=== PATIENT | female | born 2000 | race Caucasian/White ===

== ENCOUNTER 2022-12-23 11:13 | Emergency (ER) | payer OTHER ==
[2022-12-23 11:57] LABS: Absolute Lymphocytes (CBC) 1.5 K/uL (0.7-4.9); Hematocrit 34.3 % (36.0-45.0); Lymphocytes % 20.4 % (15.3-44.8); MCV 83.7 fL (80-100); MPV 7.1 fL (7.6-11.3)
[2022-12-23 12:04] LABS: Specific Gravity 1.022 (1.005-1.030); Transitional Epithelial <5 /HPF (None Seen); Urine Bacteria 20-50 /HPF (<20); Urine Bilirubin NEGATIVE (Negative); Urine Blood Negative (Negative); Urine Clarity Extremely Turbid (Clear); Urine Color Light-Yellow (Yellow); Urine Glucose NEGATIVE (Negative); Urine Protein 1+ (Negative); Urine Urobilinogen Normal (Normal)
[2022-12-23 12:30] LABS: Albumin 3.6 g/dL (3.4-5.0); Bilirubin Total 0.3 mg/dL (0.2-1.0); Potassium 3.6 mEq/L (3.5-5.1); Protein, Total 6.8 g/dL (6.4-8.2)
--- NOTE | 2022-12-23 12:43 | RAD REPORT ---
EXAM DESCRIPTION: US - Transvaginal OB - 12/23/2022 12:22 pm CLINICAL HISTORY: ABD CRAMPING, COMPARISON: No comparisons TECHNIQUE: Sonographic grayscale and color flow images of a first-trimester were obtained through transvaginal approach. FINDINGS: A single live intrauterine is identified. [place]-rump length measures 12.4 millimeters, corresponding to gestational age of 7 weeks, 3 days. Fet al heart rate: 175 BPM. Normal yolk sac is visualized. Maternal ovaries are visualized and are unremarkable. No free fluid. IMPRESSION: 1. Single live intrauterine . 2. Calculated gestational age: 7 weeks, 3 days. Estimated due date by ultrasound: 08/07/2023.
--- NOTE | 2022-12-23 12:59 | ER ---
Nurse's Notes [facility] Name: Harper Smith Age: 22 yrs Sex: Female : 2000 Arrival Date: 12/23/2022 Time: 11:13 Bed 20 Private MD: Diagnosis: Unspecified infection of urinary tract in , first trimester Presentation: 12/23 11:42 Chief complaint: Patient states: LLQ PAIN x2 WK, SENT FROM [facility] FOR R/O bp ECTOPIC. Coronavirus screen: At this time, the client does not indicate any symptoms associated with coronavirus-19. Ebola Screen: No symptoms or risks identified at this time. Initial Sepsis Screen: Does the patient meet any 2 criteria? No. Patient's initial sepsis screen is negative. Does the patient have a suspected source of infection? No. Patient's initial sepsis screen is negative. Risk Assessment: Do you want to hurt yourself or someone else? Patient reports no desire to harm self or others. Onset of symptoms is unknown. 11:42 Method Of Arrival: Ambulatory bp 11:42 Acuity: BASIL 3 bp Triage Assessment: 11:44 General: Appears in no apparent distress. Behavior is calm, cooperative, appropriate bp for age. Pain: Complains of pain in left lower quadrant. EENT: No deficits noted. Neuro: No deficits noted. Cardiovascular: No deficits noted. Respiratory: No deficits noted. GI: Reports lower abdominal pain. : Denies vaginal bleeding. Derm: No deficits noted. Musculoskeletal: No deficits noted. 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 - Social history:: Smoking status: Patient denies any tobacco usage or history of. - Family history:: not pertinent. Screenin:45 [facility] ED Fall Risk Assessment (Adult) History of falling in the last 3 months, bp including since admission No falls in past 3 months (0 pts). Abuse screen: Denies threats or abuse. Denies injuries from another. Nutritional screening: No deficits noted. Tuberculosis screening: No symptoms or risk factors identified. Assessment: 11:45 General: SEE TRIAGE NOTE. bp 13:09 Reassessment: Patient appears in no apparent distress at this time. Patient and/or iw family updated on plan of care and expected duration. Pain level reassessed. Patient is alert, oriented x 3, equal unlabored respirations, skin warm/dry/pink. Patient states feeling better. Patient states symptoms have improved. 13:11 GI: Bowel sounds. iw Vital Signs: 11:42 BP 115 / 73; Pulse 87; Resp 16; Temp 98; Pulse Ox 100% ; Weight 56.7 kg; Height 5 ft. 2 bp in. ; 13:09 BP 115 / 73; Pulse 87; Resp 16; Pulse Ox 98% on R/A; iw 11:42 Body Mass Index 22.86 (56.70 kg, 157.48 cm) bp ED Course: 11:16 Patient arrived in ED. mr 11:20 Miko Camarillo MD is Attending Physician. rt 11:44 Triage completed. bp 11:44 Arm band placed on. bp 11:45 Mecca Calderon RN is Primary Nurse. os 11:45 Patient has correct armband on for positive identification. Bed in low position. Call bp light in reach. Side rails up X2. Adult w/ patient. 11:45 Inserted saline lock: 20 gauge in right antecubital area, using aseptic technique. bp Blood collected. 12:24 US Transvaginal Ob In Process Unspecified. EDMS 13:11 No provider procedures requiring assistance completed. IV discontinued, intact, iw bleeding controlled, No redness/swelling at site. Pressure dressing applied. Administered Medications: No medications were administered Medication: 11:45 VIS not applicable for this client. bp Outcome: 12:58 Discharge ordered by . rt 13:11 Discharged to home ambulatory, with family. iw 13:11 Condition: good 13:11 Discharge instructions given to patient, family, Instructed on discharge instructions, follow up and referral plans. medication usage, Demonstrated understanding of instructions, follow-up care, medications, Prescriptions given X 1. 13:11 Patient left the ED. iw Signatures: Dispatcher MedHo Silva Crespo Kourtney Freeman, RN RN iw Benjamin Altamirano RN RN bp Miko Camarillo MD MD rt Mecca Calderon RN RN os
--- NOTE | 2022-12-23 12:59 | EDPHYS ---
Physician Documentation [facility] Name: Harper Smith Age: 22 yrs Sex: Female : 2000 Arrival Date: 12/23/2022 Time: 11:13 Bed 20 Private MD: ED Physician Miko Camarillo HPI: 12/23 12:01 This 22 yrs old Female presents to ER via Ambulatory with complaints of , rt Abdominal Cramping. 12:01 Patient is a who is currently but does not know how far along she is. rt Patient states that she had a miscarriage at the end of October, had a brief amount of vaginal spotting in November not consistent with a usual.. Patient about 1 week later had a positive test and has not seen a doctor for that. Patient states that over the past day, she has experienced left-sided abdominal pain that she describes as a contraction. She denies any ongoing vaginal bleeding, dysuria. She denies other acute complaints at this time. Symptoms are moderate severity, no other aggravating alleviating factors.. 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 - Social history:: Smoking status: Patient denies any tobacco usage or history of. - Family history:: not pertinent. ROS: 12:01 Constitutional: Negative for fever, chills, and weight loss, Cardiovascular: Negative rt for chest pain, palpitations, and edema, Respiratory: Negative for shortness of breath, cough, wheezing, and pleuritic chest pain, MS/Extremity: Negative for injury and deformity, Skin: Negative for injury, rash, and discoloration, Neuro: Negative for headache, weakness, numbness, tingling, and seizure, Psych: Negative for depression, anxiety, suicide ideation, homicidal ideation, and hallucinations. 12:01 Abdomen/GI: Positive for abdominal pain, nausea. 12:01 : Positive for Negative for burning with urination, vaginal bleeding. Exam: 12:02 Constitutional: This is a well developed, well nourished patient who is awake, alert, rt and in no acute distress. Chest/axilla: Normal chest wall appearance and motion. Nontender with no deformity. No lesions are appreciated. Cardiovascular: Regular rate and rhythm with a normal S1 and S2. No gallops, murmurs, or rubs. Normal PMI, no JVD. No pulse deficits. Respiratory: Lungs have equal breath sounds bilaterally, clear to auscultation and percussion. No rales, rhonchi or wheezes noted. No increased work of breathing, no retractions or nasal flaring. Abdomen/GI: Soft, non-tender, with normal bowel sounds. No distension or tympany. No guarding or rebound. No evidence of tenderness throughout. Skin: Warm, dry with normal turgor. Normal color with no rashes, no lesions, and no evidence of cellulitis. MS/ Extremity: Pulses equal, no cyanosis. Neurovascular intact. Full, normal range of motion. Neuro: Awake and alert, GCS 15, oriented to person, place, time, and situation. Cranial nerves II-XII grossly intact. Motor strength 5/5 in all extremities. Sensory grossly intact. Cerebellar exam normal. Normal gait. Psych: Awake, alert, with orientation to person, place and time. Behavior, mood, and affect are within normal limits. 12:03 Back: No spinal tenderness. No costovertebral tenderness. Full range of motion. rt Vital Signs: 11:42 BP 115 / 73; Pulse 87; Resp 16; Temp 98; Pulse Ox 100% ; Weight 56.7 kg; Height 5 ft. 2 bp in. ; 13:09 BP 115 / 73; Pulse 87; Resp 16; Pulse Ox 98% on R/A; iw 11:42 Body Mass Index 22.86 (56.70 kg, 157.48 cm) bp MDM: 11:21 Patient medically screened. rt 13:04 Differential diagnosis: ectopic , uti. Data reviewed: vital signs, nurses rt notes, lab test result(s), radiologic studies. Test considered but Not performed: CT: Benign abdominal examination, low suspicion for surgical pathology such as appendicitis, CT scan not indicated. Counseling: I had a detailed discussion with the patient and/or guardian regarding: the historical points, exam findings, and any diagnostic results supporting the discharge/admit diagnosis, lab results, radiology results, the need for outpatient follow up. ED course: Patient clinically does not have pyelonephritis, no CVA tenderness, labs benign.. 12/23 11:34 Order name: Abo/rh Typing; Complete Time: 12:45 rt 12/23 11:34 Order name: CBC with Diff; Complete Time: 12:45 rt 12/23 11:34 Order name: Quantitative Hcg; Complete Time: 12:45 rt 12/23 11:34 Order name: Urinalysis w/ reflexes; Complete Time: 12:45 rt 12/23 11:34 Order name: CMP; Complete Time: 12:45 rt 12/23 12:07 Order name: Urine Culture EDMS 12/23 11:34 Order name: US Transvaginal Ob; Complete Time: 12:45 rt 12/23 11:34 Order name: IV Saline Lock; Complete Time: 11:46 rt 12/23 11:34 Order name: Labs collected and sent; Complete Time: 11:46 rt 12/23 11:34 Order name: NPO; Complete Time: 11:46 rt Administered Medications: No medications were administered Disposition Summary: 12/23/22 12:58 Discharge Ordered Location: Home rt Problem: new rt Symptoms: have improved rt Condition: Stable rt Diagnosis - Unspecified infection of urinary tract in , first trimester rt Followup: rt - With: Private Physician - When: 2 - 3 days - Reason: Discharge Instructions: - Discharge Summary Sheet rt - and Urinary Tract Infection rt Forms: - Medication Reconciliation Form rt - Thank You Letter rt - Antibiotic Education rt - Prescription Opioid Use rt - The [employer] [email or web address] rt Prescriptions: - cefpodoxime 100 mg Oral Tablet - take 1 tablet by ORAL route every 12 hours for 7 days take with food; 14 rt tablet; Refills: 0, Product Selection Permitted Signatures: Dispatcher MedHoMountain View Regional Medical CenterBenjamin Silva, RN RN Miko Garcia MD MD rt
[2022-12-23 13:19] VITALS: BP 115/73; TEMP 98
[2022-12-23 13:20] VITALS: O2SAT 98
== END 2022-12-23 13:11 | disposition home or self-care (01) ==
LOC: ER 11:13
DX: O23.41 Unspecified infection of urinary tract in pregnancy, first trimester (principal); Z3A.01 Less than 8 weeks gestation of pregnancy
CPT/HCPCS: 36415; 76817; 80053; 81001; 84702; 85025; 86900; 86901; 87086; 87088; 99284

== ENCOUNTER 2023-01-18 09:30 | Emergency (ER) | payer OTHER ==
--- OUTSIDE RECORDS SUMMARY | 2023-01-18 09:33 | XMS REPORT | Continuity of Care Document ---
:2000 Author Organization [facility] t Address [address] [place] [address] [place] [id number] Care Team Providers Name Role Phone Pcp, Patient Does Not Have A Primary Care Physician +[id number] GENNY AYTES Attending Clinician Unavailable Dianna Soto RN Attending Clinician Unavailable UNKNOWN, ATTENDING Attending Clinician Unavailable Payers Payer Name Policy Type Policy Number Effective Date Expiration Date S ource Problems This patient has no known problems. Allergies, Adverse Reactions, Alerts Allergy Allergy Status Severity Reaction(s) Onset Inactive Treating Comm ents Source Name Type Date Date Clinician NO KNOWN Drug Active Univers ALLERGIE Class ity of S [facility] Social History Social Habit Start Date Stop Date Quantity Comments Source Gender identity [facility] Sex Assigned At [birth year] [facility] [place] 00:00:00 00:00:00 [facility] Smoking Status Start Date Stop Date Source Tobacco smoking consumption Univ [facility] Branch Medications Ordered Filled Start Stop Current Ordering Indication Dosage Frequency Signature Comments Components Source Medication Medication Date Date Medication? Clinician (SIG) Name Name ELOCON 0.1 Yes apply to Uni vers % TOPICAL -08 affected ity of OINT 00:00: regions 2 [place] 00 times/day Medical for 5-7 Branch days Immunizations Ordered Immunization Filled Immunization Date Status Commen ts Source Name Name Varicella 2007-12-29 Completed [facility] (varivax)(chicken 00:00:00 [facility] edical pox) Branch HEPATITIS A 2005-09-18 Completed University of 00:00:00 [facility] DTAP 2005-06-10 Completed University of 00:00:00 [facility] Pneumococcal 7 2005-06-10 Completed University of Conjugate, PCV7 00:00:00 [place] [facility] ical (Prevnar7) Branch Polio (IPV/OPV) 2005-06-10 Completed Universit y of 00:00:00 [facility] Meningococcal 2005-06-10 Completed University of Polysaccharide 00:00:00 [place] Medi noemí (groups A, C, Y and Branc h W-135) conjugate vaccine (MCV4P) HEPATITIS A 2005-02-04 Completed University of 00:00:00 [facility] DTAP 2002-10-18 Completed University of 00:00:00 [facility] Varicella 2002-10-18 Completed University of (varivax)(chicken 00:00:00 [facility] edical pox) Branch HIB 4 Dose Schedule 2002-06-11 Completed Unive rsity of 00:00:00 [facility] Polio (IPV/OPV) 2002-06-11 Completed Universit y of 00:00:00 [facility] Meningococcal 2002-06-11 Completed University of Polysaccharide 00:00:00 [place] Medi noemí (groups A, C, Y and Branc h W-135) conjugate vaccine (MCV4P) DTAP 2002-01-06 Completed University of 00:00:00 [facility] Hep B, Adol or Pedi 2002-01-06 Completed Unive rsity of Dosage 00:00:00 [facility] HIB 4 Dose Schedule 2002-01-06 Completed Unive rsity of 00:00:00 [facility] DTAP 2000 Completed University of 00:00:00 [facility] HIB 4 Dose Schedule 2001 Completed Unive rsity of 00:00:00 [facility] Pneumococcal 7 2001 Completed University of Conjugate, PCV7 00:00:00 [place] [facility] ical (Prevnar7) Branch Polio (IPV/OPV) 2001 Completed Universit y of 00:00:00 [facility] HIB 4 Dose Schedule 2001 Completed Unive rsity of 00:00:00 [facility] DTAP 2001 Completed University of 00:00:00 [facility] Hep B, Adol or Pedi 2000 Completed Unive rsity of Dosage 00:00:00 [facility] Pneumococcal 7 2001 Completed University of Conjugate, PCV7 00:00:00 [facility] ical (Prevnar7) Branch Polio (IPV/OPV) 2000 Completed Universit y of 00:00:00 [facility] Hep B, Adol or Pedi 2000 Completed Unive rsity of Dosage 00:00:00 [facility] Procedures This patient has no known procedures. Encounters Start End Encounter Admission Attending Care Care Encounter Source Date/Time Date/Time Type Type Clinicians Facility Department ID 2023-01-17 2023-01-17 Nurse JENNY Soto [id number] Univers 00:00:00 00:00:00 Triage Dianna JACOB [id number] it [facility] [id number] Esvin as [id number] [place] [id number] Branch 2021-08-01 2021-08-01 Outpatient R UNKNOWN, [facility] [id number] Univers 09:45:00 09:45:00 ATTENDING ity of [facility] Results This patient has no known results. Notes Date/Time Note Provider Source 2023-01-17 19:08:00-00:00 Formatting of this note migh t be different from the original. [facility] Triage Assessment Last Clinic Visit: 08/25/09, pedi, acute pharyngit is Primary Symptom: tachycardia Onset / Duration: today Location / Description: cardiac Pain / Severity: 4-10/30 Associated Symptoms: "breathing hard", abdominal pain Fever / Method: "I am burning up", doesn't have thermometer Hydration: eating and drinki ng less today, 8oz of fluid, last void a few min ago, denies dysuria or hematuria, has pressure with urination, reports n/v, denies diarrhea Treatment so far: denies Effect on ADL's: some Gestational Weeks: 12 wks per pt Rupture Membranes: denies Bleeding / Spotting / Pads per hour: denies Movement: NA Para / : EDC: NA Pre-existing condition / Immunocompromised: GERD Harpersheryl Smith is a 22 ye ar old female whose calling for advice with tachycardia. Pt reports has been having s/s throughout the day today. Pt reports "I feel like I am having issues with breathing". Pt reports "my heart rate ke eps speeding up". Pt reports "breathing hard". Pt reports has not eaten much today "and I feel like that makes it worse". Pt reports also has pain in lower abdomen. Pt report s went to ER for pain and co nfirmed uterine . Pt reports having white colored dc more than normal. Pt reports has pressure in abdomen with urination. Pt denies any vaginal bleeding. Assessment and triage completed per pro tocol. Patient verbalizes understanding and agrees to follow plan of care. Pt reports will go to [facility] ER. Pt reports will have to call her boyfriend home from work to ta ke her. Pt verbalized unders tanding that she needs to go now and if no one else is available to take her then she should call a ride share or EMS to transport her to the ER. Pt had no further questions or concerns. Call back advice given and pt verba lized understanding. Dianna Soto RN Reason for Disposition Difficulty breathing Protocols used: Heart Rate and Heartbeat [id number] Electronically signed by Dianna Soto RN at 0 01/17/2023 7:25 PM CDT 2023-01-17 19:08:00-00:00 Formatting of this note migh t be different from the original. [facility] Regardin weeks :5 days to 1 week feels heart rate beats fast.happened again about 5 to 10 min ago. ----- Message from Betzaida Acosta sent at 7:07 PM CDT ----- Harper Smith is a 22 year old female Electronically signed by Dianna Soto RN at 0 01/17/2023 7:08 PM CDT
[2023-01-18 10:44] LABS: Absolute Lymphocytes (CBC) 1.4 K/uL (0.7-4.9); MPV 7.3 fL (7.6-11.3); RBC Red Blood Cell Count 3.68 M/uL (3.86-4.86)
[2023-01-18 10:51] LABS: SARS-CoV-2 Antigen Rapid Res Negative (Negative)
--- NOTE | 2023-01-18 10:55 | RAD REPORT ---
EXAM DESCRIPTION: RAD - Chest Single View - 01/18/2023 10:32 am CLINICAL HISTORY: SOB Chest pain. COMPARISON: Abdomen Pelvis Wo Contrast dated 05/15/2022; Chest Abdomen Pelvis W Cont dated 3No comparisons FINDINGS: Portable technique limits examination quality. The lungs are grossly clear. The heart is normal in size. No displaced fractures. IMPRESSION: No acute intrathoracic process suspected.
[2023-01-18 11:00] LABS: BUN Blood Urea Nitrogen 9 mg/dL (7-18); Bicarbonate 26 mEq/L (21-32); Glomerular Filtration Rate 133 ml/min (=/>90); Glucose Level 94 mg/dL (74-106); Potassium 3.9 mEq/L (3.5-5.1); Sodium Level 135 mEq/L (136-145)
[2023-01-18 11:02] LABS: Troponin High Sensitivity < 3.0 pg/mL (<58.9)
--- NOTE | 2023-01-18 11:59 | RAD REPORT ---
EXAM DESCRIPTION: US - 1St Trimest Single 1St Fetus - 01/18/2023 11:47 am CLINICAL HISTORY: vaginal discharge COMPARISON: No comparisons FINDINGS: A single gestational sac is seen within the uterus. The shape of the sac is within normal limits for gestational age. Within the sac is a single pole with crown-rump length of 5.6 cm, c orrelating to estimated gestational age of 12 weeks 0 days gestational age. Estimated date of deliver y is 08/02/2023. Heart rate is 166 BPM. Placenta appears to be developing posteriorly. Small inferior subchorionic bleed 6 mm. The maternal adnexa are within normal limits. Both ovaries were obscured by bowel gas. IMPRESSION: Single live early intrauterine gestation with estimated gestational age of 12 weeks 0 da ys, OSMANI 08/02/2023. 6 mm small inferior subchorionic bleed.
--- NOTE | 2023-01-18 12:05 | EDPHYS ---
Physician Documentation [facility] Name: Harper Smith Age: 22 yrs Sex: Female : 2000 Arrival Date: 01/18/2023 Time: 09:30 Bed 13 Private MD: ED Physician Cheikh Vaughn HPI: 01/18 10:08 This 22 yrs old Female presents to ER via Ambulatory with complaints of Shortness Of aj3 Breath. 10:08 Patient is approximately 12 weeks , [id number], reporting shortness of breath for aj3 the last 5 days. She says that shortness of breath is worse with activity and while trying to talk. She had some chest pain yesterday, to the left side but has resolved now. She also noticed that she is having some change in her vaginal discharge and that is now watery. No vaginal bleeding or abdominal pain.. 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 - Social history:: Smoking status: Patient denies any tobacco usage or history of. ROS: 10:10 ENT: Negative for nasal discharge, congestion, sore throat and injury Neck: Negative aj3 for injury, pain, and swelling. 10:10 Abdomen/GI: Negative for abdominal pain, nausea, vomiting, diarrhea, and constipation, MS/Extremity: Negative for injury and deformity, Skin: Negative for injury, rash, and discoloration. 10:10 Constitutional: Positive for fever, Negative for body aches, chills. 10:10 Cardiovascular: Positive for chest pain, Negative for palpitations. 10:10 Respiratory: Positive for dyspnea on exertion, shortness of breath, Negative for cough, wheezing. 10:10 : Positive for vaginal discharge. Exam: 10:10 Constitutional: This is a well developed, well nourished patient who is awake, alert, aj3 and in no acute distress. Head/Face: Normocephalic, atraumatic. Neck: Supple, full range of motion without nuchal rigidity. Cardiovascular: Regular rate and rhythm with a normal S1 and S2. No gallops, murmurs, or rubs. Normal PMI, no JVD. No pulse deficits. Respiratory: Lungs have equal breath sounds bilaterally, clear to auscultation and percussion. No rales, rhonchi or wheezes noted. No increased work of breathing, no retractions or nasal flaring. 10:10 Chest/axilla: Palpation: tenderness, of the anterior aspect of left upper chest. 10:54 ECG was reviewed by the Attending Physician. aj3 Vital Signs: 09:41 BP 124 / 87; Pulse 84; Resp 17; Pulse Ox 100% on R/A; Weight 58.97 kg; Height 5 ft. 2 ll1 in. ; Pain 0/10; 11:55 BP 111 / 76; Pulse 74; Resp 20; Pulse Ox 100% on R/A; nj1 12:40 BP 107 / 73; Pulse 67; Resp 15; Pulse Ox 100% ; nj1 09:41 Body Mass Index 23.78 (58.97 kg, 157.48 cm) ll1 09:41 Pain Scale: Adult ll1 MDM: 09:50 Patient medically screened. aj3 10:10 Differential diagnosis: Anemia Myocardial Infarction pneumonia, Pulmonary Embolism Scad.aj3 10:10 Data reviewed: vital signs, nurses notes. aj3 11:18 ED course: Discussed current results and options to do CT PE to rule out blood clot. aj3 After discussing risks/benefits, patient currently declines and wants to wait on CT.. 12:09 Data reviewed: lab test result(s), radiologic studies, ultrasound. aj3 16:40 ED course: Patient's ED work-up is reassuring. Ultrasound did note small subchorionic aj3 hemorrhage patient was updated on these results. 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 Strict ER return precautions given if shortness of breath returns or worsens. Patient otherwise understanding of plan.. 01/18 09:51 Order name: Basic Metabolic Panel; Complete Time: 11:10 aj3 01/18 09:51 Order name: CBC with Diff; Complete Time: 10:47 01/18 09:51 Order name: Troponin HS; Complete Time: 11:10 3 01/18 09:51 Order name: Type And Screen; Complete Time: 11:10 01/18 10:09 Order name: HCG-Quantitative; Complete Time: 11:29 01/18 10:21 Order name: SARS RAPID; Complete Time: 10:56 01/18 10:21 Order name: Flu; Complete Time: 10:56 01/18 09:51 Order name: XRAY Chest (1 view); Complete Time: 10:56 01/18 11:18 Order name: US 1st Trimest Single 1st Fetus; Complete Time: 12:00 01/18 09:51 Order name: EKG; Complete Time: 09:52 01/18 09:51 Order name: Cardiac monitoring; Complete Time: 10:40 01/18 09:51 Order name: EKG - Nurse/Tech; Complete Time: 10:40 01/18 09:51 Order name: IV Saline Lock; Complete Time: 10:22 01/18 09:51 Order name: Labs collected and sent; Complete Time: 10:22 01/18 09:51 Order name: O2 Per Protocol; Complete Time: 10:22 01/18 09:51 Order name: O2 Sat Monitoring; Complete Time: 10:22 EC:34 Rate is 64 beats/min. Rhythm is regular. QRS Edmonson is Normal. AR interval is normal. QRS aj3 interval is normal. QT interval is normal. T waves are Normal. No ST changes noted. Clinical impression: Normal ECG. Interpreted by me. Reviewed by me. Administered Medications: No medications were administered Disposition: 17:28 Co-signature as Attending Physician, Cheikh ASHFORD was immediately available on-site ms3 in the Emergency Department for consultation in the care of the patient. Disposition Summary: 01/18/23 12:05 Discharge Ordered Location: Home aj3 Problem: new aj3 Symptoms: have improved aj3 Condition: Stable aj3 Diagnosis - Hemorrhage in early , unspecified aj3 - Shortness of breath aj3 Followup: aj3 - With: Private Physician - When: - Reason: Recheck today's complaints, Re-evaluation by your physician Followup: aj3 - With: Emergency Department - When: - Reason: Worsening of condition Discharge Instructions: - Discharge Summary Sheet aj3 - Subchorionic Hematoma aj3 Forms: - Medication Reconciliation Form aj3 - Thank You Letter aj3 - Antibiotic Education aj3 - Prescription Opioid Use aj3 - Patient Portal Instructions aj3 - Work release form nj1 Prescriptions: - Diclegis 10-10 mg Oral tablet, delayed release (enteric coated) - take 2 tablet by ORAL route every day at bedtime; 30 tablet; Refills: 0, aj3 Product Selection Permitted Signatures: Dispatcher [employer] Keke Munguia RN RN ll1 Cheikh Vaughn DO DO ms3 Grecia Vigil, ROSELIA SMT OPERATOR aj3
--- NOTE | 2023-01-18 12:05 | ER ---
Nurse's Notes [facility] Name: Harper Smith Age: 22 yrs Sex: Female : 2000 Arrival Date: 01/18/2023 Time: 09:30 Bed 13 Private MD: Diagnosis: Hemorrhage in early , unspecified;Shortness of breath Presentation: 01/18 09:41 Chief complaint: Patient states: SOB for 5-7 days, elevated HR. CP last night, none ll1 now. No major cough or fever. + N/V throughout the day, 12 weeks . G3, P1. Coronavirus screen: Vaccine status: Patient reports being unvaccinated. Client denies travel out of the [place] in the last 14 days. difficulty breathing, shortness of breath. Ebola Screen: Patient denies travel to an Ebola-affected area in the 21 days before illness onset. Initial Sepsis Screen: Does the patient meet any 2 criteria? No. Patient's initial sepsis screen is negative. Does the patient have a suspected source of infection? No. Patient's initial sepsis screen is negative. Risk Assessment: Do you want to hurt yourself or someone else? Patient reports no desire to harm self or others. Onset of symptoms was January 12, 2023. 09:41 Method Of Arrival: Ambulatory ll1 09:41 Acuity: BASIL 3 ll1 Triage Assessment: 09:43 General: Appears in no apparent distress. Behavior is calm, cooperative, appropriate ll1 for age. Pain: Denies pain. Cardiovascular: Reports chest pain, shortness of breath. Cardiovascular: Reports nausea, palpitations. Respiratory: Reports shortness of breath Onset: The symptoms/episode began/occurred 5-7 days, the patient has mild shortness of breath. 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 - Social history:: Smoking status: Patient denies any tobacco usage or history of. Screenin:23 [facility] ED Fall Risk Assessment (Adult) History of falling in the last 3 months, nj1 including since admission No falls in past 3 months (0 pts) Confusion or Disorientation No (0 pts) Intoxicated or Sedated No (0 pts) Impaired Gait No (0 pts) Mobility Assist Device Used No (0 pt) Altered Elimination No (0 pt) Score/Fall Risk Level 0 - 2 = Low Risk Oriented to surroundings, Maintained a safe environment, Hourly rounding (assess needs \T\ fall precautionary measures) done. Abuse screen: Denies threats or abuse. Denies injuries from another. Nutritional screening: No deficits noted. Tuberculosis screening: No symptoms or risk factors identified. Assessment: 10:15 Reassessment: See triage assessment. nj1 11:55 Reassessment: Patient appears in no apparent distress at this time. No changes from ne1 previously documented assessment. Patient and/or family updated on plan of care and expected duration. Pain level reassessed. Patient is alert, oriented x 3, equal unlabored respirations, skin warm/dry/pink. 12:40 Reassessment: Patient appears in no apparent distress at this time. Patient and/or nj1 family updated on plan of care and expected duration. Pain level reassessed. Patient is alert, oriented x 3, equal unlabored respirations, skin warm/dry/pink. Vital Signs: 09:41 BP 124 / 87; Pulse 84; Resp 17; Pulse Ox 100% on R/A; Weight 58.97 kg; Height 5 ft. 2 ll1 in. ; Pain 0/10; 11:55 BP 111 / 76; Pulse 74; Resp 20; Pulse Ox 100% on R/A; nj1 12:40 BP 107 / 73; Pulse 67; Resp 15; Pulse Ox 100% ; nj1 09:41 Body Mass Index 23.78 (58.97 kg, 157.48 cm) ll1 09:41 Pain Scale: Adult ll1 ED Course: 09:32 Patient arrived in ED. ts1 09:34 Grecia Vigil NP is PHCP. aj3 09:34 Cheikh Vaughn DO is Attending Physician. aj3 09:39 Hafsa Mcdaniel, CHERI is Primary Nurse. nj1 09:41 Arm band placed on Patient placed in an exam room, on a stretcher. ll1 09:43 Triage completed. ll1 10:15 Inserted saline lock: 22 gauge in right antecubital area, using aseptic technique. nj1 Blood collected. 10:23 Patient has correct armband on for positive identification. Bed in low position. Call nj1 light in reach. Adult w/ patient. 10:24 Provided Education on: fall precautions. nj1 10:34 XRAY Chest (1 view) In Process Unspecified. EDMS 11:49 US 1st Trimest Single 1st Fetus In Process Unspecified. EDMS 12:40 No provider procedures requiring assistance completed. IV discontinued, intact, nj1 bleeding controlled. Administered Medications: No medications were administered Medication: 12:52 VIS not applicable for this client. nj1 Outcome: 12:05 Discharge ordered by . aj3 12:40 Discharged to home ambulatory, with family. nj1 12:40 Condition: stable nj1 12:40 Discharge instructions given to patient, Instructed on discharge instructions, follow up and referral plans. medication usage, Demonstrated understanding of instructions, follow-up care, medications. 12:53 Patient left the ED. nj1 Signatures: Dispatcher [employer] EDAZ Keke Cbarera, RN RN ll1 Grecia Vigil, CRIMP SETTER CRIMP SETTER aj3 Hafsa Mcdaniel RN RN nj1 Kaylan Laird, PAS PAS ts1
[2023-01-18 13:26] VITALS: O2SAT 100
[2023-01-18 13:29] VITALS: BP 107/73
--- NOTE | 2023-01-19 13:12 | EKG ---
Test Date: 2023-01-18 Test Time: 10:34:13 Blueprint Blocker: SILVINA MEASUREMENT RESULTS: Intervals: Rate: 64 ID: [id number] QRSD: 76 QT: 404 QTc: 416 [place]: P: 53 ID: [id number] QRS: 76 T: 56 INTERPRETIVE STATEMENTS: Normal sinus rhythm Normal ECG No previous ECG available for comparison Electronically Signed On 01-19-23 13:10:32 CDT by George Smalls
== END 2023-01-18 12:53 | disposition home or self-care (01) ==
LOC: ER 09:30
DX: O20.9 Hemorrhage in early pregnancy, unspecified (principal); O26.891 Other specified pregnancy related conditions, first trimester; Z3A.12 12 weeks gestation of pregnancy; Z20.822 Contact with and (suspected) exposure to COVID-19
CPT/HCPCS: 36415; 71045; 76801; 80048; 84484; 84702; 85025; 86850; 86900; 86901; 87804; 87811; 93005; 99283

== ENCOUNTER 2023-02-12 13:49 | Emergency (ER) | payer OTHER ==
[2023-02-12 14:20] LABS: Specific Gravity > 1.030 (1.005-1.030)
[2023-02-12 14:28] LABS: Specific Gravity > 1.030 (1.005-1.030); Urine Bacteria <20 /HPF (<20); Urine Bilirubin NEGATIVE (Negative); Urine Blood Negative (Negative); Urine Clarity Extremely Turbid (Clear); Urine Color Yellow (Yellow); Urine Glucose NEGATIVE (Negative); Urine Mucus 1+ /HPF (None Seen); Urine Protein 1+ (Negative); Urine Urobilinogen Normal (Normal); Urine pH 6.5 (5.0-7.0)
--- NOTE | 2023-02-12 14:34 | RAD REPORT ---
EXAM DESCRIPTION: US - OB Limited - 02/12/2023 2:23 pm CLINICAL HISTORY: ABD PAIN Assess well-being. COMPARISON: Transvaginal OB dated 12/23/2022 FINDINGS: A limited noncontrast study was performed. A single variable presenting gestation is identified. Heart rate normal. Estimated age is 15 we eks 5 days, OSMANI 08/01/2023. Placenta is anterior without placenta previa or abruption. Normal amnioti c fluid volume.
[2023-02-12 14:47] LABS: Absolute Lymphocytes (CBC) 1.9 K/uL (0.7-4.9); Hematocrit 34.9 % (36.0-45.0); MCV 84.9 fL (80-100); MPV 7.2 fL (7.6-11.3); Platelets 347 thou/uL (152-406); RBC Red Blood Cell Count 4.11 M/uL (3.86-4.86)
[2023-02-12 14:54] LABS: Potassium 3.4 mEq/L (3.5-5.1)
--- NOTE | 2023-02-12 15:48 | EDPHYS ---
Physician Documentation [facility] Name: Harper Smith Age: 22 yrs Sex: Female : 2000 Arrival Date: 02/12/2023 Time: 13:49 Bed Treatment Private MD: ED Physician Neil Banuelos HPI: 02/12 15:32 This 22 yrs old Female presents to ER via Ambulatory with complaints of jethro Dizziness, 16 weeks , Pt. States no movement of baby. 15:32 The patient presents with dizziness. Onset: The symptoms/episode began/occurred 2 jethro day(s) ago. Modifying factors: The symptoms are alleviated by nothing, the symptoms are aggravated by nothing. 15:34 The patient presents with abdominal pain in the upper abdomen. Onset: The jethro symptoms/episode began/occurred today, yesterday. The patient presents to the emergency department with NO MOVEMENT. The estimated gestational age is 15 weeks. course: care: at a clinic. Previous pregnancies: in previous pregnancies patient has had vaginal delivery. 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 - Social history:: Smoking status: . - Family history:: not pertinent. ROS: 15:34 Constitutional: Negative for fever, chills, and weight loss, Eyes: Negative for injury, jethro pain, redness, and discharge, ENT: Negative for injury, pain, and discharge, Neck: Negative for injury, pain, and swelling, Cardiovascular: Negative for chest pain, palpitations, and edema, Respiratory: Negative for shortness of breath, cough, wheezing, and pleuritic chest pain, Back: Negative for injury and pain, : Negative for injury, bleeding, discharge, and swelling, MS/Extremity: Negative for injury and deformity, Skin: Negative for injury, rash, and discoloration, Neuro: Negative for headache, weakness, numbness, tingling, and seizure, Psych: Negative for depression, anxiety, suicide ideation, homicidal ideation, and hallucinations, Allergy/Immunology: Negative for hives, rash, and allergies, Endocrine: Negative for neck swelling, polydipsia, polyuria, polyphagia, and marked weight changes, Hematologic/Lymphatic: Negative for swollen nodes, abnormal bleeding, and unusual bruising. 15:34 Abdomen/GI: Positive for abdominal pain, abdominal distension. Exam: 15:34 Constitutional: This is a well developed, well nourished patient who is awake, alert, jethro and in no acute distress. Head/Face: Normocephalic, atraumatic. Eyes: Pupils equal round and reactive to light, extra-ocular motions intact. Lids and lashes normal. Conjunctiva and sclera are non-icteric and not injected. Cornea within normal limits. Periorbital areas with no swelling, redness, or edema. ENT: Nares patent. No nasal discharge, no septal abnormalities noted. Tympanic membranes are normal and external auditory canals are clear. Oropharynx with no redness, swelling, or masses, exudates, or evidence of obstruction, uvula midline. Mucous membranes moist. Neck: Trachea midline, no thyromegaly or masses palpated, and no cervical lymphadenopathy. Supple, full range of motion without nuchal rigidity, or vertebral point tenderness. No Meningismus. Chest/axilla: Normal chest wall appearance and motion. Nontender with no deformity. No lesions are appreciated. Cardiovascular: Regular rate and rhythm with a normal S1 and S2. No gallops, murmurs, or rubs. Normal PMI, no JVD. No pulse deficits. Respiratory: Lungs have equal breath sounds bilaterally, clear to auscultation and percussion. No rales, rhonchi or wheezes noted. No increased work of breathing, no retractions or nasal flaring. Abdomen/GI: Soft, non-tender, with normal bowel sounds. No distension or tympany. No guarding or rebound. No evidence of tenderness throughout. Back: No spinal tenderness. No costovertebral tenderness. Full range of motion. Skin: Warm, dry with normal turgor. Normal color with no rashes, no lesions, and no evidence of cellulitis. MS/ Extremity: Pulses equal, no cyanosis. Neurovascular intact. Full, normal range of motion. Neuro: Awake and alert, GCS 15, oriented to person, place, time, and situation. Cranial nerves II-XII grossly intact. Motor strength 5/5 in all extremities. Sensory grossly intact. Cerebellar exam normal. Normal gait. Psych: Awake, alert, with orientation to person, place and time. Behavior, mood, and affect are within normal limits. 15:34 Abdomen/GI: Inspection: gravid appearance, is noted, Bowel sounds: normal, Palpation: nontender, in all quadrants, Liver: is firm, Hernia: not appreciated. Vital Signs: 15:02 BP 116 / 62; Pulse 80; Resp 16; Temp 98.1; Pulse Ox 100% on R/A; iw MDM: 14:29 Patient medically screened. [facility] 15:36 Differential diagnosis: generalized weakness, idiopathic dizziness, . jethro Differential diagnosis: non-specific abd pain, Pyelonephritis, urinary tract infection. Data reviewed: vital signs, nurses notes, lab test result(s), radiologic studies, ultrasound. Consideration of Admission/Observation Escalation of care including admission/observation considered. I considered the following discharge prescriptions or medication management in the emergency department Medications were administered in the Emergency Department. See MAR. Independent interpretation of the following test(s) in the Emergency Department Radiology Department Ultrasound: My interpretation is . Test considered but Not performed: EKG: NO EKG. Historians other than the Patient: Spouse/Significant Other: , WELL INFORMED. Care significantly affected by the following chronic conditions: ASTHMA. Counseling: I had a detailed discussion with the patient and/or guardian regarding the historical points, exam findings, and any diagnostic results supporting the discharge/admit diagnosis, lab results, radiology results, the need for outpatient follow up, for definitive care, an OB/Gyne specialist. 02/12 14:03 Order name: Abo/rh Typing; Complete Time: 15:28 [facility] 02/12 14:03 Order name: Basic Metabolic Panel; Complete Time: 15:28 [facility] 02/12 14:03 Order name: CBC with Diff; Complete Time: 15:28 [facility] 02/12 14:03 Order name: Test, Urine; Complete Time: 15:28 [facility] 02/12 14:03 Order name: Urinalysis w/ reflexes; Complete Time: 15:28 [facility] 02/12 14:35 Order name: Urine Culture [facility] 02/12 14:03 Order name: US OB Limited; Complete Time: 15:28 [facility] 02/12 14:03 Order name: IV Saline Lock; Complete Time: 14:42 [facility] 02/12 14:03 Order name: Labs collected and sent; Complete Time: 14:35 [facility] 02/12 14:03 Order name: NPO; Complete Time: 14:42 [facility] 02/12 15:28 Order name: PO challenge: JUICE jethro Administered Medications: 15:57 Drug: NS 0.9% IV 1000 ml Route: IV; Rate: 1 bolus; Site: left antecubital; cm10 16:30 Follow up: IV Status: Completed infusion iw 15:57 Drug: Potassium PO Effervescent Tablet 25 mEq Route: PO; cm10 16:15 Follow up: Response: No adverse reaction iw 15:57 Drug: Rocephin IV 1 grams Route: IV; Rate: per protocol; Site: left antecubital; cm10 16:30 Follow up: IV Status: Completed infusion iw Disposition Summary: 02/12/23 15:47 Discharge Ordered Location: Home jethro Problem: new jethro Symptoms: have improved jethro Condition: Stable jethro Diagnosis - Dizziness and giddiness jethro - UTI/ Urinary tract infection, site not specified jethro - Hypokalemia jethro Followup: jethro - With: Private Physician - When: 2 - 3 days - Reason: Recheck today's complaints, Continuance of care, Re-evaluation by your physician Discharge Instructions: - Discharge Summary Sheet jethro - Potassium Content of Foods jethro - Dizziness jethro - Dysuria jethor - Urinary Tract Infection, Adult jethro - Urinary Tract Infection, Adult, [id number] jethro - Second Trimester of jethro - Second Trimester of , [id number] jethro - Hypokalemia jethro - Dizziness, [id number] jethro Forms: - Medication Reconciliation Form [facility] - Thank You Letter jethro - Antibiotic Education jethro - Prescription Opioid Use jethro - Patient Portal Instructions jethro - Leadership Thank You Letter [facility] Prescriptions: - Cephalexin 500 mg Oral Capsule - take 1 capsule by ORAL route every 8 hours for 7 days; 21 capsule; Refills: 0, jethro Product Selection Permitted Signatures: Dispatcher [employer] Neil Swartz MD MD cha Williams, Irene, RN RN Maame Singh RN RN cm10
--- NOTE | 2023-02-12 15:48 | ER ---
[facility] Notes [facility] Name: Harper Smith Age: 22 yrs Sex: Female : 2000 Arrival Date: 02/12/2023 Time: 13:49 Bed Treatment Private MD: Diagnosis: Dizziness and giddiness;UTI/ Urinary tract infection, site not specified;Hypokalemia Presentation: 02/12 15:00 Chief complaint: Patient states: she felt the baby move a couple days ago but did not iw feel it today, she's also been having left abd pain. Coronavirus screen: At this time, the client does not indicate any symptoms associated with coronavirus-19. Ebola Screen: Patient negative for fever greater than or equal to 101.5 degrees Fahrenheit, and additional compatible Ebola Virus Disease symptoms Patient denies exposure to infectious person. Patient denies travel to an Ebola-affected area in the 21 days before illness onset. No symptoms or risks identified at this time. Onset of symptoms was February 12, 2023. 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 - Social history:: Smoking status: . - Family history:: not pertinent. Screenin:42 [facility] ED Fall Risk Assessment (Adult) Score/Fall Risk Level 0 - 2 = Low Risk. Abuse iw screen: Denies threats or abuse. Denies injuries from another. Nutritional screening: No deficits noted. Tuberculosis screening: No symptoms or risk factors identified. Assessment: 16:41 Reassessment: Patient appears in no apparent distress at this time. Patient and/or iw family updated on plan of care and expected duration. Pain level reassessed. Patient is alert, oriented x 3, equal unlabored respirations, skin warm/dry/pink. Vital Signs: 15:02 BP 116 / 62; Pulse 80; Resp 16; Temp 98.1; Pulse Ox 100% on R/A; ED Course: 13:52 Patient arrived in ED. im 14:02 Neil Banuelos MD is Attending Physician. [facility] 14:16 Urinalysis w/ reflexes Sent. bc6 14:16 Test, Urine Sent. bc6 14:25 US OB Limited In Process Unspecified. EDMS 14:30 Missed attempt(s): 22 gauge in right antecubital area. bc6 14:35 Urine Culture Sent. bc6 14:35 Abo/rh Typing Sent. bc6 14:35 Basic Metabolic Panel Sent. bc6 14:35 CBC with Diff Sent. bc6 14:43 Inserted saline lock: 22 gauge in left antecubital area, using aseptic technique. bc6 15:02 Triage completed. iw 15:02 Arm band placed on. iw 16:41 Kourtney Freeman, RN is Primary Nurse. iw Administered Medications: 15:57 Drug: NS 0.9% IV 1000 ml Route: IV; Rate: 1 bolus; Site: left antecubital; cm10 16:30 Follow up: IV Status: Completed infusion iw 15:57 Drug: Potassium PO Effervescent Tablet 25 mEq Route: PO; cm10 16:15 Follow up: Response: No adverse reaction iw 15:57 Drug: Rocephin IV 1 grams Route: IV; Rate: per protocol; Site: left antecubital; cm10 16:30 Follow up: IV Status: Completed infusion iw Outcome: 15:47 Discharge ordered by . [facility] 16:42 Discharged to home ambulatory, with family. iw 16:42 Condition: good 16:42 Discharge instructions given to patient, family, Instructed on discharge instructions, follow up and referral plans. medication usage, Demonstrated understanding of instructions, follow-up care, medications, Prescriptions given X 1. 16:42 Patient left the ED. iw Signatures: Dispatcher [employer] Neil Swartz MD MD cha Williams, Irene, RN RN iw Kiley Melendez 6 Nikkie Mckinney Clarissa, RN RN cm10
[2023-02-12] MEDS ORDERED: POTASSIUM 25 MEQ EFFERV TAB ONE (16:00)
[2023-02-12] MEDS ORDERED: CEFTRIAXONE 1000 MG/VIAL ONE (16:00)
[2023-02-12] MEDS ORDERED: NA CHLORIDE 0.9% 50 ML ONE (16:00)
[2023-02-12] MEDS ORDERED: NA CHLORIDE 0.9% 1,000 ML ONE (16:01)
[2023-02-12 17:14] VITALS: BP 116/62; TEMP 98.1; O2SAT 100
== END 2023-02-12 16:42 | disposition home or self-care (01) ==
LOC: ER 13:49
DX: O23.42 Unspecified infection of urinary tract in pregnancy, second trimester (principal); N39.0 Urinary tract infection, site not specified; O99.282 Endocrine, nutritional and metabolic diseases complicating pregnancy, second trimester; E87.6 Hypokalemia; Z3A.15 15 weeks gestation of pregnancy
CPT/HCPCS: 87088; 85025; 81001; 87086; 80048; 36415; 86900; 81025; 86901; 76815; J7030; J0696

== ENCOUNTER 2023-04-19 21:24 | Emergency (ER) | payer OTHER ==
--- OUTSIDE RECORDS SUMMARY | 2023-04-19 21:31 | XMS REPORT | Continuity of Care Document ---
:2000 Author Organization [facility] t Address [address] [place] [address] Care Team Providers Name Role Phone PCP, PATIENT DOES NOT HAVE A Primary Care Physician Unavaila ZINA Hernández Attending Clinician Unavailable Asmita Zina GEE Attending Clinician [phone] KISHAN RADER Attending Clinician Unavailable Kishan Rader MD Attending Clinician Jahaira Ragland RN Attending Clinician Unavailable GOGO EVANGELISTA Attending Clinician Unavailable GOGO EVANGELISTA Attending Clinician Unavailable Ultrasound, Ang-Mfm Attending Clinician Unavailable Gogo Evangelista MD Attending Clinician Doctor Unassigned, [place] Attending Clinician Unavailable BATOOL SARAVIA Attending Clinician Unavailable MARICARMEN HORNER Attending Clinician Unavailable Maricarmen Horner DO Attending Clinician Batool Saravia CNM Attending Clinician Dianna Soto RN Attending Clinician Unavailable UNKNOWN, ATTENDING Attending Clinician Unavailable Payers Payer Name Policy Type Policy Number Effective Date Expiration Date S moon [facility] DONALD [id number] 2023 00:00:00 MIMIPAULA PRESLEY [id number] 2022 00:00:00 Problems Condition Condition Condition Status Onset Resolution Last Treating Co mments Source Name Details Category Date Date Treatment Clinician Date Other Other Disease Active 2022-06 Univers depression depression 0-20 it y of 00:00: Medical Branch Susceptibl Susceptibl Disease Active Overview : Univers e e 02-27 Formattin ity of varicella varicella 00:00: [place] of this [place] 00 note Medical might be Branch different from the original. Address pp Supervisio Supervisio Disease Active U nivers n of n of 02-26 ity of high-risk high[place] [facility] [place] Multiparit Multiparit Disease Active U nivers y y 02-26 ity of 00:00: [place] [facility] History of History of Disease Active U nivers miscarriag miscarriag 02-26 it y of e e 00:00: Medical Branch History of History of Disease Active Overview : Univers depression depression 02-26 Formattin ity of 00:00: g of this [place] note Medical might be Branch different from the original. Not on meds in years UTI in UTI in Disease Active Overview: Univer s 02-26 Formattin i ty of 00:00: g of this [place] note Medical might be Branch different from the original. did not complete meds Tobacco Tobacco Disease Active Overview: Univ ers use in use in 02-26 Formattin ity of 00:00: g of this [place] note Medical might be Branch different from the original. Reports quit in october History of History of Disease Active Overview : Univers marijuana marijuana 02-26 Formattin i ty of use use 00:00: g of this [place] note Medical might be Branch different from the original. Reports quit Allergies, Adverse Reactions, Alerts Allergy Allergy Status Severity Reaction(s) Onset Inactive Treating Comm ents Source Name Type Date Date Clinician NO KNOWN Drug Active Univers ALLERGIE Class ity of S [place] [facility] Social History Social Habit Start Date Stop Date Quantity Comments Source ASSERTION 2022-11-08 University of 00:00:00 [facility] Gender identity Universit y of [facility] Sexual orientation Univer sity of [facility] History of Social 2023-04-11 2023-04-11 Univers ity of function 00:00:00 00:00:00 [facility] Tobacco use and 2023-02-26 2023-02-26 Smokeless Universit y of exposure 00:00:00 00:00:00 tobacco non-user [facility] dical [place] Alcohol intake 2023-02-26 2023-02-26 Ex-drinker [facility] 00:00:00 00:00:00 (finding) [facility] History of tobacco 2022-10-21 Cigarette Smoker University of use 00:00:00 [facility] Sex Assigned At [birth year] Universit y of 00:00:00 00:00:00 [facility] Smoking Status Start Date Stop Date Source Tobacco smoking [facility] xa consumption unknown Medical [facility] ch Ex-smoker 2023-02-26 00:00:00 2023-02-26 University o f [place] 00:00:00 [facility] Medications Ordered Filled Start Stop Current Ordering Indication Dosage Frequency Signature Comments Components Source Medication Medication Date Date Medication? Clinician (SIG) Name Name SERTraline 2022-06 Yes [id number] 50mg Take 1 Univers (ZOLOFT) 50 0-20 tablet by ity of mg tablet 00:[place] the Medical morning. Branch COMPLETE Yes [id number] EVERY DAY Univers DHA 9-25 IN THE ity of 29 mg iron- 00:00: MORNING [place] 1 mg-200 mg 00 Medical combo pack Branch COMPLETE Yes [id number] EVERY DAY Univers DHA 9-25 IN THE ity of 29 mg iron- 00:00: MORNING [place] 1 mg-200 mg 00 Medical combo pack Branch COMPLETE Yes [id number] EVERY DAY Univers DHA 9-25 IN THE ity of 29 mg iron- 00:00: MORNING [place] 1 mg-200 mg 00 Medical combo pack Branch COMPLETE Yes [id number] EVERY DAY Univers DHA 9-25 IN THE ity of 29 mg iron- 00:00: MORNING [place] 1 mg-200 mg 00 Medical combo pack Branch Yes [id number] 1{tbl} Take 1 U nivers [id number]- 9-22 tablet by ity of folic acid 00:00: mouth in [place] 29 mg iron- 00 the Medical 1 mg per morning. Branch tablet PRENATA Yes [id number] 1{tbl} TAKE 1 Univers mg iron- 1 03-14 TABLET BY ity of mg per 00:00: MOUTH [place] tablet 00 EVERY DAY Medical IN THE Branch MORNING PRENATA 29 2022- No [id number] 1{tbl} TAKE 1 Univers mg iron- 1 03-14 TABLET BY ity of mg per 00:00: 00:00 MOUTH [place] tablet 00 :00 EVERY DAY Medical IN THE Branch MORNING fluconazole 2022- Yes [id number] 150mg Take 1 Univers (DIFLUCAN) 03-14 tablet by ity of 150 mg 00:00: 04:59 [place] tablet 00 :00 PRN for Medical Itching Branch for up to 1 dose. fluconazole 2022- Yes [id number] 150mg Take 1 Univers (DIFLUCAN) 03-14 tablet by ity of 150 mg 00:00: 04:59 [place] tablet 00 :00 PRN for Medical Itching Branch for up to 1 dose. 2022- No [id number] 1{tbl} Take 1 Univers [id number]- 03-14 tablet by it y of folic acid 00:00: 00:00 [place] 29 mg iron- 00 :00 the Medical 1 mg per morning. Branch tablet Nitrofurant 2022- Yes [id number] 100mg Take 1 Univers oin&Nit. 03-03 capsule by ity of Macrocryst 00:00: 04:59 [place] (MACROBID) 00 :00 the Medical 100 mg morning Branch capsule and 1 capsule in the evening. Do all this for 10 days. Nitrofurant 2022- Yes [id number] 100mg Take 1 Univers oin&Nit. 03-03 capsule by ity of Macrocryst 00:00: 04:59 [place] (MACROBID) 00 :00 the Medical 100 mg morning Branch capsule and 1 capsule in the evening. Do all this for 10 days. Yes [id number] 1{tbl} Take 1 U nivers [id number]- 02-26 tablet by ity of folic acid 00:00: mouth in [place] 29 mg iron- 00 the Medical 1 mg per morning. Branch tablet Yes [id number] 1{tbl} Take 1 U nivers [id number]-yova- 9-06 tablet by ity of folic acid 00:00: mouth in [place] 29 mg iron- 00 the Medical 1 mg per morning. Branch tablet Yes [id number] 1{tbl} Take 1 U nivers [id number]- 9-06 tablet by ity of folic acid 00:00: mouth in [place] 29 mg iron- 00 the Medical 1 mg per morning. Branch tablet Yes [id number] 1{tbl} Take 1 U nivers [id number]- 9-06 tablet by ity of folic acid 00:00: mouth in [place] 29 mg iron- 00 the Medical 1 mg per morning. Branch tablet Yes [id number] 1{tbl} Take 1 U nivers [id number]- 9-06 tablet by ity of folic acid 00:00: mouth in [place] 29 mg iron- 00 the Medical 1 mg per morning. Branch tablet Yes [id number] 1{tbl} Take 1 U nivers [id number]- 9-06 tablet by ity of folic acid 00:00: mouth in [place] 29 mg iron- 00 the Medical 1 mg per morning. Branch tablet Yes [id number] 1{tbl} Take 1 U nivers [id number]-[id number]- 9-06 tablet by ity of folic acid 00:00: mouth in [place] 29 mg iron- 00 the Medical 1 mg per morning. Branch tablet Yes [id number] 1{tbl} Take 1 U nivers [id number]- 9-06 tablet by ity of folic acid 00:00: mouth in [place] 29 mg iron- 00 the Medical 1 mg per morning. Branch tablet Yes [id number] 1{tbl} Take 1 U nivers [id number]-[id number]- 9-06 tablet by ity of folic acid 00:00: mouth in [place] 29 mg iron- 00 the Medical 1 mg per morning. Branch tablet 2022- No [id number] 1{tbl} Take 1 Univers [id number]-[id number]- 9-06 - tablet by it y of folic acid 00:00: 00:00 [place] 29 mg iron- 00 :00 the Medical 1 mg per morning. Branch tablet terconazole 2022- Yes [id number] 80mg Insert 1 Univers 80 mg 02-2610 Suppositor ity of vaginal 00:00: 04:59 y into [place] suppository 00 :00 vagina at [facility] for 3 days. terconazole 2022- Yes [id number] 80mg Insert 1 Univers 80 mg 02-2610 Suppositor ity of vaginal 00:00: 04:59 y into [place] suppository 00 :00 vagina at [facility] for 3 days. terconazole 2022- Yes [id number] 80mg Insert 1 Univers 80 mg 02-2610 Suppositor ity of vaginal 00:00: 04:59 y into [place] suppository 00 :00 vagina at [facility] for 3 days. terconazole 2022- Yes [id number] 80mg Insert 1 Univers 80 mg 02-2610 Suppositor ity of vaginal 00:00: 04:59 y into [place] suppository 00 :00 vagina at [facility] for 3 days. terconazole 2022- Yes [id number] 80mg Insert 1 Univers 80 mg 02-2610 Suppositor ity of vaginal 00:00: 04:59 y into [place] suppository 00 :00 vagina at [facility] for 3 days. terconazole 2022- Yes [id number] 80mg Insert 1 Univers 80 mg 02-2610 Suppositor ity of vaginal 00:00: 04:59 y into [place] suppository 00 :00 vagina at [facility] for 3 days. terconazole 2022- Yes [id number] 80mg Insert 1 Univers 80 mg 02-2610 Suppositor ity of vaginal 00:00: 04:59 y into [place] suppository 00 :00 vagina at [facility] for 3 days. ondansetron 2022- No [id number] 4mg 4 mg, Slow Univers (ZOFRAN 01-22 IV Push, ity of (PF)) 20:30: 19:39 ONCE, 1 [place] injection 4 00 :00 dose, On Medi noemí mg Fri01/22/23 Branch at 1530, Routine NaCl 0.9% 2022- No [id number] 500mL at 999 Univers (NS) bolus 01-22 mL/hr, 500 it y of infusion 19:30: 20:25 mL, IV [place] 500 mL 00 :00 Infusion, Medical ONCE, 1 Branch dose, On Fri01/22/23 at 1430, STAT cephALEXin 2022- Yes [id number] 500mg Take 1 Univers (KEFLEX) 01-22 capsule by ity of 500 mg 00:00: 04:59 mouth in [place] capsule 00 :00 the Medical morning Branch and 1 capsule at noon and 1 capsule in the evening. Do all this for 7 days. DICLEGIS Yes TAKE 2 Univers 10-10 mg 7-29 TABLETS BY ity o f per tablet 00:00: MOUTH [place] 00 EVERY DAY Medical AT [facility] FOR NAUSEA. DICLEGIS Yes TAKE 2 Univers 10-10 mg 7-29 TABLETS BY ity o f per tablet 00:00: MOUTH [place] 00 [facility] [place] [facility] DICLEGIS Yes TAKE 2 Univers 10-10 mg 7-29 TABLETS BY ity o f per tablet 00:00: MOUTH [place] 00 EVERY DAY Medical AT BEDTIME [place] FOR NAUSEA. DICLEGIS Yes TAKE 2 Univers 10-10 mg 7-29 TABLETS BY ity o f per tablet 00:00: MOUTH [place] 00 [facility] DAY [facility] [place] [facility]. DICLEGIS Yes TAKE 2 Univers 10-10 mg 7-29 TABLETS BY ity o f per tablet 00:00: MOUTH [place] 00 EVERY DAY Medical AT BEDTIME [place] FOR NAUSEA. DICLEGIS Yes TAKE 2 Univers 10-10 mg 7-29 TABLETS BY ity o f per tablet 00:00: MOUTH [place] 00 EVERY DAY Medical AT BEDTIME [place] FOR NAUSEA. DICLEGIS Yes TAKE 2 Univers 10-10 mg 7-29 TABLETS BY ity o f per tablet 00:00: MOUTH [place] 00 EVERY DAY Medical AT BEDTIME [place] FOR NAUSEA. DICLEGIS 0 Yes TAKE 2 Univers 10-10 mg 7-29 TABLETS BY ity o f per tablet 00:00: MOUTH [place] 00 EVERY DAY Medical AT [facility] FOR NAUSEA. DICLEGIS 0 Yes TAKE 2 Univers 10-10 mg 7-29 TABLETS BY ity o f per tablet 00:00: MOUTH [place] 00 EVERY DAY Medical AT [facility] FOR NAUSEA. DICLEGIS 0 Yes TAKE 2 Univers 10-10 mg 7-29 TABLETS BY ity o f per tablet 00:00: MOUTH [place] 00 EVERY DAY Medical AT [facility] FOR NAUSEA. DICLEGIS Yes TAKE 2 Univers 10-10 mg 7-29 TABLETS BY ity o f per tablet 00:00: MOUTH [place] 00 EVERY DAY Medical AT [facility] FOR NAUSEA. DICLEGIS Yes TAKE 2 Univers 10-10 mg 7-29 TABLETS BY ity o f per tablet 00:00: MOUTH [place] 00 EVERY DAY Medical AT [facility] FOR NAUSEA. DICLEGIS Yes TAKE 2 Univers 10-10 mg 7-29 TABLETS BY ity o f per tablet 00:00: MOUTH [place] 00 EVERY DAY Medical AT [facility] FOR NAUSEA. DICLEGIS 0 Yes TAKE 2 Univers 10-10 mg 7-29 TABLETS BY ity o f per tablet 00:00: MOUTH [place] 00 EVERY DAY Medical AT [facility] FOR NAUSEA. DICLEGIS 0 Yes TAKE 2 Univers 10-10 mg 7-29 TABLETS BY ity o f per tablet 00:00: MOUTH [place] 00 EVERY DAY Medical AT [facility] FOR NAUSEA. DICLEGIS 0 Yes TAKE 2 Univers 10-10 mg 7-29 TABLETS BY ity o f per tablet 00:00: MOUTH [place] 00 EVERY DAY Medical AT [facility] FOR NAUSEA. omeprazole 2022-0 Yes Univers 20 mg 7-20 ity of capsule 00:00: [place] [facility] omeprazole 2022-0 Yes Univers 20 mg 7-20 ity of capsule 00:00: [facility] omeprazole 2022-0 Yes Univers 20 mg 7-20 ity of capsule 00:00: [place] [facility] omeprazole 2022-0 Yes Univers 20 mg 7-20 ity of capsule 00:00: [place] [facility] omeprazole 2023-0 Yes Univers 20 mg 7-20 ity of capsule 00:00: [place] [facility] omeprazole 2023-0 Yes Univers 20 mg 7-20 ity of capsule 00:00: [place] [facility] omeprazole 2023-0 Yes Univers 20 mg 7-20 ity of capsule 00:00: [place] [facility] omeprazole 2023-0 Yes Univers 20 mg 7-20 ity of capsule 00:00: [place] [address] Medical Branch omeprazole 2023-0 Yes Univers 20 mg 7-20 ity of capsule 00:00: [place] [address] Medical Branch omeprazole 2023-0 Yes Univers 20 mg 7-20 ity of capsule 00:00: [place] [address] Medical Branch omeprazole 2023-0 Yes Univers 20 mg 7-20 ity of capsule 00:00: [place] [address] Medical Branch omeprazole 2023-0 Yes Univers 20 mg 7-20 ity of capsule 00:00: [place] [address] Medical Branch omeprazole 2023-0 Yes Univers 20 mg 7-20 ity of capsule 00:00: [place] [address] Medical Branch omeprazole 2023-0 Yes Univers 20 mg 7-20 ity of capsule 00:00: [place] [facility] omeprazole 2023-0 Yes Univers 20 mg 7-20 ity of capsule 00:00: [place] [address] Medical Branch omeprazole 2023-0 Yes Univers 20 mg 7-20 ity of capsule 00:00: [place] [facility] cefpodoxime 2023-0 Yes TAKE 1 Univ ers 100 mg 7-03 TABLET BY ity of tablet 00:00: MOUTH [place] EVERY 12 Medical HOURS FOR Branch 7 DAYS. TAKE WITH FOOD. cefpodoxime 2023-0 Yes TAKE 1 Univ ers 100 mg 7-03 TABLET BY ity of tablet 00:00: MOUTH [place] EVERY 12 Medical HOURS FOR Branch 7 DAYS. TAKE WITH FOOD. cefpodoxime 2023-0 Yes TAKE 1 Univ ers 100 mg 7-03 TABLET BY ity of tablet 00:00: MOUTH [place] EVERY 12 Medical HOURS FOR Branch 7 DAYS. TAKE WITH FOOD. cefpodoxime 2023-0 Yes TAKE 1 Univ ers 100 mg 7-03 TABLET BY ity of tablet 00:00: MOUTH [place] [address] EVERY 12 Medical HOURS FOR Branch 7 DAYS. TAKE WITH FOOD. cefpodoxime 2023-0 Yes TAKE 1 Univ ers 100 mg 7-03 TABLET BY ity of tablet 00:00: MOUTH [place] 00 EVERY 12 Medical HOURS FOR Branch 7 DAYS. TAKE WITH FOOD. cefpodoxime 2023-0 Yes TAKE 1 Univ ers 100 mg 7-03 TABLET BY ity of tablet 00:00: MOUTH [place] 00 EVERY 12 Medical HOURS FOR Branch 7 DAYS. TAKE WITH FOOD. cefpodoxime 2023-0 Yes TAKE 1 Univ ers 100 mg 7-03 TABLET BY ity of tablet 00:00: MOUTH [place] 00 EVERY 12 Medical HOURS FOR Branch 7 DAYS. TAKE WITH FOOD. cefpodoxime 2023-0 Yes TAKE 1 Univ ers 100 mg 7-03 TABLET BY ity of tablet 00:00: MOUTH [place] 00 EVERY 12 Medical HOURS FOR Branch 7 DAYS. TAKE WITH FOOD. cefpodoxime 2023-0 Yes TAKE 1 Univ ers 100 mg 7-03 TABLET BY ity of tablet 00:00: MOUTH [place] 00 EVERY 12 Medical HOURS FOR Branch 7 DAYS. TAKE WITH FOOD. cefpodoxime 2023-0 Yes TAKE 1 Univ ers 100 mg 7-03 TABLET BY ity of tablet 00:00: MOUTH [place] 00 EVERY 12 Medical HOURS FOR Branch 7 DAYS. TAKE WITH FOOD. cefpodoxime 2023-0 Yes TAKE 1 Univ ers 100 mg 7-03 TABLET BY ity of tablet 00:00: MOUTH [place] 00 EVERY 12 Medical HOURS FOR Branch 7 DAYS. TAKE WITH FOOD. cefpodoxime 2023-0 Yes TAKE 1 Univ ers 100 mg 7-03 TABLET BY ity of tablet 00:00: MOUTH [place] 00 EVERY 12 Medical HOURS FOR Branch 7 DAYS. TAKE WITH FOOD. cefpodoxime 2023-0 Yes TAKE 1 Univ ers 100 mg 7-03 TABLET BY ity of tablet 00:00: MOUTH [place] 00 EVERY 12 Medical HOURS FOR Branch 7 DAYS. TAKE WITH FOOD. cefpodoxime 2023-0 Yes TAKE 1 Univ ers 100 mg 7-03 TABLET BY ity of tablet 00:00: MOUTH [place] 00 EVERY 12 Medical HOURS FOR Branch 7 DAYS. TAKE WITH FOOD. cefpodoxime 2023-0 Yes TAKE 1 Univ ers 100 mg 7-03 TABLET BY ity of tablet 00:00: MOUTH [place] 00 EVERY 12 Medical HOURS FOR Branch 7 DAYS. TAKE WITH FOOD. cefpodoxime 2023-0 Yes TAKE 1 Univ ers 100 mg 7-03 TABLET BY ity of tablet 00:00: MOUTH [place] 00 EVERY 12 Medical HOURS FOR Branch 7 DAYS. TAKE WITH FOOD. ELOCON 0.1 2009- Yes apply to Uni vers % TOPICAL 2-08 affected ity of OINT 00:00: regions 2 [place] 00 times/day Medical for 5-7 Branch days ELOCON 0.1 Yes apply to Uni vers % TOPICAL 2-08 affected ity of OINT 00:00: regions 2 [place] 00 times/day Medical for 5-7 Branch days ELOCON 0.1 Yes apply to Uni vers % TOPICAL 2-08 affected ity of OINT 00:00: regions 2 [place] 00 times/day Medical for 5-7 Branch days ELOCON 0.1 Yes apply to Uni vers % TOPICAL 2-08 affected ity of OINT 00:00: regions [address] [place] [address] 00 times/day Medical for 5-7 Branch days ELOCON 0.1 Yes apply to Uni vers % TOPICAL 2-08 affected ity of OINT 00:00: regions [address] [place] [address] 00 times/day Medical for 5-7 Branch days ELOCON 0.1 Yes apply to Uni vers % TOPICAL 2-08 affected ity of OINT 00:00: regions [address] [place] [address] 00 times/day Medical for 5-7 Branch days ELOCON 0.1 Yes apply to Uni vers % TOPICAL 2-08 affected ity of OINT 00:00: [address] 00 times/day Medical for 5-7 Branch days ELOCON 0.1 Yes apply to Uni vers % TOPICAL 2-08 affected ity of OINT 00:00: [facility] 2 [place] 00 times/day Medical for 5-7 Branch days ELOCON 0.1 Yes apply to Uni vers % TOPICAL 2-08 affected ity of OINT 00:00: [address] 00 times/day Medical for 5-7 Branch days ELOCON 0.1 Yes apply to Uni vers % TOPICAL 2-08 affected ity of OINT 00:00: regions 2 [place] 00 times/day Medical for 5-7 Branch days ELOCON 0.1 Yes apply to Uni vers % TOPICAL 2-08 affected ity of OINT 00:00: regions [address] [place] [address] 00 times/day Medical for 5-7 Branch days ELOCON 0.1 Yes apply to Uni vers % TOPICAL 2-08 affected ity of OINT 00:00: [place] [address] [place] 00 times/day Medical for 5-7 Branch days ELOCON 0.1 2009-0 Yes apply to Uni vers % TOPICAL 2-08 affected ity of OINT 00:00: regions 2 [place] 00 times/day Medical for 5-7 Branch days ELOCON 0.1 2009-0 Yes apply to Uni vers % TOPICAL 2-08 affected ity of OINT 00:00: regions 2 [place] 00 times/day Medical for 5-7 Branch days ELOCON 0.1 2009-0 Yes apply to Uni vers % TOPICAL 2-08 affected ity of OINT 00:00: regions 2 [place] 00 times/day Medical for 5-7 Branch days ELOCON 0.1 2009-0 Yes apply to Uni vers % TOPICAL 2-08 affected ity of OINT 00:00: regions 2 [place] 00 times/day Medical for 5-7 Branch days ELOCON 0.1 2009-0 Yes apply to Uni vers % TOPICAL 2-08 affected ity of OINT 00:00: regions 2 [place] 00 times/day Medical for 5-7 Branch days ELOCON 0.1 2009-0 Yes apply to Uni vers % TOPICAL 2-08 affected ity of OINT 00:00: regions 2 [place] 00 times/day Medical for 5-7 Branch days ELOCON 0.1 2009-0 Yes apply to Uni vers % TOPICAL 2-08 affected ity of OINT 00:00: regions 2 [place] 00 times/day Medical for 5-7 Branch days ELOCON 0.1 0 Yes apply to Uni vers % TOPICAL 2-08 affected ity of OINT 00:00: regions 2 [place] 00 times/day Medical for 5-7 Branch days Immunizations Ordered Immunization Filled Date Status Comments Sour ce Name Immunization Name Varicella 2007-12-29 Completed [facility] (varivax)(chicken 00:00:00 [place] M edical pox) Branch Varicella 2007-12-29 Completed [facility] (varivax)(chicken 00:00:00 [place] M edical pox) Branch Varicella 2007-12-29 Completed [facility] (varivax)(chicken 00:00:00 [place] M edical pox) Branch Varicella 2007-12-29 Completed [facility] (varivax)(chicken 00:00:00 [place] M edical pox) Branch Varicella 2007-12-29 Completed [facility] (varivax)(chicken 00:00:00 [place] M edical pox) Branch Varicella 2007-12-29 Completed University of (varivax)(chicken 00:00:00 [place] M edical pox) Branch Varicella 2007-12-29 Completed University of (varivax)(chicken 00:00:00 [place] M edical pox) Branch Varicella 2007-12-29 Completed University of (varivax)(chicken 00:00:00 [place] M edical pox) Branch Varicella 2007-12-29 Completed University of (varivax)(chicken 00:00:00 [place] M edical pox) Branch Varicella 2007-12-29 Completed University of (varivax)(chicken 00:00:00 [place] M edical pox) Branch Varicella 2007-12-29 Completed University of (varivax)(chicken 00:00:00 [place] M edical pox) Branch Varicella 2007-12-29 Completed University of (varivax)(chicken 00:00:00 [place] M edical pox) Branch Varicella 2007-12-29 Completed University of (varivax)(chicken 00:00:00 [place] M edical pox) Branch HEPATITIS A 2005-09-18 Completed University of 00:00:00 [place] [facility] HEPATITIS A 2005-09-18 Completed University of 00:00:00 [place] [facility] HEPATITIS A 2005-09-18 Completed University of 00:00:00 [place] [facility] HEPATITIS A 2005-09-18 Completed University of 00:00:00 [place] [facility] HEPATITIS A 2005-09-18 Completed University of 00:00:00 [place] [facility] HEPATITIS A 2005-09-18 Completed University of 00:00:00 [facility] HEPATITIS A 2005-09-18 Completed University of 00:00:00 [facility] HEPATITIS A 2005-09-18 Completed University of 00:00:00 [facility] HEPATITIS A 2005-09-18 Completed University of 00:00:00 [facility] HEPATITIS A 2005-09-18 Completed University of 00:00:00 [facility] HEPATITIS A 2005-09-18 Completed University of 00:00:00 [facility] HEPATITIS A 2005-09-18 Completed University of 00:00:00 [facility] HEPATITIS A 2005-09-18 Completed University of 00:00:00 [facility] DTAP 2005-06-10 Completed University of 00:00:00 [place] [facility] Pneumococcal 7 2005-06-10 Completed University of Conjugate, PCV7 00:00:00 [facility] ical (Prevnar7) Branch Polio (IPV/OPV) 2005-06-10 Completed Universit y of 00:00:00 [place] [facility] Meningococcal 2005-06-10 Completed University of Polysaccharide 00:00:00 [place] Medi noemí (groups A, C, Y and Branc h W-135) conjugate vaccine (MCV4P) DTAP 2005-06-10 Completed University of 00:00:00 [facility] Pneumococcal 7 2005-06-10 Completed University of Conjugate, PCV7 00:00:00 [place] Med ical (Prevnar7) Branch DTAP 2005-06-10 Completed University of 00:00:00 [facility] Polio (IPV/OPV) 2005-06-10 Completed Universit y of 00:00:00 [place] [facility] Meningococcal 2005-06-10 Completed University of Polysaccharide 00:00:00 [place] Medi noemí (groups A, C, Y and Branc h W-135) conjugate vaccine (MCV4P) DTAP 2005-06-10 Completed University of 00:00:00 [place] [facility] Pneumococcal 7 2005-06-10 Completed University of Conjugate, PCV7 00:00:00 [place] Med ical (Prevnar7) Branch Polio (IPV/OPV) 2005-06-10 Completed Universit y of 00:00:00 [place] [facility] Meningococcal 2005-06-10 Completed University of Polysaccharide 00:00:00 [place] Medi noemí (groups A, C, Y and Branc h W-135) conjugate vaccine (MCV4P) DTAP 2005-06-10 Completed University of 00:00:00 [place] [facility] Pneumococcal 7 2005-06-10 Completed University of Conjugate, PCV7 00:00:00 [facility] (Prevnar7) [facility] Pneumococcal 7 2005-06-10 Completed [facility] Conjugate, PCV7 00:00:00 [facility] (Prevnar7) [facility] Polio (IPV/OPV) 2005-06-10 Completed [facility] 00:00:00 [facility] Meningococcal 2005-06-10 Completed [facility] of Polysaccharide 00:00:00 [facility] (groups A, C, Y and Branc h W-135) conjugate vaccine (MCV4P) DTAP 2005-06-10 Completed [facility] of 00:00:00 [facility] Pneumococcal 7 2005-06-10 Completed [facility] of Conjugate, PCV7 00:00:00 [facility] (Prevnar7) [facility] Polio (IPV/OPV) 2005-06-10 Completed [facility] 00:00:00 [facility] Polio (IPV/OPV) 2005-06-10 Completed [facility] 00:00:00 [facility] Meningococcal 2005-06-10 Completed [facility] Polysaccharide 00:00:00 [facility] (groups A, C, Y and Branc h W-135) conjugate vaccine (MCV4P) DTAP 2005-06-10 Completed [facility] of 00:00:00 [facility] Pneumococcal 7 2005-06-10 Completed [facility] Conjugate, PCV7 00:00:00 [facility] (Prevnar7) [facility] Polio (IPV/OPV) 2005-06-10 Completed [facility] 00:00:00 [facility] Meningococcal 2005-06-10 Completed [facility] Polysaccharide 00:00:00 [facility] (groups A, C, Y and Branc h W-135) conjugate vaccine (MCV4P) Meningococcal 2005-06-10 Completed [facility] Polysaccharide 00:00:00 [facility] (groups A, C, Y and Branc h W-135) conjugate vaccine (MCV4P) DTAP 2005-06-10 Completed [facility] of 00:00:00 [facility] Pneumococcal 7 2005-06-10 Completed [facility] of Conjugate, PCV7 00:00:00 [facility] ical (Prevnar7) Branch Polio (IPV/OPV) 2005-06-10 Completed [facility]it [facility] of 00:00:00 [facility] Meningococcal 2005-06-10 Completed [facility] Polysaccharide 00:00:00 [facility] [place] [facility] (groups A, C, Y and Branc h W-135) conjugate vaccine (MCV4P) DTAP 2005-06-10 Completed [facility] of 00:00:00 [facility] Pneumococcal 7 2005-06-10 Completed [facility] of Conjugate, PCV7 00:00:00 [facility] (Prevnar7) [facility] Polio (IPV/OPV) 2005-06-10 Completed [facility] 00:00:00 [facility] Meningococcal 2005-06-10 Completed [facility] Polysaccharide 00:00:00 [facility] (groups A, C, Y and Branc h W-135) conjugate vaccine (MCV4P) DTAP 2005-06-10 Completed [facility] of 00:00:00 [facility] Pneumococcal 7 2005-06-10 Completed [facility] Conjugate, PCV7 00:00:00 [facility] (Prevnar7) [facility] Polio (IPV/OPV) 2005-06-10 Completed [facility] 00:00:00 [facility] Meningococcal 2005-06-10 Completed [facility] Polysaccharide 00:00:00 [facility] [place] [facility] (groups A, C, Y and Branc h W-135) conjugate vaccine (MCV4P) DTAP 2005-06-10 Completed [facility] of 00:00:00 [facility] Pneumococcal 7 2005-06-10 Completed [facility] of Conjugate, PCV7 00:00:00 [facility] ical (Prevnar7) Branch Polio (IPV/OPV) 2005-06-10 Completed [facility]it [facility] of 00:00:00 [facility] Meningococcal 2005-06-10 Completed [facility] of Polysaccharide 00:00:00 [facility] noemí (groups A, C, Y and Branc h W-135) conjugate vaccine (MCV4P) DTAP 2005-06-10 Completed [facility] of 00:00:00 [facility] Pneumococcal 7 2005-06-10 Completed [facility] of Conjugate, PCV7 00:00:00 [facility] ical (Prevnar7) Branch DTAP 2005-06-10 Completed [facility] of 00:00:00 [facility] Polio (IPV/OPV) 2005-06-10 Completed [facility] of 00:00:00 [facility] Meningococcal 2005-06-10 Completed [facility] of Polysaccharide 00:00:00 [facility] noemí (groups A, C, Y and Branc h W-135) conjugate vaccine (MCV4P) Pneumococcal 7 2005-06-10 Completed [facility] of Conjugate, PCV7 00:00:00 [facility] ical (Prevnar7) Branch Polio (IPV/OPV) 2005-06-10 Completed [facility]it [facility] of 00:00:00 [facility] Meningococcal 2005-06-10 Completed [facility] Polysaccharide 00:00:00 [facility] [place] [facility] (groups A, C, Y and Branc h W-135) conjugate vaccine (MCV4P) HEPATITIS A 2005-02-04 Completed [facility] of 00:00:00 [facility] HEPATITIS A 2005-02-04 Completed [facility] of 00:00:00 [facility] HEPATITIS A 2005-02-04 Completed [facility] of 00:00:00 [facility] HEPATITIS A 2005-02-04 Completed [facility] of 00:00:00 [facility] HEPATITIS A 2005-02-04 Completed [facility] of 00:00:00 [facility] HEPATITIS A 2005-02-04 Completed [facility] of 00:00:00 [facility] HEPATITIS A 2005-02-04 Completed [facility] of 00:00:00 [facility] HEPATITIS A 2005-02-04 Completed [facility] of 00:00:00 [facility] HEPATITIS A 2005-02-04 Completed [facility] of 00:00:00 [facility] HEPATITIS A 2005-02-04 Completed [facility] of 00:00:00 [facility] HEPATITIS A 2005-02-04 Completed [facility] of 00:00:00 [facility] HEPATITIS A 2005-02-04 Completed [facility] of 00:00:00 [facility] HEPATITIS A 2005-02-04 Completed [facility] of 00:00:00 [facility] Varicella 2002-10-18 Completed [facility] of (varivax)(chicken 00:00:00 [facility] pox) [facility] DTAP 2002-10-18 Completed [facility] of 00:00:00 [facility] DTAP 2002-10-18 Completed [facility] of 00:00:00 [facility] Varicella 2002-10-18 Completed [facility] (varivax)(chicken 00:00:00 [facility] pox) [facility] DTAP 2002-10-18 Completed [facility] of 00:00:00 [facility] Varicella 2002-10-18 Completed [facility] (varivax)(chicken 00:00:00 [facility] pox) [facility] DTAP 2002-10-18 Completed [facility] of 00:00:00 [facility] Varicella 2002-10-18 Completed [facility] (varivax)(chicken 00:00:00 [facility] pox) [facility] DTAP 2002-10-18 Completed [facility] of 00:00:00 [facility] Varicella 2002-10-18 Completed [facility] (varivax)(chicken 00:00:00 [facility] pox) [facility] DTAP 2002-10-18 Completed [facility] 00:00:00 [facility] Varicella 2002-10-18 Completed [facility] (varivax)(chicken 00:00:00 [facility] pox) [facility] Varicella 2002-10-18 Completed [facility] (varivax)(chicken 00:00:00 [facility] pox) [facility] DTAP 2002-10-18 Completed [facility] of 00:00:00 [facility] Varicella 2002-10-18 Completed [facility] (varivax)(chicken 00:00:00 [facility] pox) [facility] DTAP 2002-10-18 Completed [facility] of 00:00:00 [facility] Varicella 2002-10-18 Completed [facility] (varivax)(chicken 00:00:00 [facility] pox) [facility] DTAP 2002-10-18 Completed [facility] 00:00:00 [facility] Varicella 2002-10-18 Completed [facility] (varivax)(chicken 00:00:00 [facility] pox) [facility] DTAP 2002-10-18 Completed [facility] of 00:00:00 [facility] Varicella 2002-10-18 Completed [facility] (varivax)(chicken 00:00:00 [facility] pox) [facility] DTAP 2002-10-18 Completed [facility] of 00:00:00 [facility] DTAP 2002-10-18 Completed [facility] of 00:00:00 [facility] Varicella 2002-10-18 Completed [facility] of (varivax)(chicken 00:00:00 [facility] pox) [facility] Varicella 2002-10-18 Completed [facility] of (varivax)(chicken 00:00:00 [facility] pox) [facility] DTAP 2002-10-18 Completed [facility] of 00:00:00 [facility] HIB 4 Dose Schedule 2002-06-11 Completed Unive rsity of 00:00:00 [facility] Polio (IPV/OPV) 2002-06-11 Completed [facility]it [facility] of 00:00:00 [facility] Meningococcal 2002-06-11 Completed [facility] Polysaccharide 00:00:00 [facility] [place] [facility] (groups A, C, Y and Branc h W-135) conjugate vaccine (MCV4P) HIB 4 Dose Schedule 2002-06-11 Completed Unive rsity of 00:00:00 [facility] Polio (IPV/OPV) 2002-06-11 Completed [facility] of 00:00:00 [facility] Meningococcal 2002-06-11 Completed [facility] Polysaccharide 00:00:00 [facility] [place] [facility] (groups A, C, Y and Branc h W-135) conjugate vaccine (MCV4P) HIB 4 Dose Schedule 2002-06-11 Completed Unive rsity of 00:00:00 [facility] Polio (IPV/OPV) 2002-06-11 Completed [facility] of 00:00:00 [facility] Meningococcal 2002-06-11 Completed [facility] Polysaccharide 00:00:00 [facility] (groups A, C, Y and Branc h W-135) conjugate vaccine (MCV4P) HIB 4 Dose Schedule 2002-06-11 Completed Unive rsity of 00:00:00 [facility] HIB 4 Dose Schedule 2002-06-11 Completed Unive rsity of 00:00:00 [facility] Polio (IPV/OPV) 2002-06-11 Completed [facility] of 00:00:00 [facility] Meningococcal 2002-06-11 Completed [facility] of Polysaccharide 00:00:00 [facility] [place] [facility] (groups A, C, Y and Branc h W-135) conjugate vaccine (MCV4P) Polio (IPV/OPV) 2002-06-11 Completed [facility] of 00:00:00 [facility] HIB 4 Dose Schedule 2002-06-11 Completed Unive rsity of 00:00:00 [facility] Polio (IPV/OPV) 2002-06-11 Completed [facility] of 00:00:00 [facility] Meningococcal 2002-06-11 Completed [facility] of Polysaccharide 00:00:00 [facility] noemí (groups A, C, Y and Branc h W-135) conjugate vaccine (MCV4P) HIB 4 Dose Schedule 2002-06-11 Completed Unive rsity of 00:00:00 [facility] Meningococcal 2002-06-11 Completed University of Polysaccharide 00:00:00 [facility] noemí (groups A, C, Y and Branc h W-135) conjugate vaccine (MCV4P) Polio (IPV/OPV) 2002-06-11 Completed [facility]it [facility] of 00:00:00 [facility] Meningococcal 2002-06-11 Completed [facility] of Polysaccharide 00:00:00 [facility] noemí (groups A, C, Y and Branc h W-135) conjugate vaccine (MCV4P) HIB 4 Dose Schedule 2002-06-11 Completed Unive rsity of 00:00:00 [facility] Polio (IPV/OPV) 2002-06-11 Completed [facility] of 00:00:00 [facility] Meningococcal 2002-06-11 Completed [facility] of Polysaccharide 00:00:00 [facility] noemí (groups A, C, Y and Branc h W-135) conjugate vaccine (MCV4P) HIB 4 Dose Schedule 2002-06-11 Completed Unive rsity of 00:00:00 [facility] Polio (IPV/OPV) 2002-06-11 Completed [facility] of 00:00:00 [facility] Meningococcal 2002-06-11 Completed [facility] Polysaccharide 00:00:00 [facility] (groups A, C, Y and Branc h W-135) conjugate vaccine (MCV4P) HIB 4 Dose Schedule 2002-06-11 Completed Unive rsity of 00:00:00 [facility] Polio (IPV/OPV) 2002-06-11 Completed [facility] of 00:00:00 [facility] Meningococcal 2002-06-11 Completed [facility] Polysaccharide 00:00:00 [facility] (groups A, C, Y and Branc h W-135) conjugate vaccine (MCV4P) HIB 4 Dose Schedule 2002-06-11 Completed Unive rsity of 00:00:00 [facility] Polio (IPV/OPV) 2002-06-11 Completed [facility] of 00:00:00 [facility] Meningococcal 2002-06-11 Completed [facility] of Polysaccharide 00:00:00 [facility] [place] [facility] (groups A, C, Y and Branc h W-135) conjugate vaccine (MCV4P) HIB 4 Dose Schedule 2002-06-11 Completed Unive rsity of 00:00:00 [facility] Polio (IPV/OPV) 2002-06-11 Completed [facility] of 00:00:00 [facility] Meningococcal 2002-06-11 Completed [facility] of Polysaccharide 00:00:00 [facility] (groups A, C, Y and Branc h W-135) conjugate vaccine (MCV4P) HIB 4 Dose Schedule 2002-06-11 Completed Unive rsity of 00:00:00 [facility] Polio (IPV/OPV) 2002-06-11 Completed [facility] of 00:00:00 [facility] Meningococcal 2002-06-11 Completed [facility] of Polysaccharide 00:00:00 [facility] (groups A, C, Y and Branc h W-135) conjugate vaccine (MCV4P) Hep B, Adol or Pedi 2002-01-06 Completed Unive rsity of Dosage 00:00:00 [facility] HIB 4 Dose Schedule 2002-01-06 Completed Unive rsity of 00:00:00 [facility] DTAP 2002-01-06 Completed University of 00:00:00 [facility] DTAP 2002-01-06 Completed [facility] 00:00:00 [facility] Hep B, Adol or Pedi 2002-01-06 Completed Unive rsity of Dosage 00:00:00 [facility] HIB 4 Dose Schedule 2002-01-06 Completed Unive rsity of 00:00:00 [facility] Hep B, Adol or Pedi 2002-01-06 Completed Unive rsity of Dosage 00:00:00 [facility] DTAP 2002-01-06 Completed [facility] of 00:00:00 [facility] Hep B, Adol or Pedi 2002-01-06 Completed Unive rsity of Dosage 00:00:00 [facility] HIB 4 Dose Schedule 2002-01-06 Completed Unive rsity of 00:00:00 [facility] HIB 4 Dose Schedule 2002-01-06 Completed Unive rsity of 00:00:00 [facility] DTAP 2002-01-06 Completed [facility] of 00:00:00 [facility] Hep B, Adol or Pedi 2002-01-06 Completed Unive rsity of Dosage 00:00:00 [facility] HIB 4 Dose Schedule 2002-01-06 Completed Unive rsity of 00:00:00 [facility] DTAP 2002-01-06 Completed [facility] of 00:00:00 [facility] Hep B, Adol or Pedi 2002-01-06 Completed Unive rsity of Dosage 00:00:00 [facility] HIB 4 Dose Schedule 2002-01-06 Completed Unive rsity of 00:00:00 [facility] DTAP 2002-01-06 Completed [facility] of 00:00:00 [facility] Hep B, Adol or Pedi 2002-01-06 Completed Unive rsity of Dosage 00:00:00 [facility] HIB 4 Dose Schedule 2002-01-06 Completed Unive rsity of 00:00:00 [facility] DTAP 2002-01-06 Completed [facility] of 00:00:00 [facility] Hep B, Adol or Pedi 2002-01-06 Completed Unive rsity of Dosage 00:00:00 [facility] HIB 4 Dose Schedule 2002-01-06 Completed Unive rsity of 00:00:00 [facility] DTAP 2002-01-06 Completed [facility] of 00:00:00 [facility] Hep B, Adol or Pedi 2002-01-06 Completed Unive rsity of Dosage 00:00:00 [facility] HIB 4 Dose Schedule 2002-01-06 Completed Unive rsity of 00:00:00 [facility] DTAP 2002-01-06 Completed [facility] of 00:00:00 [facility] Hep B, Adol or Pedi 2002-01-06 Completed Unive rsity of Dosage 00:00:00 [facility] HIB 4 Dose Schedule 2002-01-06 Completed Unive rsity of 00:00:00 [facility] DTAP 2002-01-06 Completed [facility] of 00:00:00 [facility] Hep B, Adol or Pedi 2002-01-06 Completed Unive rsity of Dosage 00:00:00 [facility] HIB 4 Dose Schedule 2002-01-06 Completed Unive rsity of 00:00:00 [facility] DTAP 2002-01-06 Completed [facility] of 00:00:00 [facility] DTAP 2002-01-06 Completed [facility] of 00:00:00 [facility] Hep B, Adol or Pedi 2002-01-06 Completed Unive rsity of Dosage 00:00:00 [facility] HIB 4 Dose Schedule 2002-01-06 Completed Unive rsity of 00:00:00 [facility] Hep B, Adol or Pedi 2002-01-06 Completed Unive rsity of Dosage 00:00:00 [facility] HIB 4 Dose Schedule 2002-01-06 Completed Unive rsity of 00:00:00 [facility] DTAP 2002-01-06 Completed [facility] of 00:00:00 [facility] HIB 4 Dose Schedule 2001 Completed Unive rsity of 00:00:00 [facility] Pneumococcal 7 2001 Completed University of Conjugate, PCV7 00:00:00 [facility] (Prevnar7) [facility] Polio (IPV/OPV) 2001 Completed Universit y of 00:00:00 [facility] DTAP 2001 Completed [facility] of 00:00:00 [facility] DTAP 2001 Completed [facility] of 00:00:00 [facility] HIB 4 Dose Schedule 2001 Completed Unive rsity of 00:00:00 [facility] Pneumococcal 7 2001 Completed [facility] of Conjugate, PCV7 00:00:00 [facility] (Prevnar7) [facility] Polio (IPV/OPV) 2001 Completed [facility] y of 00:00:00 [facility] DTAP 2001 Completed [facility] of 00:00:00 [facility] HIB 4 Dose Schedule 2001 Completed Unive rsity of 00:00:00 [facility] HIB 4 Dose Schedule 2001 Completed Unive rsity of 00:00:00 [facility] Pneumococcal 7 2001 Completed [facility] of Conjugate, PCV7 00:00:00 [facility] (Prevnar7) [facility] Polio (IPV/OPV) 2001 Completed [facility]it [facility] of 00:00:00 [facility] Pneumococcal 7 2001 Completed [facility] of Conjugate, PCV7 00:00:00 [facility] (Prevnar7) [facility] DTAP 2001 Completed [facility] of 00:00:00 [facility] HIB 4 Dose Schedule 2001 Completed Unive rsity of 00:00:00 [facility] Pneumococcal 7 2001 Completed [facility] of Conjugate, PCV7 00:00:00 [facility] ical (Prevnar7) Branch Polio (IPV/OPV) 2001 Completed [facility]it y of 00:00:00 [facility] Polio (IPV/OPV) 2001 Completed [facility]it y of 00:00:00 [facility] DTAP 2001 Completed [facility] of 00:00:00 [facility] HIB 4 Dose Schedule 2001 Completed Unive rsity of 00:00:00 [facility] Pneumococcal 7 2001 Completed University of Conjugate, PCV7 00:00:00 [facility] ical (Prevnar7) Branch Polio (IPV/OPV) 2001 Completed Universit y of 00:00:00 [facility] DTAP 2001 Completed [facility] of 00:00:00 [facility] HIB 4 Dose Schedule 2001 Completed Unive rsity of 00:00:00 [facility] Pneumococcal 7 2001 Completed [facility] of Conjugate, PCV7 00:00:00 [facility] (Prevnar7) [facility] Polio (IPV/OPV) 2001 Completed [facility] of 00:00:00 [facility] DTAP 2001 Completed [facility] of 00:00:00 [facility] HIB 4 Dose Schedule 2001 Completed Unive rsity of 00:00:00 [facility] Pneumococcal 7 2001 Completed [facility] of Conjugate, PCV7 00:00:00 [facility] (Prevnar7) [facility] Polio (IPV/OPV) 2001 Completed [facility] of 00:00:00 [facility] DTAP 2001 Completed [facility] of 00:00:00 [facility] HIB 4 Dose Schedule 2001 Completed Unive rsity of 00:00:00 [facility] Pneumococcal 7 2001 Completed [facility] of Conjugate, PCV7 00:00:00 [facility] (Prevnar7) [facility] Polio (IPV/OPV) 2001 Completed [facility] of 00:00:00 [facility] DTAP 2001 Completed [facility] of 00:00:00 [facility] HIB 4 Dose Schedule 2001 Completed Unive rsity of 00:00:00 [facility] Pneumococcal 7 2001 Completed [facility] of Conjugate, PCV7 00:00:00 [facility] ica (Prevnar7) Branch Polio (IPV/OPV) 2001 Completed Universit y of 00:00:00 [facility] DTAP 2001 Completed [facility] of 00:00:00 [facility] HIB 4 Dose Schedule 2001 Completed Unive rsity of 00:00:00 [facility] Pneumococcal 7 2001 Completed [facility] of Conjugate, PCV7 00:00:00 [facility] ical (Prevnar7) Branch Polio (IPV/OPV) 2001 Completed [facility] of 00:00:00 [facility] DTAP 2001 Completed [facility] of 00:00:00 [facility] DTAP 2001 Completed [facility] of 00:00:00 [facility] HIB 4 Dose Schedule 2001 Completed Unive rsity of 00:00:00 [facility] Pneumococcal 7 2001 Completed [facility] of Conjugate, PCV7 00:00:00 [facility] (Prevnar7) [facility] Polio (IPV/OPV) 2001 Completed [facility]it [facility] of 00:00:00 [facility] HIB 4 Dose Schedule 2001 Completed Unive rsity of 00:00:00 [facility] Pneumococcal 7 2001 Completed [facility] Conjugate, PCV7 00:00:00 [facility] (Prevnar7) [facility] Polio (IPV/OPV) 2001 Completed [facility]it y of 00:00:00 [facility] DTAP 2001 Completed [facility] of 00:00:00 [facility] HIB 4 Dose Schedule 2001 Completed Unive rsity of 00:00:00 [facility] HIB 4 Dose Schedule 2001 Completed Unive rsity of 00:00:00 [facility] HIB 4 Dose Schedule 2001 Completed Unive rsity of 00:00:00 [facility] HIB 4 Dose Schedule 2001 Completed Unive rsity of 00:00:00 [facility] HIB 4 Dose Schedule 2001 Completed Unive rsity of 00:00:00 [facility] HIB 4 Dose Schedule 2001 Completed Unive rsity of 00:00:00 [facility] HIB 4 Dose Schedule 2001 Completed Unive rsity of 00:00:00 [facility] HIB 4 Dose Schedule 2001 Completed Unive rsity of 00:00:00 [facility] HIB 4 Dose Schedule 2001 Completed Unive rsity of 00:00:00 [facility] HIB 4 Dose Schedule 2001 Completed Unive rsity of 00:00:00 [facility] HIB 4 Dose Schedule 2001 Completed Unive rsity of 00:00:00 [facility] HIB 4 Dose Schedule 2001 Completed Unive rsity of 00:00:00 [facility] HIB 4 Dose Schedule 2001 Completed Unive rsity of 00:00:00 [facility] Hep B, Adol or Pedi 2001 Completed Unive rsity of Dosage 00:00:00 [facility] Pneumococcal 7 2001 Completed [facility] of Conjugate, PCV7 00:00:00 [facility] (Prevnar7) [facility] Polio (IPV/OPV) 2001 Completed [facility]it [facility] of 00:00:00 [facility] DTAP 2001 Completed [facility] of 00:00:00 [facility] DTAP 2001 Completed [facility] of 00:00:00 [facility] Hep B, Adol or Pedi 2001 Completed Unive rsity of Dosage 00:00:00 [facility] Pneumococcal 7 2001 Completed [facility] of Conjugate, PCV7 00:00:00 [facility] (Prevnar7) [facility] Polio (IPV/OPV) 2001 Completed [facility] 00:00:00 [facility] Hep B, Adol or Pedi 2001 Completed Unive rsity of Dosage 00:00:00 [facility] DTAP 2001 Completed [facility] of 00:00:00 [facility] Hep B, Adol or Pedi 2001 Completed Unive rsity of Dosage 00:00:00 [facility] Pneumococcal 7 2001 Completed [facility] of Conjugate, PCV7 00:00:00 [facility] (Prevnar7) [facility] Polio (IPV/OPV) 2001 Completed [facility]it [facility] of 00:00:00 [facility] Pneumococcal 7 2001 Completed [facility] of Conjugate, PCV7 00:00:00 [facility] ical (Prevnar7) Branch DTAP 2001 Completed [facility] of 00:00:00 [facility] Hep B, Adol or Pedi 2001 Completed Unive rsity of Dosage 00:00:00 [facility] Pneumococcal 7 2001 Completed [facility] of Conjugate, PCV7 00:00:00 [facility] ical (Prevnar7) Branch Polio (IPV/OPV) 2001 Completed [facility]it [facility] of 00:00:00 [facility] Polio (IPV/OPV) 2001 Completed [facility] of 00:00:00 [facility] DTAP 2001 Completed [facility] of 00:00:00 [facility] Hep B, Adol or Pedi 2001 Completed Unive rsity of Dosage 00:00:00 [facility] Pneumococcal 7 2001 Completed [facility] of Conjugate, PCV7 00:00:00 [facility] ical (Prevnar7) Branch Polio (IPV/OPV) 2001 Completed [facility]it [facility] of 00:00:00 [facility] DTAP 2001 Completed [facility] of 00:00:00 [facility] Hep B, Adol or Pedi 2001 Completed Unive rsity of Dosage 00:00:00 [facility] Pneumococcal 7 2001 Completed [facility] of Conjugate, PCV7 00:00:00 [facility] (Prevnar7) [facility] Polio (IPV/OPV) 2001 Completed Universit [facility] of 00:00:00 [facility] DTAP 2001 Completed [facility] of 00:00:00 [facility] Hep B, Adol or Pedi 2001 Completed Unive rsity of Dosage 00:00:00 [facility] Pneumococcal 7 2001 Completed [facility] of Conjugate, PCV7 00:00:00 [facility] (Prevnar7) [facility] Polio (IPV/OPV) 2001 Completed Universit y of 00:00:00 [facility] DTAP 2001 Completed University of 00:00:00 [facility] Hep B, Adol or Pedi 2001 Completed Unive rsity of Dosage 00:00:00 [facility] Pneumococcal 7 2001 Completed University of Conjugate, PCV7 00:00:00 [facility] ical (Prevnar7) Branch Polio (IPV/OPV) 2001 Completed Universit y of 00:00:00 [facility] DTAP 2001 Completed University of 00:00:00 [facility] Hep B, Adol or Pedi 2001 Completed Unive rsity of Dosage 00:00:00 [facility] Pneumococcal 7 2001 Completed University of Conjugate, PCV7 00:00:00 [facility] ical (Prevnar7) Branch Polio (IPV/OPV) 2001 Completed Universit y of 00:00:00 [facility] DTAP 2001 Completed University of 00:00:00 [facility] Hep B, Adol or Pedi 2001 Completed Unive rsity of Dosage 00:00:00 [facility] DTAP 2001 Completed University of 00:00:00 [facility] Pneumococcal 7 2001 Completed University of Conjugate, PCV7 00:00:00 [facility] (Prevnar7) Branch Polio (IPV/OPV) 2001 Completed Universit y of 00:00:00 [facility] DTAP 2001 Completed University of 00:00:00 [facility] Hep B, Adol or Pedi 2001 Completed Unive rsity of Dosage 00:00:00 [facility] Pneumococcal 7 2001 Completed University of Conjugate, PCV7 00:00:00 [facility] [place] [facility] (Prevnar7) Branch Polio (IPV/OPV) 2001 Completed Universit y of 00:00:00 [facility] Hep B, Adol or Pedi 2001 Completed Unive rsity of Dosage 00:00:00 [facility] Pneumococcal 7 2001 Completed University of Conjugate, PCV7 00:00:00 [facility] [place] [facility] (Prevnar7) Branch Polio (IPV/OPV) 2001 Completed Universit y of 00:00:00 [facility] DTAP 2001 Completed University of 00:00:00 [facility] Hep B, Adol or Pedi 2001 Completed Unive rsity of Dosage 00:00:00 [facility] Hep B, Adol or Pedi 2001 Completed Unive rsity of Dosage 00:00:00 [facility] Hep B, Adol or Pedi 2001 Completed Unive rsity of Dosage 00:00:00 [facility] Hep B, Adol or Pedi 2001 Completed Unive rsity of Dosage 00:00:00 [facility] Hep B, Adol or Pedi 2001 Completed Unive rsity of Dosage 00:00:00 [facility] Hep B, Adol or Pedi 2001 Completed Unive rsity of Dosage 00:00:00 [facility] Hep B, Adol or Pedi 2001 Completed Unive rsity of Dosage 00:00:00 [facility] Hep B, Adol or Pedi 2001 Completed Unive rsity of Dosage 00:00:00 [facility] Hep B, Adol or Pedi 2001 Completed Unive rsity of Dosage 00:00:00 [facility] Hep B, Adol or Pedi 2001 Completed Unive rsity of Dosage 00:00:00 [facility] Hep B, Adol or Pedi 2001 Completed Unive rsity of Dosage 00:00:00 [facility] Hep B, Adol or Pedi 2001 Completed Unive rsity of Dosage 00:00:00 [facility] Hep B, Adol or Pedi 2001 Completed Unive rsity of Dosage 00:00:00 [facility] DTAP Unknown Completed [facility] DTAP Unknown Completed [facility] DTAP Unknown Completed [facility] DTAP Unknown Completed [facility] DTAP Unknown Completed [facility] Hep B, Adol or Pedi Unknown Completed Unive rsity of Dosage [facility] Hep B, Adol or Pedi Unknown Completed Unive rsity of Dosage [facility] Hep B, Adol or Pedi Unknown Completed Unive rsity of Dosage [facility] HIB 4 Dose Schedule [facility] D[facility] Dose [facility] Dose Schedule Unknown Completed Unive [facility] Pneumococcal 7 Unknown Completed [facility] Conjugate, PCV7 [facility] ical (Prevnar7) Branch Pneumococcal 7 Unknown Completed [facility] Conjugate, PCV7 [facility] ical (Prevnar7) Branch Pneumococcal 7 Unknown Completed [facility] Conjugate, PCV7 [facility] ica (Prevnar7) Branch Polio (IPV/OPV) Unknown Completed [facility] Polio (IPV/OPV) Unknown Completed [facility] Polio (IPV/OPV) Unknown Completed [facility] Polio (IPV/OPV) Unknown Completed [facility] HEPATITIS A Unknown Completed [facility] HEPATITIS A Unknown Completed [facility] Meningococcal Unknown Completed [facility] Polysaccharide [facility] (groups A, C, Y and Branc h W-135) conjugate vaccine (MCV4P) Meningococcal Unknown Completed [facility] Polysaccharide [facility] (groups A, C, Y and Branc h W-135) conjugate vaccine (MCV4P) Varicella Unknown Completed [facility] (varivax)([facility]icken [place] [facility] pox) Branch Varicella Unknown Completed University (varivax)(chicken [place] [facility] pox) Branch DTAP Unknown Completed [facility] DTAP Unknown Completed [facility] DTAP Unknown Completed [facility] DTAP Unknown Completed [facility] DTAP Unknown Completed [facility] Hep B, Adol or Pedi Unknown Completed Unive rsity of Dosage [facility] Hep B, Adol or Pedi Unknown Completed Unive rsity of Dosage [facility] Hep B, Adol or Pedi Unknown Completed Unive rsity of [facility] HIB 4 Dose Schedule Unknown [facility] Dose [facility] 4 Dose Schedule [facility] Dose [facility] Pneumococcal 7 Unknown Completed [facility] Conjugate, PCV7 [facility] ical (Prevnar7) Branch Pneumococcal 7 Unknown Completed [facility] Conjugate, PCV7 [facility] ical (Prevnar7) Branch Pneumococcal 7 Unknown Completed [facility] Conjugate, PCV7 [facility] ical (Prevnar7) Branch Polio (IPV/OPV) Unknown Completed [facility] Polio (IPV/OPV) Unknown Completed [facility] Polio (IPV/OPV) Unknown Completed [facility] Polio (IPV/OPV) Unknown Completed [facility] HEPATITIS A Unknown Completed [facility] HEPATITIS A Unknown Completed [facility] Meningococcal Unknown Completed [facility] (groups A, C, Y and Branc h W-135) conjugate vaccine (MCV4P) Meningococcal Unknown Completed [facility] Polysaccharide [facility] (groups A, C, Y and Branc h W-135) conjugate vaccine (MCV4P) Varicella Unknown Completed [facility] (varivax)(chicken [place] [facility] pox) Branch Varicella Unknown Completed [facility] (varivax)(chicken [place] [facility] pox) Branch DTAP Unknown Completed [facility] DTAP Unknown Completed [facility] DTAP Unknown Completed [facility] DTAP Unknown Completed [facility] DTAP Unknown Completed [facility] Hep B, Adol or Pedi Unknown Completed Unive rsity of [facility] Hep B, Adol or Pedi Unknown Completed Unive rsity of [facility] Hep B, Adol or Pedi Unknown Completed Unive rsity of [facility] HIB 4 Dose Schedule Unknown [facility] Dose [facility] 4 Dose Schedule [facility] 4 Dose Schedule [facility] Pneumococcal 7 Unknown Completed [facility] Conjugate, PCV7 [facility] ical (Prevnar7) Branch Pneumococcal 7 Unknown Completed [facility] Conjugate, PCV7 [facility] [place] [facility] (Prevnar7) Branch Pneumococcal 7 Unknown Completed [facility] Conjugate, PCV7 [facility] [place] [facility] (Prevnar7) Branch Polio (IPV/OPV) Unknown Completed [facility] Polio (IPV/OPV) Unknown Completed [facility] Polio (IPV/OPV) Unknown Completed [facility] Polio (IPV/OPV) Unknown Completed [facility] HEPATITIS A Unknown Completed [facility] HEPATITIS A Unknown Completed [facility] Meningococcal Unknown Completed [facility] Polysaccharide [place] [facility] (groups A, C, Y and Branc h W-135) conjugate vaccine (MCV4P) Meningococcal Unknown Completed [facility] Polysaccharide [place] [facility] (groups A, C, Y and Branc h W-135) conjugate vaccine (MCV4P) Varicella Unknown Completed [facility] (varivax)(chicken [place] [facility] pox) Branch Varicella Unknown Completed [facility] (varivax)(chicken [place] [facility] pox) Branch DTAP Unknown Completed [facility] DTAP Unknown Completed [facility] DTAP Unknown Completed [facility] DTAP Unknown Completed [facility] DTAP Unknown Completed [facility] Hep B, Adol or Pedi Unknown Completed Unive rsity of Dosage [facility] Hep B, Adol or Pedi Unknown Completed Unive rsity of [facility] Hep B, Adol or Pedi Unknown Completed Unive rsity of [facility] HIB 4 Dose Schedule Unknown [facility] Dose [facility] 4 Dose Schedule Unknown [facility] 4 [facility]ose Schedule [facility] Pneumococcal 7 Unknown Completed [facility] Conjugate, PCV7 [place] [facility] (Prevnar7) Branch Pneumococcal 7 Unknown Completed [facility] Conjugate, PCV7 [place] [facility] (Prevnar7) Branch Pneumococcal 7 Unknown Completed University of Conjugate, PCV7 [facility] ical (Prevnar7) Branch Polio (IPV/OPV) Unknown Completed [facility] Polio (IPV/OPV) Unknown Completed [facility] Polio (IPV/OPV) Unknown Completed [facility] Polio (IPV/OPV) Unknown Completed [facility] HEPATITIS A Unknown Completed [facility] HEPATITIS A Unknown Completed [facility] Meningococcal Unknown Completed [facility] Polysaccharide [facility] noem[facility] (groups A, C, Y and Branc h W-135) conjugate vaccine (MCV4P) Meningococcal Unknown Completed [facility] Polysaccharide [facility] noem[facility] (groups A, C, Y and Branc h W-135) conjugate vaccine (MCV4P) Varicella Unknown Completed [facility] (varivax)(chicken [place] [facility] pox) Branch Varicella Unknown Completed [facility] (varivax)(chicken [place] [facility] pox) Branch DTAP Unknown Completed [facility] DTAP Unknown Completed [facility] DTAP Unknown Completed [facility] DTAP Unknown Completed [facility] DTAP Unknown Completed [facility] Hep B, Adol or Pedi Unknown Completed Unive rsity of [facility] Hep B, Adol or Pedi Unknown Completed Unive rsity of [facility] Hep B, Adol or Pedi Unknown Completed Unive rsity of [facility] HIB 4 Dose Schedule Unknown Completed Unive [facility] HIB 4 Dose Schedule Unknown Completed Unive [facility] HIB 4 Dose Schedule Unknown [facility] Unknown Completed [facility] Conjugate, PCV7 [facility] ical (Prevnar7) Branch Pneumococcal 7 Unknown Completed [facility] Conjugate, PCV7 [facility] ical (Prevnar7) Branch Pneumococcal 7 Unknown Completed [facility] Conjugate, PCV7 [facility] ical (Prevnar7) Branch Polio (IPV/OPV) Unknown Completed [facility] Polio (IPV/OPV) Unknown Completed [facility] Polio (IPV/OPV) Unknown Completed [facility] Polio (IPV/OPV) Unknown Completed [facility] HEPATITIS A Unknown Completed [facility] HEPATITIS A Unknown Completed [facility] Meningococcal Unknown Completed [facility] noemí (groups A, C, Y and Branc h W-135) conjugate vaccine (MCV4P) Meningococcal Unknown Completed [facility] noemí (groups A, C, Y and Branc h W-135) conjugate vaccine (MCV4P) Varicella Unknown Completed [facility] (varivax)(chicken [place] [facility] pox) Branch Varicella Unknown Completed University (varivax)(chicken [place] [facility] pox) Branch DTAP Unknown Completed [facility] DTAP Unknown Completed [facility] DTAP Unknown Completed [facility] DTAP Unknown Completed [facility] DTAP Unknown Completed [facility] Hep B, Adol or Pedi Unknown Completed Unive rsity of Dosage [facility] Hep B, Adol or Pedi Unknown Completed Unive rsity of Dosage [facility] Hep B, Adol or Pedi Unknown Completed Unive rsity of [facility] HIB 4 Dose Schedule Unknown [facility] 4 Dose Schedule Unknown Completed Unive [facility] HIB 4 Dose Schedule Unknown Completed Unive [facility] HIB 4 Dose Schedule Unknown Completed [facility] Pneumococcal 7 Unknown Completed [facility] Conjugate, PCV7 [facility] ical (Prevnar7) Branch Pneumococcal 7 Unknown Completed [facility] Conjugate, PCV7 [facility] ical (Prevnar7) Branch Pneumococcal 7 Unknown Completed [facility] Conjugate, PCV7 [facility] (Prevnar7) Branch Polio (IPV/OPV) Unknown Completed [facility] Polio (IPV/OPV) Unknown Completed [facility] Polio (IPV/OPV) Unknown Completed [facility] Polio (IPV/OPV) Unknown Completed [facility] HEPATITIS A Unknown Completed [facility] HEPATITIS A Unknown Completed [facility] Meningococcal Unknown Completed [facility] Polysaccharide [facility] (groups A, C, Y and Branc h W-135) conjugate vaccine (MCV4P) Meningococcal Unknown Completed [facility] Polysaccharide [facility] (groups A, C, Y and Branc h W-135) conjugate vaccine (MCV4P) Varicella Unknown Completed [facility] (varivax)(chicken [place] [facility] pox) Branch Varicella Unknown Completed University (varivax)(chicken [place] [facility] pox) Branch DTAP Unknown Completed [facility] DTAP Unknown Completed [facility] DTAP Unknown Completed [facility] DTAP Unknown Completed [facility] DTAP Unknown Completed [facility] Hep B, Adol or Pedi Unknown Completed Unive rsity of Dosage [facility] Hep B, Adol or Pedi Unknown Completed Unive rsity of Dosage [facility] Hep B, Adol or Pedi Unknown Completed Unive rsity of Dosage [facility] HIB 4 Dose Schedule Unknown Completed Unive [facility] HIB 4 Dose Schedule Unknown Completed Unive [facility] HIB 4 Dose Schedule Unknown Completed Unive [facility] HIB 4 Dose Schedule Unknown Completed [facility] Pneumococcal 7 Unknown Completed [facility] Conjugate, PCV7 [facility] ical (Prevnar7) Branch Pneumococcal 7 Unknown Completed [facility] Conjugate, PCV7 [facility] ical (Prevnar7) Branch Pneumococcal 7 Unknown Completed [facility] Conjugate, PCV7 [facility] ical (Prevnar7) Branch Polio (IPV/OPV) Unknown Completed [facility] Polio (IPV/OPV) Unknown Completed [facility] Polio (IPV/OPV) Unknown Completed [facility] Polio (IPV/OPV) Unknown Completed [facility] HEPATITIS A Unknown Completed [facility] HEPATITIS A Unknown Completed [facility] Meningococcal Unknown Completed [facility] Polysaccharide [facility] (groups A, C, Y and Branc h W-135) conjugate vaccine (MCV4P) Meningococcal Unknown Completed [facility] Polysaccharide [facility] (groups A, C, Y and Branc h W-135) conjugate vaccine (MCV4P) Varicella Unknown Completed [facility] (varivax)(chicken [place] [facility] pox) [place] Varicella Unknown Completed [facility] (varivax)(chicken [place] [facility] pox) [place] Vital Signs Vital Name Observation Time Observation Value Comments Source Systolic blood 2023-04-11 16:19:00 114 mm[Hg] Univer [facility] Diastolic blood 2023-04-11 16:19:00 66 mm[Hg] [facility] Heart rate 2023-04-11 16:19:00 102 /min [facility] Body temperature 2023-04-11 16:19:00 36.5 Rajwinder [facility] Respiratory rate 2023-04-11 16:19:00 18 /min [facility] Body height 2023-04-11 16:19:00 157.5 cm [facility] Body weight 2023-04-11 16:19:00 67.858 kg [facility] BMI 2023-04-11 16:19:00 27.36 kg/m2 [facility] Systolic blood 2023-03-29 21:48:00 100 mm[Hg] Univer sity of pressure [facility] Diastolic blood 2023-03-29 21:48:00 57 mm[Hg] Unive rsity of pressure [facility] Heart rate 2023-03-29 21:48:00 84 /min [facility] Respiratory rate 2023-03-29 21:48:00 16 /min Univ ersity of [facility] Oxygen saturation in 2023-03-29 21:48:00 99 /min University of Arterial blood by [facility] Pulse oximetry Branch Body temperature 2023-03-29 19:14:00 37.11 Rajwinder Univ ers[facility] Body height 2023-03-29 19:14:00 157.5 cm [facility] Body weight 2023-03-29 19:14:00 65.573 kg [facility] BMI 2023-03-29 19:14:00 26.44 kg/m2 [facility] Systolic blood 2023-03-14 13:39:00 112 mm[Hg] Univer sity of pressure [facility] Diastolic blood 2023-03-14 13:39:00 63 mm[Hg] Unive rsity of pressure [facility] Heart rate 2023-03-14 13:39:00 89 /min [facility] Body temperature 2023-03-14 13:39:00 36.17 Rajwinder [facility] ers[facility] Respiratory rate 2023-03-14 13:39:00 18 /min Univ ersity [facility] Body height 2023-03-14 13:39:00 157.5 cm [facility] Body weight 2023-03-14 13:39:00 63.685 kg [facility] [place] [facility] BMI 2023-03-14 13:39:00 25.68 kg/m2 [facility] [place] [facility] Systolic blood 2023-02-26 15:08:00 123 mm[Hg] [facility]iver [facility]ity of [facility] [place] [facility] [place] Diastolic blood 2023-02-26 15:08:00 70 mm[Hg] Unive rsity of pressure [facility] Heart rate 2023-02-26 15:08:00 79 /min [facility] [place] [facility] [place] Body temperature 2023-02-26 15:08:00 36.06 Rajwinder Univ ersity of [facility] Respiratory rate 2023-02-26 15:08:00 18 /min Univ [facility] [place] [facility] [place] Body height 2023-02-26 15:08:00 157.5 cm [facility] [place] [facility] [place] Body weight 2023-02-26 15:08:00 62.46 kg [facility] BMI 2023-02-26 15:08:00 25.19 kg/m2 [facility] [place] [facility] [place] Systolic blood 2023-01-22 20:00:00 110 mm[Hg] Univer sity of pressure [facility] Diastolic blood 2023-01-22 20:00:00 74 mm[Hg] Unive rsity of [facility] Heart rate 2023-01-22 20:00:00 73 /min [facility] [place] [facility] [place] Respiratory rate 2023-01-22 20:00:00 18 /min [facility] Oxygen saturation in 2023-01-22 20:00:00 100 /min [facility] Arterial blood by [facility] Pulse oximetry Branch Body temperature 2023-01-22 19:02:00 37.11 Rajwinder Univ ersity of [facility] Body height 2023-01-22 19:02:00 157.5 cm [facility] [place] [facility] [place] Body weight 2023-01-22 19:02:00 61.236 kg [facility] [place] [facility] [place] BMI 2023-01-22 19:02:00 24.69 kg/m2 [facility] Procedures Procedure Date / Time Performed Performing Clinician [facility] e ASSIGNMENT OF BENEFITS 2023-03-29 20:08:51 Doctor Unassigned, No [facility] Name Medical Branch CONSENT/REFUSAL FOR 2023-03-29 20:07:49 Doctor Unassigned, No [facility] DIAGNOSIS AND Name Medical Branch TREATMENT LIPASE 2023-03-29 19:45:00 Kishan Rader [facility] MAGNESIUM 2023-03-29 19:45:00 Prasanth [facility] COMP. METABOLIC PANEL 2023-03-29 19:45:00 Kishan Rader [facility] ([id number]) [facility] CBC WITH DIFF 2023-03-29 19:45:00 Prasanth [facility] URINALYSIS 2023-03-29 19:45:00 Prasanth [facility] POCT URINALYSIS 2023-03-14 13:41:00 Zina Tian [facility] SECOND AND THIRD 2023-03-13 20:36:00 Zina Tian [facility] TRIMESTER ULTRASOUND Medical [facility] GLUCOSE 1 HOUR POST 2023-02-26 16:15:00 Zina Tian [facility] CBC WITH DIFF 2023-02-26 16:15:00 Zina Tian [facility] RUBELLA SCREEN IGG 2023-02-26 16:15:00 Zina Tian [facility] VZV ANTIBODY SCREEN 2023-02-26 16:15:00 Zina Tian [facility] HEPATITIS B SURFACE 2023-02-26 16:15:00 Zina Tian [facility] HB ABO GROUPING 2023-02-26 16:15:00 Zina Tian [facility] QUAD SCRN 2023-02-26 16:15:00 Zian Tian [facility] HIV 1/2 AG-AB WITH 2023-02-26 16:15:00 Zina Tian [facility] SYPHILIS IGG/IGM 2023-02-26 16:15:[address] [facility] POCT URINALYSIS W/O 2023-02-26 15:03:00 Zina Tian Uni [facility] SPECIFIC Critical access hospital POCT TEST 2023-02-26 15:02:00 Zina Tian [facility] ASSIGNMENT OF BENEFITS 2023-02-26 14:21:16 Doctor Unassigned, No [facility] Name Medical Branch LIPASE 2023-01-22 19:38:00 Taylor [facility] COMP. METABOLIC PANEL 2023-01-22 19:38:00 Maricarmen Horner [facility] ([id number]) [facility] CBC WITH DIFF 2023-01-22 19:38:00 Singer [facility] URINALYSIS 2023-01-22 19:38:00 Horner [facility] NOTICE OF PRIVACY 2023-01-22 18:58:13 Doctor Unassigned, No [facility] CONSENT/REFUSAL FOR 2023-01-22 18:56:59 Doctor Unassigned, No [facility] [facility] DIAGNOSIS AND [facility] TREATMENT Encounters Start End Encounter Admission Attending Care Care Encounter Source Date/Time Date/Time Type Type Clinicians Facility Department ID 2023-04-23 2023-04-23 Outpatient R [facility] [id number] Univers 10:00:00 10:00:00 [facility] 2023-04-11 2023-04-11 [facility] [id number] Univers 11:00:00 11:47:14 ZINA romero [facility] 2023-04-11 2023-04-11 Routine [facility] 1.2.588.302 [id number] Univers 11:00:00 11:47:14 Zina Pires ACCOUNT EXECUTIVE 350.1.13.10 ity of Visit REGIONAL 4.2.7.2.686 Esvin as MATERNAL [id number] Med ical & CHILD [address] [place] [address] 2023-03-29 2023-03-29 Emergency X PRASANTH [facility] ERT [id number] Univers 14:17:00 16:54:00 KISHAN [facility] 2023-03-29 2023-03-29 [facility] 1.2.157.097 [id number] Univers 14:17:00 16:54:00 Kishan GREENBERG 350.1.13.10 i ty [facility] 4.2.7.2.686 [facility] [phone] [facility] [address] 2023-03-29 2023-03-29 Nurse JNENY Ragland 1.2.840.114 [id number] Univers 00:00:00 00:00:00 Triage Jahaira JACOB 350.1.13.10 ity of [facility] 4.2.7.2.686 Esvin as [id number] [facility] [address] 2023-03-26 2023-03-26 Outpatient R AKINSIPE, [facility] [id number] Univers 10:45:00 10:45:00 ZINA ity o f [facility] 2023-03-14 2023-03-14 Outpatient R AKINSIPE, [facility] [id number] Univers 08:30:00 09:14:20 ZINA ity o f [facility] 2023-03-14 2023-03-14 Routine [facility] [id number] Univers 08:30:00 09:14:20 Zina C ACCOUNT EXECUTIVE 350.1.13.10 ity of Visit [facility] 4.2.7.2.686 Esvin as MATERNAL [id number] [facility] ical & CHILD [address] [place] [address] 2023-03-14 2023-03-14 [facility] 1.2.049.529 [id number] Univers 00:00:00 00:00:00 Zina C ACCOUNT EXECUTIVE 350.1.13.10 ity of REGIONAL 4.2.7.2.686 Esvin as MATERNAL [id number] [facility] & CHILD [address] [place] [address] 2023-03-14 2023-03-14 [facility] 1.2.149.570 [id number] Univers 00:00:00 00:00:00 Zina C ACCOUNT EXECUTIVE 350.1.13.10 ity of [facility] 4.2.7.2.686 Esvin as MATERNAL [id number] [facility] & CHILD [address] [place] [address] 2023-03-13 2023-03-13 Outpatient GOGO LEAL [facility] [id number] Univers 14:30:00 15:39:49 JEAN CARLOS GOGO ity of [facility] 2023-03-13 2023-03-13 Library Associate Ultrasound, Ainsley [facility] 1.2 .840.114 [id number] Univers 14:30:00 15:39:49 Visit Gogo Evangelista ACCOUNT EXECUTIVE 350.1.13.10 ity of REGIONAL 4.2.7.2.686 Esvin as MATERNAL [id number] [facility] ical & CHILD 369 [facility] 2023-03-03 2023-03-03 Telephone [facility] 1.2.840.114 [id number] Univers 00:00:00 00:00:00 Zina C ACCOUNT EXECUTIVE 350.1.13.10 ity of [facility] 4.2.7.2.686 Esvin as MATERNAL [id number] [facility] & CHILD [address] [place] [address] 2023-02-26 2023-02-26 Outpatient R [facility] [id number] Univers 10:00:00 11:20:47 ZINA ity o f [facility] 2023-02-26 2023-02-26 Initial [facility] 1.2.747.308 [id number] Univers 10:00:00 11:20:47 Zina Pranay ACCOUNT EXECUTIVE 350.1.13.10 ity of Visit REGIONAL 4.2.7.2.686 Esvin as MATERNAL [id number] [facility] & CHILD [address] [place] [address] 2023-02-26 2023-02-26 Orders Doctor JENNY 1.2.840.114 [id number] Univers 00:00:00 00:00:00 Only Unassigned, CECIL 350.1.13.10 ity of [place] [facility] 4.2.7.2.686 Esvin as [id number] [address] 2023-02-05 2023-02-05 Outpatient R [facility] [id number] Univers 13:15:00 13:15:00 ity of [facility] 2023-01-22 2023-01-22 Emergency X [facility] ERT [id number] Univers 14:06:00 15:29:00 MARICARMEN romero [facility] 2023-01-22 2023-01-22 Emergency [facility] 1.2.504.405 [id number] Univers 14:06:00 15:29:00 Maricarmen GREENBERG 350.1.13.10 i ty of [place] 4.2.7.2.686 [facility] [id number] [facility] [address] [place] 2023-01-22 2023-01-22 Outpatient R [facility] [id number] Univers 08:00:00 08:00:00 [facility] 2023-01-20 2023-01-20 [facility] 1.2.840.114 [id number] Univers 00:00:00 00:00:00 Batool Hawk ACCOUNT EXECUTIVE 350.1.13.10 i ty of [facility] 4.2.7.2.686 Esvin as MATERNAL [id number] Med ical & CHILD [address] [place] [address] 2023-01-17 2023-01-17 Nurse JENNY Soto 1.2.840.114 [id number] Univers 00:00:00 00:00:00 Triage Dianna JACOB 350.1.13.10 it y of [facility] 4.2.7.2.686 Esvin as [id number] [facility] [address] [place] 2021-08-01 2021-08-01 Outpatient R UNKNOWN, [facility] [id number] Univers 09:45:00 09:45:00 ATTENDING [facility] Results Test Description Test Time Test Comments Results Result Comments Source MAGNESIUM 2023-03-29 20:36:27 Test Item Value Reference Range Interpretation Comme nts MAGNESIUM (test code = 2615901292) 1.7 mg/dL 1.7-2.4 Lab Interpretation (test code = 85246-5) [facility] (37070[facility]2023-03-29 20:36:07 Test Item Value Reference Range Interpretation Comments NA (test code = 134 mmol/L 135-145 L 1927681771) K (test code = 3.6 mmol/L 3.5-5.0 2415638812) CL (test code = 100 mmol/L 98-108 3033375375) CO2 TOTAL (test code = 22 mmol/L 23-31 L 4734572623) AGAP (test code = 12 2-16 0034750360) BUN (test code = 9 mg/dL 7-23 6008304564) GLUCOSE (test code = 82 mg/dL 70-110 3906160721) CREATININE (test code = 0.48 mg/dL 0.50-1.04 L 3253444425) TOTAL BILI (test code = 0.4 mg/dL 0.1-1.9 4970261712) CALCIUM (test code = 8.3 mg/dL 8.6-10.6 L 9207638833) T PROTEIN (test code = 6.9 g/dL 6.3-8.2 6807910814) ALBUMIN (test code = 3.7 g/dL 3.5-5.0 4010859382) ALK PHOS (test code = 58 U/L 34-122 8864579802) ALTv (test code = 14 U/L 5-35 1742-6) AST(SGOT) (test code = 19 U/L 13-40 4697352623) eGFR (test code = 163.3 mL/min/1.73m2 6306682698) GARRETT (test code = GARRETT) Association of Glomerular Filtration Rate (GFR) and Staging of Kidney Disease* + --+ --+ ------+| GFR (mL/min/1.73 m2) ?| With Kidney Damage ?| ?Without Kidney Damage+ --------+ --------+ +| ?>90 ?| ?Stage one ?| ? Normal ?+ ---+ ---+ -------+| ?60-89 ?| ?Stage two ?| ? Decreased GFR ? + --+ --+ ------+| ?30-59 ?| ?Stage three ?| ? Stage three ? + --+ --+ ------+| ?15-29 ?| ?Stage four ? | ? Stage four ?+ ---+ ---+ -------+| ?<15 (or dialysis) ? ?| ?Stage five ? | ? Stage five ?+ ---+ ---+ -------+ *Each stage assumes the associated GFR level has been in effect for at least three months. ?Stages 1 to 5, with or without kidney disease, indicate chronic kidney disease. Notes: Determination of stages one and two (with eGFR >59mL/min/1.73 m2) requires estimation of kidney damage for at least three months as defined by structural or functional abnormalities of the kidney, manifested by either:Pathological abnormalities or Markers of kidney damage (including abnormalities in the composition of the blood or urine or abnormalities in imaging tests). Lab Interpretation Abnormal (test code = 99852-4) [facility] 20[facility]35:47 Test Item Value Reference Range Interpretation Comments LIPASE (test code = 7337645587) 90 U/L 0-220 Lab Interpretation (test code = Normal 53111-7) [facility] [id number] 20:23:46 Test Item Value Reference Range Interpretation Comments WBC (test code = 9.11 See_Comment [Automated 6690-2) message] The sy stem which generated this result transmitted reference range : 4.30 - 11.10 10*3/?L. The reference range was not used to interpret this result as normal/abnormal . RBC (test code = 3.70 See_Comment L [Automated 789-8) message] The sy stem which generated this result transmitted reference range : 3.93 - 5.25 10*6/?L. The reference range was not used to interpret this result as normal/abnormal . HGB (test code = 10.7 g/dL 11.6-15.0 L 718-7) HCT (test code = 32.9 % 35.7-45.2 L 4544-3) MCV (test code = 88.9 fL 80.6-95.5 787-2) MCH (test code = 28.9 pg 25.9-32.8 785-6) MCHC (test code = 32.5 g/dL 31.6-35.1 786-4) RDW-SD (test code = 47.7 fL 39.0-49.9 10794-6) RDW-CV (test code = 14.8 % 12.0-15.5 788-0) PLT (test code = 314 See_Comment [Automated 777-3) message] The sy stem which generated this result transmitted reference range : 166 - 358 10*3/ ?L. The reference r alejandra was not used to interpret this result as normal/abnormal . MPV (test code = 9.7 fL 9.5-12.9 27146-5) NRBC/100 WBC (test 0.0 See_Comment [Automat ed code = 4650589873) message] The system which generated this result transmitted reference range : 0.0 - 10.0 /100 WBCs. The refer ence range was not u sed to interpret th is result as normal/abnormal . NRBC x10^3 (test code See_Comment [Auto mated = 6399821232) message] The s ystem which generated this result transmitted reference range : 10*3/?L. The reference range was not used to interpret this result as normal/abnormal . GRAN MAT (NEUT) % 71.4 % (test code = 770-8) IMM GRAN % (test code 0.30 % = 3659223093) LYMPH % (test code = 19.9 % 736-9) MONO % (test code = 4.2 % 5905-5) EOS % (test code = 3.8 % 713-8) BASO % (test code = 0.4 % 706-2) GRAN MAT x10^3(ANC) 6.50 10*3/uL 1.88-7.09 (test code = 6688429132) IMM GRAN x10^3 (test 0.03 10*3/uL 0.00-0.06 code = 9121199185) LYMPH x10^3 (test code 1.81 10*3/uL 1.32-3.29 = 731-0) MONO x10^3 (test code 0.38 10*3/uL 0.33-0.92 = 742-7) EOS x10^3 (test code = 0.35 10*3/uL 0.03-0.39 711-2) BASO x10^3 (test code 0.04 10*3/uL 0.01-0.07 = 704-7) Lab Interpretation Abnormal (test code = 17439-3) [facility] URINALYSIS W SPECIFIC [id number] 13:42:00 Test Item Value Reference Range Interpretation Comments POCT U SP GRAV (test code = 3255) . 1.005-1.025 POCT PH U (test code = 3254) . 5-8 POCT U LEUK EST (test code = 3263) . Negative - Negative POCT U NIT (test code = 3262) . Negative - Negative POCT U PROT (test code = 3259) trace Negative - Negative POCT U GLU (test code = 3256) neg Negative - Negative POCT U KETONE (test code = 3258) . Negative - Negative POCT U UROBILI (test code = 3260) . 0.2-1 POCT U BILI (test code = 3261) . Negative - Negative POCT U BLD (test code = 3257) . Negative - Negative POCT U COLOR (test code = 3266) . POCT U APPEAR (test code = 3267) . [facility] WITH [id number] 05:22:18 Test Item Value Reference Range Interpretation Comments WBC (test code = 9.40 See_Comment [Automated 8790-2) message] The sy stem which generated this result transmitted reference range : 4.30 - 11.10 10*3/?L. The reference range was not used to interpret this result as normal/abnormal . RBC (test code = 3.93 See_Comment [Automated 569-8) message] The sy stem which generated this result transmitted reference range : 3.93 - 5.25 10*6/?L. The reference range was not used to interpret this result as normal/abnormal . HGB (test code = 11.1 g/dL 11.6-15.0 L 718-7) HCT (test code = 34.9 % 35.7-45.2 L 4544-3) MCV (test code = 88.8 fL 80.6-95.5 787-2) MCH (test code = 28.2 pg 25.9-32.8 785-6) MCHC (test code = 31.8 g/dL 31.6-35.1 786-4) RDW-SD (test code = 51.0 fL 39.0-49.9 H 17550-1) RDW-CV (test code = 15.6 % 12.0-15.5 H 788-0) PLT (test code = 339 See_Comment [Automated 777-3) message] The sy stem which generated this result transmitted reference range : 166 - 358 10*3/ ?L. The reference r alejandra was not used to interpret this result as normal/abnormal . MPV (test code = 10.3 fL 9.5-12.9 55639-1) NRBC/100 WBC (test 0.0 See_Comment [Automat ed code = 6224527881) message] The system which generated this result transmitted reference range : 0.0 - 10.0 /100 WBCs. The refer ence range was not u sed to interpret th is result as normal/abnormal . NRBC x10^3 (test code See_Comment [Auto mated = 9902622435) message] The s ystem which generated this result transmitted reference range : 10*3/?L. The reference range was not used to interpret this result as normal/abnormal . GRAN MAT (NEUT) % 76.6 % (test code = 770-8) IMM GRAN % (test code 0.30 % = 7062261961) LYMPH % (test code = 15.9 % 736-9) MONO % (test code = 3.7 % 5905-5) EOS % (test code = 3.1 % 713-8) BASO % (test code = 0.4 % 706-2) GRAN MAT x10^3(ANC) 7.20 10*3/uL 1.88-7.09 H (test code = 3948135881) IMM GRAN x10^3 (test 0.03 10*3/uL 0.00-0.06 code = 5036717034) LYMPH x10^3 (test code 1.49 10*3/uL 1.32-3.29 = 731-0) MONO x10^3 (test code 0.35 10*3/uL 0.33-0.92 = 742-7) EOS x10^3 (test code = 0.29 10*3/uL 0.03-0.39 711-2) BASO x10^3 (test code 0.04 10*3/uL 0.01-0.07 = 704-7) Lab Interpretation Abnormal (test code = 65030-7) [facility] WITH [id number] 05:22:18 Test Item Value Reference Range Interpretation Comments WBC (test code = 9.40 See_Comment [Automated 6690-2) message] The sy stem which generated this result transmitted reference range : 4.30 - 11.10 10*3/?L. The reference range was not used to interpret this result as normal/abnormal . RBC (test code = 3.93 See_Comment [Automated 789-8) message] The sy stem which generated this result transmitted reference range : 3.93 - 5.25 10*6/?L. The reference range was not used to interpret this result as normal/abnormal . HGB (test code = 11.1 g/dL 11.6-15.0 L 718-7) HCT (test code = 34.9 % 35.7-45.2 L 4544-3) MCV (test code = 88.8 fL 80.6-95.5 787-2) MCH (test code = 28.2 pg 25.9-32.8 785-6) MCHC (test code = 31.8 g/dL 31.6-35.1 786-4) RDW-SD (test code = 51.0 fL 39.0-49.9 H 79397-9) RDW-CV (test code = 15.6 % 12.0-15.5 H 788-0) PLT (test code = 339 See_Comment [Automated 777-3) message] The sy stem which generated this result transmitted reference range : 166 - 358 10*3/ ?L. The reference r alejandra was not used to interpret this result as normal/abnormal . MPV (test code = 10.3 fL 9.5-12.9 31327-8) NRBC/100 WBC (test 0.0 See_Comment [Automat ed code = 2848010304) message] The system which generated this result transmitted reference range : 0.0 - 10.0 /100 WBCs. The refer ence range was not u sed to interpret th is result as normal/abnormal . NRBC x10^3 (test code See_Comment [Auto mated = 9964979064) message] The s ystem which generated this result transmitted reference range : 10*3/?L. The reference range was not used to interpret this result as normal/abnormal . GRAN MAT (NEUT) % 76.6 % (test code = 770-8) IMM GRAN % (test code 0.30 % = 8483419090) LYMPH % (test code = 15.9 % 736-9) MONO % (test code = 3.7 % 5905-5) EOS % (test code = 3.1 % 713-8) BASO % (test code = 0.4 % 706-2) GRAN MAT x10^3(ANC) 7.20 10*3/uL 1.88-7.09 H (test code = 1943833745) IMM GRAN x10^3 (test 0.03 10*3/uL 0.00-0.06 code = 1344780667) LYMPH x10^3 (test code 1.49 10*3/uL 1.32-3.29 = 731-0) MONO x10^3 (test code 0.35 10*3/uL 0.33-0.92 = 742-7) EOS x10^3 (test code = 0.29 10*3/uL 0.03-0.39 711-2) BASO x10^3 (test code 0.04 10*3/uL 0.01-0.07 = 704-7) Lab Interpretation Abnormal (test code = 32482-5) [facility] [id number] 15:03:00 Test Item Value Reference Range Interpretation Comments POCT PREG (test code = 1605) Positive On board controls acceptable with C Yes Line (test code = 3574) POCT PREG LOT # (test code = 3575) POCT PREG TEST DATE (test code = 3576) [facility] URINALYSIS W/O SPECIFIC [id number] 15:03:00 Test Item Value Reference Range Interpretation Comments POCT PH U (test code = 3254) 6 mg/dl 5-8 POCT U LEUK EST (test code = 2+ Negative - Negative 3263) POCT U NIT (test code = 3262) neg Negative - Negative POCT U PROT (test code = 3259) trace Negative - Negative POCT U GLU (test code = 3256) neg Negative - Negative POCT U KETONE (test code = 3258) neg Negative - Negative POCT U BLD (test code = 3257) neg Negative - Negative [facility] [id number] 15:03:00 Test Item Value Reference Range Interpretation Comments POCT PREG (test code = 1605) Positive On board controls acceptable with C Yes Line (test code = 3574) POCT PREG LOT # (test code = 3575) POCT PREG TEST DATE (test code = 357) [facility] URINALYSIS W/O SPECIFIC [id number] 15:03:00 Test Item Value Reference Range Interpretation Comments POCT PH U (test code = 3254) 6 mg/dl 5-8 POCT U LEUK EST (test code = 2+ Negative - Negative 3263) POCT U NIT (test code = 3262) neg Negative - Negative POCT U PROT (test code = 3259) trace Negative - Negative POCT U GLU (test code = 3256) neg Negative - Negative POCT U KETONE (test code = 3258) neg Negative - Negative POCT U BLD (test code = 3257) neg Negative - Negative [facility] [id number] 15:03:00 Test Item Value Reference Range Interpretation Comments POCT PREG (test code = 1605) Positive On board controls acceptable with C Yes Line (test code = 3574) POCT PREG LOT # (test code = 3575) POCT PREG TEST DATE (test code = 357) [facility] URINALYSIS W/O SPECIFIC [id number] 15:03:00 Test Item Value Reference Range Interpretation Comments POCT PH U (test code = 3254) 6 mg/dl 5-8 POCT U LEUK EST (test code = 2+ Negative - Negative 3263) POCT U NIT (test code = 3262) neg Negative - Negative POCT U PROT (test code = 3259) trace Negative - Negative POCT U GLU (test code = 3256) neg Negative - Negative POCT U KETONE (test code = 3258) neg Negative - Negative POCT U BLD (test code = 3257) neg Negative - Negative [facility] [id number] 15:03:00 Test Item Value Reference Range Interpretation Comments POCT PREG (test code = 1605) Positive On board controls acceptable with C Yes Line (test code = 3574) POCT PREG LOT # (test code = 3575) POCT PREG TEST DATE (test code = 357) [facility] URINALYSIS W/O SPECIFIC [id number] 15:03:00 Test Item Value Reference Range Interpretation Comments POCT PH U (test code = 3254) 6 mg/dl 5-8 POCT U LEUK EST (test code = 2+ Negative - Negative 3263) POCT U NIT (test code = 3262) neg Negative - Negative POCT U PROT (test code = 3259) trace Negative - Negative POCT U GLU (test code = 3256) neg Negative - Negative POCT U KETONE (test code = 3258) neg Negative - Negative POCT U BLD (test code = 3257) neg Negative - Negative [facility] [id number] 15:03:00 Test Item Value Reference Range Interpretation Comments POCT PREG (test code = 1605) Positive On board controls acceptable with C Yes Line (test code = 3574) POCT PREG LOT # (test code = 3575) POCT PREG TEST DATE (test code = 357) [facility] URINALYSIS W/O SPECIFIC [id number] 15:03:00 Test Item Value Reference Range Interpretation Comments POCT PH U (test code = 3254) 6 mg/dl 5-8 POCT U LEUK EST (test code = 2+ Negative - Negative 3263) POCT U NIT (test code = 3262) neg Negative - Negative POCT U PROT (test code = 3259) trace Negative - Negative POCT U GLU (test code = 3256) neg Negative - Negative POCT U KETONE (test code = 3258) neg Negative - Negative POCT U BLD (test code = 3257) neg Negative - [facility] [id number] 15:03:00 Test Item Value Reference Range Interpretation Comments POCT PREG (test code = 1605) Positive On board controls acceptable with C Yes Line (test code = 3574) POCT PREG LOT # (test code = 3575) POCT PREG TEST DATE (test code = 3576) [facility] URINALYSIS W/O SPECIFIC [id number] 15:03:00 Test Item Value Reference Range Interpretation Comments POCT PH U (test code = 3254) 6 mg/dl 5-8 POCT U LEUK EST (test code = 2+ Negative - Negative 3263) POCT U NIT (test code = 3262) neg Negative - Negative POCT U PROT (test code = 3259) trace Negative - Negative POCT U GLU (test code = 3256) neg Negative - Negative POCT U KETONE (test code = 3258) neg Negative - Negative POCT U BLD (test code = 3257) neg Negative - Negative [facility] [id number] 15:03:00 Test Item Value Reference Range Interpretation Comments POCT PREG (test code = 1605) Positive On board controls acceptable with C Yes Line (test code = 3574) POCT PREG LOT # (test code = 3575) POCT PREG TEST DATE (test code = 3576) [facility] URINALYSIS W/O SPECIFIC [id number] 15:03:00 Test Item Value Reference Range Interpretation Comments POCT PH U (test code = 3254) 6 mg/dl 5-8 POCT U LEUK EST (test code = 2+ Negative - Negative 3) POCT U NIT (test code = 3262) neg Negative - Negative POCT U PROT (test code = 3259) trace Negative - Negative POCT U GLU (test code = 3256) neg Negative - Negative POCT U KETONE (test code = 3258) neg Negative - Negative POCT U BLD (test code = 3257) neg Negative - Negative [facility]. METABOLIC PANEL (42755)2023-01-22 20:06:41 Test Item Value Reference Range Interpretation Comments NA (test code = 135 mmol/L 135-145 8110388920) K (test code = 3.8 mmol/L 3.5-5.0 7024932416) CL (test code = 100 mmol/L 98-108 5013986364) CO2 TOTAL (test code = 26 mmol/L 23-31 6575397712) AGAP (test code = 9 2-16 6627845079) BUN (test code = 7 mg/dL 7-23 7586780358) GLUCOSE (test code = 86 mg/dL 70-110 6857055583) CREATININE (test code = 0.46 mg/dL 0.50-1.04 L 8248067154) TOTAL BILI (test code = 0.5 mg/dL 0.1-1.2 2165555918) CALCIUM (test code = 9.0 mg/dL 8.6-10.6 7249547380) T PROTEIN (test code = 7.5 g/dL 6.3-8.2 0393426167) ALBUMIN (test code = 4.3 g/dL 3.5-5.0 4008783838) ALK PHOS (test code = 54 U/L 34-122 6725699902) ALTv (test code = 20 U/L 5-35 1742-6) AST(SGOT) (test code = 20 U/L 13-40 3033843484) eGFR (test code = 171.5 mL/min/1.73m2 1835494326) GARRETT (test code = GARRETT) Association of Glomerular Filtration Rate (GFR) and Staging of Kidney Disease* + --+ --+ ------+| GFR (mL/min/1.73 m2) ?| With Kidney Damage ?| ?Without Kidney Damage+ --------+ --------+ +| ?>90 ?| ?Stage one ?| ? Normal ?+ ---+ ---+ -------+| ?60-89 ?| ?Stage two ?| ? Decreased GFR ? + --+ --+ ------+| ?30-59 ?| ?Stage three ?| ? Stage three ? + --+ --+ ------+| ?15-29 ?| ?Stage four ? | ? Stage four ?+ ---+ ---+ -------+| ?<15 (or dialysis) ? ?| ?Stage five ? | ? Stage five ?+ ---+ ---+ -------+ *Each stage assumes the associated GFR level has been in effect for at least three months. ?Stages 1 to 5, with or without kidney disease, indicate chronic kidney disease. Notes: Determination of stages one and two (with eGFR >59mL/min/1.73 m2) requires estimation of kidney damage for at least three months as defined by structural or functional abnormalities of the kidney, manifested by either:Pathological abnormalities or Markers of kidney damage (including abnormalities in the composition of the blood or urine or abnormalities in imaging tests). Lab Interpretation Abnormal (test code = 85887-2) [facility] 20:06[facility]36 Test Item Value Reference Range Interpretation Comments LIPASE (test code = 7476445055) 77 U/L 0-220 Lab Interpretation (test code = Normal 30505-9) [facility] WITH [id number] 19:54:35 Test Item Value Reference Range Interpretation Comments WBC (test code = 8.02 See_Comment [Automated 6690-2) message] The sy stem which generated this result transmitted reference range : 4.30 - 11.10 10*3/?L. The reference range was not used to interpret this result as normal/abnormal . RBC (test code = 4.14 See_Comment [Automated 789-8) message] The sy stem which generated this result transmitted reference range : 3.93 - 5.25 10*6/?L. The reference range was not used to interpret this result as normal/abnormal . HGB (test code = 11.6 g/dL 11.6-15.0 718-7) HCT (test code = 35.7 % 35.7-45.2 4544-3) MCV (test code = 86.2 fL 80.6-95.5 787-2) MCH (test code = 28.0 pg 25.9-32.8 785-6) MCHC (test code = 32.5 g/dL 31.6-35.1 786-4) RDW-SD (test code = 50.1 fL 39.0-49.9 H 42119-6) RDW-CV (test code = 15.9 % 12.0-15.5 H 788-0) PLT (test code = 321 See_Comment [Automated 777-3) message] The sy stem which generated this result transmitted reference range : 166 - 358 10*3/ ?L. The reference r alejandra was not used to interpret this result as normal/abnormal . MPV (test code = 9.4 fL 9.5-12.9 L 66056-4) NRBC/100 WBC (test 0.0 See_Comment [Automat ed code = [id number]) message] The system which generated this result transmitted reference range : 0.0 - 10.0 /100 WBCs. The refer ence range was not u sed to interpret th is result as normal/abnormal . NRBC x10^3 (test code See_Comment [Auto mated = [id number]) message] The s ystem which generated this result transmitted reference range : 10*3/?L. The reference range was not used to interpret this result as normal/abnormal . GRAN MAT (NEUT) % 70.9 % (test code = 770-8) IMM GRAN % (test code 0.60 % = [id number]) LYMPH % (test code = 20.2 % 736-9) MONO % (test code = 5.7 % 5905-5) EOS % (test code = 2.0 % 713-8) BASO % (test code = 0.6 % 706-2) GRAN MAT x10^3(ANC) 5.68 10*3/uL 1.88-7.09 (test code = 6367428445) IMM GRAN x10^3 (test 0.05 10*3/uL 0.00-0.06 code = 0369637322) LYMPH x10^3 (test code 1.62 10*3/uL 1.32-3.29 = 731-0) MONO x10^3 (test code 0.46 10*3/uL 0.33-0.92 = 742-7) EOS x10^3 (test code = 0.16 10*3/uL 0.03-0.39 711-2) BASO x10^3 (test code 0.05 10*3/uL 0.01-0.07 = 704-7) Lab Interpretation Abnormal (test code = 06553-9) [facility]"
[2023-04-19] MEDS ORDERED: ONDANSETRON 4 MG (ODT) TAB ONE (23:12)
[2023-04-19 23:21] LABS: Absolute Lymphocytes (CBC) 2.8 K/uL (0.7-4.9); Hematocrit 33.4 % (36.0-45.0); Lymphocytes % 21.9 % (15.3-44.8); MCV 85.7 fL (80-100); MPV 7.1 fL (7.6-11.3); Platelets 323 thou/uL (152-406)
[2023-04-19 23:38] LABS: Albumin 2.9 g/dL (3.4-5.0); Bilirubin Total 0.2 mg/dL (0.2-1.0); Potassium 3.5 mEq/L (3.5-5.1)
[2023-04-19 23:54] LABS: Specific Gravity 1.015 (1.005-1.030); Urine Bacteria <20 /HPF (<20); Urine Bilirubin NEGATIVE (Negative); Urine Blood Negative (Negative); Urine Clarity Turbid (Clear); Urine Color Light-Yellow (Yellow); Urine Glucose NEGATIVE (Negative); Urine Mucus Slight /HPF (None Seen); Urine Protein NEGATIVE (Negative); Urine RBC <5 /HPF (None Seen); Urine Urobilinogen Normal (Normal); Urine WBC Clump Rare /HPF (None Seen)
--- NOTE | 2023-04-20 00:07 | ER ---
Nurse's Notes [facility] Name: Harper Smith Age: 22 yrs Sex: Female : 2000 Arrival Date: 04/19/2023 Time: 21:24 Bed 5 Private MD: Diagnosis: Nausea with vomiting, unspecified Presentation: 04/19 22:01 Chief complaint: Patient states: started zoloft a week ago and I've had bad side iw effects, today I was throwing up blood, it happened once , the blood was streaks, it was orange and bright red, now I feel nauseous , is 24 weeks , is feeling burning in her throat and stomach. Coronavirus screen: At this time, the client does not indicate any symptoms associated with coronavirus-19. Ebola Screen: Patient negative for fever greater than or equal to 101.5 degrees Fahrenheit, and additional compatible Ebola Virus Disease symptoms Patient denies exposure to infectious person. Patient denies travel to an Ebola-affected area in the 21 days before illness onset. No symptoms or risks identified at this time. Initial Sepsis Screen: Does the patient meet any 2 criteria? No. Patient's initial sepsis screen is negative. Does the patient have a suspected source of infection? No. Patient's initial sepsis screen is negative. Risk Assessment: Do you want to hurt yourself or someone else? Patient reports no desire to harm self or others. Onset of symptoms was April 19, 2023. 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 - Social history:: Smoking status: . - Family history:: not pertinent. Screenin:01 [facility] ED Fall Risk Assessment (Adult) History of falling in the last 3 months, lg3 including since admission No falls in past 3 months (0 pts). Abuse screen: Denies threats or abuse. Denies injuries from another. Nutritional screening: No deficits noted. Tuberculosis screening: No symptoms or risk factors identified. Assessment: 23:01 General: Appears in no apparent distress. comfortable, Behavior is calm, cooperative. lg3 Pain: Complains of pain in generalized body aches. Neuro: No deficits noted. Yuan Agitation-Sedation Scale (RASS): 0 - Alert and Calm Level of Consciousness is awake, alert, obeys commands, Oriented to person, place, time, situation, Reports headache weakness. Cardiovascular: No deficits noted. Denies chest pain, shortness of breath, Capillary refill < 3 seconds Clubbing of nail beds is absent JVD is absent Patient's skin is warm and dry. Respiratory: No deficits noted. Airway is patent Respiratory effort is even, unlabored, Respiratory pattern is regular, symmetrical. GI: Abdomen is non-distended, Reports epigastric pain, nausea, vomiting. : No deficits noted. No signs and/or symptoms were reported regarding the genitourinary system. EENT: No deficits noted. No signs and/or symptoms were reported regarding the EENT system. Derm: No deficits noted. No signs and/or symptoms reported regarding the dermatologic system. Skin is intact, is healthy with good turgor, Skin is dry, Skin is normal, Skin temperature is warm. Musculoskeletal: No deficits noted. No signs and/or symptoms reported regarding the musculoskeletal system. Circulation, motion, and sensation intact. Range of motion: intact in all extremities. 04/20 00:08 Reassessment: Patient appears in no apparent distress at this time. No changes from lg3 previously documented assessment. Patient and/or family updated on plan of care and expected duration. Pain level reassessed. Patient is alert, oriented x 3, equal unlabored respirations, skin warm/dry/pink. Vital Signs: 04/19 22:01 BP 123 / 86; Pulse 86; Resp 16; Temp 99; Pulse Ox 100% on R/A; Weight 69.4 kg; Height 5 iw ft. 2 in. ; 04/20 00:08 BP 127 / 81; Pulse 83; Resp 17 S; Pulse Ox 100% on R/A; lg3 04/19 22:01 Body Mass Index 27.98 (69.40 kg, 157.48 cm) iw ED Course: 04/19 21:30 Patient arrived in ED. kj1 22:03 Triage completed. iw 22:03 Arm band placed on. iw 22:08 Miko Camarillo MD is Attending Physician. rt 23:01 Patient has correct armband on for positive identification. Placed in gown. Bed in low lg3 position. Call light in reach. Side rails up X 1. Client placed on continuous cardiac and pulse oximetry monitoring. NIBP monitoring applied. Door closed. Noise minimized. Warm blanket given. Family accompanied patient. 23:01 Patient maintains SpO2 saturation greater than 95% on room air. lg3 23:12 UAM Sent. bc6 23:12 CMP Sent. bc6 23:12 CBC with Diff Sent. bc6 23:12 Influenza Screen (a \T\ B) Sent. bc6 23:12 Inserted saline lock: 20 gauge in right antecubital area, using aseptic technique. bc6 Blood collected. 04/20 00:19 No provider procedures requiring assistance completed. IV discontinued, intact, lg3 bleeding controlled, No redness/swelling at site. Pressure dressing applied. Administered Medications: 04/19 23:00 Drug: Ondansetron Oral Disintegrating Tablet Oral Disintegrating Tablet 4 mg PO once lg3 Route: PO; 04/20 00:08 Follow up: Response: No adverse reaction; Marked relief of symptoms lg3 Medication: 00:20 VIS not applicable for this client. lg3 Outcome: 00:06 Discharge ordered by . rt 00:19 Discharged to home ambulatory, with significant other, lg3 00:19 Condition: stable 00:19 Discharge instructions given to patient, Instructed on discharge instructions, follow up and referral plans. medication usage, Demonstrated understanding of instructions, follow-up care, medications, Prescriptions given X 1, 00:20 Patient left the ED. lg3 Signatures: Kourtney Freeman RN RN iw Jackson, Kandis kj1 Roxie Dawson RN RN lg3 Miko Camarillo MD MD rt Kiley Melendez bc6
--- NOTE | 2023-04-20 00:07 | EDPHYS ---
Physician Documentation [facility] Name: Harper Smith Age: 22 yrs Sex: Female : 2000 Arrival Date: 04/19/2023 Time: 21:24 Bed 5 Private MD: ED Physician Miko Camarillo HPI: 04/20 02:21 This 22 yrs old Female presents to ER via Ambulatory with complaints of Vomiting - rt BLOOD. 02:21 Patient is 24 weeks presents to the ED with nausea, vomiting. She started rt taking sertraline for depression a week ago, had an onset of nausea vomiting since then. Does not have any medicines for nausea. She reports having a subjective fever, chills. Patient states that she had 1 episode of blood-streaked vomit today which prompted her to come to the ED for further evaluation. Denies other vomiting, change in stool. Denies other acute complaints this time, symptoms are moderate severity, no other aggravating or alleviating factors.. 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 - Social history:: Smoking status: . - Family history:: not pertinent. ROS: 04/20 02:21 Constitutional: Negative for fever, chills, and weight loss, Cardiovascular: Negative rt for chest pain, palpitations, and edema, Respiratory: Negative for shortness of breath, cough, wheezing, and pleuritic chest pain, MS/Extremity: Negative for injury and deformity, Skin: Negative for injury, rash, and discoloration, Neuro: Negative for headache, weakness, numbness, tingling, and seizure, Psych: Negative for depression, anxiety, suicide ideation, homicidal ideation, and hallucinations, Abdomen/GI: Positive for nausea and vomiting, Negative for abdominal pain, Exam: 02:21 Constitutional: This is a well developed, well nourished patient who is awake, alert, rt and in no acute distress. Head/Face: Normocephalic, atraumatic. Chest/axilla: Normal chest wall appearance and motion. Nontender with no deformity. No lesions are appreciated. Cardiovascular: Regular rate and rhythm with a normal S1 and S2. No gallops, murmurs, or rubs. Normal PMI, no JVD. No pulse deficits. Respiratory: Lungs have equal breath sounds bilaterally, clear to auscultation and percussion. No rales, rhonchi or wheezes noted. No increased work of breathing, no retractions or nasal flaring. Abdomen/GI: Soft, non-tender, with normal bowel sounds. No distension or tympany. No guarding or rebound. No evidence of tenderness throughout. Skin: Warm, dry with normal turgor. Normal color with no rashes, no lesions, and no evidence of cellulitis. MS/ Extremity: Pulses equal, no cyanosis. Neurovascular intact. Full, normal range of motion. Neuro: Awake and alert, GCS 15, oriented to person, place, time, and situation. Cranial nerves II-XII grossly intact. Motor strength 5/5 in all extremities. Sensory grossly intact. Cerebellar exam normal. Normal gait. Psych: Awake, alert, with orientation to person, place and time. Behavior, mood, and affect are within normal limits. Vital Signs: 04/19 22:01 BP 123 / 86; Pulse 86; Resp 16; Temp 99; Pulse Ox 100% on R/A; Weight 69.4 kg; Height 5 iw ft. 2 in. ; 04/20 00:08 BP 127 / 81; Pulse 83; Resp 17 S; Pulse Ox 100% on R/A; lg3 04/19 22:01 Body Mass Index 27.98 (69.40 kg, 157.48 cm) iw MDM: 04/19 22:25 Patient medically screened. rt 04/20 02:21 Differential diagnosis: Gastritis, medication side effect. Data reviewed: vital signs, rt nurses notes, lab test result(s). I considered the following discharge prescriptions or medication management in the emergency department Medications were administered in the Emergency Department. See MAR. Test considered but Not performed: CT: Risks of radiation to fetus outweighs risk of missed surgical pathology, CT scan not indicated. Counseling: I had a detailed discussion with the patient and/or guardian regarding the historical points, exam findings, and any diagnostic results supporting the discharge/admit diagnosis, lab results, the need for outpatient follow up, to return to the emergency department if symptoms worsen or persist or if there are any questions or concerns that arise at home. ED course: BUN unremarkable, only blood-streaked vomit, none currently. Symptoms are improving with treatment in the ED. Do not suspect clinically significant upper GI bleed, believe the patient is stable for outpatient care and does not require emergent endoscopy at this time, patient to follow-up as an outpatient.. 04/19 22:30 Order name: Influenza Screen (a \T\ B); Complete Time: 00:00 rt 04/19 22:30 Order name: CBC with Diff; Complete Time: 23:30 rt 04/19 22:30 Order name: CMP; Complete Time: 00:00 rt 04/19 22:30 Order name: UAM; Complete Time: 00:00 rt Administered Medications: 04/19 23:00 Drug: Ondansetron Oral Disintegrating Tablet Oral Disintegrating Tablet 4 mg PO once lg3 Route: PO; 04/20 00:08 Follow up: Response: No adverse reaction; Marked relief of symptoms lg3 Disposition Summary: 04/20/23 00:06 Discharge Ordered Notes: Location: Home rt Problem: new rt Symptoms: have improved rt Condition: Stable rt Diagnosis - Nausea with vomiting, unspecified rt Followup: rt - With: Private Physician - When: 2 - 3 days - Reason: Discharge Instructions: - Discharge Summary Sheet rt - Nausea and Vomiting, Adult rt Forms: - Family Work Release rt - Medication Reconciliation Form rt - Thank You Letter rt - Antibiotic Education rt - Prescription Opioid Use rt - Patient Portal Instructions rt - Leadership Thank You Letter rt Signatures: Dispatcher [employer] Kourtney Tomas, CHERI ALONZO iw Roxie Dawson RN RN lg3 Miko Camarillo MD MD rt
[2023-04-20 01:08] VITALS: TEMP 99; O2SAT 100
[2023-04-20 01:09] VITALS: BP 127/81
== END 2023-04-20 00:20 | disposition home or self-care (01) ==
LOC: ER 21:24
DX: R11.2 Nausea with vomiting, unspecified (principal)
CPT/HCPCS: 85025; 81001; 36415; 80053; 87804 ×2; 99284; Q0162

== ENCOUNTER → 2023-06-16 | Emergency (ER) | payer OTHER ==
[~2023-06-16] MED LIST: CEPHALEXIN 250 MG CAP ONE; DIPHENHYDRAMINE 25 MG TAB/CAP ONE
--- OUTSIDE RECORDS SUMMARY | 2023-06-16 01:09 | XMS REPORT | Continuity of Care Document ---
Author Name Unknown Address [address] [place] [address]. [address] [place] [address] [employer] Address [address] [place] [address]. [address] [place] [address] Care Team Providers Care Director Credit Risk Name Role Phone Unavailable Unavailable Unavailable
--- NOTE | 2023-06-16 01:35 | EDPHYS ---
Physician Documentation [facility] Name: Harper Smith Age: 23 yrs Sex: Female : 2000 Arrival Date: 06/16/2023 Time: 01:06 Bed IW1 Private MD: ED Physician Sidney Weeks HPI: 06/16 01:22 This 23 yrs old Female presents to ER via Unassigned with complaints of Ear sp4 Pain, Congestion. 01:28 23-year-old female presents with acute onset of right ear pain associated with nasal sp4 congestion. Patient reports significant nasal congestion. Patient also at this time single intrauterine at 33 weeks EGA. 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 - Social history:: Smoking status: Patient denies any tobacco usage or history of. - Family history:: not pertinent. ROS: 01:28 Constitutional: Negative for fever, chills, and weight loss, Positive Congestion sp4 positive right ear pain 01:28 All other systems are negative, Exam: 01:28 Constitutional: This is a well developed, well nourished patient who is awake, alert, sp4 and in no acute distress. Head/Face: Normocephalic, atraumatic. Eyes: Pupils equal round and reactive to light, extra-ocular motions intact. Lids and lashes normal. Conjunctiva and sclera are not injected. Cornea within normal limits. Periorbital areas with no swelling, redness, or edema. ENT: Nares patent. No nasal discharge, no septal abnormalities noted. Tympanic membranes -positive right TM redness and opacification, positive left tympanic membrane opacification without red Neck: Trachea midline, no thyromegaly or masses palpated, and no cervical lymphadenopathy. Supple, full range of motion without nuchal rigidity, or vertebral point tenderness. Chest/axilla: Normal chest wall appearance and motion. Nontender with no deformity. No lesions are appreciated. Cardiovascular: Regular rate and rhythm with a normal S1 and S2. No gallops, murmurs, or rubs. Normal PMI, no JVD. No pulse deficits. Respiratory: Lungs have equal breath sounds bilaterally, clear to auscultation and percussion. No rales, rhonchi or wheezes noted. No increased work of breathing, no retractions or nasal flaring. Abdomen/GI: Soft, non-tender, with normal bowel sounds. No distension or tympany. No guarding or rebound. No evidence of tenderness throughout. Back: No spinal tenderness. No costovertebral tenderness. Skin: Warm, dry with normal turgor. Normal color with no rashes, no lesions, and no evidence of cellulitis. MS/ Extremity: Pulses equal, no cyanosis. Neurovascular intact. Full, normal range of motion. Neuro: Awake and alert, GCS 15, oriented to person, place, time, and situation. Cranial nerves II-XII grossly intact. Motor strength 5/5 in all extremities. Sensory grossly intact. Psych: Awake, alert, with orientation to person, place and time. Behavior, mood, and affect are within normal limits Vital Signs: 01:34 BP 99 / 63; Pulse 76; Resp 18 S; Temp 97.9(TE); Pulse Ox 100% on R/A; Weight 74.84 kg as6 (R); Height 5 ft. 2 in. (R); Pain 5/10; 01:34 Body Mass Index 30.18 (74.84 kg, 157.48 cm) as6 01:34 Pain Scale: Adult as6 MDM: 01:28 Differential diagnosis: otitis media, otitis externa, foreign body, acute otalgia, sp4 cerumen impaction. Data reviewed: vital signs, nurses notes. ED course: Positive tympanic membrane opacification and redness on the right side. Will prescribe cephalexin and advised Benadryl and also Tylenol and also as needed Claritin for congestion.. 01:35 Patient medically screened. sp4 Administered Medications: 01:47 Drug: Cephalexin PO 500 mg PO once Route: PO; as6 01:48 Follow up: Response: No adverse reaction as6 01:48 Drug: diphenhydrAMINE PO 25 mg PO once Route: PO; as6 01:48 Follow up: Response: No adverse reaction as6 Disposition Summary: 06/16/23 01:35 Discharge Ordered Problem: new sp4 Symptoms: have improved sp4 Condition: Stable sp4 Diagnosis - Acute suppurative otitis media sp4 - Acute otitis media right sp4 - Acute nasal congestion sp4 Followup: sp4 - With: Private Physician - When: 7 - 10 days - Reason: Recheck today's complaints Discharge Instructions: - Discharge Summary Sheet sp4 - Otitis Media, Adult, [id number] sp4 Forms: - Patient Portal Instructions sp4 Prescriptions: - Cephalexin 500 mg Oral Capsule - take 1 capsule ORAL route every 12 hours for 10 days; 20 capsule; Refills: 0, sp4 Product Selection Permitted Signatures: Pedro Santana RN RN as6 Sidney Weeks MD MD sp4
--- NOTE | 2023-06-16 01:49 | ER ---
Nurse's Notes [facility] Name: Harper Smith Age: 23 yrs Sex: Female : 2000 Arrival Date: 06/16/2023 Time: 01:06 Bed IW1 Private MD: Diagnosis: Acute suppurative otitis media;Acute otitis media right;Acute nasal congestion Presentation: 06/16 01:34 Chief complaint: Patient states: cold symptoms for a few days and right ear pain that as6 started yesterday. Coronavirus screen: At this time, the client does not indicate any symptoms associated with coronavirus-19. Ebola Screen: No symptoms or risks identified at this time. Initial Sepsis Screen: Does the patient meet any 2 criteria? No. Patient's initial sepsis screen is negative. Does the patient have a suspected source of infection? No. Patient's initial sepsis screen is negative. Risk Assessment: Do you want to hurt yourself or someone else? Patient reports no desire to harm self or others. Onset of symptoms was June 15, 2023. 01:34 Method Of Arrival: Ambulatory as6 01:34 Acuity: BASIL 5 as6 Triage Assessment: 01:48 General: Appears in no apparent distress. Behavior is calm, cooperative. Pain: as6 Complains of pain in right ear. EENT: Reports nasal congestion nasal discharge pain in right ear. 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 - Social history:: Smoking status: Patient denies any tobacco usage or history of. - Family history:: not pertinent. Screenin:48 [facility] ED Fall Risk Assessment (Adult) Score/Fall Risk Level 0 - 2 = Low Risk. Abuse as6 screen: Denies threats or abuse. Denies injuries from another. Nutritional screening: No deficits noted. Tuberculosis screening: No symptoms or risk factors identified. Vital Signs: 01:34 BP 99 / 63; Pulse 76; Resp 18 S; Temp 97.9(TE); Pulse Ox 100% on R/A; Weight 74.84 kg as6 (R); Height 5 ft. 2 in. (R); Pain 5/10; 01:34 Body Mass Index 30.18 (74.84 kg, 157.48 cm) as6 01:34 Pain Scale: Adult as6 ED Course: 01:12 Patient arrived in ED. jj6 01:22 Sidney Weeks MD is Attending Physician. sp4 01:37 Triage completed. as6 01:37 Pedro Santana, RN is Primary Nurse. as6 01:37 Arm band placed on. as6 01:48 Bed in low position. Call light in reach. Provided Education on: abx teaching. as6 01:49 No provider procedures requiring assistance completed. Patient did not have IV access as6 during this emergency room visit. Administered Medications: 01:47 Drug: Cephalexin PO 500 mg PO once Route: PO; as6 01:48 Follow up: Response: No adverse reaction as6 01:48 Drug: diphenhydrAMINE PO 25 mg PO once Route: PO; as6 01:48 Follow up: Response: No adverse reaction as6 Medication: 01:48 VIS not applicable for this client. as6 Outcome: 01:35 Discharge ordered by . sp4 01:49 Discharged to home ambulatory, with significant other, as6 01:49 Condition: stable 01:49 Discharge instructions given to patient, Instructed on discharge instructions, follow up and referral plans. medication usage, Demonstrated understanding of instructions, follow-up care, medications, Prescriptions given X 1, 01:49 Patient left the ED. as6 Signatures: Shira Hobson jj6 Pedro Santana, CHERI RN as6 Sidney Weeks MD MD sp4
[2023-06-16 03:32] VITALS: BP 99/63; TEMP 97.9; O2SAT 100
== END ==
LOC: ER 01:06
DX: O99.891 Other specified diseases and conditions complicating pregnancy (principal); H66.001 Acute suppurative otitis media without spontaneous rupture of ear drum, right ear; R09.81 Nasal congestion; Z3A.33 33 weeks gestation of pregnancy
CPT/HCPCS: 99283

== ENCOUNTER 2024-04-12 16:06 | Emergency (ER) | payer OTHER ==
--- OUTSIDE RECORDS SUMMARY | 2024-04-12 16:13 | XMS REPORT | Continuity of Care Document ---
Author Name Unknown Address [address] [facility] [address] [place] [address] [facility] thconnect Address [address] [facility] [address] [place] [address] Care Team Providers Care Billet Shearer Name Role Phone Pcp, Patient Does Not Have A Primary Care Physic jaguar GRECIA YOUNGER Attending Clinician Unavailable Nurse, [facility] Attending Clinician Un available Unknown, Attending Attending Clinician Unavailab Grecia Perez MD Attending Clinician [phone] Georgette Dickerson Attending Clinician [phone] GEORGETTE CLARK Attending Clinician Unavailable MORELIA GUAMAN Attending Clinician Unavailable Morelia Scruggs Attending Clinician [phone] GENNY TIAN Attending Clinician Unavail able Genny Aranda Attending Clinician + KAYLEY RADFORD Attending Clinician Unavailable Kayley Yost Attending Clinician [phone] Unknown, Attending Attending Clinician Unavailab Ahsa Horton Attending Clinician [phone] ASHA YARBROUGH Attending Clinician Unavailabl e Genny Aranda Attending Clinician + BATOOL CABRALES Attending Clinician Unavaila CARLYN Chavarria Attending Clinician Unavailable Kaci MELO, Divya Leon Attending Clinician + Axel [employer]ATE, Carlyn Attending Clinician + [phone] [facility] Attending Clinician Un available Grecia Younger MD Attending Clinician [phone] BLANCA LAMAR Attending Clinician Unavailable BLANCA LAMAR Attending Clinician Unavailable Blanca Lamar MD Attending Clinician [phone] Elliott Humphrey MD Attending Clinician [phone] Jazmyn MELO, Halie Attending Clinician [phone] JENNY DASH Attending Clinician Unavailable Doctor Unassigned, [place] Attending Clinician U navailable Risk, Cgo-Sqdfv-Ae/High Attending Clinician Unav ailable Alphonso WHEmily GEE Attending Clinician + [phone] EMILY WERNER Attending Clinician Unavailable ISABELA CALLOWAY Attending Clinician ISABELA Newsome Attending Clinician Ac Cabrales CNM, [place] Attending Clinician [phone] Riri Rosales NP Attending Clinician [phone] RIRI ROSALES Attending Clinician Unavail able TAY VELIZ Attending Clinician Unav ailkhari Ultrasound, [facility] Attending Clinician Unavaila Tay Granado MD Attending Clinician + DEANNA YU Attending Clinician Unavailable Alvin Cota MD Attending Clinician [phone] Deanna Yu MD Attending Clinician [phone] GUSTAVO STANTON Attending Clinician Unav ailkhari Stanton MD, Gustavo Berry Attending Clinician + KISHAN RADER Attending Clinician Unavailable Kishan Rader MD Attending Clinician [phone] Obie ALONZO, Jahaira Attending Clinician Unavailab GOGO Mcgill Attending Clinician Unavailable GOGO MCMANUS Attending Clinician Unavailable Gogo Mcmanus MD Attending Clinician ROYAL BELLA Attending Clinician Unavailable Royal Bella DO Attending Clinician [phone] Charles ALONZO, Dianna Attending Clinician Unavailabl e UNKNOWN, ATTENDING Attending Clinician Unavailab CARLYN Villatoro Admitting Clinician Unavailable DEANNA YU Admitting Clinician Unavailable Willard MELO, Blanca Gutierres Admitting Clinician [phone] ISABELA CALLOWYA Admitting Clinician Ac Yu MD, Deanna Parker Admitting Clinician Payers Payer Name Policy Type Policy Number Effective Date Expirati on Date Source [facility] PHILLIP DONALD [id number] 2023 00:00:00 MIMI PRESLEY [id number] 1 00:00:00 Problems Condition Name Condition Details Condition Category Status Onset Date Resolution Date Last Treatment Date Treating Clinician Comments Source Other general counseling and advice for contracept radha management Other general counseling and advice for contracept radha management Disease Active 4- 00:00: 00 [facility] Other depression Other depression Disease Active 2022-06 0-20 00:00: 00 [facility] History of depression History of depression Disease Active 02-26 00:00: 00 Overview: Formattin g of this note might be different from the original. Not on meds in years [facility] History of marijuana use History of marijuana use Disease Active 02-26 00:00: 00 Overview: Formattin g of this note might be different from the original. Reports quit [facility] Anemia of mother in , antepartum Anemia of mother in , antepartum Disease Resolve d 2022-06 1-30 00:00: 00 2024-01-29 00:00:00 2024-01-29 16:06:39 [facility] (spontaneo us vaginal delivery) (spontaneo us vaginal delivery) Disease Resolve d 2-03 00:00: 00 2023-10-13 00:00:00 2023-10-13 16:22:23 [facility] Single live Single live Disease Resolve d 2-03 00:00: 00 2023-10-13 00:00:00 2023-10-13 16:22:21 [facility] 39 weeks gestation of 39 weeks gestation of Disease Resolve d 2-02 00:00: 00 2023-10-13 00:00:00 2023-10-13 16:22:07 [facility] Obesity affecting Obesity affecting Disease Resolve d 2-02 00:00: 00 2023-10-13 00:00:00 2023-10-13 16:22:19 [facility] Indication for care in labor or delivery-I OL Indication for care in labor or delivery-I OL Disease Resolve d 2-02 00:00: 00 2023-10-13 00:00:00 2023-10-13 16:22:17 [facility] Heartburn during in third trimester Heartburn during in third trimester Disease Resolve d 1-19 00:00: 00 2023-10-13 00:00:00 2023-10-13 16:22:10 [facility] Susceptibl e varicella Susceptibl e varicella Disease Resolve d 9-07 00:00: 00 2023-10-13 00:00:00 2023-10-13 16:22:37 Overview: Formattin g of this note might be different from the original. Address pp [facility] Supervisio n of high-risk Supervisio n of high-risk Disease Resolve d 9-06 00:00: 00 2023-10-13 00:00:00 2023-10-13 16:22:22 [facility] Multiparit y Multiparit y Disease Resolve d 9-06 00:00: 00 2023-10-13 00:00:00 2023-10-13 16:22:16 [facility] History of miscarriag e History of miscarriag e Disease Resolve d 9-06 00:00: 00 2023-10-13 00:00:00 2023-10-13 16:22:14 [facility] UTI in UTI in Disease Resolve d 9-06 00:00: 00 2023-10-13 00:00:00 2023-10-13 16:22:26 Overview: Formattin g of this note might be different from the original. did not complete meds [facility] Tobacco use in Tobacco use in Disease Resolve d 9-06 00:00: 00 2023-10-13 00:00:00 2023-10-13 16:22:25 Overview: Formattin g of this note might be different from the original. Reports quit in october [facility] Allergies, Adverse Reactions, Alerts Allergy Name Allergy Type Status Severity Reaction(s) Onset Date Inactive Date Treating Clinician Comments Source NO KNOWN ALLERGIE S Drug Class Active [facility] Social History Social Habit Start Date Stop Date Quantity Comments Source ASSERTION 2022-11-08 00:00:00 [facility] Gender identity [facility] Sexual orientation [facility] Alcoholic beverage intake 2024-02-12 00:00:00 2024-02-12 00:00:00 Ex-drinker (finding) [facility] Tobacco use and exposure 2024-01-29 00:00:00 2024-01-29 00:00:00 Smokeless tobacco non-user [facility] History of Social function 2023-10-29 00:00:00 2023-10-29 00:00:00 [facility] Alcohol intake 2023-10-21 00:00:00 2023-10-21 00:00:00 Ex-drinker (finding) [facility] History of tobacco use 2022-10-21 00:00:00 Cigarette Smoker [facility] Sex assigned at 2001 00:00:00 2000 00:00:00 [facility] Smoking Status Start Date Stop Date Source Tobacco smoking consumption unknown [facility] Occasional tobacco smoker 2024-01-29 00:00:00 [facility] Ex-smoker 2023-02-26 00:00:00 2023-02-26 00:00:00 [facility] Medications Ordered Medication Name Filled Medication Name Start Date Stop Date Current Medication? Ordering Clinician Indication Dosage Frequency Signature (SIG) Comments Components Source ondansetron (ZOFRAN-ODT ) disintegrat ing tablet 4 mg 03-12 17:30: 00 03-12 16:24 :00 No [id number] 4mg 4 mg, Oral, ONCE, 1 dose, On Fri03/12/24 at 1230, Routine [facility] bromphenira mine-pseudo ephedrine-D M (BROMFED DM) 2-30-10 mg/5 mL syrup 03-12 00:00: 00 03-23 04:59 :00 Yes [id number] 10mL Take 10 mL by mouth 4 (four) times daily for 10 days. [facility] ondansetron 4 mg disintegrat ing tablet 03-12 00:00: 00 03-18 04:59 :00 Yes [id number] 4mg Take 1 tablet by mouth every 8 (eight) hours as needed for Nausea and Vomiting (N/V) for up to 5 days. [facility] norgestimat e-ethinyl estradioL (TRI-SPRINT EC) 0.18/0.215/ 0.25 mg-35 mcg (28) tablet 02-02 00:00: 00 Yes [id number] 1{tbl} Take 1 tablet by mouth in the morning. [facility] norgestimat e-ethinyl estradioL (TRI-SPRINT EC) 0.18/0.215/ 0.25 mg-35 mcg (28) tablet 01-28 00:00: 00 02-02 00:00 :00 No [id number] 1{tbl} Take 1 tablet by mouth in the morning. [facility] triamcinolo ne acetonide 0.1 % ointment 01-08 00:00: 00 01-18 00:00 :00 No [id number] Apply to area(s) 2 (two) times daily for 10 days. [facility] cephALEXin 500 mg capsule 01-08 00:00: 00 01-14 04:59 :00 No [id number] 500mg Take 1 capsule by mouth 4 (four) times daily for 5 days. [facility] fluticasone propionate 50 mcg/actuati on nasal spray 12-02 00:00: 00 Yes [id number] 1{spray } Use 1 Walls in each nostril in the morning. [facility] methylPREDN ISolone (MEDROL, EMILY,) 4 mg tablets 12-02 00:00: 00 01-18 00:00 :00 No [id number] Take by mouth SEE-INSTRU CTIONS. follow package directions [facility] levonorgest rel-ethinyl estradiol (SRONYX) 0.1-20 mg-mcg per tablet 10-28 00:00: 00 01-28 00:00 :00 No [id number] 1{tbl} Take 1 tablet by mouth in the morning. [facility] buPROPion XL (WELLBUTRIN XL) 150 mg 24 hr tablet 10-12 00:00: 00 Yes [id number] 150mg Take 1 tablet by mouth in the morning. [facility] varicella virus vaccine live (VARIVAX) injection and diluent vial 07-26 14:17: 41 Yes 1{each} 0.5 mL (1 Each), Subcutaneo us, ONCE-PRIOR TO DISCHARGE, 1 dose, Starting on 07/26/23 at 0817, Until Discontinu ed, Routine, Give vaccine prior to discharge [facility] rho(D) immune globulin (RHOGAM) syringe 300 mcg 07-26 06:55: 12 Yes 300ug 300 mcg, Intramuscu lar, ONCE, For 1 dose, Conditiona l, Routine [facility] ibuprofen (IBU) tablet 600 mg 07-26 06:55: 09 Yes 600mg 600 mg, Oral, Q6HPRN, Starting on 07/26/23 at 0055, Until Discontinu ed, Routine, Pain (scale 4-6) [facility] acetaminoph en (TYLENOL) tablet 650 mg 07-26 06:55: 09 Yes 650mg 650 mg, Oral, Q6HPRN, Starting on 07/26/23 at 0055, Until Discontinu ed, Routine, Pain (scale 1-3) [facility] diphenhydrA MINE (BENADRYL) tablet 25 mg 07-26 06:55: 09 Yes 25mg 25 mg, Oral, Q6HPRN, Starting on 07/26/23 at 0055, Until Discontinu ed, Routine, Sleep, Itching [facility] ondansetron (ZOFRAN (PF)) injection 4 mg 07-26 06:55: 09 Yes 4mg 4 mg, Slow IV Push, Q8HPRN, Starting on 07/26/23 at 0055, Until Discontinu ed, Routine, Nausea and Vomiting (N/V) [facility] simethicone (GAS RELIEF (SIMETHICON E)) chewable tablet 160 mg 07-26 06:55: 09 Yes 160mg 160 mg, Oral, PC+HSPRN, Starting on 07/26/23 at 0055, Until Discontinu ed, Routine, Gas [facility] docusate (COLACE) capsule 200 mg 07-26 06:55: 09 Yes 200mg 200 mg, Oral, QDAILYPRN, Starting on 07/26/23 at 0055, Until Discontinu ed, Routine, Constipati on [facility] magnesium hydroxide (MILK OF MAGNESIA) 400 mg/5 mL suspension 30 mL 07-26 06:55: 09 Yes 30mL 30 mL, Oral, QDAILYPRN, Starting on 07/26/23 at 0055, Until Discontinu ed, Routine, Constipati on [facility] benzocaine- menthol (DERMOPLAST ) 20-0.5 % topical spray 07-26 06:55: 09 Yes Topical, PRN, Starting on 07/26/23 at 0055, Until Discontinu ed, Routine, Perineum discomfort [facility] oxytocin (PITOCIN) 30 units in NS 500 mL IV infusion 07-26 03:34: 46 Yes 600mL/h 600 mL/hr, IV Infusion, PRN, For post delivery uterine atony., Starting on Fri07/25/[address] at 600 mL/hr for 1 hr then 150 mL/hr for 1 hr.
[facility] oxytocin (PITOCIN) 30 units in NS 500 mL IV infusion 07-26 03:34: 46 Yes 300mL/h 300 mL/hr, IV Infusion, SEE-INSTRU CTIONS, Starting on Fri07/25/[address] at 300 mL/hr for 1 hr then 150 mL/hr for 1 hr. For post delivery uterotonic .
[facility] docusate 100 mg capsule 07-26 00:00: 00 Yes [id number] 200mg Take 2 capsules by mouth once daily as needed for Constipati on. [facility] ferrous sulfate 325 mg (65 mg iron) tablet 07-26 00:00: 00 Yes [id number] 325mg Take 1 tablet by mouth in the morning. [facility] ibuprofen 600 mg tablet 07-26 00:00: 00 Yes [id number] 600mg Take 1 tablet by mouth every 6 (six) hours as needed (Pain). Take with food or milk. [facility] [id number] fum-folic () 27 mg iron- 1 mg folic tablet 07-26 00:00: 00 01-18 00:00 :00 No [id number] 1{tbl} Take 1 tablet by mouth in the morning. [facility] ropivacaine 0.2 % (NAROPIN (PF)) epidural infusion 07-25 18:09: 00 07-26 04:38 :10 No Epidural, CONTINUOUS PRN, Starting on Fri07/25/23 at 1209, Until Discontinu ed, Routine, Intra-op [facility] lidocaine-e pinephrine (XYLOCAINE W/EPINEPHRI NE) 1.5 %-1:200,000 injection 07-25 18:08: 00 07-26 04:38 :10 No Intraderma l, ONCE INTRA PROCEDURE, Starting on Fri07/25/23 at 1208, Until Discontinu ed, Routine, Intra-op [facility] ondansetron (ZOFRAN (PF)) injection 4 mg 07-25 17:30: 00 07-25 16:32 :00 No 4mg 4 mg, Slow IV Push, ONCE, 1 dose, On Fri07/25/23 at 1130, Routine [facility] sodium citrate-cit he acid (BICITRA) 500-334 mg/5 mL solution 30 mL 07-25 15:49: 39 Yes 30mL 30 mL, Oral, PRE-PROCED URE ONCE, 1 dose, Starting on Fri07/25/23 at 0949, Until Discontinu ed, Routine, Surgery/Pr ocedure [facility] lidocaine 1% (XYLOCAINE) 10 mg/mL (1 %) injection 50 mL 07-25 15:49: 39 Yes 50mL 50 mL, Infiltrati on, PRN - SEE INSTRUCTIO NS, Starting on Fri07/25/23 at 0949, Until Discontinu ed, Routine, Local anesthesia , For laceration repair only as a local anesthetic as indicated. [facility] lidocaine 1% (PF) (XYLOCAINE) injection 0.3 mL 07-25 15:49: 39 Yes .3mL 0.3 mL, Infiltrati on, PRN - SEE INSTRUCTIO NS, Starting on Fri07/25/23 at 0949, Until Discontinu ed, Routine, Local anesthesia , For IV line placement only as a local anesthetic . [facility] lactated ringers IV infusion 500 mL 07-25 15:49: 39 Yes 500mL at 999 mL/hr, 500 mL, IV Infusion, PRN - SEE INSTRUCTIO NS, Starting on Fri07/25/23 at 0949, Until Discontinu ed, Routine [facility] D5W-LR IV infusion 1,000 mL 07-25 15:49: 39 Yes 1000mL at 1-125 mL/hr, IV Infusion, TITRATE, Starting on Fri07/25/23 at 0949, Until Discontinu ed, Routine [facility] famotidine (PEPCID) 20 mg tablet 07-10 00:00: 00 Yes [id number] 20mg Take 1 tablet by mouth in the morning and 1 tablet in the evening. [facility] ferrous sulfate 325 mg (65 mg iron) tablet 2022-06 00:00: 00 07-26 00:00 :00 No [id number] 325mg Take 1 tablet by mouth in the morning and 1 tablet in the evening. [facility] ascorbic acid, vitamin C, 500 mg tablet 2022-06 00:00: 00 07-26 00:00 :00 No [id number] 500mg Take 1 tablet by mouth in the morning and 1 tablet at noon and 1 tablet in the evening. [facility] SERTraline (ZOLOFT) 50 mg tablet 2022-06 00:00: 00 05-21 00:00 :00 No [id number] 50mg Take 1 tablet by mouth in the morning. [facility] COMPLETE DHA 29 mg iron- 1 mg-200 mg combo pack 03-17 00:00: 00 07-26 00:00 :00 No [id number] EVERY DAY IN THE MORNING [facility] PRENATA 29 mg iron- 1 mg per tablet 03-14 00:00: 00 03-17 00:00 :00 No [id number] 1{tbl} TAKE 1 TABLET BY MOUTH EVERY DAY IN THE MORNING [facility] fluconazole (DIFLUCAN) 150 mg tablet 03-14 00:00: 00 03-15 04:59 :00 No [id number] 150mg Take 1 tablet by mouth ONCE PRN for Itching for up to 1 dose. [facility] Nitrofurant oin&Nit. Macrocryst (MACROBID) 100 mg capsule 03-03 00:00: 00 03-14 04:59 :00 No [id number] 100mg Take 1 capsule by mouth in the morning and 1 capsule in the evening. Do all this for 10 days. [facility] tmg70-gmqw- folic acid 29 mg iron- 1 mg per tablet 02-26 00:00: 00 03-14 00:00 :00 No [id number] 1{tbl} Take 1 tablet by mouth in the morning. [facility] terconazole 80 mg vaginal suppository 02-26 00:00: 00 03-02 04:59 :00 No [id number] 80mg Insert 1 Suppositor y into vagina at bedtime for 3 days. [facility] ondansetron (ZOFRAN (PF)) injection 4 mg 01-22 20:30: 00 01-22 19:39 :00 No [id number] 4mg 4 mg, Slow IV Push, ONCE, 1 dose, On Fri01/22/23 at 1530, Routine [facility] NaCl 0.9% (NS) bolus infusion 500 mL 01-22 19:30: 00 01-22 20:25 :00 No [id number] 500mL at 999 mL/hr, 500 mL, IV Infusion, ONCE, 1 dose, On Fri01/22/23 at 1430, STAT [facility] cephALEXin (KEFLEX) 500 mg capsule 01-22 00:00: 01-30 04:59 :00 No [id number] 500mg Take 1 capsule by mouth in the morning and 1 capsule at noon and 1 capsule in the evening. Do all this for 7 days. [facility] DICLEGIS 10-10 mg per tablet 01-18 00:00: 00 07-11 00:00 :00 No TAKE 2 TABLETS BY MOUTH EVERY DAY AT BEDTIME FOR NAUSEA. [facility] omeprazole 20 mg capsule 01-09 00:00: 00 07-10 00:00 :00 No [facility] cefpodoxime 100 mg tablet 12-23 00:00: 00 07-10 00:00 :00 No TAKE 1 TABLET BY MOUTH EVERY 12 HOURS FOR 7 DAYS. TAKE WITH FOOD. [facility] ELOCON 0.1 % TOPICAL OINT 07-31 00:00: 00 07-11 00:00 :00 No apply to affected regions 2 times/day for 5-7 days [facility] Immunizations Ordered Immunization Name Filled Immunization Name Date Status Comments Source HPV9 2024-01-29 00:00:00 Completed [facility] TDAP 2023-05-21 00:00:00 Completed [facility] Influenza Virus Vaccine Quad IM, Preserv and ABX Free 6 MO-64 YRS (FLUCELVAX) 2023-05-21 00:00:00 Completed Varicella (varivax)(chicken pox) 2007-12-29 00:00:00 Completed [facility] Varicella (varivax)(chicken pox) 2007-12-29 00:00:00 Completed [facility] Varicella (varivax)(chicken pox) 2007-12-29 00:00:00 Completed [facility] Varicella (varivax)(chicken pox) 2007-12-29 00:00:00 Completed Varicella (varivax)(chicken pox) 2007-12-29 00:00:00 Completed [facility] Varicella (varivax)(chicken pox) 2007-12-29 00:00:00 Completed [facility] Varicella (varivax)(chicken pox) 2007-12-29 00:00:00 Completed [facility] HEPATITIS A 2005-09-18 00:00:00 Completed [facility] HEPATITIS A 2005-09-18 00:00:00 Completed [facility] HEPATITIS A 2005-09-18 00:00:00 Completed [facility] HEPATITIS A 2005-09-18 00:00:00 Completed HEPATITIS A 2005-09-18 00:00:00 Completed [facility] HEPATITIS A 2005-09-18 00:00:00 Completed [facility] HEPATITIS A 2005-09-18 00:00:00 Completed [facility] DTAP 2005-06-10 00:00:00 Completed [facility] Pneumococcal 7 Conjugate, PCV7 (Prevnar7) 2005-06-10 00:00:00 Completed [facility] Polio (IPV/OPV) 2005-06-10 00:00:00 Completed [facility] Meningococcal Polysaccharide (groups A, C, Y and W-135) conjugate vaccine (MCV4P) 2005-06-10 00:00:00 Completed [facility] DTAP 2005-06-10 00:00:00 Completed [facility] Pneumococcal 7 Conjugate, PCV7 (Prevnar7) 2005-06-10 00:00:00 Completed [facility] DTAP 2005-06-10 00:00:00 Completed [facility] Polio (IPV/OPV) 2005-06-10 00:00:00 Completed [facility] Meningococcal Polysaccharide (groups A, C, Y and W-135) conjugate vaccine (MCV4P) 2005-06-10 00:00:00 Completed [facility] DTAP 2005-06-10 00:00:00 Completed [facility] Pneumococcal 7 Conjugate, PCV7 (Prevnar7) 2005-06-10 00:00:00 Completed [facility] Polio (IPV/OPV) 2005-06-10 00:00:00 Completed [facility] Meningococcal Polysaccharide (groups A, C, Y and W-135) conjugate vaccine (MCV4P) 2005-06-10 00:00:00 Completed [facility] Pneumococcal 7 Conjugate, PCV7 (Prevnar7) 2005-06-10 00:00:00 Completed [facility] DTAP 2005-06-10 00:00:00 Completed Pneumococcal 7 Conjugate, PCV7 (Prevnar7) 2005-06-10 00:00:00 Completed Polio (IPV/OPV) 2005-06-10 00:00:00 Completed Meningococcal Polysaccharide (groups A, C, Y and W-135) conjugate vaccine (MCV4P) 2005-06-10 00:00:00 Completed Polio (IPV/OPV) 2005-06-10 00:00:00 Completed [facility] Meningococcal Polysaccharide (groups A, C, Y and W-135) conjugate vaccine (MCV4P) 2005-06-10 00:00:00 Completed [facility] DTAP 2005-06-10 00:00:00 Completed [facility] Pneumococcal 7 Conjugate, PCV7 (Prevnar7) 2005-06-10 00:00:00 Completed [facility] Polio (IPV/OPV) 2005-06-10 00:00:00 Completed [facility] Meningococcal Polysaccharide (groups A, C, Y and W-135) conjugate vaccine (MCV4P) 2005-06-10 00:00:00 Completed [facility] DTAP 2005-06-10 00:00:00 Completed [facility] Pneumococcal 7 Conjugate, PCV7 (Prevnar7) 2005-06-10 00:00:00 Completed [facility] Polio (IPV/OPV) 2005-06-10 00:00:00 Completed [facility] Meningococcal Polysaccharide (groups A, C, Y and W-135) conjugate vaccine (MCV4P) 2005-06-10 00:00:00 Completed [facility] HEPATITIS A 2005-02-04 00:00:00 Completed [facility] HEPATITIS A 2005-02-04 00:00:00 Completed [facility] HEPATITIS A 2005-02-04 00:00:00 Completed [facility] HEPATITIS A 2005-02-04 00:00:00 Completed HEPATITIS A 2005-02-04 00:00:00 Completed [facility] HEPATITIS A 2005-02-04 00:00:00 Completed [facility] HEPATITIS A 2005-02-04 00:00:00 Completed [facility] Varicella (varivax)(chicken pox) 2002-10-18 00:00:00 Completed [facility] DTAP 2002-10-18 00:00:00 Completed [facility] DTAP 2002-10-18 00:00:00 Completed [facility] Varicella (varivax)(chicken pox) 2002-10-18 00:00:00 Completed [facility] DTAP 2002-10-18 00:00:00 Completed [facility] Varicella (varivax)(chicken pox) 2002-10-18 00:00:00 Completed [facility] DTAP 2002-10-18 00:00:00 Completed Varicella (varivax)(chicken pox) 2002-10-18 00:00:00 Completed Varicella (varivax)(chicken pox) 2002-10-18 00:00:00 Completed [facility] DTAP 2002-10-18 00:00:00 Completed [facility] Varicella (varivax)(chicken pox) 2002-10-18 00:00:00 Completed [facility] DTAP 2002-10-18 00:00:00 Completed [facility] Varicella (varivax)(chicken pox) 2002-10-18 00:00:00 Completed [facility] DTAP 2002-10-18 00:00:00 Completed [facility] HIB 4 Dose Schedule 2002-06-11 00:00:00 Completed [facility] Polio (IPV/OPV) 2002-06-11 00:00:00 Completed [facility] Meningococcal Polysaccharide (groups A, C, Y and W-135) conjugate vaccine (MCV4P) 2002-06-11 00:00:00 Completed [facility] HIB 4 Dose Schedule 2002-06-11 00:00:00 Completed [facility] Polio (IPV/OPV) 2002-06-11 00:00:00 Completed [facility] Meningococcal Polysaccharide (groups A, C, Y and W-135) conjugate vaccine (MCV4P) 2002-06-11 00:00:00 Completed [facility] HIB 4 Dose Schedule 2002-06-11 00:00:00 Completed [facility] Polio (IPV/OPV) 2002-06-11 00:00:00 Completed [facility] Meningococcal Polysaccharide (groups A, C, Y and W-135) conjugate vaccine (MCV4P) 2002-06-11 00:00:00 Completed [facility] HIB 4 Dose Schedule 2002-06-11 00:00:00 Completed [facility] Polio (IPV/OPV) 2002-06-11 00:00:00 Completed [facility] HIB 4 Dose Schedule 2002-06-11 00:00:00 Completed Polio (IPV/OPV) 2002-06-11 00:00:00 Completed Meningococcal Polysaccharide (groups A, C, Y and W-135) conjugate vaccine (MCV4P) 2002-06-11 00:00:00 Completed Meningococcal Polysaccharide (groups A, C, Y and W-135) conjugate vaccine (MCV4P) 2002-06-11 00:00:00 Completed [facility] HIB 4 Dose Schedule 2002-06-11 00:00:00 Completed [facility] Polio (IPV/OPV) 2002-06-11 00:00:00 Completed [facility] Meningococcal Polysaccharide (groups A, C, Y and W-135) conjugate vaccine (MCV4P) 2002-06-11 00:00:00 Completed [facility] HIB 4 Dose Schedule 2002-06-11 00:00:00 Completed [facility] Polio (IPV/OPV) 2002-06-11 00:00:00 Completed [facility] Meningococcal Polysaccharide (groups A, C, Y and W-135) conjugate vaccine (MCV4P) 2002-06-11 00:00:00 Completed [facility] Hep B, Adol or Pedi Dosage 2002-01-06 00:00:00 Completed [facility] HIB 4 Dose Schedule 2002-01-06 00:00:00 Completed [facility] DTAP 2002-01-06 00:00:00 Completed [facility] DTAP 2002-01-06 00:00:00 Completed [facility] Hep B, Adol or Pedi Dosage 2002-01-06 00:00:00 Completed [facility] HIB 4 Dose Schedule 2002-01-06 00:00:00 Completed [facility] Hep B, Adol or Pedi Dosage 2002-01-06 00:00:00 Completed [facility] DTAP 2002-01-06 00:00:00 Completed [facility] Hep B, Adol or Pedi Dosage 2002-01-06 00:00:00 Completed [facility] HIB 4 Dose Schedule 2002-01-06 00:00:00 Completed [facility] HIB 4 Dose Schedule 2002-01-06 00:00:00 Completed [facility] DTAP 2002-01-06 00:00:00 Completed Hep B, Adol or Pedi Dosage 2002-01-06 00:00:00 Completed HIB 4 Dose Schedule 2002-01-06 00:00:00 Completed DTAP 2002-01-06 00:00:00 Completed [facility] Hep B, Adol or Pedi Dosage 2002-01-06 00:00:00 Completed [facility] HIB 4 Dose Schedule 2002-01-06 00:00:00 Completed [facility] DTAP 2002-01-06 00:00:00 Completed [facility] Hep B, Adol or Pedi Dosage 2002-01-06 00:00:00 Completed [facility] HIB 4 Dose Schedule 2002-01-06 00:00:00 Completed [facility] DTAP 2002-01-06 00:00:00 Completed [facility] HIB 4 Dose Schedule 2001 00:00:00 Completed [facility] Pneumococcal 7 Conjugate, PCV7 (Prevnar7) 2001 00:00:00 Completed [facility] Polio (IPV/OPV) 2001 00:00:00 Completed [facility] DTAP 2001 00:00:00 Completed [facility] DTAP 2001 00:00:00 Completed [facility] HIB 4 Dose Schedule 2001 00:00:00 Completed [facility] Pneumococcal 7 Conjugate, PCV7 (Prevnar7) 2001 00:00:00 Completed [facility] Polio (IPV/OPV) 2001 00:00:00 Completed [facility] DTAP 2001 00:00:00 Completed [facility] HIB 4 Dose Schedule 2001 00:00:00 Completed [facility] HIB 4 Dose Schedule 2001 00:00:00 Completed [facility] Pneumococcal 7 Conjugate, PCV7 (Prevnar7) 2001 00:00:00 Completed [facility] Polio (IPV/OPV) 2001 00:00:00 Completed [facility] Pneumococcal 7 Conjugate, PCV7 (Prevnar7) 2001 00:00:00 Completed [facility] Polio (IPV/OPV) 2001 00:00:00 Completed [facility] DTAP 2001 00:00:00 Completed HIB 4 Dose Schedule 2001 00:00:00 Completed Pneumococcal 7 Conjugate, PCV7 (Prevnar7) 2001 00:00:00 Completed Polio (IPV/OPV) 2001 00:00:00 Completed DTAP 2001 00:00:00 Completed [facility] HIB 4 Dose Schedule 2001 00:00:00 Completed [facility] Pneumococcal 7 Conjugate, PCV7 (Prevnar7) 2001 00:00:00 Completed [facility] Polio (IPV/OPV) 2001 00:00:00 Completed [facility] DTAP 2001 00:00:00 Completed [facility] HIB 4 Dose Schedule 2001 00:00:00 Completed [facility] Pneumococcal 7 Conjugate, PCV7 (Prevnar7) 2001 00:00:00 Completed [facility] Polio (IPV/OPV) 2001 00:00:00 Completed [facility] DTAP 2001 00:00:00 Completed [facility] HIB 4 Dose Schedule 2001 00:00:00 Completed [facility] HIB 4 Dose Schedule 2001 00:00:00 Completed [facility] HIB 4 Dose Schedule 2001 00:00:00 Completed [facility] HIB 4 Dose Schedule 2001 00:00:00 Completed [facility] HIB 4 Dose Schedule 2001 00:00:00 Completed HIB 4 Dose Schedule 2001 00:00:00 Completed [facility] HIB 4 Dose Schedule 2001 00:00:00 Completed [facility] Hep B, Adol or Pedi Dosage 2001 00:00:00 Completed [facility] Pneumococcal 7 Conjugate, PCV7 (Prevnar7) 2001 00:00:00 Completed [facility] Polio (IPV/OPV) 2001 00:00:00 Completed [facility] DTAP 2001 00:00:00 Completed [facility] DTAP 2001 00:00:00 Completed [facility] Hep B, Adol or Pedi Dosage 2001 00:00:00 Completed [facility] Pneumococcal 7 Conjugate, PCV7 (Prevnar7) 2001 00:00:00 Completed [facility] Polio (IPV/OPV) 2001 00:00:00 Completed [facility] Hep B, Adol or Pedi Dosage 2001 00:00:00 Completed [facility] DTAP 2001 00:00:00 Completed [facility] Hep B, Adol or Pedi Dosage 2001 00:00:00 Completed [facility] Pneumococcal 7 Conjugate, PCV7 (Prevnar7) 2001 00:00:00 Completed [facility] Polio (IPV/OPV) 2001 00:00:00 Completed [facility] Pneumococcal 7 Conjugate, PCV7 (Prevnar7) 2001 00:00:00 Completed [facility] Polio (IPV/OPV) 2001 00:00:00 Completed [facility] DTAP 2001 00:00:00 Completed [facility] Hep B, Adol or Pedi Dosage 2001 00:00:00 Completed Pneumococcal 7 Conjugate, PCV7 (Prevnar7) 2001 00:00:00 Completed Polio (IPV/OPV) 2001 00:00:00 Completed DTAP 2001 00:00:00 Completed [facility] Hep B, Adol or Pedi Dosage 2001 00:00:00 Completed [facility] DTAP 2001 00:00:00 Completed [facility] Pneumococcal 7 Conjugate, PCV7 (Prevnar7) 2001 00:00:00 Completed [facility] Polio (IPV/OPV) 2001 00:00:00 Completed [facility] Hep B, Adol or Pedi Dosage 2001 00:00:00 Completed [facility] Pneumococcal 7 Conjugate, PCV7 (Prevnar7) 2001 00:00:00 Completed [facility] Polio (IPV/OPV) 2001 00:00:00 Completed [facility] DTAP 2001 00:00:00 Completed [facility] Hep B, Adol or Pedi Dosage 2001 00:00:00 Completed [facility] Hep B, Adol or Pedi Dosage 2001 00:00:00 Completed [facility] Hep B, Adol or Pedi Dosage 2001 00:00:00 Completed [facility] Hep B, Adol or Pedi Dosage 2001 00:00:00 Completed [facility] Hep B, Adol or Pedi Dosage 2001 00:00:00 Completed Hep B, Adol or Pedi Dosage 2001 00:00:00 Completed [facility] Hep B, Adol or Pedi Dosage 2001 00:00:00 Completed [facility] DTAP Unknown Completed [facility] Hep B, Adol or Pedi Dosage Unknown Completed [facility] HIB 4 Dose Schedule Unknown Completed [facility] Pneumococcal 7 Conjugate, PCV7 (Prevnar7) Unknown Completed [facility] Polio (IPV/OPV) Unknown Completed [facility] HEPATITIS A Unknown Completed [facility] Meningococcal Polysaccharide (groups A, C, Y and W-135) conjugate vaccine (MCV4P) Unknown Completed [facility] Varicella (varivax)(chicken pox) Unknown Completed [facility] TDAP Unknown Completed [facility] Influenza Virus Vaccine Quad IM, Preserv and ABX Free 6 MO-64 YRS (FLUCELVAX) Unknown Completed [facility] TDAP Unknown Completed [facility] Influenza Virus Vaccine Quad IM, Preserv and ABX Free 6 MO-64 YRS (FLUCELVAX) Unknown Completed [facility] DTAP Unknown Completed [facility] Hep B, Adol or Pedi Dosage Unknown Completed [facility] HIB 4 Dose Schedule Unknown Completed [facility] Pneumococcal 7 Conjugate, PCV7 (Prevnar7) Unknown Completed [facility] Polio (IPV/OPV) Unknown Completed [facility] HEPATITIS A Unknown Completed [facility] Meningococcal Polysaccharide (groups A, C, Y and W-135) conjugate vaccine (MCV4P) Unknown Completed [facility] Varicella (varivax)(chicken pox) Unknown Completed [facility] DTAP Unknown Completed [facility] Hep B, Adol or Pedi Dosage Unknown Completed [facility] HIB 4 Dose Schedule Unknown Completed [facility] Pneumococcal 7 Conjugate, PCV7 (Prevnar7) Unknown Completed [facility] Polio (IPV/OPV) Unknown Completed [facility] HEPATITIS A Unknown Completed [facility] Meningococcal Polysaccharide (groups A, C, Y and W-135) conjugate vaccine (MCV4P) Unknown Completed [facility] Varicella (varivax)(chicken pox) Unknown Completed [facility] TDAP Unknown Completed [facility] Influenza Virus Vaccine Quad IM, Preserv and ABX Free 6 MO-64 YRS (FLUCELVAX) Unknown Completed [facility] DTAP Unknown Completed [facility] Hep B, Adol or Pedi Dosage Unknown Completed [facility] HIB 4 Dose Schedule Unknown Completed [facility] Pneumococcal 7 Conjugate, PCV7 (Prevnar7) Unknown Completed [facility] Polio (IPV/OPV) Unknown Completed [facility] HEPATITIS A Unknown Completed [facility] Meningococcal Polysaccharide (groups A, C, Y and W-135) conjugate vaccine (MCV4P) Unknown Completed [facility] Varicella (varivax)(chicken pox) Unknown Completed [facility] TDAP Unknown Completed [facility] Influenza Virus Vaccine Quad IM, Preserv and ABX Free 6 MO-64 YRS (FLUCELVAX) Unknown Completed [facility] DTAP Unknown Completed [facility] Hep B, Adol or Pedi Dosage Unknown Completed [facility] HIB 4 Dose Schedule Unknown Completed [facility] Pneumococcal 7 Conjugate, PCV7 (Prevnar7) Unknown Completed [facility] Polio (IPV/OPV) Unknown Completed [facility] HEPATITIS A Unknown Completed [facility] Meningococcal Polysaccharide (groups A, C, Y and W-135) conjugate vaccine (MCV4P) Unknown Completed [facility] Varicella (varivax)(chicken pox) Unknown Completed [facility] TDAP Unknown Completed [facility] Influenza Virus Vaccine Quad IM, Preserv and ABX Free 6 MO-64 YRS (FLUCELVAX) Unknown Completed [facility] TDAP Unknown Completed [facility] Influenza Virus Vaccine Quad IM, Preserv and ABX Free 6 MO-64 YRS (FLUCELVAX) Unknown Completed [facility] DTAP Unknown Completed [facility] Hep B, Adol or Pedi Dosage Unknown Completed [facility] HIB 4 Dose Schedule Unknown Completed [facility] Pneumococcal 7 Conjugate, PCV7 (Prevnar7) Unknown Completed [facility] Polio (IPV/OPV) Unknown Completed [facility] HEPATITIS A Unknown Completed [facility] Meningococcal Polysaccharide (groups A, C, Y and W-135) conjugate vaccine (MCV4P) Unknown Completed [facility] Varicella (varivax)(chicken pox) Unknown Completed [facility] DTAP Unknown Completed [facility] Hep B, Adol or Pedi Dosage Unknown Completed [facility] HIB 4 Dose Schedule Unknown Completed [facility] Pneumococcal 7 Conjugate, PCV7 (Prevnar7) Unknown Completed [facility] Polio (IPV/OPV) Unknown Completed [facility] HEPATITIS A Unknown Completed [facility] Meningococcal Polysaccharide (groups A, C, Y and W-135) conjugate vaccine (MCV4P) Unknown Completed [facility] Varicella (varivax)(chicken pox) Unknown Completed [facility] TDAP Unknown Completed [facility] Influenza Virus Vaccine Quad IM, Preserv and ABX Free 6 MO-64 YRS (FLUCELVAX) Unknown Completed [facility] DTAP Unknown Completed [facility] Hep B, Adol or Pedi Dosage Unknown Completed [facility] HIB 4 Dose Schedule Unknown Completed [facility] Pneumococcal 7 Conjugate, PCV7 (Prevnar7) Unknown Completed [facility] Polio (IPV/OPV) Unknown Completed [facility] HEPATITIS A Unknown Completed [facility] Meningococcal Polysaccharide (groups A, C, Y and W-135) conjugate vaccine (MCV4P) Unknown Completed [facility] Varicella (varivax)(chicken pox) Unknown Completed [facility] TDAP Unknown Completed [facility] Influenza Virus Vaccine Quad IM, Preserv and ABX Free 6 MO-64 YRS (FLUCELVAX) Unknown Completed [facility] DTAP Unknown Completed [facility] Hep B, Adol or Pedi Dosage Unknown Completed [facility] HIB 4 Dose Schedule Unknown Completed [facility] Pneumococcal 7 Conjugate, PCV7 (Prevnar7) Unknown Completed [facility] Polio (IPV/OPV) Unknown Completed [facility] HEPATITIS A Unknown Completed [facility] Meningococcal Polysaccharide (groups A, C, Y and W-135) conjugate vaccine (MCV4P) Unknown Completed [facility] Varicella (varivax)(chicken pox) Unknown Completed [facility] TDAP Unknown Completed [facility] Influenza Virus Vaccine Quad IM, Preserv and ABX Free 6 MO-64 YRS (FLUCELVAX) Unknown Completed [facility] DTAP Unknown Completed [facility] Hep B, Adol or Pedi Dosage Unknown Completed [facility] HIB 4 Dose Schedule Unknown Completed [facility] Pneumococcal 7 Conjugate, PCV7 (Prevnar7) Unknown Completed [facility] Polio (IPV/OPV) Unknown Completed [facility] HEPATITIS A Unknown Completed [facility] Meningococcal Polysaccharide (groups A, C, Y and W-135) conjugate vaccine (MCV4P) Unknown Completed [facility] Varicella (varivax)(chicken pox) Unknown Completed [facility] TDAP Unknown Completed [facility] Influenza Virus Vaccine Quad IM, Preserv and ABX Free 6 MO-64 YRS (FLUCELVAX) Unknown Completed [facility] DTAP Unknown Completed [facility] Hep B, Adol or Pedi Dosage Unknown Completed [facility] HIB 4 Dose Schedule Unknown Completed [facility] Pneumococcal 7 Conjugate, PCV7 (Prevnar7) Unknown Completed [facility] Polio (IPV/OPV) Unknown Completed [facility] HEPATITIS A Unknown Completed [facility] Meningococcal Polysaccharide (groups A, C, Y and W-135) conjugate vaccine (MCV4P) Unknown Completed [facility] Varicella (varivax)(chicken pox) Unknown Completed [facility] TDAP Unknown Completed [facility] Influenza Virus Vaccine Quad IM, Preserv and ABX Free 6 MO-64 YRS (FLUCELVAX) Unknown Completed [facility] DTAP Unknown Completed [facility] Hep B, Adol or Pedi Dosage Unknown Completed [facility] HIB 4 Dose Schedule Unknown Completed [facility] Pneumococcal 7 Conjugate, PCV7 (Prevnar7) Unknown Completed [facility] Polio (IPV/OPV) Unknown Completed [facility] HEPATITIS A Unknown Completed [facility] Meningococcal Polysaccharide (groups A, C, Y and W-135) conjugate vaccine (MCV4P) Unknown Completed [facility] Varicella (varivax)(chicken pox) Unknown Completed [facility] TDAP Unknown Completed [facility] Influenza Virus Vaccine Quad IM, Preserv and ABX Free 6 MO-64 YRS (FLUCELVAX) Unknown Completed [facility] TDAP Unknown Completed [facility] Influenza Virus Vaccine Quad IM, Preserv and ABX Free 6 MO-64 YRS (FLUCELVAX) Unknown Completed [facility] DTAP Unknown Completed [facility] Hep B, Adol or Pedi Dosage Unknown Completed [facility] HIB 4 Dose Schedule Unknown Completed [facility] Pneumococcal 7 Conjugate, PCV7 (Prevnar7) Unknown Completed [facility] Polio (IPV/OPV) Unknown Completed [facility] HEPATITIS A Unknown Completed [facility] Meningococcal Polysaccharide (groups A, C, Y and W-135) conjugate vaccine (MCV4P) Unknown Completed [facility] Varicella (varivax)(chicken pox) Unknown Completed [facility] DTAP Unknown Completed [facility] Hep B, Adol or Pedi Dosage Unknown Completed [facility] HIB 4 Dose Schedule Unknown Completed [facility] Pneumococcal 7 Conjugate, PCV7 (Prevnar7) Unknown Completed [facility] Polio (IPV/OPV) Unknown Completed [facility] HEPATITIS A Unknown Completed [facility] Meningococcal Polysaccharide (groups A, C, Y and W-135) conjugate vaccine (MCV4P) Unknown Completed [facility] Varicella (varivax)(chicken pox) Unknown Completed [facility] TDAP Unknown Completed [facility] Influenza Virus Vaccine Quad IM, Preserv and ABX Free 6 MO-64 YRS (FLUCELVAX) Unknown Completed [facility] DTAP Unknown Completed [facility] Hep B, Adol or Pedi Dosage Unknown Completed [facility] HIB 4 Dose Schedule Unknown Completed [facility] Pneumococcal 7 Conjugate, PCV7 (Prevnar7) Unknown Completed [facility] Polio (IPV/OPV) Unknown Completed [facility] HEPATITIS A Unknown Completed [facility] Meningococcal Polysaccharide (groups A, C, Y and W-135) conjugate vaccine (MCV4P) Unknown Completed [facility] Varicella (varivax)(chicken pox) Unknown Completed [facility] TDAP Unknown Completed [facility] Influenza Virus Vaccine Quad IM, Preserv and ABX Free 6 MO-64 YRS (FLUCELVAX) Unknown Completed [facility] DTAP Unknown Completed [facility] Hep B, Adol or Pedi Dosage Unknown Completed [facility] HIB 4 Dose Schedule Unknown Completed [facility] Pneumococcal 7 Conjugate, PCV7 (Prevnar7) Unknown Completed [facility] Polio (IPV/OPV) Unknown Completed [facility] HEPATITIS A Unknown Completed [facility] Meningococcal Polysaccharide (groups A, C, Y and W-135) conjugate vaccine (MCV4P) Unknown Completed [facility] Varicella (varivax)(chicken pox) Unknown Completed [facility] TDAP Unknown Completed [facility] Influenza Virus Vaccine Quad IM, Preserv and ABX Free 6 MO-64 YRS (FLUCELVAX) Unknown Completed [facility] DTAP Unknown Completed [facility] Hep B, Adol or Pedi Dosage Unknown Completed [facility] HIB 4 Dose Schedule Unknown Completed [facility] Pneumococcal 7 Conjugate, PCV7 (Prevnar7) Unknown Completed [facility] Polio (IPV/OPV) Unknown Completed [facility] HEPATITIS A Unknown Completed [facility] Meningococcal Polysaccharide (groups A, C, Y and W-135) conjugate vaccine (MCV4P) Unknown Completed [facility] Varicella (varivax)(chicken pox) Unknown Completed [facility] TDAP Unknown Completed [facility] Influenza Virus Vaccine Quad IM, Preserv and ABX Free 6 MO-64 YRS (FLUCELVAX) Unknown Completed [facility] DTAP Unknown Completed [facility] Hep B, Adol or Pedi Dosage Unknown Completed [facility] HIB 4 Dose Schedule Unknown Completed [facility] Pneumococcal 7 Conjugate, PCV7 (Prevnar7) Unknown Completed [facility] Polio (IPV/OPV) Unknown Completed [facility] HEPATITIS A Unknown Completed [facility] Meningococcal Polysaccharide (groups A, C, Y and W-135) conjugate vaccine (MCV4P) Unknown Completed [facility] Varicella (varivax)(chicken pox) Unknown Completed [facility] TDAP Unknown Completed [facility] Influenza Virus Vaccine Quad IM, Preserv and ABX Free 6 MO-64 YRS (FLUCELVAX) Unknown Completed [facility] DTAP Unknown Completed [facility] Hep B, Adol or Pedi Dosage Unknown Completed [facility] HIB 4 Dose Schedule Unknown Completed [facility] Pneumococcal 7 Conjugate, PCV7 (Prevnar7) Unknown Completed [facility] Polio (IPV/OPV) Unknown Completed [facility] HEPATITIS A Unknown Completed [facility] Meningococcal Polysaccharide (groups A, C, Y and W-135) conjugate vaccine (MCV4P) Unknown Completed [facility] Varicella (varivax)(chicken pox) Unknown Completed [facility] TDAP Unknown Completed [facility] Influenza Virus Vaccine Quad IM, Preserv and ABX Free 6 MO-64 YRS (FLUCELVAX) Unknown Completed [facility] TDAP Unknown Completed [facility] Influenza Virus Vaccine Quad IM, Preserv and ABX Free 6 MO-64 YRS (FLUCELVAX) Unknown Completed [facility] DTAP Unknown Completed [facility] Hep B, Adol or Pedi Dosage Unknown Completed [facility] HIB 4 Dose Schedule Unknown Completed [facility] Pneumococcal 7 Conjugate, PCV7 (Prevnar7) Unknown Completed [facility] Polio (IPV/OPV) Unknown Completed [facility] HEPATITIS A Unknown Completed [facility] Meningococcal Polysaccharide (groups A, C, Y and W-135) conjugate vaccine (MCV4P) Unknown Completed [facility] Varicella (varivax)(chicken pox) Unknown Completed [facility] TDAP Unknown Completed [facility] Influenza Virus Vaccine Quad IM, Preserv and ABX Free 6 MO-64 YRS (FLUCELVAX) Unknown Completed [facility] DTAP Unknown Completed [facility] Hep B, Adol or Pedi Dosage Unknown Completed [facility] HIB 4 Dose Schedule Unknown Completed [facility] Pneumococcal 7 Conjugate, PCV7 (Prevnar7) Unknown Completed [facility] Polio (IPV/OPV) Unknown Completed [facility] HEPATITIS A Unknown Completed [facility] Meningococcal Polysaccharide (groups A, C, Y and W-135) conjugate vaccine (MCV4P) Unknown Completed [facility] Varicella (varivax)(chicken pox) Unknown Completed [facility] DTAP Unknown Completed [facility] Hep B, Adol or Pedi Dosage Unknown Completed [facility] HIB 4 Dose Schedule Unknown Completed [facility] Pneumococcal 7 Conjugate, PCV7 (Prevnar7) Unknown Completed [facility] Polio (IPV/OPV) Unknown Completed [facility] HEPATITIS A Unknown Completed [facility] Meningococcal Polysaccharide (groups A, C, Y and W-135) conjugate vaccine (MCV4P) Unknown Completed [facility] Varicella (varivax)(chicken pox) Unknown Completed [facility] TDAP Unknown Completed [facility] Influenza Virus Vaccine Quad IM, Preserv and ABX Free 6 MO-64 YRS (FLUCELVAX) Unknown Completed [facility] TDAP Unknown Completed [facility] Influenza Virus Vaccine Quad IM, Preserv and ABX Free 6 MO-64 YRS (FLUCELVAX) Unknown Completed [facility] DTAP Unknown Completed [facility] Hep B, Adol or Pedi Dosage Unknown Completed [facility] HIB 4 Dose Schedule Unknown Completed [facility] Pneumococcal 7 Conjugate, PCV7 (Prevnar7) Unknown Completed [facility] Polio (IPV/OPV) Unknown Completed [facility] HEPATITIS A Unknown Completed [facility] Meningococcal Polysaccharide (groups A, C, Y and W-135) conjugate vaccine (MCV4P) Unknown Completed [facility] Varicella (varivax)(chicken pox) Unknown Completed [facility] DTAP Unknown Completed [facility] Hep B, Adol or Pedi Dosage Unknown Completed [facility] HIB 4 Dose Schedule Unknown Completed [facility] Pneumococcal 7 Conjugate, PCV7 (Prevnar7) Unknown Completed [facility] Polio (IPV/OPV) Unknown Completed [facility] HEPATITIS A Unknown Completed [facility] Meningococcal Polysaccharide (groups A, C, Y and W-135) conjugate vaccine (MCV4P) Unknown Completed [facility] Varicella (varivax)(chicken pox) Unknown Completed [facility] TDAP Unknown Completed [facility] Influenza Virus Vaccine Quad IM, Preserv and ABX Free 6 MO-64 YRS (FLUCELVAX) Unknown Completed [facility] DTAP Unknown Completed [facility] Hep B, Adol or Pedi Dosage Unknown Completed [facility] HIB 4 Dose Schedule Unknown Completed [facility] Pneumococcal 7 Conjugate, PCV7 (Prevnar7) Unknown Completed [facility] Polio (IPV/OPV) Unknown Completed [facility] HEPATITIS A Unknown Completed [facility] Meningococcal Polysaccharide (groups A, C, Y and W-135) conjugate vaccine (MCV4P) Unknown Completed [facility] Varicella (varivax)(chicken pox) Unknown Completed [facility] TDAP Unknown Completed [facility] Influenza Virus Vaccine Quad IM, Preserv and ABX Free 6 MO-64 YRS (FLUCELVAX) Unknown Completed [facility] DTAP Unknown Completed [facility] Hep B, Adol or Pedi Dosage Unknown Completed [facility] HIB 4 Dose Schedule Unknown Completed [facility] Pneumococcal 7 Conjugate, PCV7 (Prevnar7) Unknown Completed [facility] Polio (IPV/OPV) Unknown Completed [facility] HEPATITIS A Unknown Completed [facility] Meningococcal Polysaccharide (groups A, C, Y and W-135) conjugate vaccine (MCV4P) Unknown Completed [facility] Varicella (varivax)(chicken pox) Unknown Completed [facility] TDAP Unknown Completed [facility] Influenza Virus Vaccine Quad IM, Preserv and ABX Free 6 MO-64 YRS (FLUCELVAX) Unknown Completed [facility] DTAP Unknown Completed [facility] Hep B, Adol or Pedi Dosage Unknown Completed [facility] HIB 4 Dose Schedule Unknown Completed [facility] Pneumococcal 7 Conjugate, PCV7 (Prevnar7) Unknown Completed [facility] Polio (IPV/OPV) Unknown Completed [facility] HEPATITIS A Unknown Completed [facility] Meningococcal Polysaccharide (groups A, C, Y and W-135) conjugate vaccine (MCV4P) Unknown Completed [facility] Varicella (varivax)(chicken pox) Unknown Completed [facility] TDAP Unknown Completed [facility] Influenza Virus Vaccine Quad IM, Preserv and ABX Free 6 MO-64 YRS (FLUCELVAX) Unknown Completed [facility] DTAP Unknown Completed [facility] Hep B, Adol or Pedi Dosage Unknown Completed [facility] HIB 4 Dose Schedule Unknown Completed [facility] Pneumococcal 7 Conjugate, PCV7 (Prevnar7) Unknown Completed [facility] Polio (IPV/OPV) Unknown Completed [facility] HEPATITIS A Unknown Completed [facility] Meningococcal Polysaccharide (groups A, C, Y and W-135) conjugate vaccine (MCV4P) Unknown Completed [facility] Varicella (varivax)(chicken pox) Unknown Completed [facility] TDAP Unknown Completed [facility] Influenza Virus Vaccine Quad IM, Preserv and ABX Free 6 MO-64 YRS (FLUCELVAX) Unknown Completed [facility] DTAP Unknown Completed [facility] Hep B, Adol or Pedi Dosage Unknown Completed [facility] HIB 4 Dose Schedule Unknown Completed [facility] Pneumococcal 7 Conjugate, PCV7 (Prevnar7) Unknown Completed [facility] Polio (IPV/OPV) Unknown Completed [facility] HEPATITIS A Unknown Completed [facility] Meningococcal Polysaccharide (groups A, C, Y and W-135) conjugate vaccine (MCV4P) Unknown Completed [facility] Varicella (varivax)(chicken pox) Unknown Completed [facility] TDAP Unknown Completed [facility] Influenza Virus Vaccine Quad IM, Preserv and ABX Free 6 MO-64 YRS (FLUCELVAX) Unknown Completed [facility] DTAP Unknown Completed [facility] Hep B, Adol or Pedi Dosage Unknown Completed [facility] HIB 4 Dose Schedule Unknown Completed [facility] Pneumococcal 7 Conjugate, PCV7 (Prevnar7) Unknown Completed [facility] Polio (IPV/OPV) Unknown Completed [facility] HEPATITIS A Unknown Completed [facility] Meningococcal Polysaccharide (groups A, C, Y and W-135) conjugate vaccine (MCV4P) Unknown Completed [facility] Varicella (varivax)(chicken pox) Unknown Completed [facility] TDAP Unknown Completed [facility] Influenza Virus Vaccine Quad IM, Preserv and ABX Free 6 MO-64 YRS (FLUCELVAX) Unknown Completed [facility] DTAP Unknown Completed [facility] Hep B, Adol or Pedi Dosage Unknown Completed [facility] HIB 4 Dose Schedule Unknown Completed [facility] Pneumococcal 7 Conjugate, PCV7 (Prevnar7) Unknown Completed [facility] Polio (IPV/OPV) Unknown Completed [facility] HEPATITIS A Unknown Completed [facility] Meningococcal Polysaccharide (groups A, C, Y and W-135) conjugate vaccine (MCV4P) Unknown Completed [facility] Varicella (varivax)(chicken pox) Unknown Completed [facility] TDAP Unknown Completed [facility] Influenza Virus Vaccine Quad IM, Preserv and ABX Free 6 MO-64 YRS (FLUCELVAX) Unknown Completed [facility] HPV9 Unknown Completed [facility] DTAP Unknown Completed [facility] Hep B, Adol or Pedi Dosage Unknown Completed [facility] HIB 4 Dose Schedule Unknown Completed [facility] Pneumococcal 7 Conjugate, PCV7 (Prevnar7) Unknown Completed [facility] Polio (IPV/OPV) Unknown Completed [facility] HEPATITIS A Unknown Completed [facility] Meningococcal Polysaccharide (groups A, C, Y and W-135) conjugate vaccine (MCV4P) Unknown Completed [facility] Varicella (varivax)(chicken pox) Unknown Completed [facility] TDAP Unknown Completed [facility] Influenza Virus Vaccine Quad IM, Preserv and ABX Free 6 MO-64 YRS (FLUCELVAX) Unknown Completed [facility] HPV9 Unknown Completed [facility] DTAP Unknown Completed [facility] Hep B, Adol or Pedi Dosage Unknown Completed [facility] HIB 4 Dose Schedule Unknown Completed [facility] Pneumococcal 7 Conjugate, PCV7 (Prevnar7) Unknown Completed [facility] Polio (IPV/OPV) Unknown Completed [facility] HEPATITIS A Unknown Completed [facility] Meningococcal Polysaccharide (groups A, C, Y and W-135) conjugate vaccine (MCV4P) Unknown Completed [facility] Varicella (varivax)(chicken pox) Unknown Completed [facility] TDAP Unknown Completed [facility] Influenza Virus Vaccine Quad IM, Preserv and ABX Free 6 MO-64 YRS (FLUCELVAX) Unknown Completed [facility] HPV9 Unknown Completed [facility] DTAP Unknown Completed [facility] Hep B, Adol or Pedi Dosage Unknown Completed [facility] HIB 4 Dose Schedule Unknown Completed [facility] Pneumococcal 7 Conjugate, PCV7 (Prevnar7) Unknown Completed [facility] Polio (IPV/OPV) Unknown Completed [facility] HEPATITIS A Unknown Completed [facility] Meningococcal Polysaccharide (groups A, C, Y and W-135) conjugate vaccine (MCV4P) Unknown Completed [facility] Varicella (varivax)(chicken pox) Unknown Completed [facility] TDAP Unknown Completed [facility] Influenza Virus Vaccine Quad IM, Preserv and ABX Free 6 MO-64 YRS (FLUCELVAX) Unknown Completed [facility] HPV9 Unknown Completed [facility] DTAP Unknown Completed [facility] Hep B, Adol or Pedi Dosage Unknown Completed [facility] HIB 4 Dose Schedule Unknown Completed [facility] Pneumococcal 7 Conjugate, PCV7 (Prevnar7) Unknown Completed [facility] Polio (IPV/OPV) Unknown Completed [facility] HEPATITIS A Unknown Completed [facility] Meningococcal Polysaccharide (groups A, C, Y and W-135) conjugate vaccine (MCV4P) Unknown Completed [facility] Varicella (varivax)(chicken pox) Unknown Completed [facility] DTAP Unknown Completed [facility] Hep B, Adol or Pedi Dosage Unknown Completed [facility] HIB 4 Dose Schedule Unknown Completed [facility] Pneumococcal 7 Conjugate, PCV7 (Prevnar7) Unknown Completed [facility] Polio (IPV/OPV) Unknown Completed [facility] HEPATITIS A Unknown Completed [facility] Meningococcal Polysaccharide (groups A, C, Y and W-135) conjugate vaccine (MCV4P) Unknown Completed [facility] Varicella (varivax)(chicken pox) Unknown Completed [facility] DTAP Unknown Completed [facility] Hep B, Adol or Pedi Dosage Unknown Completed [facility] HIB 4 Dose Schedule Unknown Completed [facility] Pneumococcal 7 Conjugate, PCV7 (Prevnar7) Unknown Completed [facility] Polio (IPV/OPV) Unknown Completed [facility] HEPATITIS A Unknown Completed [facility] Meningococcal Polysaccharide (groups A, C, Y and W-135) conjugate vaccine (MCV4P) Unknown Completed [facility] Varicella (varivax)(chicken pox) Unknown Completed [facility] DTAP Unknown Completed [facility] Hep B, Adol or Pedi Dosage Unknown Completed [facility] HIB 4 Dose Schedule Unknown Completed [facility] Pneumococcal 7 Conjugate, PCV7 (Prevnar7) Unknown Completed [facility] Polio (IPV/OPV) Unknown Completed [facility] HEPATITIS A Unknown Completed [facility] Meningococcal Polysaccharide (groups A, C, Y and W-135) conjugate vaccine (MCV4P) Unknown Completed [facility] Varicella (varivax)(chicken pox) Unknown Completed [facility] DTAP Unknown Completed [facility] Hep B, Adol or Pedi Dosage Unknown Completed [facility] HIB 4 Dose Schedule Unknown Completed [facility] Pneumococcal 7 Conjugate, PCV7 (Prevnar7) Unknown Completed [facility] Polio (IPV/OPV) Unknown Completed [facility] HEPATITIS A Unknown Completed [facility] Meningococcal Polysaccharide (groups A, C, Y and W-135) conjugate vaccine (MCV4P) Unknown Completed [facility] Varicella (varivax)(chicken pox) Unknown Completed [facility] DTAP Unknown Completed [facility] Hep B, Adol or Pedi Dosage Unknown Completed [facility] HIB 4 Dose Schedule Unknown Completed [facility] Pneumococcal 7 Conjugate, PCV7 (Prevnar7) Unknown Completed [facility] Polio (IPV/OPV) Unknown Completed [facility] HEPATITIS A Unknown Completed [facility] Meningococcal Polysaccharide (groups A, C, Y and W-135) conjugate vaccine (MCV4P) Unknown Completed [facility] Varicella (varivax)(chicken pox) Unknown Completed [facility] DTAP Unknown Completed [facility] Hep B, Adol or Pedi Dosage Unknown Completed [facility] HIB 4 Dose Schedule Unknown Completed [facility] Pneumococcal 7 Conjugate, PCV7 (Prevnar7) Unknown Completed [facility] Polio (IPV/OPV) Unknown Completed [facility] HEPATITIS A Unknown Completed [facility] Meningococcal Polysaccharide (groups A, C, Y and W-135) conjugate vaccine (MCV4P) Unknown Completed [facility] Varicella (varivax)(chicken pox) Unknown Completed [facility] DTAP Unknown Completed [facility] Hep B, Adol or Pedi Dosage Unknown Completed [facility] HIB 4 Dose Schedule Unknown Completed [facility] Pneumococcal 7 Conjugate, PCV7 (Prevnar7) Unknown Completed [facility] Polio (IPV/OPV) Unknown Completed [facility] HEPATITIS A Unknown Completed [facility] Meningococcal Polysaccharide (groups A, C, Y and W-135) conjugate vaccine (MCV4P) Unknown Completed [facility] Varicella (varivax)(chicken pox) Unknown Completed [facility] DTAP Unknown Completed [facility] Hep B, Adol or Pedi Dosage Unknown Completed [facility] HIB 4 Dose Schedule Unknown Completed [facility] Pneumococcal 7 Conjugate, PCV7 (Prevnar7) Unknown Completed [facility] Polio (IPV/OPV) Unknown Completed [facility] HEPATITIS A Unknown Completed [facility] Meningococcal Polysaccharide (groups A, C, Y and W-135) conjugate vaccine (MCV4P) Unknown Completed [facility] Varicella (varivax)(chicken pox) Unknown Completed [facility] DTAP Unknown Completed [facility] Hep B, Adol or Pedi Dosage Unknown Completed [facility] HIB 4 Dose Schedule Unknown Completed [facility] Pneumococcal 7 Conjugate, PCV7 (Prevnar7) Unknown Completed [facility] Polio (IPV/OPV) Unknown Completed [facility] HEPATITIS A Unknown Completed [facility] Meningococcal Polysaccharide (groups A, C, Y and W-135) conjugate vaccine (MCV4P) Unknown Completed [facility] Varicella (varivax)(chicken pox) Unknown Completed [facility] Vital Signs Vital Name Observation Time Observation Value Comments S ource Systolic blood pressure 2024-04-12 17:55:00 110 mm[Hg] [facility] Diastolic blood pressure 2024-04-12 17:55:00 76 mm[Hg] [facility] Heart rate 2024-04-12 17:55:00 77 /min [facility] Body temperature 2024-04-12 17:55:00 36.67 Rajwinder [facility] Respiratory rate 2024-04-12 17:55:00 18 /min [facility] Oxygen saturation in Arterial blood by Pulse oximetry 2024-04-12 17:55:00 98 /min [facility] Systolic blood pressure 2024-03-12 15:39:00 97 mm[Hg] [facility] Diastolic blood pressure 2024-03-12 15:39:00 63 mm[Hg] [facility] Heart rate 2024-03-12 15:39:00 90 /min [facility] Body temperature 2024-03-12 15:39:00 36.72 Rajwinder [facility] Respiratory rate 2024-03-12 15:39:00 17 /min [facility] Body height 2024-03-12 15:39:00 157.5 cm [facility] Body weight 2024-03-12 15:39:00 73.301 kg [facility] BMI 2024-03-12 15:39:00 29.56 kg/m2 [facility] Oxygen saturation in Arterial blood by Pulse oximetry 2024-03-12 15:39:00 98 /min [facility] Systolic blood pressure 2024-02-12 18:21:00 111 mm[Hg] [facility] Diastolic blood pressure 2024-02-12 18:21:00 76 mm[Hg] [facility] Heart rate 2024-02-12 18:21:00 88 /min [facility] Body temperature 2024-02-12 18:21:00 36.17 Rajwinder [facility] Respiratory rate 2024-02-12 18:21:00 18 /min [facility] Body height 2024-02-12 18:21:00 157.5 cm [facility] 2024-02-12 18:21:00 73.573 kg [facility] BMI 2024-02-12 18:21:00 29.67 kg/m2 [facility] Systolic blood pressure 2024-01-29 20:30:00 112 mm[Hg] [facility] Diastolic blood pressure 2024-01-29 20:30:00 79 mm[Hg] [facility] Heart rate 2024-01-29 20:30:00 91 /min [facility] Body temperature 2024-01-29 20:30:00 37 Rajwinder [facility] Respiratory rate 2024-01-29 20:30:00 18 /min [facility] Body height 2024-01-29 20:30:00 157.5 cm [facility] Body weight 2024-01-29 20:30:00 75.099 kg [facility] BMI 2024-01-29 20:30:00 30.28 kg/m2 [facility] Systolic blood pressure 2024-01-19 21:59:00 123 mm[Hg] [facility] Diastolic blood pressure 2024-01-19 21:59:00 81 mm[Hg] [facility] Heart rate 2024-01-19 21:59:00 87 /min [facility] Body temperature 2024-01-19 21:59:00 37.22 Rajwinder [facility] Respiratory rate 2024-01-19 21:59:00 18 /min [facility] Body weight 2024-01-19 21:59:00 73.982 kg [facility] BMI 2024-01-19 21:59:00 29.83 kg/m2 [facility] Oxygen saturation in Arterial blood by Pulse oximetry 2024-01-19 21:59:00 99 /min [facility] Systolic blood pressure 2024-01-09 23:40:00 118 mm[Hg] [facility] Diastolic blood pressure 2024-01-09 23:40:00 80 mm[Hg] [facility] Heart rate 2024-01-09 23:40:00 81 /min [facility] Body temperature 2024-01-09 23:40:00 37.17 Rajwinder [facility] Respiratory rate 2024-01-09 23:40:00 16 /min [facility] Body weight 2024-01-09 23:40:00 73.347 kg [facility] BMI 2024-01-09 23:40:00 29.58 kg/m2 [facility] Oxygen saturation in Arterial blood by Pulse oximetry 2024-01-09 23:40:00 97 /min [facility] Systolic blood pressure 2023-12-04 00:29:00 126 mm[Hg] [facility] Diastolic blood pressure 2023-12-04 00:29:00 85 mm[Hg] [facility] Heart rate 2023-12-04 00:29:00 75 /min [facility] Body temperature 2023-12-04 00:29:00 36.94 Rajwinder [facility] Respiratory rate 2023-12-04 00:29:00 18 /min [facility] Body weight 2023-12-04 00:29:00 71.668 kg [facility] BMI 2023-12-04 00:29:00 28.90 kg/m2 [facility] Oxygen saturation in Arterial blood by Pulse oximetry 2023-12-04 00:29:00 97 /min [facility] Systolic blood pressure 2023-10-29 17:47:00 114 mm[Hg] [facility] Diastolic blood pressure 2023-10-29 17:47:00 71 mm[Hg] [facility] Heart rate 2023-10-29 17:47:00 77 /min [facility] Body temperature 2023-10-29 17:47:00 36.56 Rajwinder [facility] Respiratory rate 2023-10-29 17:47:00 18 /min [facility] Body height 2023-10-29 17:47:00 157.5 cm [facility] Body weight 2023-10-29 17:47:00 72.394 kg [facility] BMI 2023-10-29 17:47:00 29.19 kg/m2 [facility] Oxygen saturation in Arterial blood by Pulse oximetry 2023-10-29 17:47:00 98 /min [facility] Systolic blood pressure 2023-10-21 23:00:00 119 mm[Hg] [facility] Diastolic blood pressure 2023-10-21 23:00:00 87 mm[Hg] [facility] Heart rate 2023-10-21 23:00:00 90 /min [facility] Respiratory rate 2023-10-21 23:00:00 15 /min [facility] Oxygen saturation in Arterial blood by Pulse oximetry 2023-10-21 23:00:00 98 /min [facility] Body temperature 2023-10-21 19:37:00 37.28 Rajwinder [facility] Body height 2023-10-21 19:37:00 157.5 cm [facility] Body weight 2023-10-21 19:37:00 73.483 kg [facility] BMI 2023-10-21 19:37:00 29.63 kg/m2 [facility] Systolic blood pressure 2023-10-21 19:18:00 122 mm[Hg] [facility] Diastolic blood pressure 2023-10-21 19:18:00 86 mm[Hg] [facility] Heart rate 2023-10-21 19:18:00 83 /min [facility] Body temperature 2023-10-21 19:18:00 36.94 Rajwinder [facility] Respiratory rate 2023-10-21 19:18:00 17 /min [facility] Body height 2023-10-21 19:18:00 157.5 cm [facility] Body weight 2023-10-21 19:18:00 73.483 kg [facility] [facility] BMI 2023-10-21 19:18:00 29.63 kg/m2 [facility] Oxygen saturation in Arterial blood by Pulse oximetry 2023-10-21 19:18:00 99 /min [facility] Systolic blood pressure 2023-10-13 19:32:00 131 mm[Hg] [facility] Diastolic blood pressure 2023-10-13 19:32:00 79 mm[Hg] [facility] Heart rate 2023-10-13 19:32:00 97 /min [facility] Body temperature 2023-10-13 19:32:00 36.56 Rajwinder [facility] Respiratory rate 2023-10-13 19:32:00 16 /min [facility] Body height 2023-10-13 19:32:00 157.5 cm [facility] Body weight 2023-10-13 19:32:00 73.539 kg [facility] BMI 2023-10-13 19:32:00 29.65 kg/m2 [facility] Systolic blood pressure 2023-07-27 01:40:00 129 mm[Hg] [facility] Diastolic blood pressure 2023-07-27 01:40:00 88 mm[Hg] [facility] Heart rate 2023-07-27 01:40:00 106 /min [facility] Body temperature 2023-07-27 01:40:00 36.78 Rajwinder [facility] Respiratory rate 2023-07-27 01:40:00 20 /min [facility] Oxygen saturation in Arterial blood by Pulse oximetry 2023-07-27 01:40:00 99 /min [facility] Body weight 2023-07-25 15:49:00 79.833 kg [facility] BMI 2023-07-25 15:49:00 32.19 kg/m2 [facility] Body height 2023-07-25 14:42:00 157.5 cm [facility] Systolic blood pressure 2023-07-23 20:01:00 128 mm[Hg] [facility] Diastolic blood pressure 2023-07-23 20:01:00 75 mm[Hg] [facility] Heart rate 2023-07-23 20:01:00 83 /min [facility] Body temperature 2023-07-23 20:01:00 36.39 Rajwinder [facility] Respiratory rate 2023-07-23 20:01:00 18 /min [facility] Body height 2023-07-23 20:01:00 157.5 cm [facility] Body weight 2023-07-23 20:01:00 79.918 kg [facility] BMI 2023-07-23 20:01:00 32.23 kg/m2 [facility] Systolic blood pressure 2023-07-18 04:30:00 131 mm[Hg] [facility] Diastolic blood pressure 2023-07-18 04:30:00 74 mm[Hg] [facility] Heart rate 2023-07-18 04:30:00 85 /min [facility] Oxygen saturation in Arterial blood by Pulse oximetry 2023-07-18 04:30:00 100 /min [facility] Body temperature 2023-07-18 02:08:00 36.94 Rajwinder [facility] Respiratory rate 2023-07-18 02:08:00 18 /min [facility] Body height 2023-07-18 02:08:00 157.5 cm [facility] Body weight 2023-07-18 02:08:00 78.2 kg [facility] BMI 2023-07-18 02:08:00 31.53 kg/m2 [facility] Systolic blood pressure 2023-07-16 20:37:00 126 mm[Hg] [facility] Diastolic blood pressure 2023-07-16 20:37:00 74 mm[Hg] [facility] Heart rate 2023-07-16 20:37:00 89 /min [facility] Body temperature 2023-07-16 20:37:00 36.11 [facility] Respiratory rate 2023-07-16 20:37:00 19 /min [facility] Body height 2023-07-16 20:37:00 157.5 cm [facility] Body weight 2023-07-16 20:37:00 78.699 kg [facility] BMI 2023-07-16 20:37:00 31.73 kg/m2 [facility] Systolic blood pressure 2023-07-10 20:35:00 133 mm[Hg] [facility] Diastolic blood pressure 2023-07-10 20:35:00 81 mm[Hg] [facility] Heart rate 2023-07-10 20:35:00 95 /min [facility] Body temperature 2023-07-10 20:35:00 36.28 Rajiwnder [facility] Respiratory rate 2023-07-10 20:35:00 18 /min [facility] Body height 2023-07-10 20:35:00 157.5 cm [facility] Body weight 2023-07-10 20:35:00 78.217 kg [facility] BMI 2023-07-10 20:35:00 31.54 kg/m2 [facility] Systolic blood pressure 2023-07-03 19:31:00 114 mm[Hg] [facility] Diastolic blood pressure 2023-07-03 19:31:00 73 mm[Hg] [facility] Heart rate 2023-07-03 19:31:00 90 /min [facility] Body temperature 2023-07-03 19:31:00 36.44 Rajwinder [facility] Respiratory rate 2023-07-03 19:31:00 18 /min [facility] Body weight 2023-07-03 19:31:00 78.427 kg [facility] BMI 2023-07-03 19:31:00 31.62 kg/m2 [facility] Heart rate 2023-06-29 22:09:00 91 /min [facility] Oxygen saturation in Arterial blood by Pulse oximetry 2023-06-29 22:09:00 100 /min [facility] Systolic blood pressure 2023-06-29 20:30:00 114 mm[Hg] [facility] Diastolic blood pressure 2023-06-29 20:30:00 70 mm[Hg] [facility] Body temperature 2023-06-29 19:56:00 36.89 Rajwinder [facility] Respiratory rate 2023-06-29 19:56:00 16 /min [facility] Body height 2023-06-29 19:38:43 157.5 cm [facility] Body weight 2023-06-29 19:38:43 77.248 kg [facility] BMI 2023-06-29 19:38:43 31.15 kg/m2 [facility] Systolic blood pressure 2023-06-18 18:54:00 127 mm[Hg] [facility] Diastolic blood pressure 2023-06-18 18:54:00 80 mm[Hg] [facility] Heart rate 2023-06-18 18:54:00 97 /min [facility] Body temperature 2023-06-18 18:54:00 36.22 Rajwinder [facility] Respiratory rate 2023-06-18 18:54:00 18 /min [facility] Body height 2023-06-18 18:54:00 160 cm [facility] Body weight 2023-06-18 18:54:00 75.382 kg [facility] BMI 2023-06-18 18:54:00 29.44 kg/m2 [facility] Systolic blood pressure 2023-06-04 14:56:00 100 mm[Hg] [facility] Diastolic blood pressure 2023-06-04 14:56:00 70 mm[Hg] [facility] Heart rate 2023-06-04 14:56:00 87 /min [facility] Body temperature 2023-06-04 14:56:00 36.33 Rajwinder [facility] Respiratory rate 2023-06-04 14:56:00 18 /min [facility] Body height 2023-06-04 14:56:00 160 cm [facility] Body weight 2023-06-04 14:56:00 73.936 kg [facility] BMI 2023-06-04 14:56:00 28.87 kg/m2 [facility] Heart rate 2023-06-03 18:00:00 86 /min [facility] Oxygen saturation in Arterial blood by Pulse oximetry 2023-06-03 18:00:00 98 /min [facility] Systolic blood pressure 2023-06-03 16:45:00 115 mm[Hg] [facility] Diastolic blood pressure 2023-06-03 16:45:00 76 mm[Hg] [facility] Body temperature 2023-06-03 16:45:00 36.94 Rajwinder [facility] Respiratory rate 2023-06-03 16:45:00 18 /min [facility] Body height 2023-06-03 16:31:00 160 cm [facility] Body weight 2023-06-03 16:31:00 74.163 kg [facility] BMI 2023-06-03 16:31:00 28.96 kg/m2 [facility] Systolic blood pressure 2023-05-21 20:11:00 121 mm[Hg] [facility] Diastolic blood pressure 2023-05-21 20:11:00 76 mm[Hg] [facility] Heart rate 2023-05-21 20:11:00 101 /min [facility] Body temperature 2023-05-21 20:11:00 36.56 Rajwinder [facility] Respiratory rate 2023-05-21 20:11:00 18 /min [facility] Body weight 2023-05-21 20:11:00 73.165 kg [facility] BMI 2023-05-21 20:11:00 29.50 kg/m2 [facility] Systolic blood pressure 2023-04-23 16:17:00 119 mm[Hg] [facility] Diastolic blood pressure 2023-04-23 16:17:00 70 mm[Hg] [facility] Heart rate 2023-04-23 16:17:00 91 /min [facility] Body temperature 2023-04-23 16:17:00 36.56 Rajwinder [facility] Respiratory rate 2023-04-23 16:17:00 18 /min [facility] Body height 2023-04-23 16:17:00 157.5 cm [facility] Body weight 2023-04-23 16:17:00 68.295 kg [facility] BMI 2023-04-23 16:17:00 27.54 kg/m2 [facility] Systolic blood pressure 2023-04-11 16:19:00 114 mm[Hg] [facility] Diastolic blood pressure 2023-04-11 16:19:00 66 mm[Hg] [facility] Heart rate 2023-04-11 16:19:00 102 /min [facility] Body temperature 2023-04-11 16:19:00 36.5 Rajwinder [facility] Respiratory rate 2023-04-11 16:19:00 18 /min [facility] Body height 2023-04-11 16:19:00 157.5 cm [facility] Body weight 2023-04-11 16:19:00 67.858 kg [facility] BMI 2023-04-11 16:19:00 27.36 kg/m2 [facility] Systolic blood pressure 2023-03-29 21:48:00 100 mm[Hg] [facility] Diastolic blood pressure 2023-03-29 21:48:00 57 mm[Hg] [facility] Heart rate 2023-03-29 21:48:00 84 /min [facility] Respiratory rate 2023-03-29 21:48:00 16 /min [facility] Oxygen saturation in Arterial blood by Pulse oximetry 2023-03-29 21:48:00 99 /min [facility] Body temperature 2023-03-29 19:14:00 37.11 Rajwinder [facility] Body height 2023-03-29 19:14:00 157.5 cm [facility] Body weight 2023-03-29 19:14:00 65.573 kg [facility] BMI 2023-03-29 19:14:00 26.44 kg/m2 [facility] Systolic blood pressure 2023-03-14 13:39:00 112 mm[Hg] [facility] Diastolic blood pressure 2023-03-14 13:39:00 63 mm[Hg] [facility] Heart rate 2023-03-14 13:39:00 89 /min [facility] Body temperature 2023-03-14 13:39:00 36.17 Rajwinder [facility] Respiratory rate 2023-03-14 13:39:00 18 /min [facility] Body height 2023-03-14 13:39:00 157.5 cm [facility] Body weight 2023-03-14 13:39:00 63.685 kg [facility] BMI 2023-03-14 13:39:00 25.68 kg/m2 [facility] Systolic blood pressure 2023-02-26 15:08:00 123 mm[Hg] [facility] Diastolic blood pressure 2023-02-26 15:08:00 70 mm[Hg] [facility] Heart rate 2023-02-26 15:08:00 79 /min [facility] Body temperature 2023-02-26 15:08:00 36.06 Rajwinder [facility] Respiratory rate 2023-02-26 15:08:00 18 /min [facility] Body height 2023-02-26 15:08:00 157.5 cm [facility] Body weight 2023-02-26 15:08:00 62.46 kg [facility] BMI 2023-02-26 15:08:00 25.19 kg/m2 [facility] Systolic blood pressure 2023-01-22 20:00:00 110 mm[Hg] [facility] Diastolic blood pressure 2023-01-22 20:00:00 74 mm[Hg] [facility] Heart rate 2023-01-22 20:00:00 73 /min [facility] Respiratory rate 2023-01-22 20:00:00 18 /min [facility] Oxygen saturation in Arterial blood by Pulse oximetry 2023-01-22 20:00:00 100 /min [facility] Body temperature 2023-01-22 19:02:00 37.11 Rajwinder [facility] Body height 2023-01-22 19:02:00 157.5 cm [facility] Body weight 2023-01-22 19:02:00 61.236 kg [facility] BMI 2023-01-22 19:02:00 24.69 kg/m2 [facility] Procedures Procedure Date / Time Performed Performing Clinician Source POCT MOLECULAR FLU 2024-03-12 15:50:00 Unknown, Attend ing [facility] POCT MOLECULAR STREP 2024-03-12 15:47:00 Unknown, Atte ann-marie [facility] POCT SARS-COV-2 ANTIGEN (BINAX NOW) 2024-03-12 15:46:00 Betzaida Shelby [facility] POCT TEST 2024-01-29 20:44:00 Morelia Guaman [facility] GARDASIL 9 (HPV 9V) VACCINE 2024-01-29 20:39:32 Genny Tian [facility] POCT URINALYSIS 2024-01-19 00:00:00 Kayley Radford [facility] POCT TEST 2024-01-19 00:00:00 Alanna Radford [facility] POCT TEST 2023-10-29 17:51:00 Elias Tian [facility] CT HEAD WO CONTRAST 2023-10-21 22:54:57 Nata Reyna [facility] CREATINE KINASE 2023-10-21 22:09:00 Carlyn Reyna [facility] COMP. METABOLIC PANEL (48723) 2023-10-21 22:09:00 Carlyn Reyna [facility] CBC WITH DIFF 2023-10-21 22:09:00 Carlyn Reyna [facility] LACTIC ACID WHOLE BLOOD 2023-10-21 22:08:00 Syl Reyna [facility] POCT TEST 2023-10-21 22:00:00 Nata Reyna [facility] URINE DRUG (IMMUNOASSAY) - COMPREHENSIVE DRUG SCREEN 2023-10-21 21:23:00 Carlyn Reyna [facility] URINALYSIS 2023-10-21 21:23:00 [facility] POCT URINALYSIS 2023-10-13 20:54:00 Genny Tian [facility] POCT TEST 2023-10-13 20:26:00 Elias Tian [facility] CBC WITH DIFF 2023-07-26 10:29:00 Polly [facility] VENOUS CORD GAS 2023-07-26 03:40:00 [facility] 2023-07-25 17:42:00 Vamshi Humphrey [facility] HEPATITIS B SURFACE ANTIGEN 2023-07-25 16:13:00 Divya Dick [facility] HB ABO GROUPING 2023-07-25 16:13:00 Divya Dick [facility] RHO (D) IMMUNE GLOBULIN 2023-07-25 16:13:00 Arcelia Cain [facility] HIV 1/2 AG-AB WITH REFLEX 2023-07-25 16:13:00 Divya Dick [facility] SYPHILIS IGG/IGM 2023-07-25 16:13:00 Divya Dick [facility] HOSPITAL ADMISSION 2023-07-25 06:01:00 Doctor Un assigned, [place] [facility] POCT URINALYSIS 2023-07-23 20:01:00 Genny Tian [facility] SGOT (ASPARTATE AMINO TRANSFER) 2023-07-18 03:15:00 [facility] CREATININE 2023-07-18 03:15:00 [facility] ALANINE AMINO TRANSFERASE(SGPT 2023-07-18 03:15:00 Elli [facility] LACTATE DEHYDROGENASE 2023-07-18 03:15:00 [facility] Isabela [facility] URIC ACID 2023-07-18 03:15:00 Elli, Isabela [facility] CBC WITH DIFF 2023-07-18 03:15:00 Erin Calloway bean [facility] URINALYSIS 2023-07-18 03:15:00 JonShanks, Isabela [facility] PROTEIN CREAT RATIO URINE RANDOM 2023-07-18 03:15:00 [facility], [facility] ASSIGNMENT OF BENEFITS 2023-07-18 01:48:55 Docto r Unassigned, [place] [facility] CONSENT/REFUSAL FOR DIAGNOSIS AND TREATMENT 2023-07-18 01:47:54 Doctor Unassigned, [place] [facility] POCT URINALYSIS 2023-07-16 21:43:00 Genny Tian [facility] CBC WITH DIFF 2023-07-10 21:26:00 Batool Cabrales [facility] POCT URINALYSIS 2023-07-03 19:31:00 Genny Tian [facility] SECOND AND THIRD TRIMESTER ULTRASOUND 2023-07-01 22:16:00 Genny Tian [facility] ADC ONLY - FERN TEST 2023-06-29 20:45:00 Deanna Yu [facility] ASSIGNMENT OF BENEFITS 2023-06-29 19:28:03 Docto r Unassigned, [place] [facility] CONSENT/REFUSAL FOR DIAGNOSIS AND TREATMENT 2023-06-29 19:26:37 Doctor Unassigned, [place] [facility] AUTHORIZATION FOR RELEASE OF PHI 2023-06-29 06:01:00 Doctor Unassigned, [place] [facility] L&D VISIT (NON-DELIVERED) 2023-06-29 06:01:00 Doctor Unassigned, [place] [facility] POCT URINALYSIS 2023-06-18 18:55:00 Genny Tian [facility] SECOND AND THIRD TRIMESTER ULTRASOUND 2023-06-06 16:03:00 Genny Tian [facility] POCT URINALYSIS 2023-06-04 14:59:00 Genny Tian [facility] ASSIGNMENT OF BENEFITS 2023-06-03 16:24:37 Docto r Unassigned, [place] [facility] CONSENT/REFUSAL FOR DIAGNOSIS AND TREATMENT 2023-06-03 16:23:34 Doctor Unassigned, [place] [facility] TDAP VACCINE, >11 YRS, IM 2023-05-21 21:20:38 Emily Werner [facility] FLU VACC (), 6 MO-64 YRS, .5ML, IM, QUAD (FLUCELVAX) 2023-05-21 21:20:38 Emily Werner [facility] POCT URINALYSIS 2023-05-21 20:12:00 Genny Tian [facility] ASSIGNMENT OF BENEFITS 2023-03-29 20:08:51 Docto r Unassigned, [place] [facility] CONSENT/REFUSAL FOR DIAGNOSIS AND TREATMENT 2023-03-29 20:07:49 Doctor Unassigned, [place] [facility] LIPASE 2023-03-29 19:45:00 Kishan Rader [facility] MAGNESIUM 2023-03-29 19:45:00 Kishan Rader [facility] COMP. METABOLIC PANEL ([id number]) 2023-03-29 19:45:00 Kishan Rader [facility] CBC WITH DIFF 2023-03-29 19:45:00 [facility] 2023-03-29 19:45:00 Kishan Rader [facility] POCT URINALYSIS 2023-03-14 13:41:00 Genny Tian [facility] SECOND AND THIRD TRIMESTER ULTRASOUND 2023-03-13 20:36:00 Genny Tian [facility] GLUCOSE 1 HOUR POST PRANDIAL 2023-02-26 16:15:00 Genny Tian [facility] CBC WITH DIFF 2023-02-26 16:15:00 Genny Tian [facility] RUBELLA SCREEN IGG 2023-02-26 16:15:00 Huang Tian [facility] VZV ANTIBODY SCREEN 2023-02-26 16:15:00 Elias Tian [facility] HEPATITIS B SURFACE ANTIGEN 2023-02-26 16:15:00 Genny Tian [facility] HB ABO GROUPING 2023-02-26 16:15:00 Genny Tian [facility] QUAD SCRN 2023-02-26 16:15:00 Genny Tian [facility] HIV 1/2 AG-AB WITH REFLEX 2023-02-26 16:15:00 Genny Tian [facility] SYPHILIS IGG/IGM 2023-02-26 16:15:00 Nasreen Tian [facility] POCT URINALYSIS W/O SPECIFIC GRAVITY 2023-02-26 15:03:00 Genny Tian [facility] POCT TEST 2023-02-26 15:02:00 Elias Tian [facility] ASSIGNMENT OF BENEFITS 2023-02-26 14:21:16 Docto r Unassigned, [place] [facility] LIPASE 2023-01-22 19:38:00 Royal Bella [facility] COMP. METABOLIC PANEL ([id number]) 2023-01-22 19:38:00 Royal Bella [facility] CBC WITH DIFF 2023-01-22 19:38:00 Royal Bella [facility] URINALYSIS 2023-01-22 19:38:00 Royal Bella [facility] NOTICE OF PRIVACY PRACTICES 2023-01-22 18:58:13 Doctor Unassigned, [place] [facility] CONSENT/REFUSAL FOR DIAGNOSIS AND TREATMENT 2023-01-22 18:56:59 Doctor Unassigned, [place] [facility] Encounters Start Date/Time End Date/Time Encounter Type Admission Type Attending [facility] Care Department Encounter ID Source 2024-08-04 15:00:00 2024-08-04 15:00:00 Outpatient R [facility] [id number] [facility] 2024-04-12 13:00:00 2024-04-12 13:06:17 Outpatient R GRECIA YOUNGER [facility] [id number] [facility] 2024-04-12 13:00:00 2024-04-12 13:06:17 Nurse Visit Nurse, [facility] Unknown, Attending Grecia Younger Nurse, [facility] 1..840.114 350.1.13.10 4.2.7.2.686 [id number] 370 [id number] [facility] 2024-03-12 10:20:00 2024-03-12 10:40:00 Urgent Care Rachel Rhondajerrod Unknown, Attending [facility] 1..840.114 350.1.13.10 4.2.7.2.686 [id number] [facility] 2024-03-12 10:20:00 2024-03-12 10:20:00 Outpatient R SOPHIARHONDA ROMEROJERROD [facility] [id number] [facility] 2024-03-03 15:00:00 2024-03-03 15:00:00 Outpatient R [facility] [id number] [facility] 2024-02-12 12:45:00 2024-02-12 14:14:59 Outpatient R MORELIA GUAMAN [facility] [id number] [facility] 2024-02-12 12:45:00 2024-02-12 14:14:59 Office Visit Morelia Guaman [facility] [employer] [facility] 1..840.114 350.1.13.10 4.2.7.2.686 [id number] [facility] 2024-02-03 00:00:00 2024-02-03 08:12:39 Case Management Morelia Guaman [facility] [employer] [facility] 1..840.114 350.1.13.10 4.2.7.2.686 [id number] [facility] 2024-01-29 15:15:00 2024-01-29 16:05:54 Outpatient R GENNY TIAN [facility] [id number] [facility] 2024-01-29 15:15:00 2024-01-29 16:05:54 Office Visit Morelia Guaman [place] [facility] [employer] [facility] 1..840.114 350.1.13.10 4.2.7.2.686 [id number] [facility] 2024-01-19 16:40:00 2024-01-19 17:30:38 Outpatient R KAYLEY RADFORD [facility] [id number] [facility] 2024-01-19 16:40:00 2024-01-19 17:30:38 Urgent Care Kayley Radford Unknown, Attending [facility]?JOANNECarine [facility] 1..840.114 350.1.13.10 4.2.7.2.686 [id number] [facility] 2024-01-19 00:00:00 2024-01-19 00:00:00 Letter (Out) Kayley Radford [facility] 1..840.114 350.1.13.10 4.2.7.2.686 [id number] 370 [id number] [facility] 2024-01-09 18:40:00 2024-01-09 19:25:01 Outpatient R KAYLEY RADFORD [facility] [id number] [facility] 2024-01-09 18:40:00 2024-01-09 19:25:01 Urgent Care Kayley Radford Unknown, Attending [facility] 1.2840.114 350.1.13.10 4.2.7.2.686 [id number] 370 [id number] [facility] 2023-12-26 00:00:00 2023-12-26 13:45:30 Refill Asha Yarbrough [facility] 1.2.840.114 350.1.13.10 4.2.7.2.686 [id number] [facility] 2023-12-03 19:20:00 2023-12-03 19:47:31 Outpatient R ASHA YARBROUGH [facility] [id number] [facility] 2023-12-03 19:20:00 2023-12-03 19:47:31 Urgent Care Asha Yarbrough Unknown, Attending [facility] 1..840.114 350.1.13.10 4.2.7.2.686 [id number] [facility] 2023-11-13 00:00:00 2023-11-13 13:24:11 Refill Genny Tian [facility] [employer] [facility] & CHILD [facility] 1.2.840.114 350.1.13.10 4.2.7.2.686 [id number] [facility] 2023-11-04 00:00:00 2023-11-04 09:50:15 Refill Genny Tian [facility] [employer] [facility] & CHILD [facility] 1.2.840.114 350.1.13.10 4.2.7.2.686 [id number] [facility] 2023-10-29 12:30:00 2023-10-29 13:15:54 Outpatient R GENNY TIAN [facility] [id number] [facility] 2023-10-29 12:30:00 2023-10-29 13:15:54 Office Visit Genny Tian [facility] [employer] [facility] & CHILD [facility] 1..840.114 350.1.13.10 4.2.7.2.686 [id number] [facility] 2023-10-21 14:46:00 2023-10-21 18:58:00 Emergency X GUERLINEWINSOME GUTHRIE [facility] ERT [id number] [facility] 2023-10-21 14:46:00 2023-10-21 18:58:00 Emergency Divya Clemons [facility] 1..840.114 350.1.13.10 4.2.7.2.686 [id number] [id number] [facility] 2023-10-21 13:45:00 2023-10-21 14:41:35 Nurse Visit Nurse, Chemo [facility] Unknown, Attending Grecia Younger [facility] 1..840.114 350.1.13.10 4.2.7.2.686 [id number] [facility] 2023-10-21 13:45:00 2023-10-21 13:45:00 Outpatient R GRECIA YOUNGER [facility] [id number] [facility] 2023-10-16 00:00:00 2023-10-16 00:00:00 Telephone Genny Tian [facility] [employer] [facility] & CHILD [facility] 1.840.114 350.1.13.10 4.2.7.2.686 [id number] 107 [id number] [facility] 2023-10-13 14:15:00 2023-10-13 16:12:44 Outpatient R GENNY TIAN [facility] [id number] [facility] 2023-10-13 14:15:00 2023-10-13 16:12:44 Office Visit Genny Tian [facility] [employer] [facility] 1..114 350.1.13.10 4.2.7.2.686 [id number] 107 [id number] [facility] 2023-09-05 14:15:00 2023-09-05 14:15:00 Outpatient R GENNY TIAN [facility] [id number] [facility] 2023-08-01 10:30:00 2023-08-01 10:30:00 Outpatient R GENNY TIAN [facility] [id number] [facility] 2023-07-25 08:28:00 2023-07-26 22:49:00 Inpatient P BLANCA LAMAR SHANNON [facility] [id number] [facility] 2023-07-25 08:28:00 2023-07-26 22:49:00 Hospital Encounter Blanca Lamar [facility] 1..114 350.1.13.10 4.2.7.2.686 [id number] [facility] 2023-07-25 11:42:00 2023-07-25 22:38:00 Anesthesia Event Elliott Humphrey Sarah [facility] 1.114 350.1.13.10 4.2.7.2.686 [id number] [facility] 2023-07-25 00:00:00 2023-07-25 00:00:00 Orders Only Doctor Unassigned, [place] [facility] 1..114 350.1.13.10 4.2.7.2.686 [id number] [facility] 2023-07-23 14:30:00 2023-07-23 14:45:00 Routine Visit Risk, Ang-Rmchp-N p/High Emily Werner [facility] [employer]ER [facility] & CHILD [facility] 1..840.114 350.1.13.10 4.2.7.2.686 [id number] 107 [id number] [facility] 2023-07-23 14:30:00 2023-07-23 14:30:00 Outpatient R EMILY WERNER [facility] [id number] [facility] 2023-07-17 19:58:00 2023-07-17 22:52:00 Outpatient X HANSEN-CATHY S, ISABELA HANSEN-CATHY S, ISABELA [facility] [id number] [facility] 2023-07-17 19:58:00 2023-07-17 22:52:00 Emergency Hansen-Cathy s, Isabela [facility] 1..840.114 350.1.13.10 4.2.7.2.686 [id number] [id number] [facility] 2023-07-16 14:15:00 2023-07-16 15:15:45 Outpatient R EMILY WERNER [facility] [id number] [facility] 2023-07-16 14:15:00 2023-07-16 15:15:45 Routine Visit Risk, Ang-Rmchp-N p/High Emily Werner [facility] [employer] [facility]ILD [facility] 1..840.114 350.1.13.10 4.2.7.2.686 [id number] [facility] 2023-07-10 14:30:00 2023-07-10 15:23:31 Outpatient BATOOL HARRISON [facility] [id number] [facility] 2023-07-10 14:30:00 2023-07-10 15:23:31 Routine Visit Batool Cabrales [facility] [employer] [facility] & CHILD [facility] 1..840.114 350.1.13.10 4.2.7.2.686 [id number] [facility] 2023-07-10 14:30:00 2023-07-10 14:30:00 Outpatient R BATOOL CABRALES [facility] [id number] [facility] 2023-07-03 14:30:00 2023-07-03 14:30:00 Routine Visit Risk, Heladiochp-N p/Riri Molina [facility] [employer] [facility] & CHILD [facility] 1.840.114 350.1.13.10 4.2.7.2.686 [id number] [facility] 2023-07-03 14:30:00 2023-07-03 13:42:33 Outpatient RIRI SANDERS [facility] [id number] [facility] 2023-07-02 00:00:00 2023-07-02 00:00:00 Abstract Genny Tian [facility] [employer] [facility] & CHILD [facility] 1..840.114 350.1.13.10 4.2.7.2.686 [id number] [facility] 2023-07-01 15:30:00 2023-07-01 16:14:26 Outpatient P TAY SOLIS [facility] [id number] [facility] 2023-07-01 15:30:00 2023-07-01 16:14:26 Switch Engineer Visit Ultrasound, Tay Chapman [facility] [employer] [facility] & CHILD [facility] 1..840.114 350.1.13.10 4.2.7.2.686 [id number] [facility] 2023-06-29 13:38:00 2023-06-29 16:40:00 Outpatient X DEANNA YU [facility] [id number] [facility] 2023-06-29 13:38:00 2023-06-29 16:40:00 Emergency Alvin Cota Deanna Parker [facility] 1.2840.114 350.1.13.10 4.2.7.2.686 [id number] [id number] [facility] 2023-06-18 13:00:00 2023-06-18 13:12:16 Outpatient EMILY PARK [facility] [id number] [facility] 2023-06-18 13:00:00 2023-06-18 13:12:16 Routine Visit Risk, MaddiRmchp-N p/High Emily Werner [facility] [employer]ER [facility] 1.840.114 350.1.13.10 4.2.7.2.686 [id number] [facility] 2023-06-12 00:00:00 2023-06-12 00:00:00 Abstract Genny Tian [facility] [employer]ER [facility] 1.840.114 350.1.13.10 4.2.7.2.686 [id number] [facility] 2023-06-06 10:00:00 2023-06-06 10:10:02 Outpatient GUSTAVO PICKENS [facility] [id number] [facility] 2023-06-06 10:00:00 2023-06-06 10:10:02 Switch Engineer Visit Ultrasound, Gustavo Farias Ikuvshaunagiarcelia [facility] [employer]ER [facility] CHILD [facility] 1..840.114 350.1.13.10 4.2.7.2.686 [id number] [facility] 2023-06-04 08:30:00 2023-06-04 09:19:14 Outpatient EMILY PARK [facility] [id number] [facility] 2023-06-04 08:30:00 2023-06-04 09:19:14 Routine Visit Risk, Ang-Rmchp-N p/High Emily Werner [facility] [employer]ER [facility] 1.2.840.114 350.1.13.10 4.2.7.2.686 [id number] 107 [id number] [facility] 2023-06-03 10:35:00 2023-06-03 12:20:00 Outpatient P BECKIE DEANNA [facility] [id number] [facility] 2023-06-03 10:35:00 2023-06-03 12:20:00 Hospital Encounter Adkamron, Deanna Bean [facility] 1.2.840.114 350.1.13.10 4.2.7.2.686 [id number] [facility] 2023-05-22 00:00:00 2023-05-22 00:00:00 Telephone Genny Tian [facility] [employer]ER [facility] & CHILD [facility] 1.2.840.114 350.1.13.10 4.2.7.2.686 [id number] [facility] 2023-05-21 13:45:00 2023-05-21 15:16:53 Routine Visit Risk, Ang-Rmchp-N p/High Emily Werner [facility] [employer]ER [facility] 1.2.840.114 350.1.13.10 4.2.7.2.686 [id number] [facility] 2023-05-21 13:45:00 2023-05-21 15:16:53 Outpatient R EMILY WERNER [facility] [id number] [facility] 2023-05-16 00:00:00 2023-05-16 00:00:00 Telephone Risk, Ang-Rmchp-N p/High [facility] [employer]ER [facility]ILD [facility] 1.840.114 350.1.13.10 4.2.7.2.686 [id number] [facility] 2023-05-14 14:30:00 2023-05-14 14:30:00 Outpatient R EMILY WERNER [facility] [id number] [facility] 2023-05-07 08:15:00 2023-05-07 08:15:00 Outpatient R [facility] [id number] [facility] 2023-04-23 11:00:00 2023-04-23 12:03:02 Outpatient R EMILY WERNER [facility] [id number] [facility] 2023-04-23 11:00:00 2023-04-23 12:03:02 Routine Visit Risk, Ang-Rmchp-N p/High Emily Werner [facility] [employer]ER [facility] & CHILD [facility] 1.840.114 350.1.13.10 4.2.7.2.686 [id number] 107 [id number] [facility] 2023-04-23 10:00:00 2023-04-23 10:00:00 Outpatient R [facility] [id number] [facility] 2023-04-22 15:45:00 2023-04-22 15:45:00 Outpatient R BTAOOL CABRALES [facility] [id number] [facility] 2023-04-11 11:00:00 2023-04-11 11:47:14 Outpatient R GENNY TIAN [facility] [id number] [facility] 2023-04-11 11:00:00 2023-04-11 11:47:14 Routine Visit Genny Tian [facility] [employer]ER [facility] & CHILD [facility] 1..840.114 350.1.13.10 4.2.7.2.686 [id number] [facility] 2023-04-11 00:00:00 2023-04-11 00:00:00 Patient Secure Msg Genny Tian [facility] [employer] [facility] CHILD [facility] 1.2.840.114 350.1.13.10 4.2.7.2.686 [id number] [facility] 2023-03-29 14:17:00 2023-03-29 16:54:00 Emergency X KISHAN RADER [facility] ERT [id number] [facility] 2023-03-29 14:17:00 2023-03-29 16:54:00 Emergency Kishan Rader [facility] 1.2.840.114 350.1.13.10 4.2.7.2.686 [id number] [facility] 2023-03-29 00:00:00 2023-03-29 00:00:00 [facility] 1.2.840.114 350.1.13.10 4.2.7.2.686 [id number] [facility] 2023-03-26 10:45:00 2023-03-26 10:45:00 Outpatient R GENNY TIAN [facility] [id number] [facility] 2023-03-14 08:30:00 2023-03-14 09:14:20 Outpatient R GENNY TIAN [facility] [id number] [facility] 2023-03-14 08:30:00 2023-03-14 09:14:20 Routine Visit Genny Tian [facility] [employer]ER [facility] CHILD [facility] 1.2.840.114 350.1.13.10 4.2.7.2.686 [id number] [facility] 2023-03-14 00:00:00 2023-03-14 00:00:00 Refill Genny Tian [facility] [employer]ER [facility] 1.840.114 350.1.13.10 4.2.7.2.686 [id number] [facility] 2023-03-14 00:00:00 2023-03-14 00:00:00 Refill Genny Tian [facility] [employer]ER [facility] & CHILD [facility] 1.840.114 350.1.13.10 4.2.7.2.686 [id number] 107 [id number] [facility] 2023-03-13 14:30:00 2023-03-13 15:39:49 Outpatient P GOGO MCMANUS SANGEETA [facility] [id number] [facility] 2023-03-13 14:30:00 2023-03-13 15:39:49 Switch Engineer Visit Ultrasound, Gogo Cote [facility] [employer] WORKER [facility] CHILD [facility] .0.114 350.1.13.10 4.2.7.2.686 [id number] [facility] 2023-03-03 00:00:00 2023-03-03 00:00:00 Telephone Genny Tian [facility] [employer] [facility] CHILD [facility] .0.114 350.1.13.10 4.2.7.2.686 [id number] 107 [id number] [facility] 2023-02-26 10:00:00 2023-02-26 11:20:47 Outpatient R GENNY TIAN [facility] [id number] [facility] 2023-02-26 10:00:00 2023-02-26 11:20:47 Initial Visit Genny Tian [facility] [employer]ER [facility] 1.0.114 350.1.13.10 4.2.7.2.686 [id number] [facility] 2023-02-26 00:00:00 2023-02-26 00:00:00 Orders Only Doctor Unassigned, [place] [facility] 1.2840.114 350.1.13.10 4.2.7.2.686 [id number] [facility] 2023-02-05 13:15:00 2023-02-05 13:15:00 Outpatient R [facility] [id number] [facility] 2023-01-22 14:06:00 2023-01-22 15:29:00 Emergency X ROYAL BELLA [facility] ERT [id number] [facility] 2023-01-22 14:06:00 2023-01-22 15:29:00 Emergency Royal Bella [facility] 1.840.114 350.1.13.10 4.2.7.2.686 [id number] [facility] 2023-01-22 08:00:00 2023-01-22 08:00:00 Outpatient R [facility] [id number] [facility] 2023-01-20 00:00:00 2023-01-20 00:00:00 Telephone Batool Cabrales [facility] [employer]ER [facility] 1.84.114 350.1.13.10 4.2.7.2.686 [id number] [facility] 2023-01-17 00:00:00 2023-01-17 00:00:00 Nurse Triage Dianna Soto [facility] 1.840.114 350.1.13.10 4.2.7.2.686 [id number] [id number] [facility] 2021-08-01 09:45:00 2021-08-01 09:45:00 Outpatient R UNKNOWN, ATTENDING [facility] [id number] [facility] Results Test Description Test Time Test Comments Results Result Co mments Source [facility] SARS-COV-2 ANTIGEN (BINAX NOW)2024-03-12 16:01:00* Test Item Value Reference Range Interpretation Comme nts POCT SARS-COV-2 ANTIGEN (test code = 11671-0) Not Detected Not Detected, See Comment On board controls acceptable with C Line (test code = 3574) Yes Lab Interpretation (test code = 80450-1) Normal [facility] MOLECULAR [id number] 15:54:51* Test Item Value Reference Range Interpretation Comme nts POCT Molecular Strep (test c ode = 52781-6) Negative Negative Lab Interpretation (test cod e = 26009-6) Normal [facility] [id number] 20:44:00* Test Item Value Reference Range Interpretation Comme nts POCT PREG (test code = 1605) Negative On board controls acceptable with C Line (test code = 3574) Yes POCT PREG LOT # (test code = 3575) POCT PREG TEST DATE ( test code = 3576) [facility] Urinalysis W Specific [id number] 22:18:00* Test Item Value Reference Range Interpretation Comme nts POCT U SP GRAV (test code = 3255) 1.020 mg/dl 1.005-1.025 POCT PH U (test code = 3254) 6 mg/dl 5-8 POCT U LEUK EST (test code = 3263) negative Negative - Negative POCT U NIT (test code = 3262) negative Negative - Negati ve POCT U PROT (test code = 3259) trace Negative - Negative POCT U GLU (test code = 3256) negative Negative - Negati ve POCT U KETONE (test code = 3258) negative Negative - Negative POCT U UROBILI (test code = 3260) negative 0.2-1 POCT U BILI (test code = 3261) negative Negative - Negative POCT U BLD (test code = 3257) about 250 Negative - Negati ve A POCT U COLOR (test code = 3266) cyndi POCT U APPEAR (test code = 3267) cloudy Lab Interpretation (test cod e = 76807-2) Abnormal [facility] [id number] 22:17:00* Test Item Value Reference Range Interpretation Comme nts POCT PREG (test code = 1605) Negative On board controls acceptable with C Line (test code = 3574) Yes POCT PREG LOT # (test code = 3575) POCT PREG TEST DATE ( test code = 3576) Lab Interpretation (test cod e = 18429-4) Normal [facility] [id number] 17:51:00* Test Item Value Reference Range Interpretation Comme nts POCT PREG (test code = 1605) Negative On board controls acceptable with C Line (test code = 3574) Yes POCT PREG LOT # (test code = 3575) POCT PREG TEST DATE ( test code = 3576) [facility] [id number] 17:51:00* Test Item Value Reference Range Interpretation Comme nts POCT PREG (test code = 1605) Negative On board controls acceptable with C Line (test code = 3574) Yes POCT PREG LOT # (test code = 3575) POCT PREG TEST DATE ( test code = 3576) [facility] HEAD WO [id number] 22:59:31EXAM: CT HEAD WO CONTRAST HISTORY: Seizure, new-onset, no history of trauma pt had an episode of shaking, thinks she might had a seizure TECHNIQUE: CT of the head was performed without intravenous contrast.Sagittal and coronal reformats were generated. COMPARISON: None. FINDINGS: The ventricles andsulci are normal in caliber and configuration. Nohydrocephalus, midline shift or pathological extra- axial fluid collectionis present. The basal cisterns are unremarkable. There is no acute intracranial hemorrhage or significant mass effect. Noparenchymal attenuation abnormality. The beauchamp-white matter differentiationis preserved. The mastoid air cells and paranasal air sinuses are clear. The calvariumand central skull base are unremarkable.[facility] Metabolic Panel (03625)2023-10-21 22:41:54* Test Item Value Reference Range Interpretation Comme nts NA (test code = 5694113075) 138 mmol/L 135-145 K (test code = 2063021057) 3.9 mmol/L 3.5-5.0 CL (test code = 6720089290) 102 mmol/L 98-108 CO2 TOTAL (test code = 1474272372) 29 mmol/L 23-31 AGAP (test code = 4165669887) 7 2-16 BUN (test code = 3033495139) 10 mg/dL 7-23 GLUCOSE (test code = 7852227562) 90 mg/dL 70-110 CREATININE (test code = 2160-0) 0.75 mg/dL 0.50-1.04 TOTAL BILI (test code = 7825335146) 0.4 mg/dL 0.1-1.1 CALCIUM (test code = 3070954175) 9.2 mg/dL 8.6-10.6 T PROTEIN (test code = 5714715334) 7.6 g/dL 6.3-8.2 ALBUMIN (test code = 1244353670) 4.7 g/dL 3.5-5.0 ALK PHOS (test code = 4901413478) 125 U/L 34-122 H ALTv (test code = 1742-6) 47 U/L 5-35 H AST(SGOT) (test code = 8111207295) 35 U/L 13-40 eGFR (test code = 14114-5) 115.6 mL/min/1.73m2 CKD-EPI eGFR (2020). Assuming creatinine has been stable day-to-day for at least three months, the eGFR indicates Category G1 (>= 90 mL/min/1.73 m2) Lab Interpretation (test code = 19588-5) [facility] [id number] 22:41:34* Test Item Value Reference Range Interpretation Comme nts CK (test code = 9260024484) 60 U/L 33-194 Lab Interpretation (test cod e = 78356-6) Normal [facility] [id number] 22:27:51* Test Item Value Reference Range Interpretation Comme nts WBC (test code = 6690-2) 6.67 4.30-11.10 RBC (test code = 789-8) 4.62 3.93-5.25 HGB (test code = 718-7) 13.2 g/dL 11.6-15.0 HCT (test code = 4544-3) 40.7 % 35.7-45.2 MCV (test code = 787-2) 88.1 fL 80.6-95.5 MCH (test code = 785-6) 28.6 pg 25.9-32.8 MCHC (test code = 786-4) 32.4 g/dL 31.6-35.1 RDW-SD (test code = 15282-2) 43.3 fL 39.0-49.9 RDW-CV (test code = 788-0) 13.5 % 12.0-15.5 PLT (test code = 777-3) 356 166-358 MPV (test code = 73604-0) 8.9 fL 9.5-12.9 L NRBC/100 WBC (test code = 7475850894) 0.0 0.0-10.0 NRBC x10^3 (test code = 7001716560) See_Comment [Automated [employer] ge] The system which generated this result transmitted reference range: 10*3/?L. The reference range was not used to interpret this result as normal/abnormal. GRAN MAT (NEUT) % (test code = 770-8) 53.5 % IMM GRAN % (test code = 5700306694) 0.30 % LYMPH % (test code = 736-9) 32.4 % MONO % (test code = 5905-5) 4.5 % EOS % (test code = 713-8) 8.4 % BASO % (test code = 706-2) 0.9 % GRAN MAT x10^3(ANC) (test code = 9596073967) 3.57 10*3/uL 1.88-7.09 IMM GRAN x10^3 (test code = 9380748921) 0.00-0.06 LYMPH x10^3 (test code = 731-0) 2.16 10*3/uL 1.32-3.29 MONO x10^3 (test code = 742-7) 0.30 10*3/uL 0.33-0.92 L EOS x10^3 (test code = 711-2) 0.56 10*3/uL 0.03-0.39 H BASO x10^3 (test code = 704-7) 0.06 10*3/uL 0.01-0.07 Lab Interpretation (test code = 17037-0) [facility] [id number] 22:15:28* Test Item Value Reference Range Interpretation Comme nts LACTIC ACID (test code = 2683504301) 1.54 mmol/L 0.50-2.20 Lab Interpretation (test cod e = 09741-0) Normal [facility] [id number] 22:00:00* Test Item Value Reference Range Interpretation Comme nts POCT PREG (test code = 1605) Negative On board controls acceptable with C Line (test code = 3574) Yes Lab Interpretation (test cod e = 28270-2) Normal [facility] Urinalysis W Specific [id number] 20:55:00* Test Item Value Reference Range Interpretation Comme nts POCT U SP GRAV (test code = 3255) . 1.005-1.025 POCT PH U (test code = 3254) 7 mg/dl 5-8 POCT U LEUK EST (test code = 3263) trace Negative - Negative POCT U NIT (test code = 3262) neg Negative - Negati ve POCT U PROT (test code = 3259) trace Negative - Negat radha POCT U GLU (test code = 3256) neg Negative - Negati ve POCT U KETONE (test code = 3258) neg Negative - Neg ative POCT U UROBILI (test code = 3260) . 0.2-1 POCT U BILI (test code = 3261) . Negative - Negat radha POCT U BLD (test code = 3257) neg Negative - Negati ve POCT U COLOR (test code = 3266) . POCT U APPEAR (test code = 3267) . [facility] Urinalysis W Specific [id number] 20:55:00* Test Item Value Reference Range Interpretation Comme nts POCT U SP GRAV (test code = 3255) . 1.005-1.025 POCT PH U (test code = 3254) 7 mg/dl 5-8 POCT U LEUK EST (test code = 3263) trace Negative - Negative POCT U NIT (test code = 3262) neg Negative - Negati ve POCT U PROT (test code = 3259) trace Negative - Negat radha POCT U GLU (test code = 3256) neg Negative - Negati ve POCT U KETONE (test code = 3258) neg Negative - Neg ative POCT U UROBILI (test code = 3260) . 0.2-1 POCT U BILI (test code = 3261) . Negative - Negat radha POCT U BLD (test code = 3257) neg Negative - Negati ve POCT U COLOR (test code = 3266) . POCT U APPEAR (test code = 3267) . [facility] Urinalysis W Specific [id number] 20:55:00* Test Item Value Reference Range Interpretation Comme nts POCT U SP GRAV (test code = 3255) . 1.005-1.025 POCT PH U (test code = 3254) 7 mg/dl 5-8 POCT U LEUK EST (test code = 3263) trace Negative - Negative POCT U NIT (test code = 3262) neg Negative - Negati ve POCT U PROT (test code = 3259) trace Negative - Negat radha POCT U GLU (test code = 3256) neg Negative - Negati ve POCT U KETONE (test code = 3258) neg Negative - Neg ative POCT U UROBILI (test code = 3260) . 0.2-1 POCT U BILI (test code = 3261) . Negative - Negat radha POCT U BLD (test code = 3257) neg Negative - Negati ve POCT U COLOR (test code = 3266) . POCT U APPEAR (test code = 3267) . [facility] URINALYSIS W SPECIFIC [id number] 20:54:00* Test Item Value Reference Range Interpretation Comme nts POCT U SP GRAV (test code = 3255) . 1.005-1.025 POCT PH U (test code = 3254) . 5-8 POCT U LEUK EST (test code = 3263) . Negative - N egative POCT U NIT (test code = 3262) . Negative - Negati ve POCT U PROT (test code = 3259) . Negative - Negat radha POCT U GLU (test code = 3256) . Negative - Negati ve POCT U KETONE (test code = 3258) . Negative - Neg ative POCT U UROBILI (test code = 3260) . 0.2-1 POCT U BILI (test code = 3261) . Negative - Negat radha POCT U BLD (test code = 3257) . Negative - Negati ve POCT U COLOR (test code = 3266) POCT U APPEAR (test code = 3267) . [facility] URINALYSIS W SPECIFIC [id number] 20:54:00* Test Item Value Reference Range Interpretation Comme nts POCT U SP GRAV (test code = 3255) . 1.005-1.025 POCT PH U (test code = 3254) . 5-8 POCT U LEUK EST (test code = 3263) . Negative - N egative POCT U NIT (test code = 3262) . Negative - Negati ve POCT U PROT (test code = 3259) . Negative - Negat radha POCT U GLU (test code = 3256) . Negative - Negati ve POCT U KETONE (test code = 3258) . Negative - Neg ative POCT U UROBILI (test code = 3260) . 0.2-1 POCT U BILI (test code = 3261) . Negative - Negat radha POCT U BLD (test code = 3257) . Negative - Negati ve POCT U COLOR (test code = 3266) POCT U APPEAR (test code = 3267) . [facility] URINALYSIS W SPECIFIC [id number] 20:54:00* Test Item Value Reference Range Interpretation Comme nts POCT U SP GRAV (test code = 3255) . 1.005-1.025 POCT PH U (test code = 3254) . 5-8 POCT U LEUK EST (test code = 3263) . Negative - N egative POCT U NIT (test code = 3262) . Negative - Negati ve POCT U PROT (test code = 3259) . Negative - Negat radha POCT U GLU (test code = 3256) . Negative - Negati ve POCT U KETONE (test code = 3258) . Negative - Neg ative POCT U UROBILI (test code = 3260) . 0.2-1 POCT U BILI (test code = 3261) . Negative - Negat radha POCT U BLD (test code = 3257) . Negative - Negati ve POCT U COLOR (test code = 3266) POCT U APPEAR (test code = 3267) . [facility] [id number] 20:26:00* Test Item Value Reference Range Interpretation Comme nts POCT PREG (test code = 1605) Negative On board controls acceptable with C Line (test code = 3574) Yes POCT PREG LOT # (test code = 3575) POCT PREG TEST DATE ( test code = 3576) [facility] [id number] 20:26:00* Test Item Value Reference Range Interpretation Comme nts POCT PREG (test code = 1605) Negative On board controls acceptable with C Line (test code = 3574) Yes POCT PREG LOT # (test code = 3575) POCT PREG TEST DATE ( test code = 3576) [facility] [id number] 20:26:00* Test Item Value Reference Range Interpretation Comme nts POCT PREG (test code = 1605) Negative On board controls acceptable with C Line (test code = 3574) Yes POCT PREG LOT # (test code = 3575) POCT PREG TEST DATE ( test code = 3576) [facility] - SYPHILIS [id number] 15:57:29* Test Item Value Reference Range Interpretation Comme [facility] Syphilis IgG/IgM (test code = 97128-3) Non-reactive Non-reactive GARRETT (test code = GARRETT) Non-reactive - No serologic evidence of T. pallidum infection. Cannot exclude incubating or early syphilis. Submit a second specimen in 2-4 weeks if syphilis is clinically suspected. Equivocal - Further testing to follow. Reactive - Further testing to follow. Lab Interpretation (test code = 53466-0) Normal [facility] HospitalRHO (D) IMMUNE [id number] 06:58:02* Test Item Value Reference Range Interpretation Comme nts RHIG CANDIDATE? (test code = 5188) No- see comment Patient is not a candidate for RhIg- Patient is Rh Positive.Performed at [facility] Laboratory Services - [facility] Blood [address] [address]Dkde Free: [phone] No. [id number] [facility] HospitalVenous Cord [id number] 03:50:38* Test Item Value Reference Range Interpretation Comme nts VENOUS BASE EXCESS, CORD (te st code = 9555703375) 0.5 mEq/L VENOUS PH, CORD (test code = 6233229171) 7.35 7.25-7.45 VENOUS PC02, CORD (test code = 6526215524) 49 27-49 VENOUS PO2, CORD (test code = 5280463913) 23 17-41 VENOUS BICARBONATE, CORD (te st code = 5650722570) 27 12-29 [facility] Branch[facility] Cord [id number] 03:50:18* Test Item Value Reference Range Interpretation Comme nts BASE EXCESS, CORD (test code = 2284892040) -2.2 mEq/L AC PH, CORD (BEAKER) (test c ode = 5978546974) 7.35 7.18-7.38 PC02, CORD (test code = 5113699302) 44 32-66 PO2, CORD (test code = 6145560495) 25 10-30 BICARBONATE, CORD (test code = 4853315062) 24 17-27 [facility] HospitalHepatitis B Surface [id number] 19:31:01 * Test Item Value Reference Range Interpretation Comme nts HBsAg Semi-Quantitative (amita t code = 5195-3) 0.06 Negative [facility] HospitalHIV 1/2 AG-AB WITH [id number] 18:19:07* Test Item Value Reference Range Interpretation Comme nts HIV Semi-quantitative (test code = 19683-3) 0.08 Negative GARRETT (test code = GARRETT) Non-reactive for HIV-1 antigen and HIV-1/HIV-2 antibodies. ?No laboratory evidence of HIV infection. ?Repeat in 2-4 weeks if acute HIV infection is suspected. [facility] Hospital[facility] Neuraxial [id number] 17:42:00 Elliott Humphrey MD ? ? 07/25/2023 12:23 PM Central Neuraxial Block Date/Time: 07/25/2023 11:42 AM Performed by: Elliott Humphrey MDAuthorized by: Bertin Ledesma MBBS ?End Time: 07/25/2023 12:08 PMReason for Block: OB request, Patient request, Labor analgesia, Surgical anesthesia and Post-op pain managementStaff: ?Anesthesiologist: Bertin Ledesma MBBS ?Resident/FARM MACHINE OPERATOR: Adrian Root MD ?Performed by: resident/CRNAPreanesthetic Checklist: patient identified, IV checked, risks and benefits explained, monitors and equipment checked, timeout performed, pre-op evaluation, site marked and anesthesia consentProcedure: ?Type of Neuraxial: Epidural ?Epidural Description: 1st attempt ? Sterility Prep cap, drape, gloves, hand hygiene and mask ? ?Sedation Level no sedation ?Patient Position: sitting ?Prep: Betadine and patient draped ? ?Monitoring: heart rate, continuous pulse ox, heart rate / toco and NIBP ?Location: lumbar (1-5) ?Lumbar: L4-L5 ? ?Technique: BETH air and catheter ?Guidance with: landmark technique}Epidural/Spinal [place] and/or Catheter: ?Epidural/Spinal Kit: BBun ?Needle Type: Tuohy ?Needle Gauge: 17 G ?Needle Length: 3.5 in (8.89 cm) ?Needle Insertion Depth: 5.5 ?Catheter Type: multiport ? ?Catheter Size: 19 G ? ?Catheter at Skin Depth: 10.5 ?Number of Attempts:1 ?Test Dose: lidocaine 1.5% with epinephrine 1-to-200,000 and negative ? ?Dose: 3 cc ? ?Catheter Securement Method: surgical tape, Tegaderm, clear occlusive dressing and liquid medical adhesiveAssessment: ?Block Outcome: a full evaluation is pending ? ?Procedure Assessment: patient tolerated procedure well with no complicationsNotes: ? Smooth and atraumatic, (+) Local, (+) [facility]FUniEast[facility] Central Neuraxial [id number] 17:42:00Elliott Humphrey MD ? ? 07/25/2023 12:23 PM Central Neuraxial Block Date/Time: 07/25/2023 11:42 AM Performed by: Elliott Humphrey MDAuthorized by: Bertin Ledesma MBBS ?End Time: 07/25/2023 12:08 PMReason for Block: OB request, Patient request, Labor analgesia, Surgical anesthesia and Post-op pain managementStaff: ?Anesthesiologist: Bertin Ledesma MBBS ?Resident/FARM MACHINE OPERATOR: Adrian Root MD ?Performed by: resident/CRNAPreanesthetic Checklist: patient identified, IV checked, risks and benefits explained, monitors and equipment checked, timeout performed, pre-op evaluation, site marked and anesthesia consentProcedure: ?Type of Neuraxial: Epidural ?Epidural Description: 1st attempt ? Sterility Prep cap, drape, gloves, hand hygiene and mask ? ?Sedation Level no sedation ?Patient Position: sitting ?Prep: Betadine and patient draped ? ?Monitoring: heart rate, continuous pulse ox, heart rate / toco and NIBP ?Location: lumbar (1-5) ?Lumbar: L4-L5 ? ?Technique: BETH air and catheter ?Guidance with: landmark technique}Epidural/Spinal [place] and/or Catheter: ?Epidural/Spinal Kit: PAPOraun ?Needle Type: Tuohy ?Needle Gauge: 17 G ?Needle Length: 3.5 in (8.89 cm) ?Needle Insertion Depth: 5.5 ?Catheter Type: multiport ? ?Catheter Size: 19 G ? ?Catheter at Skin Depth: 10.5 ?Number of Attempts: 1 ?Test Dose: lidocaine 1.5% with epinephrine 1-to-200,000 and negative ? ?Dose: 3 cc ? ?Catheter Securement Method: surgical tape, Tegaderm, clear occlusive dressing and liquid medical adhesiveAssessment: ?Block Outcome: a full evaluation is pending ? ?Procedure Assessment: patient tolerated procedure well with no complicationsNotes: ? Smooth and atraumatic, (+) Local, (+) STFUniversThe [facility] of [facility] Central Neuraxial [id number] 17:42:00Elliott Humphrey MD ? ? 07/25/2023 12:23 PM Central Neuraxial Block Date/Time: 07/25/2023 11:42 AM Performed by: Elliott Humphrey MDAuthorized by: Bertin Ledesma MBBS ?End Time: 07/25/2023 12:08 PMReason for Block: OB request, Patient request, Labor analgesia, Surgical anesthesia and Post-op pain managementStaff: ?Anesthesiologist: Bertin Ledesma MBBS ?Resident/FARM MACHINE OPERATOR: Adrian Root MD ?Performed by: resident/CRNAPreanesthetic Checklist: patient identified, IV checked, risks and benefits explained, monitors and equipment checked, timeout performed, pre-op evaluation, site marked and anesthesia consentProcedure: ?Type of Neuraxial: Epidural ?Epidural Description: 1st attempt ? Sterility Prep cap, drape, gloves, hand hygiene and mask ? ?Sedation Level no sedation ?Patient Position: sitting ?Prep: Betadine and patient draped ? ?Monitoring: heart rate, continuous pulse ox, heart rate / toco and NIBP ?Location: lumbar (1-5) ?Lumbar: L4-L5 ? ?Technique: BETH air and catheter ?Guidance with: landmark technique}Epidural/Spinal [place] and/or Catheter: ?Epidural/Spinal Kit: BBraun ?Needle Type: Tuohy ?Needle Gauge: 17 G ?Needle Length: 3.5 in (8.89 cm) ?Needle Insertion Depth: 5.5 ?Catheter Type: multiport ? ?Catheter Size: 19 G ? ?Catheter at Skin Depth: 10.5 ?Number of Attempts: 1 ?Test Dose: lidocaine 1.5% with epinephrine 1-to-200,000 and negative ? ?Dose: 3 cc ? ?Catheter Securement Method: surgical tape, Tegaderm, clear occlusive dressing and liquid medical adhesiveAssessment: ?Block Outcome: a full evaluation is pending ? ?Procedure Assessment: patient tolerated procedure well with no complicationsNotes: ? Smooth and atraumatic, (+) Local, (+) STFUniversThe Medical Center of Southeast TexasType and Screen - ONCE [id number] 16:26:00* Test Item Value Reference Range Interpretation Comme nts ABO & RH (test code = 20) A POSITIVE IAT (test code = 1185) Negative [facility] HospitalPOCT URINALYS[facility] W SPECIFIC [id number] 20:02:00* Test Item Value Reference Range Interpretation Comme nts POCT U SP GRAV (test code = 3255) . 1.005-1.025 POCT PH U (test code = 3254) 7 mg/dl 5-8 POCT U LEUK EST (test code = 3263) Trace Negative - Negative POCT U NIT (test code = 3262) Neg Negative - Negati ve POCT U PROT (test code = 3259) Trace Negative - Negat radha POCT U GLU (test code = 3256) Nml Negative - Negati ve POCT U KETONE (test code = 3258) None Negative - Neg ative POCT U UROBILI (test code = 3260) . 0.2-1 POCT U BILI (test code = 3261) . Negative - Negat radha POCT U BLD (test code = 3257) Trace Negative - Negati ve POCT U COLOR (test code = 3266) . POCT U APPEAR (test code = 3267) [facility] HospitalLactate Cnwudffvmchqp5948-46-45 04:35:23* Test Item Value Reference Range Interpretation Comme [facility] LDH (test code = 1595666984) 190 U/L 120-246 Lab Interpretation (test cod e = 17865-9) Normal [facility] HospitalUric Acid [id number] 04:25:43* Test Item Value Reference Range Interpretation Comme [facility] URIC ACID (test code = 9059573109) 3.3 mg/dL 2.9-6.0 Lab Interpretation (test cod e = 60088-0) Normal [facility] HospitalSGOT (Asparate Amino Transfer)2023-07-18 04:25:43* Test Item Value Reference Range Interpretation Comme [facility] AST(SGOT) (test code = 9551554335) 39 U/L 13-40 Lab Interpretation (test cod e = 35191-3) Normal [facility] HospitalAlanine Amino Transferase (SGPT)2023-07-18 04:25:43* Test Item Value Reference Range Interpretation Comme [facility] ALTv (test code = 1742-6) 11 U/L 5-35 Lab Interpretation (test cod e = 51800-2) Normal [facility] HospitalSerum Mjkvmjmutp9350-89-32 04:25:18* Test Item Value Reference Range Interpretation Comme [facility] CREATININE (test code = 4223778952) 0.46 mg/dL 0.50-1.04 L eGFR (test code = 16861-1) 139.0 mL/min/1.73m2 CKD-EPI eGFR (2020). Assuming creatinine has been stable day-to-day for at least three months, the eGFR indicates Category G1 (>= 90 mL/min/1.73 m2) Lab Interpretation (test code = 61451-5) Abnormal [facility] with Juobruznyhwu4464-69-89 04:09:01* Test Item Value Reference Range Interpretation Comme nts WBC (test code = 6690-2) 11.42 See_Comment H [Automated messa ge] The system which generated this result transmitted reference range: 4.30 - 11.10 10*3/?L. The reference range was not used to interpret this result as normal/abnormal. RBC (test code = 789-8) 3.77 See_Comment L [Automated messa ge] The system which generated this result transmitted reference range: 3.93 - 5.25 10*6/?L. The reference range was not used to interpret this result as normal/abnormal. HGB (test code = 718-7) 10.5 g/dL 11.6-15.0 L HCT (test code = 4544-3) 32.6 % 35.7-45.2 L MCV (test code = 787-2) 86.5 fL 80.6-95.5 MCH (test code = 785-6) 27.9 pg 25.9-32.8 MCHC (test code = 786-4) 32.2 g/dL 31.6-35.1 RDW-SD (test code = 22605-6) 50.3 fL 39.0-49.9 H RDW-CV (test code = 788-0) 16.1 % 12.0-15.5 H PLT (test code = 777-3) 355 See_Comment [Automated messa ge] The system which generated this result transmitted reference range: 166 - 358 10*3/?L. The reference range was not used to interpret this result as normal/abnormal. MPV (test code = 83362-6) 9.6 fL 9.5-12.9 NRBC/100 WBC (test code = 3200843570) 0.0 See_Comment [Automated me ssage] The system which generated this result transmitted reference range: 0.0 - 10.0 /100 WBCs. The reference range was not used to interpret this result as normal/abnormal. NRBC x10^3 (test code = 7713583985) See_Comment [Automated messa ge] The system which generated this result transmitted reference range: 10*3/?L. The reference range was not used to interpret this result as normal/abnormal. GRAN MAT (NEUT) % (test code = 770-8) 66.1 % IMM GRAN % (test code = 4887737222) 0.70 % LYMPH % (test code = 736-9) 22.6 % MONO % (test code = 5905-5) 5.5 % EOS % (test code = 713-8) 4.6 % BASO % (test code = 706-2) 0.5 % GRAN MAT x10^3(ANC) (test code = 8974734916) 7.55 10*3/uL 1.88-7.09 H IMM GRAN x10^3 (test code = 7466680259) 0.08 10*3/uL 0.00-0.06 H LYMPH x10^3 (test code = 731-0) 2.58 10*3/uL 1.32-3.29 MONO x10^3 (test code = 742-7) 0.63 10*3/uL 0.33-0.92 EOS x10^3 (test code = 711-2) 0.52 10*3/uL 0.03-0.39 H BASO x10^3 (test code = 704-7) 0.06 10*3/uL 0.01-0.07 Lab Interpretation (test code = 44867-5) Abnormal [facility] URINALYSIS W SPECIFIC [id number] 21:43:00* Test Item Value Reference Range Interpretation Comme nts POCT U SP GRAV (test code = 3255) . 1.005-1.025 POCT PH U (test code = 3254) 6 mg/dl 5-8 POCT U LEUK EST (test code = 3263) + Negative - Negative POCT U NIT (test code = 3262) neg Negative - Negati ve POCT U PROT (test code = 3259) trace Negative - Negat radha POCT U GLU (test code = 3256) neg Negative - Negati ve POCT U KETONE (test code = 3258) neg Negative - Neg ative POCT U UROBILI (test code = 3260) . 0.2-1 POCT U BILI (test code = 3261) . Negative - Negat radha POCT U BLD (test code = 3257) neg Negative - Negati ve POCT U COLOR (test code = 3266) POCT U APPEAR (test code = 3267) [facility] with [id number] 05:36:47* Test Item Value Reference Range Interpretation Comme nts WBC (test code = 6690-2) 12.16 See_Comment H [Automated messa ge] The system which generated this result transmitted reference range: 4.30 - 11.10 10*3/?L. The reference range was not used to interpret this result as normal/abnormal. RBC (test code = 789-8) 4.03 See_Comment [Automated messa ge] The system which generated this result transmitted reference range: 3.93 - 5.25 10*6/?L. The reference range was not used to interpret this result as normal/abnormal. HGB (test code = 718-7) 11.1 g/dL 11.6-15.0 L HCT (test code = 4544-3) 35.4 % 35.7-45.2 L MCV (test code = 787-2) 87.8 fL 80.6-95.5 MCH (test code = 785-6) 27.5 pg 25.9-32.8 MCHC (test code = 786-4) 31.4 g/dL 31.6-35.1 L RDW-SD (test code = 30291-7) 49.9 fL 39.0-49.9 RDW-CV (test code = 788-0) 15.6 % 12.0-15.5 H PLT (test code = 777-3) 381 See_Comment H [Automated messa ge] The system which generated this result transmitted reference range: 166 - 358 10*3/?L. The reference range was not used to interpret this result as normal/abnormal. MPV (test code = 05164-4) 9.8 fL 9.5-12.9 NRBC/100 WBC (test code = 0323063908) 0.0 See_Comment [Automated me ssage] The system which generated this result transmitted reference range: 0.0 - 10.0 /100 WBCs. The reference range was not used to interpret this result as normal/abnormal. NRBC x10^3 (test code = 3231859842) See_Comment [Automated messa ge] The system which generated this result transmitted reference range: 10*3/?L. The reference range was not used to interpret this result as normal/abnormal. GRAN MAT (NEUT) % (test code = 770-8) 70.9 % IMM GRAN % (test code = 7913859308) 0.80 % LYMPH % (test code = 736-9) 18.4 % MONO % (test code = 5905-5) 4.9 % EOS % (test code = 713-8) 4.6 % BASO % (test code = 706-2) 0.4 % GRAN MAT x10^3(ANC) (test code = 8068810153) 8.62 10*3/uL 1.88-7.09 H IMM GRAN x10^3 (test code = 7620235322) 0.10 10*3/uL 0.00-0.06 H LYMPH x10^3 (test code = 731-0) 2.24 10*3/uL 1.32-3.29 MONO x10^3 (test code = 742-7) 0.59 10*3/uL 0.33-0.92 EOS x10^3 (test code = 711-2) 0.56 10*3/uL 0.03-0.39 H BASO x10^3 (test code = 704-7) 0.05 10*3/uL 0.01-0.07 Lab Interpretation (test code = 30439-1) Abnormal [facility] URINALYSIS W SPECIFIC [id number] 19:32:00* Test Item Value Reference Range Interpretation Comme nts POCT U SP GRAV (test code = 3255) * 1.005-1.025 POCT PH U (test code = 3254) 6 mg/dl 5-8 POCT U LEUK EST (test code = 3263) 1+ Negative - Negative POCT U NIT (test code = 3262) negative Negative - Negati ve POCT U PROT (test code = 3259) traace Negative - Negat radha POCT U GLU (test code = 3256) negative Negative - Negati ve POCT U KETONE (test code = 3258) negative Negative - Neg ative POCT U UROBILI (test code = 3260) * 0.2-1 POCT U BILI (test code = 3261) * Negative - Negat radha POCT U BLD (test code = 3257) negative Negative - Negati ve POCT U COLOR (test code = 3266) POCT U APPEAR (test code = 3267) [facility] URINALYSIS W SPECIFIC [id number] 18:55:00* Test Item Value Reference Range Interpretation Comme nts POCT U SP GRAV (test code = 3255) . 1.005-1.025 POCT PH U (test code = 3254) 6 mg/dl 5-8 POCT U LEUK EST (test code = 3263) Trace Negative - Negative POCT U NIT (test code = 3262) Neg Negative - Negati ve POCT U PROT (test code = 3259) Trace Negative - Negat radha POCT U GLU (test code = 3256) Nml Negative - Negati ve POCT U KETONE (test code = 3258) None Negative - Neg ative POCT U UROBILI (test code = 3260) . 0.2-1 POCT U BILI (test code = 3261) . Negative - Negat radha POCT U BLD (test code = 3257) Trace Negative - Negati ve POCT U COLOR (test code = 3266) . POCT U APPEAR (test code = 3267) . [facility] URINALYSIS W SPECIFIC [id number] 18:55:00* Test Item Value Reference Range Interpretation Comme nts POCT U SP GRAV (test code = 3255) . 1.005-1.025 POCT PH U (test code = 3254) 6 mg/dl 5-8 POCT U LEUK EST (test code = 3263) Trace Negative - Negative POCT U NIT (test code = 3262) Neg Negative - Negati ve POCT U PROT (test code = 3259) Trace Negative - Negat radha POCT U GLU (test code = 3256) Nml Negative - Negati ve POCT U KETONE (test code = 3258) None Negative - Neg ative POCT U UROBILI (test code = 3260) . 0.2-1 POCT U BILI (test code = 3261) . Negative - Negat radha POCT U BLD (test code = 3257) Trace Negative - Negati ve POCT U COLOR (test code = 3266) . POCT U APPEAR (test code = 3267) . [facility] URINALYSIS W SPECIFIC [id number] 14:59:00* Test Item Value Reference Range Interpretation Comme nts POCT U SP GRAV (test code = 3255) . 1.005-1.025 POCT PH U (test code = 3254) 7 mg/dl 5-8 POCT U LEUK EST (test code = 3263) 2+ Negative - Negative POCT U NIT (test code = 3262) Neg Negative - Negati ve POCT U PROT (test code = 3259) 1+ Negative - Negat radha POCT U GLU (test code = 3256) Nml Negative - Negati ve POCT U KETONE (test code = 3258) None Negative - Neg ative POCT U UROBILI (test code = 3260) . 0.2-1 POCT U BILI (test code = 3261) . Negative - Negat radha POCT U BLD (test code = 3257) Trace Negative - Negati ve POCT U COLOR (test code = 3266) . POCT U APPEAR (test code = 3267) [facility] URINALYSIS W SPECIFIC [id number] 20:12:00* Test Item Value Reference Range Interpretation Comme nts POCT U SP GRAV (test code = 3255) * 1.005-1.025 POCT PH U (test code = 3254) 6 mg/dl 5-8 POCT U LEUK EST (test code = 3263) negative Negative - Negative POCT U NIT (test code = 3262) negative Negative - Negati ve POCT U PROT (test code = 3259) trace Negative - Negat radha POCT U GLU (test code = 3256) negative Negative - Negati ve POCT U KETONE (test code = 3258) negative Negative - Neg ative POCT U UROBILI (test code = 3260) * 0.2-1 POCT U BILI (test code = 3261) * Negative - Negat radha POCT U BLD (test code = 3257) negative Negative - Negati ve POCT U COLOR (test code = 3266) * POCT U APPEAR (test code = 3267) * [facility]MAGNESIUM2023-10-07 20:36:27* Test Item Value Reference Range Interpretation Comme nts MAGNESIUM (test code = 4911910738) 1.7 mg/dL 1.7-2.4 Lab Interpretation (test cod e = 52457-2) Normal [facility] HospitalCOMP. METABOLIC PANEL (99677)2023-03-29 20:36:07* Test Item Value Reference Range Interpretation Comme nts NA (test code = 7777255484) 134 mmol/L 135-145 L K (test code = 2629255793) 3.6 mmol/L 3.5-5.0 CL (test code = 8920459841) 100 mmol/L 98-108 CO2 TOTAL (test code = 5940041475) 22 mmol/L 23-31 L AGAP (test code = 7137673917) 12 2-16 BUN (test code = 0189414284) 9 mg/dL 7-23 GLUCOSE (test code = 0290727992) 82 mg/dL 70-110 CREATININE (test code = 0261799879) 0.48 mg/dL 0.50-1.04 L TOTAL BILI (test code = 4025558610) 0.4 mg/dL 0.1-1.1 CALCIUM (test code = 1847519465) 8.3 mg/dL 8.6-10.6 L T PROTEIN (test code = 4428736826) 6.9 g/dL 6.3-8.2 ALBUMIN (test code = 3341089018) 3.7 g/dL 3.5-5.0 ALK PHOS (test code = 6394457385) 58 U/L 34-122 ALTv (test code = 1742-6) 14 U/L 5-35 AST(SGOT) (test code = 3918557778) 19 U/L 13-40 eGFR (test code = 8332624289) 163.3 mL/min/1.73m2 GARRETT (test code = GARRETT) Association of [...] or abnormalities in imaging tests). Lab Interpretation (test code = 84175-4) Abnormal [facility] HospitalLIPASE2023-10-07 20:35:47* Test Item Value Reference Range Interpretation Comme nts LIPASE (test code = 7287408609) 90 U/L 0-220 Lab Interpretation (test cod e = 27340-5) [id number] 20:23:46* Test Item Value Reference Range Interpretation Comme nts WBC (test code = 6690-2) 9.11 See_Comment [Automated [employer]] The system which generated this result transmitted reference range: 4.30 - 11.10 10*3/?L. The reference range was not used to interpret this result as normal/abnormal. RBC (test code = 789-8) 3.70 See_Comment L [Automated [employer]] The system which generated this result transmitted reference range: 3.93 - 5.25 10*6/?L. The reference range was not used to interpret this result as normal/abnormal. HGB (test code = 718-7) 10.7 g/dL 11.6-15.0 L HCT (test code = 4544-3) 32.9 % 35.7-45.2 L MCV (test code = 787-2) 88.9 fL 80.6-95.5 MCH (test code = 785-6) 28.9 pg 25.9-32.8 MCHC (test code = 786-4) 32.5 g/dL 31.6-35.1 RDW-SD (test code = 46792-3) 47.7 fL 39.0-49.9 RDW-CV (test code = 788-0) 14.8 % 12.0-15.5 PLT (test code = 777-3) 314 See_Comment [Automated messa ge] The system which generated this result transmitted reference range: 166 - 358 10*3/?L. The reference range was not used to interpret this result as normal/abnormal. MPV (test code = 21020-3) 9.7 fL 9.5-12.9 NRBC/100 WBC (test code = 1314473212) 0.0 See_Comment [Automated [employer] ssage] The system which generated this result transmitted reference range: 0.0 - 10.0 /100 WBCs. The reference range was not used to interpret this result as normal/abnormal. NRBC x10^3 (test code = 3107643704) See_Comment [Automated messa ge] The system which generated this result transmitted reference range: 10*3/?L. The reference range was not used to interpret this result as normal/abnormal. GRAN MAT (NEUT) % (test code = 770-8) 71.4 % IMM GRAN % (test code = 6711322787) 0.30 % LYMPH % (test code = 736-9) 19.9 % MONO % (test code = 5905-5) 4.2 % EOS % (test code = 713-8) 3.8 % BASO % (test code = 706-2) 0.4 % GRAN MAT x10^3(ANC) (test code = 9486388158) 6.50 10*3/uL 1.88-7.09 IMM GRAN x10^3 (test code = 5184604492) 0.03 10*3/uL 0.00-0.06 LYMPH x10^3 (test code = 731-0) 1.81 10*3/uL 1.32-3.29 MONO x10^3 (test code = 742-7) 0.38 10*3/uL 0.33-0.92 EOS x10^3 (test code = 711-2) 0.35 10*3/uL 0.03-0.39 BASO x10^3 (test code = 704-7) 0.04 10*3/uL 0.01-0.07 Lab Interpretation (test code = 49883-5) Abnormal [facility] URINALYSIS W SPECIFIC [id number] 13:42:00* Test Item Value Reference Range Interpretation Comme nts POCT U SP GRAV (test code = 3255) . 1.005-1.025 POCT PH U (test code = 3254) . 5-8 POCT U LEUK EST (test code = 3263) . Negative - N egative POCT U NIT (test code = 3262) . Negative - Negati ve POCT U PROT (test code = 3259) trace Negative - Negat radha POCT U GLU (test code = 3256) neg Negative - Negati ve POCT U KETONE (test code = 3258) . Negative - Neg ative POCT U UROBILI (test code = 3260) . 0.2-1 POCT U BILI (test code = 3261) . Negative - Negat radha POCT U BLD (test code = 3257) . Negative - Negati ve POCT U COLOR (test code = 3266) . POCT U APPEAR (test code = 3267) . [facility] WITH [id number] 05:22:18* Test Item Value Reference Range Interpretation Comme nts WBC (test code = 6690-2) 9.40 See_Comment [Automated messa ge] The system which generated this result transmitted reference range: 4.30 - 11.10 10*3/?L. The reference range was not used to interpret this result as normal/abnormal. RBC (test code = 789-8) 3.93 See_Comment [Automated messa ge] The system which generated this result transmitted reference range: 3.93 - 5.25 10*6/?L. The reference range was not used to interpret this result as normal/abnormal. HGB (test code = 718-7) 11.1 g/dL 11.6-15.0 L HCT (test code = 4544-3) 34.9 % 35.7-45.2 L MCV (test code = 787-2) 88.8 fL 80.6-95.5 MCH (test code = 785-6) 28.2 pg 25.9-32.8 MCHC (test code = 786-4) 31.8 g/dL 31.6-35.1 RDW-SD (test code = 89345-2) 51.0 fL 39.0-49.9 H RDW-CV (test code = 788-0) 15.6 % 12.0-15.5 H PLT (test code = 777-3) 339 See_Comment [Automated [employer] ge] The system which generated this result transmitted reference range: 166 - 358 10*3/?L. The reference range was not used to interpret this result as normal/abnormal. MPV (test code = 75206-4) 10.3 fL 9.5-12.9 NRBC/100 WBC (test code = 5167022423) 0.0 See_Comment [Automated [employer] ssage] The system which generated this result transmitted reference range: 0.0 - 10.0 /100 WBCs. The reference range was not used to interpret this result as normal/abnormal. NRBC x10^3 (test code = 0347400395) See_Comment [Automated [employer] ge] The system which generated this result transmitted reference range: 10*3/?L. The reference range was not used to interpret this result as normal/abnormal. GRAN MAT (NEUT) % (test code = 770-8) 76.6 % IMM GRAN % (test code = 1858070008) 0.30 % LYMPH % (test code = 736-9) 15.9 % MONO % (test code = 5905-5) 3.7 % EOS % (test code = 713-8) 3.1 % BASO % (test code = 706-2) 0.4 % GRAN MAT x10^3(ANC) (test code = 5422445545) 7.20 10*3/uL 1.88-7.09 H IMM GRAN x10^3 (test code = 3628458338) 0.03 10*3/uL 0.00-0.06 LYMPH x10^3 (test code = 731-0) 1.49 10*3/uL 1.32-3.29 MONO x10^3 (test code = 742-7) 0.35 10*3/uL 0.33-0.92 EOS x10^3 (test code = 711-2) 0.29 10*3/uL 0.03-0.39 BASO x10^3 (test code = 704-7) 0.04 10*3/uL 0.01-0.07 Lab Interpretation (test code = 80154-7) Abnormal [facility] WITH [id number] 05:22:18* Test Item Value Reference Range Interpretation Comme nts WBC (test code = 6690-2) 9.40 See_Comment [Automated messa ge] The system which generated this result transmitted reference range: 4.30 - 11.10 10*3/?L. The reference range was not used to interpret this result as normal/abnormal. RBC (test code = 789-8) 3.93 See_Comment [Automated [employer] ge] The system which generated this result transmitted reference range: 3.93 - 5.25 10*6/?L. The reference range was not used to interpret this result as normal/abnormal. HGB (test code = 718-7) 11.1 g/dL 11.6-15.0 L HCT (test code = 4544-3) 34.9 % 35.7-45.2 L MCV (test code = 787-2) 88.8 fL 80.6-95.5 MCH (test code = 785-6) 28.2 pg 25.9-32.8 MCHC (test code = 786-4) 31.8 g/dL 31.6-35.1 RDW-SD (test code = 41088-4) 51.0 fL 39.0-49.9 H RDW-CV (test code = 788-0) 15.6 % 12.0-15.5 H PLT (test code = 777-3) 339 See_Comment [Automated messa ge] The system which generated this result transmitted reference range: 166 - 358 10*3/?L. The reference range was not used to interpret this result as normal/abnormal. MPV (test code = 60141-1) 10.3 fL 9.5-12.9 NRBC/100 WBC (test code = 8280173160) 0.0 See_Comment [Automated [employer] ssage] The system which generated this result transmitted reference range: 0.0 - 10.0 /100 WBCs. The reference range was not used to interpret this result as normal/abnormal. NRBC x10^3 (test code = 7871509716) See_Comment [Automated messa ge] The system which generated this result transmitted reference range: 10*3/?L. The reference range was not used to interpret this result as normal/abnormal. GRAN MAT (NEUT) % (test code = 770-8) 76.6 % IMM GRAN % (test code = 7528725040) 0.30 % LYMPH % (test code = 736-9) 15.9 % MONO % (test code = 5905-5) 3.7 % EOS % (test code = 713-8) 3.1 % BASO % (test code = 706-2) 0.4 % GRAN MAT x10^3(ANC) (test code = 9600935111) 7.20 10*3/uL 1.88-7.09 H IMM GRAN x10^3 (test code = 5778759338) 0.03 10*3/uL 0.00-0.06 LYMPH x10^3 (test code = 731-0) 1.49 10*3/uL 1.32-3.29 MONO x10^3 (test code = 742-7) 0.35 10*3/uL 0.33-0.92 EOS x10^3 (test code = 711-2) 0.29 10*3/uL 0.03-0.39 BASO x10^3 (test code = 704-7) 0.04 10*3/uL 0.01-0.07 Lab Interpretation (test code = 80995-8) Abnormal [facility] [id number] 15:03:00* Test Item Value Reference Range Interpretation Comme nts POCT PREG (test code = 1605) Positive On board controls acceptable with C Line (test code = 3574) Yes POCT PREG LOT # (test code = 3575) POCT PREG TEST DATE ( test code = 3576) [facility] URINALYSIS W/O SPECIFIC [id number] 15:03:00* Test Item Value Reference Range Interpretation Comme nts POCT PH U (test code = 3254) 6 mg/dl 5-8 POCT U LEUK EST (test code = 3263) 2+ Negative - Negative POCT U NIT (test code = 3262) neg Negative - Negati ve POCT U PROT (test code = 3259) trace Negative - Negat radha POCT U GLU (test code = 3256) neg Negative - Negati ve POCT U KETONE (test code = 3258) neg Negative - Neg ative POCT U BLD (test code = 3257) neg Negative - Negati ve [facility] [id number] 15:03:00* Test Item Value Reference Range Interpretation Comme nts POCT PREG (test code = 1605) Positive On board controls acceptable with C Line (test code = 3574) Yes POCT PREG LOT # (test code = 3575) POCT PREG TEST DATE ( test code = 3576) [facility] URINALYSIS W/O SPECIFIC [id number] 15:03:00* Test Item Value Reference Range Interpretation Comme nts POCT PH U (test code = 3254) 6 mg/dl 5-8 POCT U LEUK EST (test code = 3263) 2+ Negative - Negative POCT U NIT (test code = 3262) neg Negative - Negati ve POCT U PROT (test code = 3259) trace Negative - Negat radha POCT U GLU (test code = 3256) neg Negative - Negati ve POCT U KETONE (test code = 3258) neg Negative - Neg ative POCT U BLD (test code = 3257) neg Negative - Negati ve [facility] [id number] 15:03:00* Test Item Value Reference Range Interpretation Comme nts POCT PREG (test code = 1605) Positive On board controls acceptable with C Line (test code = 3574) Yes POCT PREG LOT # (test code = 3575) POCT PREG TEST DATE ( test code = 3576) [facility] URINALYSIS W/O SPECIFIC [id number] 15:03:00* Test Item Value Reference Range Interpretation Comme nts POCT PH U (test code = 3254) 6 mg/dl 5-8 POCT U LEUK EST (test code = 3263) 2+ Negative - Negative POCT U NIT (test code = 3262) neg Negative - Negati ve POCT U PROT (test code = 3259) trace Negative - Negat radha POCT U GLU (test code = 3256) neg Negative - Negati ve POCT U KETONE (test code = 3258) neg Negative - Neg ative POCT U BLD (test code = 3257) neg Negative - Negati ve [facility] [id number] 15:03:00* Test Item Value Reference Range Interpretation Comme nts POCT PREG (test code = 1605) Positive On board controls acceptable with C Line (test code = 3574) Yes POCT PREG LOT # (test code = 3575) POCT PREG TEST DATE ( test code = 3576) [facility] URINALYSIS W/O SPECIFIC [id number] 15:03:00* Test Item Value Reference Range Interpretation Comme nts POCT PH U (test code = 3254) 6 mg/dl 5-8 POCT U LEUK EST (test code = 3263) 2+ Negative - Negative POCT U NIT (test code = 3262) neg Negative - Negati ve POCT U PROT (test code = 3259) trace Negative - Negat radha POCT U GLU (test code = 3256) neg Negative - Negati ve POCT U KETONE (test code = 3258) neg Negative - Neg ative POCT U BLD (test code = 3257) neg Negative - Negati ve [facility] [id number] 15:03:00* Test Item Value Reference Range Interpretation Comme nts POCT PREG (test code = 1605) Positive On board controls acceptable with C Line (test code = 3574) Yes POCT PREG LOT # (test code = 3575) POCT PREG TEST DATE ( test code = 357) [facility] URINALYSIS W/O SPECIFIC [id number] 15:03:00* Test Item Value Reference Range Interpretation Comme nts POCT PH U (test code = 3254) 6 mg/dl 5-8 POCT U LEUK EST (test code = 3263) 2+ Negative - Negative POCT U NIT (test code = 3262) neg Negative - Negati ve POCT U PROT (test code = 3259) trace Negative - Negat radha POCT U GLU (test code = 3256) neg Negative - Negati ve POCT U KETONE (test code = 3258) neg Negative - Neg ative POCT U BLD (test code = 3257) neg Negative - Negati ve [facility] [id number] 15:03:00* Test Item Value Reference Range Interpretation Comme nts POCT PREG (test code = 1605) Positive On board controls acceptable with C Line (test code = 3574) Yes POCT PREG LOT # (test code = 3575) POCT PREG TEST DATE ( test code = 357) [facility] URINALYSIS W/O SPECIFIC [id number] 15:03:00* Test Item Value Reference Range Interpretation Comme nts POCT PH U (test code = 3254) 6 mg/dl 5-8 POCT U LEUK EST (test code = 3263) 2+ Negative - Negative POCT U NIT (test code = 3262) neg Negative - Negati ve POCT U PROT (test code = 3259) trace Negative - Negat radha POCT U GLU (test code = 3256) neg Negative - Negati ve POCT U KETONE (test code = 3258) neg Negative - Neg ative POCT U BLD (test code = 3257) neg Negative - Negati ve [facility] [id number] 15:03:00* Test Item Value Reference Range Interpretation Comme nts POCT PREG (test code = 1605) Positive On board controls acceptable with C Line (test code = 3574) Yes POCT PREG LOT # (test code = 3575) POCT PREG TEST DATE ( test code = 357) [facility] [id number] 15:03:00* Test Item Value Reference Range Interpretation Comme nts POCT PH U (test code = 3254) 6 mg/dl 5-8 POCT U LEUK EST (test code = 3263) 2+ Negative - Negative POCT U NIT (test code = 3262) neg Negative - Negati ve POCT U PROT (test code = 3259) trace Negative - Negat radha POCT U GLU (test code = 3256) neg Negative - Negati ve POCT U KETONE (test code = 3258) neg Negative - Neg ative POCT U BLD (test code = 3257) neg Negative - Negati ve [facility] (51015)2023-01-22 20:06:41* Test Item Value Reference Range Interpretation Comme nts NA (test code = 0194881136) 135 mmol/L 135-145 K (test code = 1007935717) 3.8 mmol/L 3.5-5.0 CL (test code = 6789776038) 100 mmol/L 98-108 CO2 TOTAL (test code = 2419596190) 26 mmol/L 23-31 AGAP (test code = 9364308748) 9 2-16 BUN (test code = 7879998145) 7 mg/dL 7-23 GLUCOSE (test code = 2908877456) 86 mg/dL 70-110 CREATININE (test code = 8565494529) 0.46 mg/dL 0.50-1.04 L TOTAL BILI (test code = 0341265703) 0.5 mg/dL 0.1-1.1 CALCIUM (test code = 0432668980) 9.0 mg/dL 8.6-10.6 T PROTEIN (test code = 6539827175) 7.5 g/dL 6.3-8.2 ALBUMIN (test code = 6103801165) 4.3 g/dL 3.5-5.0 ALK PHOS (test code = 5386473052) 54 U/L 34-122 ALTv (test code = 1742-6) 20 U/L 5-35 AST(SGOT) (test code = 3626444163) 20 U/L 13-40 eGFR (test code = 6927294846) 171.5 mL/min/1.73m2 GARRETT (test code = GARRETT) Association of [...] or abnormalities in imaging tests). Lab Interpretation (test code = 77489-0) [facility] 20:06:36* Test Item Value Reference Range Interpretation Comme nts LIPASE (test code = 9175784996) 77 U/L 0-220 Lab Interpretation (test cod e = 36205-6) [facility] [id number] 19:54:35* Test Item Value Reference Range Interpretation Comme nts WBC (test code = 6690-2) 8.02 See_Comment [Automated [employer]] The system which generated this result transmitted reference range: 4.30 - 11.10 10*3/?L. The reference range was not used to interpret this result as normal/abnormal. RBC (test code = 789-8) 4.14 See_Comment [Automated messa ge] The system which generated this result transmitted reference range: 3.93 - 5.25 10*6/?L. The reference range was not used to interpret this result as normal/abnormal. HGB (test code = 718-7) 11.6 g/dL 11.6-15.0 HCT (test code = 4544-3) 35.7 % 35.7-45.2 MCV (test code = 787-2) 86.2 fL 80.6-95.5 MCH (test code = 785-6) 28.0 pg 25.9-32.8 MCHC (test code = 786-4) 32.5 g/dL 31.6-35.1 RDW-SD (test code = 73506-0) 50.1 fL 39.0-49.9 H RDW-CV (test code = 788-0) 15.9 % 12.0-15.5 H PLT (test code = 777-3) 321 See_Comment [Automated messa ge] The system which generated this result transmitted reference range: 166 - 358 10*3/?L. The reference range was not used to interpret this result as normal/abnormal. MPV (test code = 19034-8) 9.4 fL 9.5-12.9 L NRBC/100 WBC (test code = 5179599578) 0.0 See_Comment [Automated [employer] ssage] The system which generated this result transmitted reference range: 0.0 - 10.0 /100 WBCs. The reference range was not used to interpret this result as normal/abnormal. NRBC x10^3 (test code = 6833358277) See_Comment [Automated messa ge] The system which generated this result transmitted reference range: 10*3/?L. The reference range was not used to interpret this result as normal/abnormal. GRAN MAT (NEUT) % (test code = 770-8) 70.9 % IMM GRAN % (test code = 3486075338) 0.60 % LYMPH % (test code = 736-9) 20.2 % MONO % (test code = 5905-5) 5.7 % EOS % (test code = 713-8) 2.0 % BASO % (test code = 706-2) 0.6 % GRAN MAT x10^3(ANC) (test code = 9613409640) 5.68 10*3/uL 1.88-7.09 IMM GRAN x10^3 (test code = 2027147383) 0.05 10*3/uL 0.00-0.06 LYMPH x10^3 (test code = 731-0) 1.62 10*3/uL 1.32-3.29 MONO x10^3 (test code = 742-7) 0.46 10*3/uL 0.33-0.92 EOS x10^3 (test code = 711-2) 0.16 10*3/uL 0.03-0.39 BASO x10^3 (test code = 704-7) 0.05 10*3/uL 0.01-0.07 Lab Interpretation (test code = 98425-7) Abnormal [facility] Consult Notes Date/Time Note Provider Source 2023-07-26 16:31:53 Associated Order(s): CONSULT PHARMACEUTICAL PROCESS ENGINEER-ADULT Reason for consult - please give recommendation or opinion on: Depression, please provide with available resources Thanks Supervisor Prop Making Note SW interviewed Harper Sequeira who reportedly resides at [address] [place], [place] [id number] [place], [place], [facility] with significant other, Cheikh Murali who presents at hospital for support. MOB stated has car seat and all other necessary items for baby to go home. SO will transport upon discharge. MOB reported received care at [facility] in [place], [place]. MOB plans to follow-up at [facility] in [place], [place]. MOB reported no past mental health history. MOB denies any current depressive symptoms. SW provided educational material on PPD. Signs and symptoms were reviewed, and MOB encouraged to follow-up with PCP if experiencing any signs and symptoms of PPD. Plan: Baby to discharge home with MOB when medically cleared. Meryl So LMSW [facility] Supervisor Prop Making [phone] [email or web address] Available Fri TEND ENGINEER Meryl So LMSW [facility] Procedure Notes Date/Time Note Provider Source 2023-07-25 13:58:46 Procedure(s): INSERT CERVICAL DILATOR Pre-Procedure Diagnose(s): Indication for care or intervention in labor or delivery Post-Procedure Diagnose(s): Indication for care or intervention in labor or delivery Harper Sequeira is a 23 year old female 39w0d Figueroa insertion: Insertion date and time: 07/25/23 @ 1350 Figueroa catheter inserted through cervix in usual fashion and inflated with 60 cc sterile saline. Figueroa bulb firmly in place inside internal os. Catheter taped to patient leg under traction. Patient tolerated procedure well. Please use the table below for: SVE /-3 CERVIX: Consistency : very soft; Position: posterior, Station: -3 Score 0 1 2 3 Dilation (cm) 0 cm 1-2 cm 3-4 cm >5 cm Effacement 0 - 30 % 40 - 50 % 60 - 70 % > 80 % Consistency of the cervix Stiff Moderately soft Very soft Position of the cervix Posterior Median Anterior Station -3 -2 -1 to 0 +1, +2 Divya Olivo APRN, CNM [facility] 2023-07-25 12:21:20 Associated Order(s): Central Neuraxial Block Central Neuraxial Block Date/Time: 07/25/2023 11:42 AM Performed by: Elliott Humphrey MD Authorized by: Bertin Ledesma MBBS End Time: 07/25/2023 12:08 PM Reason for Block: OB request, Patient request, Labor analgesia, Surgical anesthesia and Post-op pain management Staff: Anesthesiologist: Bertin Ledesma MBBS Resident/FARM MACHINE OPERATOR: Adrian Root MD Performed by: resident/FARM MACHINE OPERATOR Preanesthetic Checklist: patient identified, IV checked, risks and benefits explained, monitors and equipment checked, timeout performed, pre-op evaluation, site marked and anesthesia consent Procedure: Type of Neuraxial: Epidural Epidural Description: 1st attempt Sterility Prep cap, drape, gloves, hand hygiene and mask Sedation Level no sedation Patient Position: sitting Prep: Betadine and patient draped Monitoring: heart rate, continuous pulse ox, heart rate / toco and NIBP Location: lumbar (1-5) Lumbar: L4-L5 Technique: BETH air and catheter Guidance with: landmark technique} Epidural/Spinal [place] and/or Catheter: Epidural/Spinal Kit: BBraun Needle Type: Tuohy Needle Gauge: 17 G Needle Length: 3.5 in (8.89 cm) Needle Insertion Depth: 5.5 Catheter Type: multiport Catheter Size: 19 G Catheter at Skin Depth: 10.5 Number of Attempts: 1 Test Dose: lidocaine 1.5% with epinephrine 1-to-200,000 and negative Dose: 3 cc Catheter Securement Method: surgical tape, Tegaderm, clear occlusive dressing and liquid medical adhesive Assessment: Block Outcome: a full evaluation is pending Procedure Assessment: patient tolerated procedure well with no complications Notes: Smooth and atraumatic, (+) Local, (+) STF TEND ENGINEER AN-ANESTHESIOLOGY [facility] Notes Date/Time Note Provider Source 2023-11-13 13:24:04 Please have patient follow up with mental health provider, as per the last note pt reports stopped taking meds 10/20 SADAF Olivo 11/13/2023 1:23 PM [facility] 2023-10-21 18:57:01 Pt given printed and verbal discharge instructions regarding episode of shaking, encouraged hydration. Pt verbalized understanding of instructions, pt awake alert oriented, resp reg unlabored, skin w/d, color appropriate for race, moves all ext well,pt encouraged to follow up with pcp. Advised to seek medical attention for new/prolonged/worsening of symptoms. PIV d'cd, dressing to site, catheter in tact. Awake, alert oriented, resp reg unlabored, skin w/d, pt leaving amb with steady gait, in no apparent distress, accompanied by significant other. Pita Barron RN [facility] 2023-10-21 18:44:03 SAFE-T Protocol with C-SSRS ([place] Risk and Protective Factors) - Recent Identify Risk Factors 1) Wish to be - Have you wished you were or wished you could go to sleep and not wake up?: (P) No 2) Current suicidal thoughts- Have you actually had any thoughts of killing yourself?: (P) No (pt reports passive suicidal thoughts intermittently for past few weeks. denies any plans, denies having suicidal thougths at the time of evaluation) 6) C-SSRS Suicidal Behavior- Have you ever done anything, started to do anything, or prepared to do anything to end your life?: (P) No Activating Events: (P) Other (see comments) (delivered 2 months ago,) Suggested risk level: (P) Not calculated Specific Questions of Thoughts, Plans, Intent: Identify Protective Factors Internal: (P) Identifies reasons for living External: (P) Responsibility to family or others, living with family;Engaged in work or school Stratification: High Suicide Risk Moderate Suicide Risk Low Suicide Risk ?? Suicidal ideation with intent or intent with plan in past month (C-SSRS Suicidal Ideation #4 or #5) Or ?? Suicidal behavior within past 3 months (C-SSRS Suicidal Behavior) ?? Suicidal ideation with method, WITHOUT plan, intent or behavior in past month (C-SSRS Suicidal Ideation #3) Or ?? Suicidal behavior more than 3 months ago (C-SSRS Suicidal Behavior Lifetime) Or ?? Multiple risk factors and few protective factors ?? Wish to or Suicidal Ideation WITHOUT method, intent, plan or behavior (C-SSRS Suicidal Ideation #1 or #2) Or ?? Modifiable risk factors and strong protective factors Or ? No reported history of Suicidal Ideation or Behavior Location / Risk: Outpatient / Low: Wish to or suicidal ideation without method, intent, plan or behavior and no history of suicidal behavior. a. Consider referral to behavioral health resources. b. Follow-up with Psychiatry provider within 2 weeks. c. Consider developing a safety plan. Pt denies having suicidal thoughts at the time of evaluation. Pt reports she called [facility] for intake a week ago,planning to follow up with [facility] for depression [facility] 2023-10-21 14:38:23 Pt states that this morning she had a "rage episode" and felt overwhelmed, less than 10 minutes after episode she walked into the living room and "lost control of her body". Concerned that she may have had a seizure due to uncontrollable muscle twitching that lasted ~2 minutes. Pt was awake and aware for the duration of the twitching. Reports starting Bupropion 2 weeks ago and wasn't sure if the medication could have caused the twitching. Mentioned that she thought about self harm this morning due to her and her fighting. Denies SI/HI in triage. Sarah Poole RN [facility] 2023-10-16 10:50:43 Pt transferred to clinic. Pt diagnosed with pp depression on 10/13/2023 and on Wellbutrin x 2 days. Pt reports outburst of anger. Denies harming or hurting anyone or herself. Denies homicidal and or suicidal ideations. Offered pt appt with provider, pt declined. Educated pt on finding mental health care provider. Strict er warnings given. Pt verbalized understanidng. Louise Leyva RN 10/16/23 10:49 AM Louise Leyva RN [facility] 2023-10-16 10:47:50 Pt transferred to clinic. Pt diagnosed with pp depression on 10/13/2023 and on Wellbutrin x 2 days. Pt reports outburst of anger. Denies harming or hurting anyone or herself. Denies homicidal and or suicidal ideations. Offered pt appt with provider, pt declined. Educated pt on finding mental health care provider. Strict er warnings given. Pt verbalized understanidng. Louise Leyva RN 10/16/23 10:49 AM Louise Leyva RN [facility] 2023-10-16 10:23:14 Copied from [facility] #[id number]. Topic: Clinical - Medical Advice >> Oct 16, 2023 10:04 AM Patient Robotic Weld Technician wrote: Harper Sequeira is a 23 year old female 11 wks pp ac nurse requested warm transfer for these interactions with pt. Was able to warm transfer to clinic. Please review "I feel like I'm easy irritable and angry" "I have anxiety" x currently "I feel like hurting someone when I get upset" "I feel crazy" "the past few days it has been so bad that I can't control it" " Sometimes I think about hurting myself but I try not to" Kourtney Gallagher [facility] 2023-07-26 22:02:12 Problem: Falls, Risk of Goal: Absence of falls Outcome: Resolved Problem: Pain Goal: Control of pain at or below patient's documented comfort goal Outcome: Resolved Goal: Reduction in pain sensation Outcome: Resolved Problem: Discharge Planning - Goal: Adequate for discharge Outcome: Resolved Goal: Mood stable Outcome: Resolved Problem: Complications of hemorrhage (risk or actual) Goal: Absence of active bleeding Outcome: Resolved Goal: Absence of complications Outcome: Resolved Problem: Infection Risk Goal: Absence of infection Outcome: Resolved TEND ENGINEER Kerry Patel RN [facility] 2023-07-26 16:09:57 Problem: Falls, Risk of Goal: Absence of falls Outcome: Progressing as expected Problem: Pain Goal: Control of pain at or below patient's documented comfort goal Outcome: Progressing as expected Goal: Reduction in pain sensation Outcome: Progressing as expected Problem: Discharge Planning - Goal: Adequate for discharge Outcome: Progressing as expected Goal: Mood stable Outcome: Progressing as expected Problem: Complications of hemorrhage (risk or actual) Goal: Absence of active bleeding Outcome: Progressing as expected Goal: Absence of complications Outcome: Progressing as expected Problem: Infection Risk Goal: Absence of infection Outcome: Progressing as expected TEND ENGINEER Mariia Rock RN [facility] 2023-07-26 16:00:00 Images from the original note were not included. This note was copied from a baby's chart. Assessment (most recent) Assessment - 07/26/23 1615 General Information Visit Initial Gestational age 39 weeks 3 Parity 2 Living Children 2 Feeding plan Formula states may pump once home; has electric breast pump with her however has not unpacked it; recommended to start to pump now while in hospital to protect and establish milk supply Breastfeed previously Yes Duration 1 week Breast Pump Has Breast Pump Electric states also orderred another one from Medicaid Financial Class Medicaid;WIC Delivery method Mental health history Anxiety;Depression Literature Resources Resources channel Education Benefits of breastmilk;Lactogenesis;Benef its of skin to skin contact;Encouraged rooming-in;Pump frequency;Storage of expressed breastmilk Recommended Feeding Plan Recommended feeding plan -- Mom is choosing to continue to formula feed her baby; states may pump or breastfeed once home; denies assistance or needs at this time. OTHER $ SERVICES Initial Yue Leonard RN, BSN, IBCLC EDO Leonard RN [facility] 2023-07-26 05:48:11 Problem: Falls, Risk of Goal: Absence of falls 07/26/2023 0548 by Kerry Patel, CHERI Outcome: Progressing as expected 07/26/2023 0233 by Kerry Patel RN Outcome: Progressing as expected Problem: Pain Goal: Control of pain at or below patient's documented comfort goal 07/26/2023 0548 by Kerry Patel, RN Outcome: Progressing as expected 07/26/2023 0233 by Kerry Patel, CHERI Outcome: Progressing as expected Goal: Reduction in pain sensation 07/26/2023 0548 by Kerry Patel RN Outcome: Progressing as expected 07/26/2023 023 by Kerry Patel RN Outcome: Progressing as expected Problem: Discharge Planning - Goal: Adequate for discharge 07/26/2023 0548 by Kerry Patel RN Outcome: Progressing as expected 07/26/2023 0233 by Kerry Patel RN Outcome: Progressing as expected Goal: Mood stable 07/26/2023 0548 by Kerry Patel RN Outcome: Progressing as expected 07/26/2023 023 by Kerry Patel RN Outcome: Progressing as expected Problem: Complications of hemorrhage (risk or actual) Goal: Absence of active bleeding 07/26/2023 0548 by Kerry Patel RN Outcome: Progressing as expected 07/26/2023 023 by Kerry Patel RN Outcome: Progressing as expected Goal: Absence of complications 07/26/2023 0548 by Kerry Patel RN Outcome: Progressing as expected 07/26/2023 023 by Kerry Patel RN Outcome: Progressing as expected Problem: Infection Risk Goal: Absence of infection 07/26/2023 0548 by Kerry Patel RN Outcome: Progressing as expected 07/26/2023 023 by Kerry Patel RN Outcome: Progressing as expected [facility] 2023-07-26 02:33:54 Problem: Falls, Risk of Goal: Absence of falls Outcome: Progressing as expected Problem: Pain Goal: Control of pain at or below patient's documented comfort goal Outcome: Progressing as expected Goal: Reduction in pain sensation Outcome: Progressing as expected Problem: Discharge Planning - Goal: Adequate for discharge Outcome: Progressing as expected Goal: Mood stable Outcome: Progressing as expected Problem: Complications of hemorrhage (risk or actual) Goal: Absence of active bleeding Outcome: Progressing as expected Goal: Absence of complications Outcome: Progressing as expected Problem: Infection Risk Goal: Absence of infection Outcome: Progressing as expected Problem: Intrapartum process (including labor pain) Goal: Absence of or reduction of complications of labor Outcome: Resolved Goal: Able to cope with pain Outcome: Resolved Goal: Adequate to move to next level of care Outcome: Resolved Goal: Reduction in pain sensation Outcome: Resolved [facility] 2023-07-25 21:58:34 DELIVERY BY SPONTANEOUS VAGINAL DELIVERY Delivery Date: 07/25/2023 Delivery Time: 9:33 PM Delivery Summary The patient was admitted to the Labor & Delivery unit for IOL at 39 weeks. Delivery Physician: Aneta Grimes MD Teaching Assist: Polly Cain MD OB Faculty: SHELBY DIAS MD Intrapartum Anesthesia/Analgesia: Epidural Mode of Delivery: Delivery of pollock fetus with cephalic presentation Fetus Spontaneous vaginal delivery of head with cephalic position, occipital anterior. As the head crowned and distended the perineum, no episiotomy was performed. A blue towel was used to protect the perineum as the head crowned and delivered. The other hand was used to exert pressure on the occiput to control the delivery of the head. The perineum was pushed with a towel-draped hand as the head and mouth was delivered over the perineum. The head was allowed to rotate externally to achieve natural body posture. Examination of neck revealed no umbilical cord. The shoulder was delivered by gentle downward traction applied to head and downward traction for the delivery of anterior shoulder. This was followed by upward traction with delivery of posterior shoulder and body. After the delivery of , bulb suction was performed from ororpharynx and nostril with removal of clear amniotic fluid. A normal, female was delivered. The umbilical cord was double clamped, cut and the infant was handed off the field to the circulating nurse Placenta Placenta was delivered spontaneously while the abdominal hand lifted the uterus cephalad and other hand keeping the umbilical cord slightly taut. Laceration Laceration Repair: No laceration repair needed. Fourth Stage Fourth stage of labor was managed by uterine massage with abdominal hand and infusion 30 units of pitocin mixed with intravenous fluid. EBL: 200 cc Complications: None Weight: 2890 g 1 Minute 5 Minute 10 Minute Totals: 8 9 Aneta Grimes MD Obstetrics and Gynecology PGY-1 TEND ENGINEER Associated attestation - Shelby Dias MD - 07/25/2023 10:21 PM FRONTEND ENGINEER I was present for the delivery on 07/25/[address] Grimes's note for additional details. Shelby Dias MD -OBSTETRICS & GYNECOLOGY [facility] 2023-07-25 19:52:28 Problem: Intrapartum process (including labor pain) Goal: Absence of or reduction of complications of labor Outcome: Progressing as expected Goal: Able to cope with pain Outcome: Progressing as expected Goal: Adequate to move to next level of care Outcome: Progressing as expected Goal: Reduction in pain sensation Outcome: Progressing as expected Problem: Falls, Risk of Goal: Absence of falls Outcome: Progressing as expected TEND ENGINEER [facility] 2023-07-25 18:41:17 Intrapartum Progress Note 07/25/2023 6:41 PM Subjective: Patient has no complaints Objective: Vitals last 24 hours: Temp: [36.7 ?C (98 ?F)-37.1 ?C (98.8 ?F)] 36.7 ?C (98 ?F) Pulse: [77-109] 101 Resp: [15-18] 17 BP: (105-143)/(56-82) 117/72 Intake/Output : I/O this shift: In: 1740.9 [I.V.:13.4] Out: 400 [Urine:400] No intake/output data recorded. Assessment Active movement: Yes Mode: EFM Uterine Activity: Mode: [place] Contractions (number / 10 minute): 4 Contraction duration (seconds): 60-80 Membrane Status Membrane status: Artificial Rupture date: 07/25/23 Rupture time: 183 Amniotic fluid color: Clear Cervical Exam % / -2 Assessment/Plan: Harper Sequeira is a 23 year old at 39w0d OB Assessment: CNM IOL OB Plan: epidural, FB & pit Additional Comments/Detail: SROM with clear fluid noted. Patient has epidural in place. Ripening Agent: Oxytocin Antonia Rock MD [facility] OG-OBSTETRICS & GYNECOLOGY [facility] 2023-07-25 11:08:53 Name/ MRN / Age / Gender: Harper Sequeira, [id number] 23 year old female BMI: Estimated body mass index is 32.19 kg/m? as calculated from the following: Height as of this encounter: 1.575 m (5' 2"). Weight as of this encounter: 79.8 kg (176 lb). Allergies: Patient has no known allergies. Last Vitals: BP Readings from Last 1 Encounters: 07/25/23 115/74 Pulse Readings from Last 1 Encounters: 07/25/23 93 SpO2 Readings from Last 1 Encounters: 07/25/23 98% Date of Surgery: 07/25/2023 Surgeon: * No surgeons listed * Procedure: CENTRAL NEURAXIAL BLOCK OR Location: [place] ANESTHESIA OUT OF OR - OR LOCATION Anesthesia Preop Eval (physical exam) Anesthesia Preop: Chart Review and [id number] PONV Risk Factors: female Anesthesia History Anesthesia History Negative (-) Hx of anesthetic complications Previous Anesthetics/Airways Cardiovascular Negative Cardiac ROS Comments: BP Readings from Last 3 Encounters: 07/25/23 : 115/74 07/23/23 : 128/75 07/17/23 : 131/74 Pulmonary Negative Pulmonary ROS Neuro/Musculoskeletal Negative Neuro/Musculosketal ROS (-) Spinal Cord injury (-) Positioning limitations GI/Hepatic Negative GI/Hepatic ROS Comments: ALBUMIN (g/dL) Date Value 03/29/2023 3.7 TOTAL BILI (mg/dL) Date Value 03/29/2023 0.4 ALTv (U/L) Date Value 07/17/2023 11 AST(SGOT) (U/L) Date Value 07/17/2023 39 ALK PHOS (U/L) Date Value 03/29/2023 58 Hematology Negative Hematology ROS Comments: WBC (10*3/?L) Date Value 07/17/2023 11.42 (H) HGB (g/dL) Date Value 07/17/2023 10.5 (L) PLT (10*3/?L) Date Value 07/17/2023 355 No results found for: "PTINR" No results found for: "APTTMNNM" No results found for: "APTTPAT" Renal Negative Renal ROS Comments: CREATININE (mg/dL) Date Value 07/17/2023 0.46 (L) K (mmol/L) Date Value 03/29/2023 3.6 NA (mmol/L) Date Value 03/29/2023 134 (L) Skin Negative Skin ROS Endo/Other Negative Endo/Other ROS Comments: No results found for: "YRQIZFI7Q" No results found for: "HGBA1C" 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 Induction of Labor - SVE: Dilation: 1 / Effacement (%): 75 % / Station: -3 - Mode: [place]: Contractions (number / 10 minute): 3;irrit - Plan: IOL with FB and pitocin. Harper desires epidural before FB placement. Antepartum course reviewed - 1 h 94, sero neg, Ri, VZVni, A+/neg, GBS neg, Pap due PP - H/H, plt: 10.5 / 32.6, 355 on 07/17/23 - [facility] Fetus - Presentation on admission: vertex, sutures palpable - anterior placenta - Kishan 6-6.5# - FHT Category I - Normal anatomy scan Pediatric Pediatric N/A N/A Preoperative Medication Instructions Continue taking all prescribed medications except: SCOTT inhibitors, ARBs, diuretics, all oral diabetes medications Anticoagulant Therapy: Defer to surgeons Insulin: Take 1/2 dose the night prior to surgery. Hold on DOS. Phentermine: Alert [facility] anesthesiologist SGLT2 Inhibitors: "gliflozins" to be held for 3 days prior to elective surgeries GLP1 Agonosit: stop 7 days prior to surgery MAC Cases: Continue taking SCOTT inhibitors and ARBs ASA Classification ASA: 2 ASA Comments: Patient Active Problem List: Supervision of high-risk Multiparity History of miscarriage History of depression UTI in Tobacco use in History of marijuana use Susceptible varicella Other depression Anemia of mother in , antepartum Heartburn during in third trimester 39 weeks gestation of Obesity affecting Indication for care in labor or delivery-IOL Current Medications: No outpatient medications have been marked as taking for the 07/25/23 encounter (Hospital Encounter). Previous Surgeries: No past surgical history on file. Anesthesia Physical Exam General no apparent distress and alert and oriented x 3 Neuro/Psych neurological Dental no notable dental hx Abdominal (+) obesity, abdomen soft and gravid Airway Mallampati score:II TM distance:> 5 cm Neck ROM: full Mouth opening:normal (+) Normal facies Extremity Normal extremity Pulmonary pulmonary exam normal and bilateral clear to auscultation Other Cardiovascular cardiovascular exam normalRhythm:regular Rate: normal Anesthesia Plan ASA Status: 2 Plan discussed during pre-op evaluation: General, Epidural, Spinal and CSE Anesthetic plan on DOS: Epidural Anesthesia plan discussed with: patient or underwriting service representative Post-Operative Analgesia: routine analgesia & antiemetics Recovery Plan: LDR Additional comments: [facility] 2023-07-25 09:10:01 Problem: Intrapartum process (including labor pain) Goal: Absence of or reduction of complications of labor Outcome: Progressing as expected Goal: Able to cope with pain Outcome: Progressing as expected Goal: Adequate to move to next level of care Outcome: Progressing as expected Goal: Reduction in pain sensation Outcome: Progressing as expected TEND ENGINEER Guillermo Forbes RN [facility] 2023-07-17 20:00:38 38 weeks juani for a few hours. Water intact. Report to CHERI Ratliff Pt transported to L&D via WC with ED PCT EDO Salas RN [facility] 2023-06-29 13:41:35 Nurse Report Report given to CHERI Maravilla. Chief complaint and assessment findings. Plan of care discussed with both nurses. Marleen Carmona RN [facility] 2023-06-29 13:35:22 CC: patient presents to the ER with complaints of leakage of fluids and pressure that began yesterday. Patient is 35 weeks gestation, denies high risk status. Patient states she was juani last night but the contractions have since stopped. Awake, alert, oriented, resp reg unlabored, skin warm and dry, color appropriate for race, moves all ext without difficulty, amb without assistance. Appears in no distress. TEND ENGINEER Marleen Carmona RN [facility] 2023-03-03 14:03:14 Formatting of this n ote might be different from the original. Called patient, notified patient positive for UTI. Educated patient on antibiotics, good perineal hygiene, and increasing fluids. Pt verbalized understanding. ABDOULAYE MONTALVO RN 03/03/2023 2:03 PM Abdoulaye Montalvo RN [facility] 2023-03-03 13:49:09 Formatting of this n ote might be different from the original. Please notify the patient of UTI, meds have been sent to the pharmacy. Please advise the patient on good perineal hygiene, drinking plenty of water, and completing the entire course of treatment. SADAF Olivo 03/03/2023 1:49 PM [facility] 2023-01-22 15:26:40 Formatting of this n ote might be different from the original. Pt given printed and verbal discharge instructions regarding UTI (urinary tract infection) and suprapubic pain, encouraged hydration, 1 Prescriptions provided Discussed antibiotic therapy and to take until all completed unless adverse reaction occurs - if occurs, discontinue medication and follow up with pcp/seek medical attention Pt verbalized understanding of instructions, pt awake alert oriented, resp reg unlabored, skin w/d, color appropriate for race, moves all ext well,pt encouraged to follow up with pcp and obgyn Advised to seek medical attention for new/prolonged/worsening of symptoms, Symptoms improved. No adverse reaction to meds given in ER noted upon discharge PIV d'cd, dressing to site, catheter in tact. Awake, alert oriented, resp reg unlabored, skin w/d, pt leaving amb with steady gait, in no apparent distress, Mary Walden RN [facility] 2023-01-22 13:59:57 Formatting of this n ote might be different from the original. Patient states "I don't know what it is, its the pains right here (points to left upper quadrant). Everytime I am here they can't tell me what it is." Patient c/o left upper quadrant pain that has been ongoing since the beginning of her . Curly Barrios RN [facility] 2023-01-20 11:30:39 Formatting of this n ote might be different from the original. Called pt, pt having pain after er visit at [facility]. Pt reports diagnosed with subchorionic hematoma. Pt denies vaginal bleeding at this time. Pt has hospital records, pt scheduled for same day new ob visit. Pt given strict er warnings and advised to bring records. Pt verbalized understanding. Louise Leyva RN 01/20/23 11:31 AM Louise Leyva RN [facility] 2023-01-20 10:22:46 Formatting of this n ote might be different from the original. Harper Sequeira is a 22 year old female calling requesting to talk with an nurse went to ER on 01/18 and still having pain getting worse L side of uterus constant and hard to walk around. Please contact patient at [phone] [facility] 2023-01-17 19:08:00 Formatting of this n ote might be different from the original. Regardin weeks :5 days to 1 week feels heart rate beats fast.happened again about 5 to 10 min ago. ----- Message from Betzaida Acosta sent at 01/17/2023 7:07 PM CDT ----- Harper Sequeira is a 22 year old female [facility] 2023-01-17 19:08:00 Formatting of this n ote might be different from the original. Triage Assessment Last Clinic Visit: 08/25/09, pedi, acute pharyngitis Primary Symptom: tachycardia Onset / Duration: today Location / Description: cardiac Pain / Severity: 4-10/30 Associated Symptoms: "breathing hard", abdominal pain Fever / Method: "I am burning up", doesn't have thermometer Hydration: eating and drinking less today, 8oz of fluid, last void a few min ago, denies dysuria or hematuria, has pressure with urination, reports n/v, denies diarrhea Treatment so far: denies Effect on ADL's: some Gestational Weeks: 12 wks per pt Rupture Membranes: denies Bleeding / Spotting / Pads per hour: denies Movement: NA Para / : EDC: NA Pre-existing condition / Immunocompromised: GERD Harper Sequeira is a 22 year old female whose calling for advice with tachycardia. Pt reports has been having s/s throughout the day today. Pt reports "I feel like I am having issues with breathing". Pt reports "my heart rate keeps speeding up". Pt reports "breathing hard". Pt reports has not eaten much today "and I feel like that makes it worse". Pt reports also has pain in lower abdomen. Pt reports went to ER for pain and confirmed uterine . Pt reports having white colored dc more than normal. Pt reports has pressure in abdomen with urination. Pt denies any vaginal bleeding. Assessment and triage completed per protocol. Patient verbalizes understanding and agrees to follow plan of care. Pt reports will go to [facility] ER. Pt reports will have to call her boyfriend home from work to take her. Pt verbalized understanding that she needs to go now and if no one else is available to take her then she should call a ride share or EMS to transport her to the ER. Pt had no further questions or concerns. Call back advice given and pt verbalized understanding. Dianna Soto RN Reason for Disposition Difficulty breathing Protocols used: Heart Rate and Heartbeat [id number] [facility]
[2024-04-12] MEDS ORDERED: KETOROLAC 30 MG/ML INJ ONE (17:01)
[2024-04-12 17:32] LABS: Absolute Eosinophils 0.2 K/uL (0-0.5); Absolute Lymphocytes (CBC) 1.2 K/uL (0.7-4.9); Absolute Monocytes 0.3 K/uL (0.1-1.3); Absolute Neutrophil 2.4 K/uL (1.8-8.0); Basophils % 0.3 % (0-1.3); Eosinophils % 4.3 % (0-4.4); Hematocrit 40.5 % (36.0-45.0); Hemoglobin 13.6 g/dL (12.0-15.0); Lymphocytes % 30.7 % (15.3-44.8); MCH 29.7 pg (27.0-35.0); MCHC 33.6 g/dL (32.0-36.0); MCV 88.5 fL (80-100); MPV 7.5 fL (7.6-11.3); Monocytes % 6.5 % (3.3-12.3); Neutrophils % 58.2 % (41.7-73.7); Nucleated Red Blood Cells % 0.1 % (0-0); Platelets 263 thou/uL (152-406); RBC Red Blood Cell Count 4.57 M/uL (3.86-4.86); Red Cell Distribution Width 13.6 % (12.1-15.2)
[2024-04-12 17:47] LABS: Albumin 3.9 g/dL (3.4-5.0); Albumin/Globulin Ratio 1.1 (1.1-1.8); Bilirubin Direct 0.2 mg/dL (0-0.2); Bilirubin Indirect, Calculated 0.4 mg/dL (0.2-0.8); Bilirubin Total 0.6 mg/dL (0.2-1.0); Globulin 3.6 g/dL (2.3-3.5); Protein, Total 7.5 g/dL (6.4-8.2); Troponin High Sensitivity 3.6 pg/mL (<58.9)
[2024-04-12] MEDS ORDERED: POTASSIUM 25 MEQ EFFERV TAB ONE (17:50)
--- NOTE | 2024-04-12 18:03 | RAD REPORT ---
Procedure: Chest Pa And Lat (2 Views) HISTORY: Chest pain COMPARISON: 2022 FINDINGS: The lungs appear clear of acute infiltrate. No significant pleural effusion noted. The heart is normal size. IMPRESSION: No acute abnormality is displayed.
[2024-04-12 18:30] LABS: SARS-CoV-2 Antigen CONTROL BLUE LINE VIS/BG OK; SARS-CoV-2 Antigen Rapid Res Negative (Negative)
--- NOTE | 2024-04-12 18:42 | EDPHYS ---
Physician Documentation [facility] Name: Harper Smith Age: 23 yrs Sex: Female : 2000 Arrival Date: 04/12/2024 Time: 16:06 Bed 17 Private MD: ED Physician Miko Camarillo HPI: 04/12 19:28 This 23 yrs old Female presents to ER via Ambulatory with complaints of Chest Pain, sb4 Shortness Of Breath. 19:28 patient reports chest pain with breathing and intermittent episodes of shortness of sb4 breath that began yesterday. she states that her kids have URIs. she denies any known fever. reports history of asthma, but has not had to use an inhaler since childhood. denies any wheezing or coughing. no nausea, vomiting, diarrhea. does admit to smoking cigarettes daily. Historical: - Allergies: 16:36 No Known Allergies; ll1 - Home Meds: 16:36 None [Active]; ll1 - PMHx: 16:24 Asthma; ll1 - PSHx: 16:36 None; ll1 - Immunization history:: Adult Immunizations up to date. - Infectious Disease History:: Denies. - Social history:: Smoking status: Patient reports the use of cigarette tobacco products, cigars. ROS: 19:28 Constitutional: Negative for fever, chills, and weight loss, sb4 19:28 Cardiovascular: Positive for chest pain, with cough, 19:28 Respiratory: Positive for cough, 19:28 All other systems are negative, Exam: 19:28 Constitutional: This is a well developed, well nourished patient who is awake, alert, sb4 and in no acute distress. Head/Face: Normocephalic, atraumatic. Eyes: Extra-ocular motions intact. Periorbital areas with no swelling, redness, or edema. ENT: Mucous membranes moist. Cardiovascular: Regular rate and rhythm with a normal S1 and S2. Respiratory: No increased work of breathing, no retractions or nasal flaring. Skin: Warm, dry with normal turgor. Normal color with no rashes, no lesions, and no evidence of cellulitis. Vital Signs: 16:36 BP 134 / 80; Pulse 92; Resp 16; Temp 98; Pulse Ox 98% on R/A; Weight 72.57 kg; Height 5 ll1 ft. 2 in. ; Pain 8/10; 17:20 BP 123 / 92; Pulse 80; Resp 16; Pulse Ox 98% on R/A; mb9 18:57 BP 124 / 83; Pulse 80; Resp 18; Pulse Ox 97% on R/A; mb9 16:36 Body Mass Index 29.26 (72.57 kg, 157.48 cm) ll1 16:36 Pain Scale: Adult ll1 MDM: 16:38 Medical Screening Exam initiated sb4 19:28 Data reviewed: vital signs, nurses notes, lab test result(s), EKG, radiologic studies, sb4 and as a result, I will discharge patient. Scoring Tools HEART Score: History: ECG: Age: Risk Factors: 1 or 2 risk factors (1), Troponin: Total Score = 1. Counseling: I had a detailed discussion with the patient and/or guardian regarding the historical points, exam findings, and any diagnostic results supporting the discharge/admit diagnosis, lab results, radiology results, the need for outpatient follow up, for definitive care, to return to the emergency department if symptoms worsen or persist or if there are any questions or concerns that arise at home, smoking cessation. 04/12 17:01 Order name: Basic Metabolic Panel; Complete Time: 17:48 sb4 04/12 17:01 Order name: CBC with Diff; Complete Time: 17:36 sb4 04/12 17:01 Order name: D-Dimer; Complete Time: 17:46 sb4 04/12 17:01 Order name: LFT's; Complete Time: 17:48 sb4 04/12 17:01 Order name: Magnesium; Complete Time: 17:48 sb4 04/12 17:01 Order name: NT PRO-BNP; Complete Time: 17:48 sb4 04/12 17:01 Order name: Troponin HS; Complete Time: 17:48 sb4 04/12 17:01 Order name: Test, Serum; Complete Time: 17:55 sb4 04/12 17:48 Order name: SARS RAPID; Complete Time: 18:30 sb4 04/12 17:48 Order name: Flu; Complete Time: 18:37 sb4 04/12 17:01 Order name: Chest Pa And Lat (2 Views) XRAY; Complete Time: 18:04 sb4 04/12 16:52 Order name: EKG - Nurse/Tech; Complete Time: 16:52 mb9 04/12 17:01 Order name: Cardiac monitoring; Complete Time: 17:08 sb4 04/12 17:01 Order name: IV Saline Lock; Complete Time: 17:08 sb4 04/12 17:01 Order name: Labs collected and sent; Complete Time: 17:08 sb4 04/12 17:01 Order name: O2 Per Protocol; Complete Time: 17:08 sb4 04/12 17:01 Order name: O2 Sat Monitoring; Complete Time: 17:08 sb4 EC:53 Rate is 75 beats/min. Rhythm is regular, Sinus arrythmia. TN interval is normal at 148 sb4 msec. QRS interval is normal at 80 msec. QT interval is normal at 360 msec. No Q waves. T waves are Normal. No ST changes noted. Clinical impression: No evidence of ischemia. Interpreted by me. Reviewed by me. Administered Medications: 17:23 Drug: Ketorolac IVP 15 mg IVP once Route: IVP; Site: left forearm; mb9 17:59 Follow up: Response: No adverse reaction mb9 17:58 Drug: Potassium PO Effervescent Tablet 50 mEq PO once; dissolve in 4 ounces of water or mb9 juice Route: PO; 18:58 Follow up: Response: No adverse reaction mb9 Disposition Summary: 04/12/24 18:41 Discharge Ordered Notes: Location: Home sb4 Problem: new sb4 Symptoms: have improved sb4 Condition: Stable sb4 Diagnosis - Chest pain on breathing sb4 - Acute bronchitis, unspecified sb4 Followup: sb4 - With: Emergency Department - When: As needed - Reason: Fever > 102 F, Trouble breathing, Worsening of condition Discharge Instructions: - Discharge Summary Sheet sb4 - Nonspecific Chest Pain, Adult, [id number] sb4 Forms: - Patient Portal Instructions sb4 - Leadership Thank You Letter sb4 Prescriptions: - Prednisone 20 mg Oral Tablet - take 1 tablet ORAL route every 12 hours for 5 days; 10 tablet; Refills: 0, sb4 Product Selection Permitted Signatures: Dispatcher [employer] Keke Munguia RN RN ll1 Gisele Bullock PANishaC PACierra sb4 Silva Guerrero RN RN mb9 Corrections: (The following items were deleted from the chart) 17:02 17:01 BASIC METABOLIC PANEL+C.LAB.BRZ ordered. EDMS EDMS 17: 17:01 CBC+H.LAB.BRZ ordered. EDMS EDMS 17: 17:01 D-DIMER+COAG.LAB.BRZ ordered. EDMS EDMS 17: 17:01 HEPATIC FUNCTION+C.LAB.BRZ ordered. EDMS EDMS 17: 17:01 MAGNESIUM+C.LAB.BRZ ordered. EDMS EDMS 17: 17:01 PROBNP+C.LAB.BRZ ordered. EDMS EDMS 17: 17:01 Troponin High Sensitivity+C.LAB.BRZ ordered. EDMS EDMS 17: 17:01 TEST, SERUM+SC.LAB.BRZ ordered. EDMS EDMS 17:02 17:02 Chest Pa And Lat (2 Views)+RAD.RAD.BRZ ordered. EDMS EDMS
--- NOTE | 2024-04-12 18:42 | ER ---
Nurse's Notes [facility] Name: Harper Smith Age: 23 yrs Sex: Female : 2000 Arrival Date: 04/12/2024 Time: 16:06 Bed 17 Private MD: Diagnosis: Chest pain on breathing;Acute bronchitis, unspecified Presentation: 04/12 16:36 Chief complaint: Patient states: NIETO, nausea, fever started last night. Working today ll1 and had a episode of CP and SOB. Coronavirus screen: Client denies travel out of the [place] in the last 14 days. difficulty breathing, fatigue, fever, headache, nausea, shortness of breath, Client presents with at least one sign or symptom that may indicate coronavirus-19. Standard/surgical mask placed on the client. Ebola Screen: Patient denies travel to an Ebola-affected area in the 21 days before illness onset. Initial Sepsis Screen: Does the patient meet any 2 criteria? No. Patient's initial sepsis screen is negative. Does the patient have a suspected source of infection? No. Patient's initial sepsis screen is negative. Risk Assessment: Do you want to hurt yourself or someone else? Patient reports no desire to harm self or others. Onset of symptoms was April 11, 2024. 16:36 Method Of Arrival: Ambulatory ll1 16:36 Acuity: BASIL 4 ll1 17:23 Acuity: BASIL 3 mb9 Triage Assessment: 16:36 General: Appears in no apparent distress. Behavior is calm, cooperative, appropriate ll1 for age. Pain: Complains of pain in head Quality of pain is described as aching. Neuro: Reports headache weakness. Cardiovascular: Reports chest pain. Respiratory: Reports shortness of breath pain with respiration. Musculoskeletal: Reports pain in chest. Historical: - Allergies: 16:36 No Known Allergies; ll1 - Home Meds: 16:36 None [Active]; ll1 - PMHx: 16:24 Asthma; ll1 - PSHx: 16:36 None; ll1 - Immunization history:: Adult Immunizations up to date. - Infectious Disease History:: Denies. - Social history:: Smoking status: Patient reports the use of cigarette tobacco products, cigars. Screenin:53 [facility] ED Fall Risk Assessment (Adult) History of falling in the last 3 months, mb9 including since admission No falls in past 3 months (0 pts) Confusion or Disorientation No (0 pts) Intoxicated or Sedated No (0 pts) Impaired Gait No (0 pts) Mobility Assist Device Used No (0 pt) Altered Elimination No (0 pt) Score/Fall Risk Level 0 - 2 = Low Risk Oriented to surroundings, Maintained a safe environment, Educated pt \T\ family on fall prevention, incl call for assistance when getting out of bed. Abuse screen: Denies threats or abuse. Nutritional screening: No deficits noted. Tuberculosis screening: No symptoms or risk factors identified. Assessment: 16:52 General: Appears in no apparent distress. Behavior is calm, cooperative. Pain: mb9 Complains of pain in chest Pain does not radiate. Pain currently is 0 out of 10 on a pain scale. Quality of pain is described as throbbing, Pain began 1 day ago. Neuro: Yuan Agitation-Sedation Scale (RASS): 0 - Alert and Calm Level of Consciousness is awake, alert, obeys commands, Oriented to person, place, time, situation, Appropriate for age. Neuro: Reports headache. Cardiovascular: Reports chest pain, shortness of breath. Respiratory: Airway is patent Respiratory effort is even, unlabored, Respiratory pattern is regular, symmetrical. GI: No signs and/or symptoms were reported involving the gastrointestinal system. : No signs and/or symptoms were reported regarding the genitourinary system. EENT: No signs and/or symptoms were reported regarding the EENT system. Derm: Skin is pink, warm \T\ dry. Musculoskeletal: Range of motion: intact in all extremities. 17:59 Reassessment: No changes from previously documented assessment. Patient and/or family mb9 updated on plan of care and expected duration. Pain level reassessed. Patient is alert, oriented x 3, equal unlabored respirations, skin warm/dry/pink. 18:57 Reassessment: No changes from previously documented assessment. Patient and/or family mb9 updated on plan of care and expected duration. Pain level reassessed. Patient is alert, oriented x 3, equal unlabored respirations, skin warm/dry/pink. Vital Signs: 16:36 BP 134 / 80; Pulse 92; Resp 16; Temp 98; Pulse Ox 98% on R/A; Weight 72.57 kg; Height 5 ll1 ft. 2 in. ; Pain 8/10; 17:20 BP 123 / 92; Pulse 80; Resp 16; Pulse Ox 98% on R/A; mb9 18:57 BP 124 / 83; Pulse 80; Resp 18; Pulse Ox 97% on R/A; mb9 16:36 Body Mass Index 29.26 (72.57 kg, 157.48 cm) ll1 16:36 Pain Scale: Adult ll1 ED Course: 16:13 Patient arrived in ED. mg5 16:21 Gisele Bullock PA-C is PHCP. sb4 16:21 Miko Camarillo MD is Attending Physician. sb4 16:23 Arm band placed on. hb 16:38 Triage completed. ll1 16:50 EKG done, by ED staff, reviewed by Gisele Bullock PA-C. mb9 16:54 Silva Guerrero, CHERI is Primary Nurse. mb9 16:54 Placed in gown. Bed in low position. Call light in reach. Side rails up X 1. Provided mb9 Education on: press call light if needing anything. Client placed on continuous cardiac and pulse oximetry monitoring. NIBP monitoring applied. audio visual equipment rental clerk on. 17:10 Initial lab(s) drawn, by me, sent to lab. Inserted saline lock: 20 gauge in right mb9 antecubital area, using aseptic technique. Blood collected. Flushed with 10 mL NS. 17:41 Chest Pa And Lat (2 Views) XRAY In Process Unspecified. EDMS 17:58 Flu Sent. mb9 17:58 SARS RAPID Sent. mb9 17:59 No provider procedures requiring assistance completed. mb9 18:57 IV discontinued, intact, bleeding controlled, No redness/swelling at site. Pressure mb9 dressing applied. Administered Medications: 17:23 Drug: Ketorolac IVP 15 mg IVP once Route: IVP; Site: left forearm; mb9 17:59 Follow up: Response: No adverse reaction mb9 17:58 Drug: Potassium PO Effervescent Tablet 50 mEq PO once; dissolve in 4 ounces of water or mb9 juice Route: PO; 18:58 Follow up: Response: No adverse reaction mb9 Medication: 16:54 VIS not applicable for this client. mb9 Outcome: 18:41 Discharge ordered by . sb4 18:57 Discharged to home ambulatory, mb9 18:57 Condition: stable 18:57 Discharge instructions given to patient, Instructed on discharge instructions, follow up and referral plans. Demonstrated understanding of instructions, follow-up care, 18:58 Demonstrated understanding of Prescriptions given X 1, mb9 19:02 Patient left the ED. robe Signatures: Dispatcher [employer] EDMS Shannen Benavidez, RN eKke Patel RN RN ll1 Gisele Bullock, PACierra PACierra sb4 Silva Guerrero RN RN mb9 Janiya Caruso mg5 Corrections: (The following items were deleted from the chart) 16:52 16:50 EKG done, by ED staff, reviewed by Miko kan9 mb9 19:25 16:36 Chief complaint: Patient states: NIETO, nausea, fever started last night. Working ll1 today and had a episode of CVP and SOB ll1
[2024-04-12 23:29] VITALS: TEMP 98
[2024-04-12 23:31] VITALS: BP 124/83; O2SAT 97
--- NOTE | 2024-04-13 12:51 | EKG ---
Test Date: 2024-04-12 Test Time: 16:46:10 Display Fabrication Supervisor: MB MEASUREMENT RESULTS: Intervals: Rate: 75 TN: 148 QRSD: 80 QT: 360 QTc: 402 Lyman: P: 68 TN: 148 QRS: 78 T: 53 INTERPRETIVE STATEMENTS: Normal sinus rhythm with sinus arrhythmia Nonspecific ST and T wave abnormality Abnormal ECG Compared to ECG 01/18/2023 10:34:13 ST (T wave) deviation now present Electronically Signed On 04-13-24 12:49:10 CDT by Cheo Jimenez
== END 2024-04-12 19:02 | disposition home or self-care (01) ==
LOC: ER 16:06
DX: J20.9 Acute bronchitis, unspecified (principal); Z11.52 Encounter for screening for COVID-19; Z72.0 Tobacco use
CPT/HCPCS: 36415; 71046; 80048; 80076; 83735; 83880; 84484; 84703; 85025; 85379; 87804; 87811; 93005; 96374; 99285

== ENCOUNTER 2024-05-23 15:27 | Emergency (ER) | payer OTHER ==
--- OUTSIDE RECORDS SUMMARY | 2024-05-23 15:35 | XMS REPORT | Continuity of Care Document ---
Author Name Unknown Address [address] [facility] [address] [place] [address] [facility] thconnect Address [address] [facility] [address] [place] [address] Care Team Providers Care Auto Travel Counselor Name Role Phone Pcp, Patient Does Not Have A Primary Care Physic jaguar GRECIA YOUNGER Attending Clinician Unavailable Nurse, [facility] Attending Clinician Un available Unknown, Attending Attending Clinician Unavailab Grecia Perez MD Attending Clinician [phone] Georgette Dickerson Attending Clinician [phone] GEORGETTE CLARK Attending Clinician Unavailable MORELIA GUAMAN Attending Clinician Unavailable Morelia Scruggs Attending Clinician [phone] GENNY TIAN Attending Clinician Unavail able Genny Aranda Attending Clinician + KAYLEY RADFORD Attending Clinician Unavailable Kayley Yost Attending Clinician [phone] Unknown, Attending Attending Clinician Unavailab Asha Horton Attending Clinician [phone] ASHA YARBROUGH Attending Clinician Unavailabl e Genny Aranda Attending Clinician + BATOOL CABRALES Attending Clinician Unavaila CARLYN Chavarria Attending Clinician Unavailable Kaci MELO, Divay Leon Attending Clinician + Axel PLANNER INTERN, Carlyn Attending Clinician + [phone] [facility] Attending Clinician Un available Grecia Younger MD Attending Clinician [phone] BLANCA LAMAR Attending Clinician Unavailable BLANCA LAMAR Attending Clinician Unavailable Blanca Lamar MD Attending Clinician + [phone] Elliott Humphrey MD Attending Clinician [phone] Jazmyn MELO, Halie Attending Clinician [phone] JENYN DASH Attending Clinician Unavailable Doctor Unassigned, Rafael Hernandez Attending Clinician U navailable Risk, Jtt-Edbri-Gc/High Attending Clinician Unav ailable Alphonso WHISHAPEmily Attending Clinician + [phone] EMILY WERNER Attending Clinician Unavailable ISABELA DUDLEY Attending Clinician ISABELA Newsome Attending Clinician Ac VIEIRAM, Batool Hawk Attending Clinician [phone] Riri Rosales NP Attending Clinician [phone] RIRI ROSALES Attending Clinician Unavail able TAY VELIZ Attending Clinician Unav ailkhari Ultrasound, [facility] Attending Clinician Unavaila Tay Granado MD Attending Clinician + DEANNA YU Attending Clinician Unavailable Alvin Cota MD Attending Clinician [phone] Deanna Yu MD Attending Clinician [phone] GUSTAVO STANTON Attending Clinician Unav ailable Gustavo Stanton MD Attending Clinician + KISHAN RADER Attending Clinician Unavailable Kishan Rader MD Attending Clinician [phone] Obie ALONZO, Jahaira Attending Clinician Unavailab GOGO Mcgill Attending Clinician Unavailable GOGO MCMANUS Attending Clinician Unavailable Gogo Mcmanus MD Attending Clinician +[phone] ROYAL BELLA Attending Clinician Unavailable Royal Bella DO Attending Clinician [phone] Charles ALONZO, Dianna Attending Clinician Unavailabl e UNKNOWN, ATTENDING Attending Clinician Unavailab CARLYN Villatoro Admitting Clinician Unavailable DEANNA YU Admitting Clinician Unavailable Blanca Lamar MD Admitting Clinician [phone] ISABELA DUDLEY Admitting Clinician Ac Yu MD, Deanna Parker Admitting Clinician [phone] Payers Payer Name Policy Type Policy Number Effective Date Expirati on Date Source [facility]ILLIP DONALD [id number] 2023 00:00:00 MIMI PRESLEY [id number] 1 00:00:00 Problems Condition Name Condition Details Condition Category Status Onset Date Resolution Date Last Treatment Date Treating Clinician Comments Source Other general counseling and advice for contracept radha management Other general counseling and advice for contracept radha management Disease Active 4-22 00:00: 00 [facility] Other depression Other depression Disease Active 2022-06 0-20 00:00: 00 [facility] History of depression History of depression Disease Active 02-26 00:00: 00 Overview: Formattin g of this note might be different from the original. Not on meds in years [facility] History of marijuana use History of marijuana use Disease Active 02-26 00:00: 00 Overview: Formattin g of this note might be different from the original. Reports quit [facility] Anemia of mother in , antepartum Anemia of mother in , antepartum Disease Resolve d 2022-06 1-30 00:00: 00 2024-01-29 00:00:00 2024-01-29 16:06:39 [facility] (spontaneo us vaginal delivery) (spontaneo us vaginal delivery) Disease Resolve d 2-03 00:00: 00 2023-10-13 00:00:00 2023-10-13 16:22:23 [facility] Single live Single live Disease Resolve d 2-03 00:00: 00 2023-10-13 00:00:00 2023-10-13 16:22:21 [facility] 39 weeks gestation of 39 weeks gestation of Disease Resolve d 2-02 00:00: 00 2023-10-13 00:00:00 2023-10-13 16:22:07 [facility] Obesity affecting Obesity affecting Disease Resolve d 2-02 00:00: 00 2023-10-13 00:00:00 2023-10-13 16:22:19 [facility] Indication for care in labor or delivery-I OL Indication for care in labor or delivery-I OL Disease Resolve d 2-02 00:00: 00 2023-10-13 00:00:00 2023-10-13 16:22:17 [facility] Heartburn during in third trimester Heartburn during in third trimester Disease Resolve d 1-19 00:00: 00 2023-10-13 00:00:00 2023-10-13 16:22:10 [facility] Susceptibl e varicella Susceptibl e varicella Disease Resolve d 9-07 00:00: 00 2023-10-13 00:00:00 2023-10-13 16:22:37 Overview: Formattin g of this note might be different from the original. Address pp [facility] Supervisio n of high-risk Supervisio n of high-risk Disease Resolve d 9-06 00:00: 00 2023-10-13 00:00:00 2023-10-13 16:22:22 [facility] Multiparit y Multiparit y Disease Resolve d 9-06 00:00: 00 2023-10-13 00:00:00 2023-10-13 16:22:16 [facility] History of miscarriag e History of miscarriag e Disease Resolve d 9-06 00:00: 00 2023-10-13 00:00:00 2023-10-13 16:22:14 [facility] UTI in UTI in Disease Resolve d 9-06 00:00: 00 2023-10-13 00:00:00 2023-10-13 16:22:26 Overview: Formattin g of this note might be different from the original. did not complete meds [facility] Tobacco use in Tobacco use in Disease Resolve d 9-06 00:00: 00 2023-10-13 00:00:00 2023-10-13 16:22:25 Overview: Formattin g of this note might be different from the original. Reports quit in october [facility] Allergies, Adverse Reactions, Alerts Allergy Name Allergy Type Status Severity Reaction(s) Onset Date Inactive Date Treating Clinician Comments Source NO KNOWN ALLERGIE S Drug Class Active [facility] Social History Social Habit Start Date Stop Date Quantity Comments Source ASSERTION 2022-11-08 00:00:00 [facility] Gender identity [facility] Alcoholic beverage intake 2024-02-12 00:00:00 2024-02-12 00:00:00 Ex-drinker (finding) [facility] Tobacco use and exposure 2024-01-29 00:00:00 2024-01-29 00:00:00 Smokeless tobacco non-user [facility] History of Social function 2023-10-29 00:00:00 2023-10-29 00:00:00 [facility] Alcohol intake 2023-10-21 00:00:00 2023-10-21 00:00:00 Ex-drinker (finding) [facility] History of tobacco use 2022-10-21 00:00:00 Cigarette Smoker [facility] Sex assigned at 2001 00:00:00 2000 00:00:00 [facility] Smoking Status Start Date Stop Date Source Tobacco smoking consumption unknown [facility] Occasional tobacco smoker 2024-01-29 00:00:00 [facility] Ex-smoker 2023-02-26 00:00:00 2023-02-26 00:00:00 [facility] Medications Ordered Medication Name Filled Medication Name Start Date Stop Date Current Medication? Ordering Clinician Indication Dosage Frequency Signature (SIG) Comments Components Source ondansetron (ZOFRAN-ODT ) disintegrat ing tablet 4 mg 03-12 17:30: 00 03-12 16:24 :00 No [id number] 4mg 4 mg, Oral, ONCE, 1 dose, On Fri03/12/24 at 1230, Routine [facility] bromphenira mine-pseudo ephedrine-D M (BROMFED DM) 2-30-10 mg/5 mL syrup 03-12 00:00: 00 03-23 04:59 :00 Yes [id number] 10mL Take 10 mL by mouth 4 (four) times daily for 10 days. [facility] ondansetron 4 mg disintegrat ing tablet 03-12 00:00: 00 03-18 04:59 :00 Yes [id number] 4mg Take 1 tablet by mouth every 8 (eight) hours as needed for Nausea and Vomiting (N/V) for up to 5 days. [facility] norgestimat e-ethinyl estradioL (TRI-SPRINT EC) 0.18/0.215/ 0.25 mg-35 mcg (28) tablet 02-02 00:00: 00 Yes [id number] 1{tbl} Take 1 tablet by mouth in the morning. [facility] norgestimat e-ethinyl estradioL (TRI-SPRINT EC) 0.18/0.215/ 0.25 mg-35 mcg (28) tablet 01-28 00:00: 00 02-02 00:00 :00 No [id number] 1{tbl} Take 1 tablet by mouth in the morning. [facility] triamcinolo ne acetonide 0.1 % ointment 01-08 00:00: 00 01-18 00:00 :00 No [id number] Apply to area(s) 2 (two) times daily for 10 days. [facility] cephALEXin 500 mg capsule 01-08 00:00: 00 01-14 04:59 :00 No [id number] 500mg Take 1 capsule by mouth 4 (four) times daily for 5 days. [facility] fluticasone propionate 50 mcg/actuati on nasal spray 12-02 00:00: 00 Yes [id number] 1{spray } Use 1 [place] in each nostril in the morning. [facility] methylPREDN ISolone (MEDROL, EMILY,) 4 mg tablets 12-02 00:00: 00 01-18 00:00 :00 No [id number] Take by mouth SEE-INSTRU CTIONS. follow package directions [facility] levonorgest rel-ethinyl estradiol (SRONYX) 0.1-20 mg-mcg per tablet 10-28 00:00: 00 01-28 00:00 :00 No [id number] 1{tbl} Take 1 tablet by mouth in the morning. [facility] buPROPion XL (WELLBUTRIN XL) 150 mg 24 hr tablet 10-12 00:00: 00 Yes [id number] 150mg Take 1 tablet by mouth in the morning. [facility] varicella virus vaccine live (VARIVAX) injection and diluent vial 07-26 14:17: 41 Yes 1{each} 0.5 mL (1 Each), Subcutaneo us, ONCE-PRIOR TO DISCHARGE, 1 dose, Starting on 07/26/23 at 0817, Until Discontinu ed, Routine, Give vaccine prior to discharge [facility] rho(D) immune globulin (RHOGAM) syringe 300 mcg 07-26 06:55: 12 Yes 300ug 300 mcg, Intramuscu lar, ONCE, For 1 dose, Conditiona l, Routine [facility] ibuprofen (IBU) tablet 600 mg 07-26 06:55: 09 Yes 600mg 600 mg, Oral, Q6HPRN, Starting on 07/26/23 at 0055, Until Discontinu ed, Routine, Pain (scale 4-6) [facility] acetaminoph en (TYLENOL) tablet 650 mg 07-26 06:55: 09 Yes 650mg 650 mg, Oral, Q6HPRN, Starting on 07/26/23 at 0055, Until Discontinu ed, Routine, Pain (scale 1-3) [facility] diphenhydrA MINE (BENADRYL) tablet 25 mg 07-26 06:55: 09 Yes 25mg 25 mg, Oral, Q6HPRN, Starting on 07/26/23 at 0055, Until Discontinu ed, Routine, Sleep, Itching [facility] ondansetron (ZOFRAN (PF)) injection 4 mg 07-26 06:55: 09 Yes 4mg 4 mg, Slow IV Push, Q8HPRN, Starting on 07/26/23 at 0055, Until Discontinu ed, Routine, Nausea and Vomiting (N/V) [facility] simethicone (GAS RELIEF (SIMETHICON E)) chewable tablet 160 mg 07-26 06:55: 09 Yes 160mg 160 mg, Oral, PC+HSPRN, Starting on 07/26/23 at 0055, Until Discontinu ed, Routine, Gas [facility] docusate (COLACE) capsule 200 mg 07-26 06:55: 09 Yes 200mg 200 mg, Oral, QDAILYPRN, Starting on 07/26/23 at 0055, Until Discontinu ed, Routine, Constipati on [facility] magnesium hydroxide (MILK OF MAGNESIA) 400 mg/5 mL suspension 30 mL 07-26 06:55: 09 Yes 30mL 30 mL, Oral, QDAILYPRN, Starting on 07/26/23 at 0055, Until Discontinu ed, Routine, Constipati on [facility] benzocaine- menthol (DERMOPLAST ) 20-0.5 % topical spray 07-26 06:55: 09 Yes Topical, PRN, Starting on 07/26/23 at 0055, Until Discontinu ed, Routine, Perineum discomfort [facility] oxytocin (PITOCIN) 30 units in NS 500 mL IV infusion 07-26 03:34: 46 Yes 600mL/h 600 mL/hr, IV Infusion, PRN, For post delivery uterine atony., Starting on Fri07/25/[address] at 600 mL/hr for 1 hr then 150 mL/hr for 1 hr.
[facility] oxytocin (PITOCIN) 30 units in NS 500 mL IV infusion 07-26 03:34: 46 Yes 300mL/h 300 mL/hr, IV Infusion, SEE-INSTRU CTIONS, Starting on Fri07/25/[address] at 300 mL/hr for 1 hr then 150 mL/hr for 1 hr. For post delivery uterotonic .
[facility] docusate 100 mg capsule 07-26 00:00: 00 Yes [id number] 200mg Take 2 capsules by mouth once daily as needed for Constipati on. [facility] ferrous sulfate 325 mg (65 mg iron) tablet 07-26 00:00: 00 Yes [id number] 325mg Take 1 tablet by mouth in the morning. [facility] ibuprofen 600 mg tablet 07-26 00:00: 00 Yes [id number] 600mg Take 1 tablet by mouth every 6 (six) hours as needed (Pain). Take with food or milk. [facility] [id number]-[id number] fum-folic () 27 mg iron- 1 mg folic tablet 07-26 00:00: 00 01-18 00:00 :00 No [id number] 1{tbl} Take 1 tablet by mouth in the morning. [facility] ropivacaine 0.2 % (NAROPIN (PF)) epidural infusion 07-25 18:09: 00 07-26 04:38 :10 No Epidural, CONTINUOUS PRN, Starting on Fri07/25/23 at 1209, Until Discontinu ed, Routine, Intra-op [facility] lidocaine-e pinephrine (XYLOCAINE W/EPINEPHRI NE) 1.5 %-1:200,000 injection 07-25 18:08: 00 07-26 04:38 :10 No Intraderma l, ONCE INTRA PROCEDURE, Starting on Fri07/25/23 at 1208, Until Discontinu ed, Routine, Intra-op [facility] ondansetron (ZOFRAN (PF)) injection 4 mg 07-25 17:30: 00 07-25 16:32 :00 No 4mg 4 mg, Slow IV Push, ONCE, 1 dose, On Fri07/25/23 at 1130, Routine [facility] sodium citrate-cit he acid (BICITRA) 500-334 mg/5 mL solution 30 mL 07-25 15:49: 39 Yes 30mL 30 mL, Oral, PRE-PROCED URE ONCE, 1 dose, Starting on Fri07/25/23 at 0949, Until Discontinu ed, Routine, Surgery/Pr ocedure [facility] lidocaine 1% (XYLOCAINE) 10 mg/mL (1 %) injection 50 mL 07-25 15:49: 39 Yes 50mL 50 mL, Infiltrati on, PRN - SEE INSTRUCTIO NS, Starting on Fri07/25/23 at 0949, Until Discontinu ed, Routine, Local anesthesia , For laceration repair only as a local anesthetic as indicated. [facility] lidocaine 1% (PF) (XYLOCAINE) injection 0.3 mL 07-25 15:49: 39 Yes .3mL 0.3 mL, Infiltrati on, PRN - SEE INSTRUCTIO NS, Starting on Fri07/25/23 at 0949, Until Discontinu ed, Routine, Local anesthesia , For IV line placement only as a local anesthetic . [facility] lactated ringers IV infusion 500 mL 07-25 15:49: 39 Yes 500mL at 999 mL/hr, 500 mL, IV Infusion, PRN - SEE INSTRUCTIO NS, Starting on Fri07/25/23 at 0949, Until Discontinu ed, Routine [facility] D5W-LR IV infusion 1,000 mL 07-25 15:49: 39 Yes 1000mL at 1-125 mL/hr, IV Infusion, TITRATE, Starting on Fri07/25/23 at 0949, Until Discontinu ed, Routine [facility] famotidine (PEPCID) 20 mg tablet 07-10 00:00: 00 Yes [id number] 20mg Take 1 tablet by mouth in the morning and 1 tablet in the evening. [facility] ferrous sulfate 325 mg (65 mg iron) tablet 2022-06 00:00: 00 07-26 00:00 :00 No [id number] 325mg Take 1 tablet by mouth in the morning and 1 tablet in the evening. [facility] ascorbic acid, vitamin C, 500 mg tablet 2022-06 00:00: 00 07-26 00:00 :00 No [id number] 500mg Take 1 tablet by mouth in the morning and 1 tablet at noon and 1 tablet in the evening. [facility] SERTraline (ZOLOFT) 50 mg tablet 2022-06 00:00: 00 05-21 00:00 :00 No [id number] 50mg Take 1 tablet by mouth in the morning. [facility] COMPLETE EMILY DHA 29 mg iron- 1 mg-200 mg combo pack 03-17 00:00: 00 07-26 00:00 :00 No [id number] EVERY DAY IN THE MORNING [facility] PRENATA 29 mg iron- 1 mg per tablet 03-14 00:00: 00 03-17 00:00 :00 No [id number] 1{tbl} TAKE 1 TABLET BY MOUTH EVERY DAY IN THE MORNING [facility] fluconazole (DIFLUCAN) 150 mg tablet 03-14 00:00: 00 03-15 04:59 :00 No [id number] 150mg Take 1 tablet by mouth ONCE PRN for Itching for up to 1 dose. [facility] Nitrofurant oin&Nit. Macrocryst (MACROBID) 100 mg capsule 03-03 00:00: 00 03-14 04:59 :00 No [id number] 100mg Take 1 capsule by mouth in the morning and 1 capsule in the evening. Do all this for 10 days. [facility] wtj49-pmpy- folic acid 29 mg iron- 1 mg per tablet 02-26 00:00: 00 03-14 00:00 :00 No [id number] 1{tbl} Take 1 tablet by mouth in the morning. [facility] terconazole 80 mg vaginal suppository 02-26 00:00: 00 03-02 04:59 :00 No [id number] 80mg Insert 1 Suppositor y into vagina at bedtime for 3 days. [facility] ondansetron (ZOFRAN (PF)) injection 4 mg 01-22 20:30: 00 01-22 19:39 :00 No [id number] 4mg 4 mg, Slow IV Push, ONCE, 1 dose, On Fri01/22/23 at 1530, Routine [facility] NaCl 0.9% (NS) bolus infusion 500 mL 01-22 19:30: 00 01-22 20:25 :00 No [id number] 500mL at 999 mL/hr, 500 mL, IV Infusion, ONCE, 1 dose, On Fri01/22/23 at 1430, STAT [facility] cephALEXin (KEFLEX) 500 mg capsule 01-22 00:00: 00 01-30 04:59 :00 No [id number] 500mg Take 1 capsule by mouth in the morning and 1 capsule at noon and 1 capsule in the evening. Do all this for 7 days. [facility] DICLEGIS 10-10 mg per tablet 01-18 00:00: 00 07-11 00:00 :00 No TAKE 2 TABLETS BY MOUTH EVERY DAY AT BEDTIME FOR NAUSEA. [facility] omeprazole 20 mg capsule 01-09 00:00: 00 07-10 00:00 :00 No [facility] cefpodoxime 100 mg tablet 12-23 00:00: 00 07-10 00:00 :00 No TAKE 1 TABLET BY MOUTH EVERY 12 HOURS FOR 7 DAYS. TAKE WITH FOOD. [facility] ELOCON 0.1 % TOPICAL OINT 2010-0 2-08 00:00: 00 07-11 00:00 :00 No apply to affected regions 2 times/day for 5-7 days [facility] Immunizations Ordered Immunization Name Filled Immunization Name Date Status Comments Source HPV9 2024-01-29 00:00:00 Completed [facility] TDAP 2023-05-21 00:00:00 Completed [facility] Influenza Virus Vaccine Quad IM, Preserv and ABX Free 6 MO-64 YRS (FLUCELVAX) 2023-05-21 00:00:00 Completed Varicella (varivax)(chicken pox) 2007-12-29 00:00:00 Completed [facility] Varicella (varivax)(chicken pox) 2007-12-29 00:00:00 Completed [facility] Varicella (varivax)(chicken pox) 2007-12-29 00:00:00 Completed [facility] Varicella (varivax)(chicken pox) 2007-12-29 00:00:00 Completed Varicella (varivax)(chicken pox) 2007-12-29 00:00:00 Completed [facility] Varicella (varivax)(chicken pox) 2007-12-29 00:00:00 Completed [facility] Varicella (varivax)(chicken pox) 2007-12-29 00:00:00 Completed [facility] HEPATITIS A 2005-09-18 00:00:00 Completed [facility] HEPATITIS A 2005-09-18 00:00:00 Completed [facility] HEPATITIS A 2005-09-18 00:00:00 Completed [facility] HEPATITIS A 2005-09-18 00:00:00 Completed HEPATITIS A 2005-09-18 00:00:00 Completed [facility] HEPATITIS A 2005-09-18 00:00:00 Completed [facility] HEPATITIS A 2005-09-18 00:00:00 Completed [facility] DTAP 2005-06-10 00:00:00 Completed [facility] Pneumococcal 7 Conjugate, PCV7 (Prevnar7) 2005-06-10 00:00:00 Completed [facility] Polio (IPV/OPV) 2005-06-10 00:00:00 Completed [facility] Meningococcal Polysaccharide (groups A, C, Y and W-135) conjugate vaccine (MCV4P) 2005-06-10 00:00:00 Completed [facility] DTAP 2005-06-10 00:00:00 Completed [facility] Pneumococcal 7 Conjugate, PCV7 (Prevnar7) 2005-06-10 00:00:00 Completed [facility] DTAP 2005-06-10 00:00:00 Completed [facility] Polio (IPV/OPV) 2005-06-10 00:00:00 Completed [facility] Meningococcal Polysaccharide (groups A, C, Y and W-135) conjugate vaccine (MCV4P) 2005-06-10 00:00:00 Completed [facility] DTAP 2005-06-10 00:00:00 Completed [facility] Pneumococcal 7 Conjugate, PCV7 (Prevnar7) 2005-06-10 00:00:00 Completed [facility] Polio (IPV/OPV) 2005-06-10 00:00:00 Completed [facility] Meningococcal Polysaccharide (groups A, C, Y and W-135) conjugate vaccine (MCV4P) 2005-06-10 00:00:00 Completed [facility] Pneumococcal 7 Conjugate, PCV7 (Prevnar7) 2005-06-10 00:00:00 Completed [facility] DTAP 2005-06-10 00:00:00 Completed Pneumococcal 7 Conjugate, PCV7 (Prevnar7) 2005-06-10 00:00:00 Completed Polio (IPV/OPV) 2005-06-10 00:00:00 Completed Meningococcal Polysaccharide (groups A, C, Y and W-135) conjugate vaccine (MCV4P) 2005-06-10 00:00:00 Completed Polio (IPV/OPV) 2005-06-10 00:00:00 Completed [facility] Meningococcal Polysaccharide (groups A, C, Y and W-135) conjugate vaccine (MCV4P) 2005-06-10 00:00:00 Completed [facility] DTAP 2005-06-10 00:00:00 Completed [facility] Pneumococcal 7 Conjugate, PCV7 (Prevnar7) 2005-06-10 00:00:00 Completed [facility] Polio (IPV/OPV) 2005-06-10 00:00:00 Completed [facility] Meningococcal Polysaccharide (groups A, C, Y and W-135) conjugate vaccine (MCV4P) 2005-06-10 00:00:00 Completed [facility] DTAP 2005-06-10 00:00:00 Completed [facility] Pneumococcal 7 Conjugate, PCV7 (Prevnar7) 2005-06-10 00:00:00 Completed [facility] Polio (IPV/OPV) 2005-06-10 00:00:00 Completed [facility] Meningococcal Polysaccharide (groups A, C, Y and W-135) conjugate vaccine (MCV4P) 2005-06-10 00:00:00 Completed [facility] HEPATITIS A 2005-02-04 00:00:00 Completed [facility] HEPATITIS A 2005-02-04 00:00:00 Completed [facility] HEPATITIS A 2005-02-04 00:00:00 Completed [facility] HEPATITIS A 2005-02-04 00:00:00 Completed HEPATITIS A 2005-02-04 00:00:00 Completed [facility] HEPATITIS A 2005-02-04 00:00:00 Completed [facility] HEPATITIS A 2005-02-04 00:00:00 Completed [facility] Varicella (varivax)(chicken pox) 2002-10-18 00:00:00 Completed [facility] DTAP 2002-10-18 00:00:00 Completed [facility] DTAP 2002-10-18 00:00:00 Completed [facility] Varicella (varivax)(chicken pox) 2002-10-18 00:00:00 Completed [facility] DTAP 2002-10-18 00:00:00 Completed [facility] Varicella (varivax)(chicken pox) 2002-10-18 00:00:00 Completed [facility] DTAP 2002-10-18 00:00:00 Completed Varicella (varivax)(chicken pox) 2002-10-18 00:00:00 Completed Varicella (varivax)(chicken pox) 2002-10-18 00:00:00 Completed [facility] DTAP 2002-10-18 00:00:00 Completed [facility] Varicella (varivax)(chicken pox) 2002-10-18 00:00:00 Completed [facility] DTAP 2002-10-18 00:00:00 Completed [facility] Varicella (varivax)(chicken pox) 2002-10-18 00:00:00 Completed [facility] DTAP 2002-10-18 00:00:00 Completed [facility] HIB 4 Dose Schedule 2002-06-11 00:00:00 Completed [facility] Polio (IPV/OPV) 2002-06-11 00:00:00 Completed [facility] Meningococcal Polysaccharide (groups A, C, Y and W-135) conjugate vaccine (MCV4P) 2002-06-11 00:00:00 Completed [facility] HIB 4 Dose Schedule 2002-06-11 00:00:00 Completed [facility] Polio (IPV/OPV) 2002-06-11 00:00:00 Completed [facility] Meningococcal Polysaccharide (groups A, C, Y and W-135) conjugate vaccine (MCV4P) 2002-06-11 00:00:00 Completed [facility] HIB 4 Dose Schedule 2002-06-11 00:00:00 Completed [facility] Polio (IPV/OPV) 2002-06-11 00:00:00 Completed [facility] Meningococcal Polysaccharide (groups A, C, Y and W-135) conjugate vaccine (MCV4P) 2002-06-11 00:00:00 Completed [facility] HIB 4 Dose Schedule 2002-06-11 00:00:00 Completed [facility] Polio (IPV/OPV) 2002-06-11 00:00:00 Completed [facility] HIB 4 Dose Schedule 2002-06-11 00:00:00 Completed Polio (IPV/OPV) 2002-06-11 00:00:00 Completed Meningococcal Polysaccharide (groups A, C, Y and W-135) conjugate vaccine (MCV4P) 2002-06-11 00:00:00 Completed Meningococcal Polysaccharide (groups A, C, Y and W-135) conjugate vaccine (MCV4P) 2002-06-11 00:00:00 Completed [facility] HIB 4 Dose Schedule 2002-06-11 00:00:00 Completed [facility] Polio (IPV/OPV) 2002-06-11 00:00:00 Completed [facility] Meningococcal Polysaccharide (groups A, C, Y and W-135) conjugate vaccine (MCV4P) 2002-06-11 00:00:00 Completed [facility] HIB 4 Dose Schedule 2002-06-11 00:00:00 Completed [facility] Polio (IPV/OPV) 2002-06-11 00:00:00 Completed [facility] Meningococcal Polysaccharide (groups A, C, Y and W-135) conjugate vaccine (MCV4P) 2002-06-11 00:00:00 Completed [facility] Hep B, Adol or Pedi Dosage 2002-01-06 00:00:00 Completed [facility] HIB 4 Dose Schedule 2002-01-06 00:00:00 Completed [facility] DTAP 2002-01-06 00:00:00 Completed [facility] DTAP 2002-01-06 00:00:00 Completed [facility] Hep B, Adol or Pedi Dosage 2002-01-06 00:00:00 Completed [facility] HIB 4 Dose Schedule 2002-01-06 00:00:00 Completed [facility] Hep B, Adol or Pedi Dosage 2002-01-06 00:00:00 Completed [facility] DTAP 2002-01-06 00:00:00 Completed [facility] Hep B, Adol or Pedi Dosage 2002-01-06 00:00:00 Completed [facility] HIB 4 Dose Schedule 2002-01-06 00:00:00 Completed [facility] HIB 4 Dose Schedule 2002-01-06 00:00:00 Completed [facility] DTAP 2002-01-06 00:00:00 Completed Hep B, Adol or Pedi Dosage 2002-01-06 00:00:00 Completed HIB 4 Dose Schedule 2002-01-06 00:00:00 Completed DTAP 2002-01-06 00:00:00 Completed [facility] Hep B, Adol or Pedi Dosage 2002-01-06 00:00:00 Completed [facility] HIB 4 Dose Schedule 2002-01-06 00:00:00 Completed [facility] DTAP 2002-01-06 00:00:00 Completed [facility] Hep B, Adol or Pedi Dosage 2002-01-06 00:00:00 Completed [facility] HIB 4 Dose Schedule 2002-01-06 00:00:00 Completed [facility] DTAP 2002-01-06 00:00:00 Completed [facility] HIB 4 Dose Schedule 2001 00:00:00 Completed [facility] Pneumococcal 7 Conjugate, PCV7 (Prevnar7) 2001 00:00:00 Completed [facility] Polio (IPV/OPV) 2001 00:00:00 Completed [facility] DTAP 2001 00:00:00 Completed [facility] DTAP 2001 00:00:00 Completed [facility] HIB 4 Dose Schedule 2001 00:00:00 Completed [facility] Pneumococcal 7 Conjugate, PCV7 (Prevnar7) 2001 00:00:00 Completed [facility] Polio (IPV/OPV) 2001 00:00:00 Completed [facility] DTAP 2001 00:00:00 Completed [facility] HIB 4 Dose Schedule 2001 00:00:00 Completed [facility] HIB 4 Dose Schedule 2001 00:00:00 Completed [facility] Pneumococcal 7 Conjugate, PCV7 (Prevnar7) 2001 00:00:00 Completed [facility] Polio (IPV/OPV) 2001 00:00:00 Completed [facility] Pneumococcal 7 Conjugate, PCV7 (Prevnar7) 2001 00:00:00 Completed [facility] Polio (IPV/OPV) 2001 00:00:00 Completed [facility] DTAP 2001 00:00:00 Completed HIB 4 Dose Schedule 2001 00:00:00 Completed Pneumococcal 7 Conjugate, PCV7 (Prevnar7) 2001 00:00:00 Completed Polio (IPV/OPV) 2001 00:00:00 Completed DTAP 2001 00:00:00 Completed [facility] HIB 4 Dose Schedule 2001 00:00:00 Completed [facility] Pneumococcal 7 Conjugate, PCV7 (Prevnar7) 2001 00:00:00 Completed [facility] Polio (IPV/OPV) 2001 00:00:00 Completed [facility] DTAP 2001 00:00:00 Completed [facility] HIB 4 Dose Schedule 2001 00:00:00 Completed [facility] Pneumococcal 7 Conjugate, PCV7 (Prevnar7) 2001 00:00:00 Completed [facility] Polio (IPV/OPV) 2001 00:00:00 Completed [facility] DTAP 2001 00:00:00 Completed [facility] HIB 4 Dose Schedule 2001 00:00:00 Completed [facility] HIB 4 Dose Schedule 2001 00:00:00 Completed [facility] HIB 4 Dose Schedule 2001 00:00:00 Completed [facility] HIB 4 Dose Schedule 2001 00:00:00 Completed [facility] HIB 4 Dose Schedule 2001 00:00:00 Completed HIB 4 Dose Schedule 2001 00:00:00 Completed [facility] HIB 4 Dose Schedule 2001 00:00:00 Completed [facility] Hep B, Adol or Pedi Dosage 2001 00:00:00 Completed [facility] Pneumococcal 7 Conjugate, PCV7 (Prevnar7) 2001 00:00:00 Completed [facility] Polio (IPV/OPV) 2001 00:00:00 Completed [facility] DTAP 2001 00:00:00 Completed [facility] DTAP 2001 00:00:00 Completed [facility] Hep B, Adol or Pedi Dosage 2001 00:00:00 Completed [facility] Pneumococcal 7 Conjugate, PCV7 (Prevnar7) 2001 00:00:00 Completed [facility] Polio (IPV/OPV) 2001 00:00:00 Completed [facility] Hep B, Adol or Pedi Dosage 2001 00:00:00 Completed [facility] DTAP 2001 00:00:00 Completed [facility] Hep B, Adol or Pedi Dosage 2001 00:00:00 Completed [facility] Pneumococcal 7 Conjugate, PCV7 (Prevnar7) 2001 00:00:00 Completed [facility] Polio (IPV/OPV) 2001 00:00:00 Completed [facility] Pneumococcal 7 Conjugate, PCV7 (Prevnar7) 2001 00:00:00 Completed [facility] Polio (IPV/OPV) 2001 00:00:00 Completed [facility] DTAP 2001 00:00:00 Completed [facility] Hep B, Adol or Pedi Dosage 2001 00:00:00 Completed Pneumococcal 7 Conjugate, PCV7 (Prevnar7) 2001 00:00:00 Completed Polio (IPV/OPV) 2001 00:00:00 Completed DTAP 2001 00:00:00 Completed [facility] Hep B, Adol or Pedi Dosage 2001 00:00:00 Completed [facility] DTAP 2001 00:00:00 Completed [facility] Pneumococcal 7 Conjugate, PCV7 (Prevnar7) 2001 00:00:00 Completed [facility] Polio (IPV/OPV) 2001 00:00:00 Completed [facility] Hep B, Adol or Pedi Dosage 2001 00:00:00 Completed [facility] Pneumococcal 7 Conjugate, PCV7 (Prevnar7) 2001 00:00:00 Completed [facility] Polio (IPV/OPV) 2001 00:00:00 Completed [facility] DTAP 2001 00:00:00 Completed [facility] Hep B, Adol or Pedi Dosage 2001 00:00:00 Completed [facility] Hep B, Adol or Pedi Dosage 2001 00:00:00 Completed [facility] Hep B, Adol or Pedi Dosage 2001 00:00:00 Completed [facility] Hep B, Adol or Pedi Dosage 2001 00:00:00 Completed [facility] Hep B, Adol or Pedi Dosage 2001 00:00:00 Completed Hep B, Adol or Pedi Dosage 2001 00:00:00 Completed [facility] Hep B, Adol or Pedi Dosage 2001 00:00:00 Completed [facility] DTAP Unknown Completed [facility] Hep B, Adol or Pedi Dosage Unknown Completed [facility] HIB 4 Dose Schedule Unknown Completed [facility] Pneumococcal 7 Conjugate, PCV7 (Prevnar7) Unknown Completed [facility] Polio (IPV/OPV) Unknown Completed [facility] HEPATITIS A Unknown Completed [facility] Meningococcal Polysaccharide (groups A, C, Y and W-135) conjugate vaccine (MCV4P) Unknown Completed [facility] Varicella (varivax)(chicken pox) Unknown Completed [facility] TDAP Unknown Completed [facility] Influenza Virus Vaccine Quad IM, Preserv and ABX Free 6 MO-64 YRS (FLUCELVAX) Unknown Completed [facility] TDAP Unknown Completed [facility] Influenza Virus Vaccine Quad IM, Preserv and ABX Free 6 MO-64 YRS (FLUCELVAX) Unknown Completed [facility] DTAP Unknown Completed [facility] Hep B, Adol or Pedi Dosage Unknown Completed [facility] HIB 4 Dose Schedule Unknown Completed [facility] Pneumococcal 7 Conjugate, PCV7 (Prevnar7) Unknown Completed [facility] Polio (IPV/OPV) Unknown Completed [facility] HEPATITIS A Unknown Completed [facility] Meningococcal Polysaccharide (groups A, C, Y and W-135) conjugate vaccine (MCV4P) Unknown Completed [facility] Varicella (varivax)(chicken pox) Unknown Completed [facility] DTAP Unknown Completed [facility] Hep B, Adol or Pedi Dosage Unknown Completed [facility] HIB 4 Dose Schedule Unknown Completed [facility] Pneumococcal 7 Conjugate, PCV7 (Prevnar7) Unknown Completed [facility] Polio (IPV/OPV) Unknown Completed [facility] HEPATITIS A Unknown Completed [facility] Meningococcal Polysaccharide (groups A, C, Y and W-135) conjugate vaccine (MCV4P) Unknown Completed [facility] Varicella (varivax)(chicken pox) Unknown Completed [facility] TDAP Unknown Completed [facility] Influenza Virus Vaccine Quad IM, Preserv and ABX Free 6 MO-64 YRS (FLUCELVAX) Unknown Completed [facility] DTAP Unknown Completed [facility] Hep B, Adol or Pedi Dosage Unknown Completed [facility] HIB 4 Dose Schedule Unknown Completed [facility] Pneumococcal 7 Conjugate, PCV7 (Prevnar7) Unknown Completed [facility] Polio (IPV/OPV) Unknown Completed [facility] HEPATITIS A Unknown Completed [facility] Meningococcal Polysaccharide (groups A, C, Y and W-135) conjugate vaccine (MCV4P) Unknown Completed [facility] Varicella (varivax)(chicken pox) Unknown Completed [facility] TDAP Unknown Completed [facility] Influenza Virus Vaccine Quad IM, Preserv and ABX Free 6 MO-64 YRS (FLUCELVAX) Unknown Completed [facility] DTAP Unknown Completed [facility] Hep B, Adol or Pedi Dosage Unknown Completed [facility] HIB 4 Dose Schedule Unknown Completed [facility] Pneumococcal 7 Conjugate, PCV7 (Prevnar7) Unknown Completed [facility] Polio (IPV/OPV) Unknown Completed [facility] HEPATITIS A Unknown Completed [facility] Meningococcal Polysaccharide (groups A, C, Y and W-135) conjugate vaccine (MCV4P) Unknown Completed [facility] Varicella (varivax)(chicken pox) Unknown Completed [facility] TDAP Unknown Completed [facility] Influenza Virus Vaccine Quad IM, Preserv and ABX Free 6 MO-64 YRS (FLUCELVAX) Unknown Completed [facility] TDAP Unknown Completed [facility] Influenza Virus Vaccine Quad IM, Preserv and ABX Free 6 MO-64 YRS (FLUCELVAX) Unknown Completed [facility] DTAP Unknown Completed [facility] Hep B, Adol or Pedi Dosage Unknown Completed [facility] HIB 4 Dose Schedule Unknown Completed [facility] Pneumococcal 7 Conjugate, PCV7 (Prevnar7) Unknown Completed [facility] Polio (IPV/OPV) Unknown Completed [facility] HEPATITIS A Unknown Completed [facility] Meningococcal Polysaccharide (groups A, C, Y and W-135) conjugate vaccine (MCV4P) Unknown Completed [facility] Varicella (varivax)(chicken pox) Unknown Completed [facility] DTAP Unknown Completed [facility] Hep B, Adol or Pedi Dosage Unknown Completed [facility] HIB 4 Dose Schedule Unknown Completed [facility] Pneumococcal 7 Conjugate, PCV7 (Prevnar7) Unknown Completed [facility] Polio (IPV/OPV) Unknown Completed [facility] HEPATITIS A Unknown Completed [facility] Meningococcal Polysaccharide (groups A, C, Y and W-135) conjugate vaccine (MCV4P) Unknown Completed [facility] Varicella (varivax)(chicken pox) Unknown Completed [facility] TDAP Unknown Completed [facility] Influenza Virus Vaccine Quad IM, Preserv and ABX Free 6 MO-64 YRS (FLUCELVAX) Unknown Completed [facility] DTAP Unknown Completed [facility] Hep B, Adol or Pedi Dosage Unknown Completed [facility] HIB 4 Dose Schedule Unknown Completed [facility] Pneumococcal 7 Conjugate, PCV7 (Prevnar7) Unknown Completed [facility] Polio (IPV/OPV) Unknown Completed [facility] HEPATITIS A Unknown Completed [facility] Meningococcal Polysaccharide (groups A, C, Y and W-135) conjugate vaccine (MCV4P) Unknown Completed [facility] Varicella (varivax)(chicken pox) Unknown Completed [facility] TDAP Unknown Completed [facility] Influenza Virus Vaccine Quad IM, Preserv and ABX Free 6 MO-64 YRS (FLUCELVAX) Unknown Completed [facility] DTAP Unknown Completed [facility] Hep B, Adol or Pedi Dosage Unknown Completed [facility] HIB 4 Dose Schedule Unknown Completed [facility] Pneumococcal 7 Conjugate, PCV7 (Prevnar7) Unknown Completed [facility] Polio (IPV/OPV) Unknown Completed [facility] HEPATITIS A Unknown Completed [facility] Meningococcal Polysaccharide (groups A, C, Y and W-135) conjugate vaccine (MCV4P) Unknown Completed [facility] Varicella (varivax)(chicken pox) Unknown Completed [facility] TDAP Unknown Completed [facility] Influenza Virus Vaccine Quad IM, Preserv and ABX Free 6 MO-64 YRS (FLUCELVAX) Unknown Completed [facility] DTAP Unknown Completed [facility] Hep B, Adol or Pedi Dosage Unknown Completed [facility] HIB 4 Dose Schedule Unknown Completed [facility] Pneumococcal 7 Conjugate, PCV7 (Prevnar7) Unknown Completed [facility] Polio (IPV/OPV) Unknown Completed [facility] HEPATITIS A Unknown Completed [facility] Meningococcal Polysaccharide (groups A, C, Y and W-135) conjugate vaccine (MCV4P) Unknown Completed [facility] Varicella (varivax)(chicken pox) Unknown Completed [facility] TDAP Unknown Completed [facility] Influenza Virus Vaccine Quad IM, Preserv and ABX Free 6 MO-64 YRS (FLUCELVAX) Unknown Completed [facility] DTAP Unknown Completed [facility] Hep B, Adol or Pedi Dosage Unknown Completed [facility] HIB 4 Dose Schedule Unknown Completed [facility] Pneumococcal 7 Conjugate, PCV7 (Prevnar7) Unknown Completed [facility] Polio (IPV/OPV) Unknown Completed [facility] HEPATITIS A Unknown Completed [facility] Meningococcal Polysaccharide (groups A, C, Y and W-135) conjugate vaccine (MCV4P) Unknown Completed [facility] Varicella (varivax)(chicken pox) Unknown Completed [facility] TDAP Unknown Completed [facility] Influenza Virus Vaccine Quad IM, Preserv and ABX Free 6 MO-64 YRS (FLUCELVAX) Unknown Completed [facility] DTAP Unknown Completed [facility] Hep B, Adol or Pedi Dosage Unknown Completed [facility] HIB 4 Dose Schedule Unknown Completed [facility] Pneumococcal 7 Conjugate, PCV7 (Prevnar7) Unknown Completed [facility] Polio (IPV/OPV) Unknown Completed [facility] HEPATITIS A Unknown [facility] Meningococcal Polysaccharide (groups A, C, Y and W-135) conjugate vaccine (MCV4P) Unknown Completed [facility] Varicella (varivax)(chicken pox) Unknown Completed [facility] TDAP Unknown Completed [facility] Influenza Virus Vaccine Quad IM, Preserv and ABX Free 6 MO-64 YRS (FLUCELVAX) Unknown Completed [facility] TDAP Unknown Completed [facility] Influenza Virus Vaccine Quad IM, Preserv and ABX Free 6 MO-64 YRS (FLUCELVAX) Unknown Completed [facility] DTAP Unknown Completed [facility] Hep B, Adol or Pedi Dosage Unknown Completed [facility] HIB 4 Dose Schedule Unknown Completed [facility] Pneumococcal 7 Conjugate, PCV7 (Prevnar7) Unknown Completed [facility] Polio (IPV/OPV) Unknown Completed [facility] HEPATITIS A Unknown Completed [facility] Meningococcal Polysaccharide (groups A, C, Y and W-135) conjugate vaccine (MCV4P) Unknown Completed [facility] Varicella (varivax)(chicken pox) Unknown Completed [facility] DTAP Unknown Completed [facility] Hep B, Adol or Pedi Dosage Unknown Completed [facility] HIB 4 Dose Schedule Unknown Completed [facility] Pneumococcal 7 Conjugate, PCV7 (Prevnar7) Unknown Completed [facility] Polio (IPV/OPV) Unknown Completed [facility] HEPATITIS A Unknown Completed [facility] Meningococcal Polysaccharide (groups A, C, Y and W-135) conjugate vaccine (MCV4P) Unknown Completed [facility] Varicella (varivax)(chicken pox) Unknown Completed [facility] TDAP Unknown Completed [facility] Influenza Virus Vaccine Quad IM, Preserv and ABX Free 6 MO-64 YRS (FLUCELVAX) Unknown Completed [facility] DTAP Unknown Completed [facility] Hep B, Adol or Pedi Dosage Unknown Completed [facility] HIB 4 Dose Schedule Unknown Completed [facility] Pneumococcal 7 Conjugate, PCV7 (Prevnar7) Unknown Completed [facility] Polio (IPV/OPV) Unknown Completed [facility] HEPATITIS A Unknown Completed [facility] Meningococcal Polysaccharide (groups A, C, Y and W-135) conjugate vaccine (MCV4P) Unknown Completed [facility] Varicella (varivax)(chicken pox) Unknown Completed [facility] TDAP Unknown Completed [facility] Influenza Virus Vaccine Quad IM, Preserv and ABX Free 6 MO-64 YRS (FLUCELVAX) Unknown Completed [facility] DTAP Unknown Completed [facility] Hep B, Adol or Pedi Dosage Unknown Completed [facility] HIB 4 Dose Schedule Unknown Completed [facility] Pneumococcal 7 Conjugate, PCV7 (Prevnar7) Unknown Completed [facility] Polio (IPV/OPV) Unknown Completed [facility] HEPATITIS A Unknown Completed [facility] Meningococcal Polysaccharide (groups A, C, Y and W-135) conjugate vaccine (MCV4P) Unknown Completed [facility] Varicella (varivax)(chicken pox) Unknown Completed [facility] TDAP Unknown Completed [facility] Influenza Virus Vaccine Quad IM, Preserv and ABX Free 6 MO-64 YRS (FLUCELVAX) Unknown Completed [facility] DTAP Unknown Completed [facility] Hep B, Adol or Pedi Dosage Unknown Completed [facility] HIB 4 Dose Schedule Unknown Completed [facility] Pneumococcal 7 Conjugate, PCV7 (Prevnar7) Unknown Completed [facility] Polio (IPV/OPV) Unknown Completed [facility] HEPATITIS A Unknown Completed [facility] Meningococcal Polysaccharide (groups A, C, Y and W-135) conjugate vaccine (MCV4P) Unknown Completed [facility] Varicella (varivax)(chicken pox) Unknown Completed [facility] TDAP Unknown Completed [facility] Influenza Virus Vaccine Quad IM, Preserv and ABX Free 6 MO-64 YRS (FLUCELVAX) Unknown Completed [facility] DTAP Unknown Completed [facility] Hep B, Adol or Pedi Dosage Unknown Completed [facility] HIB 4 Dose Schedule Unknown Completed [facility] Pneumococcal 7 Conjugate, PCV7 (Prevnar7) Unknown Completed [facility] Polio (IPV/OPV) Unknown Completed [facility] HEPATITIS A Unknown Completed [facility] Meningococcal Polysaccharide (groups A, C, Y and W-135) conjugate vaccine (MCV4P) Unknown Completed [facility] Varicella (varivax)(chicken pox) Unknown Completed [facility] TDAP Unknown Completed [facility] Influenza Virus Vaccine Quad IM, Preserv and ABX Free 6 MO-64 YRS (FLUCELVAX) Unknown Completed [facility] DTAP Unknown Completed [facility] Hep B, Adol or Pedi Dosage Unknown Completed [facility] HIB 4 Dose Schedule Unknown Completed [facility] Pneumococcal 7 Conjugate, PCV7 (Prevnar7) Unknown Completed [facility] Polio (IPV/OPV) Unknown Completed [facility] HEPATITIS A Unknown Completed [facility] Meningococcal Polysaccharide (groups A, C, Y and W-135) conjugate vaccine (MCV4P) Unknown Completed [facility] Varicella (varivax)(chicken pox) Unknown Completed [facility] TDAP Unknown Completed [facility] Influenza Virus Vaccine Quad IM, Preserv and ABX Free 6 MO-64 YRS (FLUCELVAX) Unknown Completed [facility] TDAP Unknown Completed [facility] Influenza Virus Vaccine Quad IM, Preserv and ABX Free 6 MO-64 YRS (FLUCELVAX) Unknown Completed [facility] DTAP Unknown Completed [facility] Hep B, Adol or Pedi Dosage Unknown Completed [facility] HIB 4 Dose Schedule Unknown Completed [facility] Pneumococcal 7 Conjugate, PCV7 (Prevnar7) Unknown Completed [facility] Polio (IPV/OPV) Unknown Completed [facility] HEPATITIS A Unknown Completed [facility] Meningococcal Polysaccharide (groups A, C, Y and W-135) conjugate vaccine (MCV4P) Unknown Completed [facility] Varicella (varivax)(chicken pox) Unknown Completed [facility] TDAP Unknown Completed [facility] Influenza Virus Vaccine Quad IM, Preserv and ABX Free 6 MO-64 YRS (FLUCELVAX) Unknown Completed [facility] DTAP Unknown Completed [facility] Hep B, Adol or Pedi Dosage Unknown Completed [facility] HIB 4 Dose Schedule Unknown Completed [facility] Pneumococcal 7 Conjugate, PCV7 (Prevnar7) Unknown Completed [facility] Polio (IPV/OPV) Unknown Completed [facility] HEPATITIS A Unknown Completed [facility] Meningococcal Polysaccharide (groups A, C, Y and W-135) conjugate vaccine (MCV4P) Unknown Completed [facility] Varicella (varivax)(chicken pox) Unknown Completed [facility] DTAP Unknown Completed [facility] Hep B, Adol or Pedi Dosage Unknown Completed [facility] HIB 4 Dose Schedule Unknown Completed [facility] Pneumococcal 7 Conjugate, PCV7 (Prevnar7) Unknown Completed [facility] Polio (IPV/OPV) Unknown Completed [facility] HEPATITIS A Unknown Completed [facility] Meningococcal Polysaccharide (groups A, C, Y and W-135) conjugate vaccine (MCV4P) Unknown Completed [facility] Varicella (varivax)(chicken pox) Unknown Completed [facility] TDAP Unknown Completed [facility] Influenza Virus Vaccine Quad IM, Preserv and ABX Free 6 MO-64 YRS (FLUCELVAX) Unknown Completed [facility] TDAP Unknown Completed [facility] Influenza Virus Vaccine Quad IM, Preserv and ABX Free 6 MO-64 YRS (FLUCELVAX) Unknown Completed [facility] DTAP Unknown Completed [facility] Hep B, Adol or Pedi Dosage Unknown Completed [facility] HIB 4 Dose Schedule Unknown Completed [facility] Pneumococcal 7 Conjugate, PCV7 (Prevnar7) Unknown Completed [facility] Polio (IPV/OPV) Unknown Completed [facility] HEPATITIS A Unknown Completed [facility] Meningococcal Polysaccharide (groups A, C, Y and W-135) conjugate vaccine (MCV4P) Unknown Completed [facility] Varicella (varivax)(chicken pox) Unknown Completed [facility] DTAP Unknown Completed [facility] Hep B, Adol or Pedi Dosage Unknown Completed [facility] HIB 4 Dose Schedule Unknown Completed [facility] Pneumococcal 7 Conjugate, PCV7 (Prevnar7) Unknown Completed [facility] Polio (IPV/OPV) Unknown Completed [facility] HEPATITIS A Unknown Completed [facility] Meningococcal Polysaccharide (groups A, C, Y and W-135) conjugate vaccine (MCV4P) Unknown Completed [facility] Varicella (varivax)(chicken pox) Unknown Completed [facility] TDAP Unknown Completed [facility] Influenza Virus Vaccine Quad IM, Preserv and ABX Free 6 MO-64 YRS (FLUCELVAX) Unknown Completed [facility] DTAP Unknown Completed [facility] Hep B, Adol or Pedi Dosage Unknown Completed [facility] HIB 4 Dose Schedule Unknown Completed [facility] Pneumococcal 7 Conjugate, PCV7 (Prevnar7) Unknown Completed [facility] Polio (IPV/OPV) Unknown Completed [facility] HEPATITIS A Unknown Completed [facility] Meningococcal Polysaccharide (groups A, C, Y and W-135) conjugate vaccine (MCV4P) Unknown Completed [facility] Varicella (varivax)(chicken pox) Unknown Completed [facility] TDAP Unknown Completed [facility] Influenza Virus Vaccine Quad IM, Preserv and ABX Free 6 MO-64 YRS (FLUCELVAX) Unknown Completed [facility] DTAP Unknown Completed [facility] Hep B, Adol or Pedi Dosage Unknown Completed [facility] HIB 4 Dose Schedule Unknown Completed [facility] Pneumococcal 7 Conjugate, PCV7 (Prevnar7) Unknown Completed [facility] Polio (IPV/OPV) Unknown Completed [facility] HEPATITIS A Unknown Completed [facility] Meningococcal Polysaccharide (groups A, C, Y and W-135) conjugate vaccine (MCV4P) Unknown Completed [facility] Varicella (varivax)(chicken pox) Unknown Completed [facility] TDAP Unknown Completed [facility] Influenza Virus Vaccine Quad IM, Preserv and ABX Free 6 MO-64 YRS (FLUCELVAX) Unknown Completed [facility] DTAP Unknown Completed [facility] Hep B, Adol or Pedi Dosage Unknown Completed [facility] HIB 4 Dose Schedule Unknown Completed [facility] Pneumococcal 7 Conjugate, PCV7 (Prevnar7) Unknown Completed [facility] Polio (IPV/OPV) Unknown Completed [facility] HEPATITIS A Unknown Completed [facility] Meningococcal Polysaccharide (groups A, C, Y and W-135) conjugate vaccine (MCV4P) Unknown Completed [facility] Varicella (varivax)(chicken pox) Unknown Completed [facility] TDAP Unknown Completed [facility] Influenza Virus Vaccine Quad IM, Preserv and ABX Free 6 MO-64 YRS (FLUCELVAX) Unknown Completed [facility] DTAP Unknown Completed [facility] Hep B, Adol or Pedi Dosage Unknown Completed [facility] HIB 4 Dose Schedule Unknown Completed [facility] Pneumococcal 7 Conjugate, PCV7 (Prevnar7) Unknown Completed [facility] Polio (IPV/OPV) Unknown Completed [facility] HEPATITIS A Unknown Completed [facility] Meningococcal Polysaccharide (groups A, C, Y and W-135) conjugate vaccine (MCV4P) Unknown Completed [facility] Varicella (varivax)(chicken pox) Unknown Completed [facility] TDAP Unknown Completed [facility] Influenza Virus Vaccine Quad IM, Preserv and ABX Free 6 MO-64 YRS (FLUCELVAX) Unknown Completed [facility] DTAP Unknown Completed [facility] Hep B, Adol or Pedi Dosage Unknown Completed [facility] HIB 4 Dose Schedule Unknown Completed [facility] Pneumococcal 7 Conjugate, PCV7 (Prevnar7) Unknown Completed [facility] Polio (IPV/OPV) Unknown Completed [facility] HEPATITIS A Unknown Completed [facility] Meningococcal Polysaccharide (groups A, C, Y and W-135) conjugate vaccine (MCV4P) Unknown Completed [facility] Varicella (varivax)(chicken pox) Unknown Completed [facility] TDAP Unknown Completed [facility] Influenza Virus Vaccine Quad IM, Preserv and ABX Free 6 MO-64 YRS (FLUCELVAX) Unknown Completed [facility] DTAP Unknown Completed [facility] Hep B, Adol or Pedi Dosage Unknown Completed [facility] HIB 4 Dose Schedule Unknown Completed [facility] Pneumococcal 7 Conjugate, PCV7 (Prevnar7) Unknown Completed [facility] Polio (IPV/OPV) Unknown Completed [facility] HEPATITIS A Unknown Completed [facility] Meningococcal Polysaccharide (groups A, C, Y and W-135) conjugate vaccine (MCV4P) Unknown Completed [facility] Varicella (varivax)(chicken pox) Unknown Completed [facility] TDAP Unknown Completed [facility] Influenza Virus Vaccine Quad IM, Preserv and ABX Free 6 MO-64 YRS (FLUCELVAX) Unknown Completed [facility] DTAP Unknown Completed [facility] Hep B, Adol or Pedi Dosage Unknown Completed [facility] HIB 4 Dose Schedule Unknown Completed [facility] Pneumococcal 7 Conjugate, PCV7 (Prevnar7) Unknown Completed [facility] Polio (IPV/OPV) Unknown Completed [facility] HEPATITIS A Unknown Completed [facility] Meningococcal Polysaccharide (groups A, C, Y and W-135) conjugate vaccine (MCV4P) Unknown Completed [facility] Varicella (varivax)(chicken pox) Unknown Completed [facility] TDAP Unknown Completed [facility] Influenza Virus Vaccine Quad IM, Preserv and ABX Free 6 MO-64 YRS (FLUCELVAX) Unknown Completed [facility] HPV9 Unknown Completed [facility] DTAP Unknown Completed [facility] Hep B, Adol or Pedi Dosage Unknown Completed [facility] HIB 4 Dose Schedule Unknown Completed [facility] Pneumococcal 7 Conjugate, PCV7 (Prevnar7) Unknown Completed [facility] Polio (IPV/OPV) Unknown Completed [facility] HEPATITIS A Unknown Completed [facility] Meningococcal Polysaccharide (groups A, C, Y and W-135) conjugate vaccine (MCV4P) Unknown Completed [facility] Varicella (varivax)(chicken pox) Unknown Completed [facility] TDAP Unknown Completed [facility] Influenza Virus Vaccine Quad IM, Preserv and ABX Free 6 MO-64 YRS (FLUCELVAX) Unknown Completed [facility] HPV9 Unknown Completed [facility] DTAP Unknown Completed [facility] Hep B, Adol or Pedi Dosage Unknown Completed [facility] HIB 4 Dose Schedule Unknown Completed [facility] Pneumococcal 7 Conjugate, PCV7 (Prevnar7) Unknown Completed [facility] Polio (IPV/OPV) Unknown Completed [facility] HEPATITIS A Unknown Completed [facility] Meningococcal Polysaccharide (groups A, C, Y and W-135) conjugate vaccine (MCV4P) Unknown Completed [facility] Varicella (varivax)(chicken pox) Unknown Completed [facility] TDAP Unknown Completed [facility] Influenza Virus Vaccine Quad IM, Preserv and ABX Free 6 MO-64 YRS (FLUCELVAX) Unknown Completed [facility] HPV9 Unknown Completed [facility] DTAP Unknown Completed [facility] Hep B, Adol or Pedi Dosage Unknown Completed [facility] HIB 4 Dose Schedule Unknown Completed [facility] Pneumococcal 7 Conjugate, PCV7 (Prevnar7) Unknown Completed [facility] Polio (IPV/OPV) Unknown Completed [facility] HEPATITIS A Unknown Completed [facility] Meningococcal Polysaccharide (groups A, C, Y and W-135) conjugate vaccine (MCV4P) Unknown Completed [facility] Varicella (varivax)(chicken pox) Unknown Completed [facility] TDAP Unknown Completed [facility] Influenza Virus Vaccine Quad IM, Preserv and ABX Free 6 MO-64 YRS (FLUCELVAX) Unknown Completed [facility] HPV9 Unknown Completed [facility] DTAP Unknown Completed [facility] Hep B, Adol or Pedi Dosage Unknown Completed [facility] HIB 4 Dose Schedule Unknown Completed [facility] Pneumococcal 7 Conjugate, PCV7 (Prevnar7) Unknown Completed [facility] Polio (IPV/OPV) Unknown Completed [facility] HEPATITIS A Unknown Completed [facility] Meningococcal Polysaccharide (groups A, C, Y and W-135) conjugate vaccine (MCV4P) Unknown Completed [facility] Varicella (varivax)(chicken pox) Unknown Completed [facility] DTAP Unknown Completed [facility] Hep B, Adol or Pedi Dosage Unknown Completed [facility] HIB 4 Dose Schedule Unknown Completed [facility] Pneumococcal 7 Conjugate, PCV7 (Prevnar7) Unknown Completed [facility] Polio (IPV/OPV) Unknown Completed [facility] HEPATITIS A Unknown Completed [facility] Meningococcal Polysaccharide (groups A, C, Y and W-135) conjugate vaccine (MCV4P) Unknown Completed [facility] Varicella (varivax)(chicken pox) Unknown Completed [facility] DTAP Unknown Completed [facility] Hep B, Adol or Pedi Dosage Unknown Completed [facility] HIB 4 Dose Schedule Unknown Completed [facility] Pneumococcal 7 Conjugate, PCV7 (Prevnar7) Unknown Completed [facility] Polio (IPV/OPV) Unknown Completed [facility] HEPATITIS A Unknown Completed [facility] Meningococcal Polysaccharide (groups A, C, Y and W-135) conjugate vaccine (MCV4P) Unknown Completed [facility] Varicella (varivax)(chicken pox) Unknown Completed [facility] DTAP Unknown Completed [facility] Hep B, Adol or Pedi Dosage Unknown Completed [facility] HIB 4 Dose Schedule Unknown Completed [facility] Pneumococcal 7 Conjugate, PCV7 (Prevnar7) Unknown Completed [facility] Polio (IPV/OPV) Unknown Completed [facility] HEPATITIS A Unknown Completed [facility] Meningococcal Polysaccharide (groups A, C, Y and W-135) conjugate vaccine (MCV4P) Unknown Completed [facility] Varicella (varivax)(chicken pox) Unknown Completed [facility] DTAP Unknown Completed [facility] Hep B, Adol or Pedi Dosage Unknown Completed [facility] HIB 4 Dose Schedule Unknown Completed [facility] Pneumococcal 7 Conjugate, PCV7 (Prevnar7) Unknown Completed [facility] Polio (IPV/OPV) Unknown Completed [facility] HEPATITIS A Unknown Completed [facility] Meningococcal Polysaccharide (groups A, C, Y and W-135) conjugate vaccine (MCV4P) Unknown Completed [facility] Varicella (varivax)(chicken pox) Unknown Completed [facility] DTAP Unknown Completed [facility] Hep B, Adol or Pedi Dosage Unknown Completed [facility] HIB 4 Dose Schedule Unknown Completed [facility] Pneumococcal 7 Conjugate, PCV7 (Prevnar7) Unknown Completed [facility] Polio (IPV/OPV) Unknown Completed [facility] HEPATITIS A Unknown Completed [facility] Meningococcal Polysaccharide (groups A, C, Y and W-135) conjugate vaccine (MCV4P) Unknown Completed [facility] Varicella (varivax)(chicken pox) Unknown Completed [facility] DTAP Unknown Completed [facility] Hep B, Adol or Pedi Dosage Unknown Completed [facility] HIB 4 Dose Schedule Unknown Completed [facility] Pneumococcal 7 Conjugate, PCV7 (Prevnar7) Unknown Completed [facility] Polio (IPV/OPV) Unknown Completed [facility] HEPATITIS A Unknown Completed [facility] Meningococcal Polysaccharide (groups A, C, Y and W-135) conjugate vaccine (MCV4P) Unknown Completed [facility] Varicella (varivax)(chicken pox) Unknown Completed [facility] DTAP Unknown Completed [facility] Hep B, Adol or Pedi Dosage Unknown Completed [facility] HIB 4 Dose Schedule Unknown Completed [facility] Pneumococcal 7 Conjugate, PCV7 (Prevnar7) Unknown Completed [facility] Polio (IPV/OPV) Unknown Completed [facility] HEPATITIS A Unknown Completed [facility] Meningococcal Polysaccharide (groups A, C, Y and W-135) conjugate vaccine (MCV4P) Unknown Completed [facility] Varicella (varivax)(chicken pox) Unknown Completed [facility] DTAP Unknown Completed [facility] Hep B, Adol or Pedi Dosage Unknown Completed [facility] HIB 4 Dose Schedule Unknown Completed [facility] Pneumococcal 7 Conjugate, PCV7 (Prevnar7) Unknown Completed [facility] Polio (IPV/OPV) Unknown Completed [facility] HEPATITIS A Unknown Completed [facility] Meningococcal Polysaccharide (groups A, C, Y and W-135) conjugate vaccine (MCV4P) Unknown Completed [facility] Varicella (varivax)(chicken pox) Unknown Completed [facility] DTAP Unknown Completed [facility] Hep B, Adol or Pedi Dosage Unknown Completed [facility] HIB 4 Dose Schedule Unknown Completed [facility] Pneumococcal 7 Conjugate, PCV7 (Prevnar7) Unknown Completed [facility] Polio (IPV/OPV) Unknown Completed [facility] HEPATITIS A Unknown Completed [facility] Meningococcal Polysaccharide (groups A, C, Y and W-135) conjugate vaccine (MCV4P) Unknown Completed [facility] Varicella (varivax)(chicken pox) Unknown Completed [facility] Vital Signs Vital Name Observation Time Observation Value Comments S ource Systolic blood pressure 2024-04-12 17:55:00 110 mm[Hg] [facility] Diastolic blood pressure 2024-04-12 17:55:00 76 mm[Hg] [facility] Heart rate 2024-04-12 17:55:00 77 /min [facility] Body temperature 2024-04-12 17:55:00 36.67 Rajwindre [facility] Respiratory rate 2024-04-12 17:55:00 18 /min [facility] Oxygen saturation in Arterial blood by Pulse oximetry 2024-04-12 17:55:00 98 /min [facility] Systolic blood pressure 2024-03-12 15:39:00 97 mm[Hg] [facility] Diastolic blood pressure 2024-03-12 15:39:00 63 mm[Hg] [facility] Heart rate 2024-03-12 15:39:00 90 /min [facility] Body temperature 2024-03-12 15:39:00 36.72 Rajwinder [facility] Respiratory rate 2024-03-12 15:39:00 17 /min [facility] Body height 2024-03-12 15:39:00 157.5 cm [facility] Body weight 2024-03-12 15:39:00 73.301 kg [facility] BMI 2024-03-12 15:39:00 29.56 kg/m2 [facility] Oxygen saturation in Arterial blood by Pulse oximetry 2024-03-12 15:39:00 98 /min [facility] Systolic blood pressure 2024-02-12 18:21:00 111 mm[Hg] [facility] Diastolic blood pressure 2024-02-12 18:21:00 76 mm[Hg] [facility] Heart rate 2024-02-12 18:21:00 88 /min [facility] Body temperature 2024-02-12 18:21:00 36.17 Rajwinder [facility] Respiratory rate 2024-02-12 18:21:00 18 /min [facility] Body height 2024-02-12 18:21:00 157.5 cm [facility] Body weight 2024-02-12 18:21:00 73.573 kg [facility] BMI 2024-02-12 18:21:00 29.67 kg/m2 [facility] Systolic blood pressure 2024-01-29 20:30:00 112 mm[Hg] [facility] Diastolic blood pressure 2024-01-29 20:30:00 79 mm[Hg] [facility] Heart rate 2024-01-29 20:30:00 91 /min [facility] Body temperature 2024-01-29 20:30:00 37 Rajwinder [facility] Respiratory rate 2024-01-29 20:30:00 18 /min [facility] Body height 2024-01-29 20:30:00 157.5 cm [facility] Body weight 2024-01-29 20:30:00 75.099 kg [facility] BMI 2024-01-29 20:30:00 30.28 kg/m2 [facility] Systolic blood pressure 2024-01-19 21:59:00 123 mm[Hg] [facility] Diastolic blood pressure 2024-01-19 21:59:00 81 mm[Hg] [facility] Heart rate 2024-01-19 21:59:00 87 /min [facility] Body temperature 2024-01-19 21:59:00 37.22 Rajwinder [facility] Respiratory rate 2024-01-19 21:59:00 18 /min [facility] Body weight 2024-01-19 21:59:00 73.982 kg [facility] BMI 2024-01-19 21:59:00 29.83 kg/m2 [facility] Oxygen saturation in Arterial blood by Pulse oximetry 2024-01-19 21:59:00 99 /min [facility] Systolic blood pressure 2024-01-09 23:40:00 118 mm[Hg] [facility] Diastolic blood pressure 2024-01-09 23:40:00 80 mm[Hg] [facility] Heart rate 2024-01-09 23:40:00 81 /min [facility] Body temperature 2024-01-09 23:40:00 37.17 Rajwinder [facility] Respiratory rate 2024-01-09 23:40:00 16 /min [facility] Body weight 2024-01-09 23:40:00 73.347 kg [facility] BMI 2024-01-09 23:40:00 29.58 kg/m2 [facility] Oxygen saturation in Arterial blood by Pulse oximetry 2024-01-09 23:40:00 97 /min [facility] Systolic blood pressure 2023-12-04 00:29:00 126 mm[Hg] [facility] Diastolic blood pressure 2023-12-04 00:29:00 85 mm[Hg] [facility] Heart rate 2023-12-04 00:29:00 75 /min [facility] Body temperature 2023-12-04 00:29:00 36.94 Rajwinder [facility] Respiratory rate 2023-12-04 00:29:00 18 /min [facility] Body weight 2023-12-04 00:29:00 71.668 kg [facility] BMI 2023-12-04 00:29:00 28.90 kg/m2 [facility] Oxygen saturation in Arterial blood by Pulse oximetry 2023-12-04 00:29:00 97 /min [facility] Systolic blood pressure 2023-10-29 17:47:00 114 mm[Hg] [facility] Diastolic blood pressure 2023-10-29 17:47:00 71 mm[Hg] [facility] Heart rate 2023-10-29 17:47:00 77 /min [facility] Body temperature 2023-10-29 17:47:00 36.56 Rajwinder [facility] Respiratory rate 2023-10-29 17:47:00 18 /min [facility] Body height 2023-10-29 17:47:00 157.5 cm [facility] Body weight 2023-10-29 17:47:00 72.394 kg [facility] BMI 2023-10-29 17:47:00 29.19 kg/m2 [facility] Oxygen saturation in Arterial blood by Pulse oximetry 2023-10-29 17:47:00 98 /min [facility] Systolic blood pressure 2023-10-21 23:00:00 119 mm[Hg] [facility] Diastolic blood pressure 2023-10-21 23:00:00 87 mm[Hg] [facility] Heart rate 2023-10-21 23:00:00 90 /min [facility] Respiratory rate 2023-10-21 23:00:00 15 /min [facility] Oxygen saturation in Arterial blood by Pulse oximetry 2023-10-21 23:00:00 98 /min [facility] Body temperature 2023-10-21 19:37:00 37.28 Rajwinder [facility] Body height 2023-10-21 19:37:00 157.5 cm [facility] Body weight 2023-10-21 19:37:00 73.483 kg [facility] BMI 2023-10-21 19:37:00 29.63 kg/m2 [facility] Systolic blood pressure 2023-10-21 19:18:00 122 mm[Hg] [facility] Diastolic blood pressure 2023-10-21 19:18:00 86 mm[Hg] [facility] Heart rate 2023-10-21 19:18:00 83 /min [facility] Body temperature 2023-10-21 19:18:00 36.94 Rajwinder [facility] Respiratory rate 2023-10-21 19:18:00 17 /min [facility] Body height 2023-10-21 19:18:00 157.5 cm [facility] Body weight 2023-10-21 19:18:00 73.483 kg [facility] BMI 2023-10-21 19:18:00 29.63 kg/m2 [facility] Oxygen saturation in Arterial blood by Pulse oximetry 2023-10-21 19:18:00 99 /min [facility] Systolic blood pressure 2023-10-13 19:32:00 131 mm[Hg] [facility] Diastolic blood pressure 2023-10-13 19:32:00 79 mm[Hg] [facility] Heart rate 2023-10-13 19:32:00 97 /min [facility] Body temperature 2023-10-13 19:32:00 36.56 Rajwinder [facility] Respiratory rate 2023-10-13 19:32:00 16 /min [facility] Body height 2023-10-13 19:32:00 157.5 cm [facility] Body weight 2023-10-13 19:32:00 73.539 kg [facility] BMI 2023-10-13 19:32:00 29.65 kg/m2 [facility] Systolic blood pressure 2023-07-27 01:40:00 129 mm[Hg] [facility] Diastolic blood pressure 2023-07-27 01:40:00 88 mm[Hg] [facility] Heart rate 2023-07-27 01:40:00 106 /min [facility] Body temperature 2023-07-27 01:40:00 36.78 Rajwinder [facility] Respiratory rate 2023-07-27 01:40:00 20 /min [facility] Oxygen saturation in Arterial blood by Pulse oximetry 2023-07-27 01:40:00 99 /min [facility] Body weight 2023-07-25 15:49:00 79.833 kg [facility] BMI 2023-07-25 15:49:00 32.19 kg/m2 [facility] Body height 2023-07-25 14:42:00 157.5 cm [facility] Systolic blood pressure 2023-07-23 20:01:00 128 mm[Hg] [facility] Diastolic blood pressure 2023-07-23 20:01:00 75 mm[Hg] [facility] Heart rate 2023-07-23 20:01:00 83 /min [facility] Body temperature 2023-07-23 20:01:00 36.39 Rajwinder [facility] Respiratory rate 2023-07-23 20:01:00 18 /min [facility] Body height 2023-07-23 20:01:00 157.5 cm [facility] Body weight 2023-07-23 20:01:00 79.918 kg [facility] BMI 2023-07-23 20:01:00 32.23 kg/m2 [facility] Systolic blood pressure 2023-07-18 04:30:00 131 mm[Hg] [facility] Diastolic blood pressure 2023-07-18 04:30:00 74 mm[Hg] [facility] Heart rate 2023-07-18 04:30:00 85 /min [facility] Oxygen saturation in Arterial blood by Pulse oximetry 2023-07-18 04:30:00 100 /min [facility] Body temperature 2023-07-18 02:08:00 36.94 Rajwinder [facility] Respiratory rate 2023-07-18 02:08:00 18 /min [facility] Body height 2023-07-18 02:08:00 157.5 cm [facility] Body weight 2023-07-18 02:08:00 78.2 kg [facility] BMI 2023-07-18 02:08:00 31.53 kg/m2 [facility] Systolic blood pressure 2023-07-16 20:37:00 126 mm[Hg] [facility] Diastolic blood pressure 2023-07-16 20:37:00 74 mm[Hg] [facility] Heart rate 2023-07-16 20:37:00 89 /min [facility] Body temperature 2023-07-16 20:37:00 36.11 Rajwinder [facility] Respiratory rate 2023-07-16 20:37:00 19 /min [facility] Body height 2023-07-16 20:37:00 157.5 cm [facility] Body weight 2023-07-16 20:37:00 78.699 kg [facility] BMI 2023-07-16 20:37:00 31.73 kg/m2 [facility] Systolic blood pressure 2023-07-10 20:35:00 133 mm[Hg] [facility] Diastolic blood pressure 2023-07-10 20:35:00 81 mm[Hg] [facility] Heart rate 2023-07-10 20:35:00 95 /min [facility] Body temperature 2023-07-10 20:35:00 36.28 Rajwinder [facility] Respiratory rate 2023-07-10 20:35:00 18 /min [facility] Body height 2023-07-10 20:35:00 157.5 cm [facility] Body weight 2023-07-10 20:35:00 78.217 kg [facility] BMI 2023-07-10 20:35:00 31.54 kg/m2 [facility] Systolic blood pressure 2023-07-03 19:31:00 114 mm[Hg] [facility] Diastolic blood pressure 2023-07-03 19:31:00 73 mm[Hg] [facility] Heart rate 2023-07-03 19:31:00 90 /min [facility] Body temperature 2023-07-03 19:31:00 36.44 Rajwinder [facility] Respiratory rate 2023-07-03 19:31:00 18 /min [facility] Body weight 2023-07-03 19:31:00 78.427 kg [facility] BMI 2023-07-03 19:31:00 31.62 kg/m2 [facility] Heart rate 2023-06-29 22:09:00 91 /min [facility] Oxygen saturation in Arterial blood by Pulse oximetry 2023-06-29 22:09:00 100 /min [facility] Systolic blood pressure 2023-06-29 20:30:00 114 mm[Hg] [facility] Diastolic blood pressure 2023-06-29 20:30:00 70 mm[Hg] [facility] Body temperature 2023-06-29 19:56:00 36.89 Rajwinder [facility] Respiratory rate 2023-06-29 19:56:00 16 /min [facility] Body height 2023-06-29 19:38:43 157.5 cm [facility] Body weight 2023-06-29 19:38:43 77.248 kg [facility] BMI 2023-06-29 19:38:43 31.15 kg/m2 [facility] Systolic blood pressure 2023-06-18 18:54:00 127 mm[Hg] [facility] Diastolic blood pressure 2023-06-18 18:54:00 80 mm[Hg] [facility] Heart rate 2023-06-18 18:54:00 97 /min [facility] Body temperature 2023-06-18 18:54:00 36.22 Rajwinder [facility] Respiratory rate 2023-06-18 18:54:00 18 /min [facility] Body height 2023-06-18 18:54:00 160 cm [facility] Body weight 2023-06-18 18:54:00 75.382 kg [facility] BMI 2023-06-18 18:54:00 29.44 kg/m2 [facility] Systolic blood pressure 2023-06-04 14:56:00 100 mm[Hg] [facility] Diastolic blood pressure 2023-06-04 14:56:00 70 mm[Hg] [facility] Heart rate 2023-06-04 14:56:00 87 /min [facility] Body temperature 2023-06-04 14:56:00 36.33 Rajwinder [facility] Respiratory rate 2023-06-04 14:56:00 18 /min [facility] Body height 2023-06-04 14:56:00 160 cm [facility] Body weight 2023-06-04 14:56:00 73.936 kg [facility] BMI 2023-06-04 14:56:00 28.87 kg/m2 [facility] Heart rate 2023-06-03 18:00:00 86 /min [facility] Oxygen saturation in Arterial blood by Pulse oximetry 2023-06-03 18:00:00 98 /min [facility] Systolic blood pressure 2023-06-03 16:45:00 115 mm[Hg] [facility] Diastolic blood pressure 2023-06-03 16:45:00 76 mm[Hg] [facility] Body temperature 2023-06-03 16:45:00 36.94 Rajwinder [facility] Respiratory rate 2023-06-03 16:45:00 18 /min [facility] Body height 2023-06-03 16:31:00 160 cm [facility] Body weight 2023-06-03 16:31:00 74.163 kg [facility] BMI 2023-06-03 16:31:00 28.96 kg/m2 [facility] Systolic blood pressure 2023-05-21 20:11:00 121 mm[Hg] [facility] Diastolic blood pressure 2023-05-21 20:11:00 76 mm[Hg] [facility] Heart rate 2023-05-21 20:11:00 101 /min [facility] Body temperature 2023-05-21 20:11:00 36.56 Rajwinder [facility] Respiratory rate 2023-05-21 20:11:00 18 /min [facility] Body weight 2023-05-21 20:11:00 73.165 kg [facility] BMI 2023-05-21 20:11:00 29.50 kg/m2 [facility] Systolic blood pressure 2023-04-23 16:17:00 119 mm[Hg] [facility] Diastolic blood pressure 2023-04-23 16:17:00 70 mm[Hg] [facility] Heart rate 2023-04-23 16:17:00 91 /min [facility] Body temperature 2023-04-23 16:17:00 36.56 Rajwinder [facility] Respiratory rate 2023-04-23 16:17:00 18 /min [facility] Body height 2023-04-23 16:17:00 157.5 cm [facility] Body weight 2023-04-23 16:17:00 68.295 kg [facility] BMI 2023-04-23 16:17:00 27.54 kg/m2 [facility] Systolic blood pressure 2023-04-11 16:19:00 114 mm[Hg] [facility] Diastolic blood pressure 2023-04-11 16:19:00 66 mm[Hg] [facility] Heart rate 2023-04-11 16:19:00 102 /min [facility] Body temperature 2023-04-11 16:19:00 36.5 Rajwinder [facility] Respiratory rate 2023-04-11 16:19:00 18 /min [facility] Body height 2023-04-11 16:19:00 157.5 cm [facility] Body weight 2023-04-11 16:19:00 67.858 kg [facility] BMI 2023-04-11 16:19:00 27.36 kg/m2 [facility] Systolic blood pressure 2023-03-29 21:48:00 100 mm[Hg] [facility] Diastolic blood pressure 2023-03-29 21:48:00 57 mm[Hg] [facility] Heart rate 2023-03-29 21:48:00 84 /min [facility] Respiratory rate 2023-03-29 21:48:00 16 /min [facility] Oxygen saturation in Arterial blood by Pulse oximetry 2023-03-29 21:48:00 99 /min [facility] Body temperature 2023-03-29 19:14:00 37.11 Rajwinder [facility] Body height 2023-03-29 19:14:00 157.5 cm [facility] Body weight 2023-03-29 19:14:00 65.573 kg [facility] BMI 2023-03-29 19:14:00 26.44 kg/m2 [facility] Systolic blood pressure 2023-03-14 13:39:00 112 mm[Hg] [facility] Diastolic blood pressure 2023-03-14 13:39:00 63 mm[Hg] [facility] Heart rate 2023-03-14 13:39:00 89 /min [facility] Body temperature 2023-03-14 13:39:00 36.17 Rajwinder [facility] Respiratory rate 2023-03-14 13:39:00 18 /min [facility] Body height 2023-03-14 13:39:00 157.5 cm [facility] Body weight 2023-03-14 13:39:00 63.685 kg [facility] BMI 2023-03-14 13:39:00 25.68 kg/m2 [facility] Systolic blood pressure 2023-02-26 15:08:00 123 mm[Hg] [facility] Diastolic blood pressure 2023-02-26 15:08:00 70 mm[Hg] [facility] Heart rate 2023-02-26 15:08:00 79 /min [facility] Body temperature 2023-02-26 15:08:00 36.06 Rajwinder [facility] Respiratory rate 2023-02-26 15:08:00 18 /min [facility] Body height 2023-02-26 15:08:00 157.5 cm [facility] Body weight 2023-02-26 15:08:00 62.46 kg [facility] BMI 2023-02-26 15:08:00 25.19 kg/m2 [facility] Systolic blood pressure 2023-01-22 20:00:00 110 mm[Hg] [facility] Diastolic blood pressure 2023-01-22 20:00:00 74 mm[Hg] [facility] Heart rate 2023-01-22 20:00:00 73 /min [facility] Respiratory rate 2023-01-22 20:00:00 18 /min [facility] Oxygen saturation in Arterial blood by Pulse oximetry 2023-01-22 20:00:00 100 /min [facility] Body temperature 2023-01-22 19:02:00 37.11 Rajwinder [facility] Body height 2023-01-22 19:02:00 157.5 cm [facility] Body weight 2023-01-22 19:02:00 61.236 kg [facility] BMI 2023-01-22 19:02:00 24.69 kg/m2 [facility] Procedures Procedure Date / Time Performed Performing Clinician Source POCT MOLECULAR FLU 2024-03-12 15:50:00 Unknown, Attend ing [facility] POCT MOLECULAR STREP 2024-03-12 15:47:00 Unknown, Atte ann-marie [facility] POCT SARS-COV-2 ANTIGEN (BINAX NOW) 2024-03-12 15:46:00 Betzaida Shelby [facility] POCT TEST 2024-01-29 20:44:00 Morelia Guaman [facility] GARDASIL 9 (HPV 9V) VACCINE 2024-01-29 20:39:32 Genny Tian [facility] POCT URINALYSIS 2024-01-19 00:00:00 Kayley Radford [facility] POCT TEST 2024-01-19 00:00:00 Alanna Radford [facility] POCT TEST 2023-10-29 17:51:00 Elias Tian [facility] CT HEAD WO CONTRAST 2023-10-21 22:54:57 Nata Reyna [facility] CREATINE KINASE 2023-10-21 22:09:00 Carlyn Reyna [facility] COMP. METABOLIC PANEL (80057) 2023-10-21 22:09:00 Carlyn Reyna [facility] CBC WITH DIFF 2023-10-21 22:09:00 Carlyn Reyna [facility] LACTIC ACID WHOLE BLOOD 2023-10-21 22:08:00 Syl Reyna [facility] POCT TEST 2023-10-21 22:00:00 Nata Reyna [facility] URINE DRUG (IMMUNOASSAY) - COMPREHENSIVE DRUG SCREEN 2023-10-21 21:23:00 Carlyn Reyna [facility] URINALYSIS 2023-10-21 21:23:00 [facility] PO[facility] URINALYSIS 2023-10-13 20:54:00 Genny Tian [facility] POCT TEST 2023-10-13 20:26:00 Elias Tian [facility] CBC WITH DIFF 2023-07-26 10:29:00 Polly [facility] VENOUS CORD GAS 2023-07-26 03:40:00 [facility] 2023-07-25 17:42:00 Vamshi Humphrey [facility] HEPATITIS B SURFACE ANTIGEN 2023-07-25 16:13:00 Divya Dick [facility] HB ABO GROUPING 2023-07-25 16:13:00 Dviya Dick [facility] RHO (D) IMMUNE GLOBULIN 2023-07-25 16:13:00 Arcelia Cain [facility] HIV 1/2 AG-AB WITH REFLEX 2023-07-25 16:13:00 Divya Dick [facility] SYPHILIS IGG/IGM 2023-07-25 16:13:00 [facility] 2023-07-25 06:01:00 Doctor Un assigned, Rafael Hernandez [facility] POCT URINALYSIS 2023-07-23 20:01:00 Genny Tian [facility] SGOT (ASPARTATE AMINO TRANSFER) 2023-07-18 03:15:00 Elli [facility] CREATININE 2023-07-18 03:15[facility]00 [facility] ALANINE AMINO TRANSFERASE(SGPT 2023-07-18 03:15:00 Elli [facility] LACTATE DEHYDROGENASE 2023-07-18 03:15:00 [facility] URIC ACID 2023-07-18 03:15:00 Elli, Isabela [facility] CBC WITH DIFF 2023-07-18 03:15:00 JamalErin Shanks bean [facility] URINALYSIS 2023-07-18 03:15:00 JonShanks, Isabela [facility] PROTEIN CREAT RATIO URINE RANDOM 2023-07-18 03:15:00 HansenCounts [facility] ASSIGNMENT OF BENEFITS 2023-07-18 01:48:55 Docto r Unassigned, Rafael Hernandez [facility] CONSENT/REFUSAL FOR DIAGNOSIS AND TREATMENT 2023-07-18 01:47:54 Doctor Unassigned, Rafael Hernandez [facility] POCT URINALYSIS 2023-07-16 21:43:00 Genny Tian [facility] CBC WITH DIFF 2023-07-10 21:26:00 Batool Cabrales [facility] POCT URINALYSIS 2023-07-03 19:31:00 Genny Tian [facility] SECOND AND THIRD TRIMESTER ULTRASOUND 2023-07-01 22:16:00 Genny Tian [facility] ADC ONLY - FERN TEST 2023-06-29 20:45:00 Deanna Yu [facility] ASSIGNMENT OF BENEFITS 2023-06-29 19:28:03 Docto r Unassigned, Rafael Hernandez [facility] CONSENT/REFUSAL FOR DIAGNOSIS AND TREATMENT 2023-06-29 19:26:37 Doctor Unassigned, Rafael Hernandez [facility] AUTHORIZATION FOR RELEASE OF PHI 2023-06-29 06:01:00 Doctor Unassigned, Rafael Hernandez [facility] L&D VISIT (NON-DELIVERED) 2023-06-29 06:01:00 Doctor Unassigned, Rafael Hernandez [facility] POCT URINALYSIS 2023-06-18 18:55:00 Genny Tian [facility] SECOND AND THIRD TRIMESTER ULTRASOUND 2023-06-06 16:03:00 Genny Tian [facility] POCT URINALYSIS 2023-06-04 14:59:00 Genny Tian [facility] ASSIGNMENT OF BENEFITS 2023-06-03 16:24:37 Docto r Unassigned, Rafael Hernandez [facility] CONSENT/REFUSAL FOR DIAGNOSIS AND TREATMENT 2023-06-03 16:23:34 Doctor Unassigned, Rafael Hernandez [facility] TDAP VACCINE, >11 YRS, IM 2023-05-21 21:20:38 Emily Werner [facility] FLU VACC (), 6 MO-64 YRS, .5ML, IM, QUAD (FLUCELVAX) 2023-05-21 21:20:38 Emily Werner [facility] POCT URINALYSIS 2023-05-21 20:12:00 Genny Tian [facility] ASSIGNMENT OF BENEFITS 2023-03-29 20:08:51 Docto r Unassigned, Rafael Hernandez [facility] CONSENT/REFUSAL FOR DIAGNOSIS AND TREATMENT 2023-03-29 20:07:49 Doctor Unassigned, Rafael Hernandez [facility] LIPASE 2023-03-29 19:45:00 [facility] MAGNESIUM 2023-03-29 19:45:00 [facility] COMP. METABOLIC PANEL ([id number]) 2023-03-29 19:45:00 Kishan Rader [facility] CBC WITH DIFF 2023-03-29 19:45:00 [facility] 2023-03-29 19:45:00 [facility] POCT URINALYSIS 2023-03-14 13:41:00 Genny Tian [facility] SECOND AND THIRD TRIMESTER ULTRASOUND 2023-03-13 20:36:00 Genny Tian [facility] GLUCOSE 1 HOUR POST PRANDIAL 2023-02-26 16:15:00 Genny Tian [facility] CBC WITH DIFF 2023-02-26 16:15:00 Genny Tian [facility] RUBELLA SCREEN IGG 2023-02-26 16:15:00 Huang Tian [facility] VZV ANTIBODY SCREEN 2023-02-26 16:15:00 Elias Tian [facility] HEPATITIS B SURFACE ANTIGEN 2023-02-26 16:15:00 Genny Tian [facility] HB ABO GROUPING 2023-02-26 16:15:00 Genny Tian [facility] QUAD SCRN 2023-02-26 16:15:00 Genny Tian [facility] HIV 1/2 AG-AB WITH REFLEX 2023-02-26 16:15:00 Genny Tian [facility] SYPHILIS IGG/IGM 2023-02-26 16:15:00 Nasreen Tian [facility] POCT URINALYSIS W/O SPECIFIC GRAVITY 2023-02-26 15:03:00 Genny Tian [facility] POCT TEST 2023-02-26 15:02:00 Elias Tian [facility] ASSIGNMENT OF BENEFITS 2023-02-26 14:21:16 Docto r Unassigned, Rafael Hernandez [facility] LIPASE 2023-01-22 19:38:00 [facility] COMP. METABOLIC PANEL ([id number]) 2023-01-22 19:38:00 Royal Bella [facility] CBC WITH DIFF 2023-01-22 19:38:00 Royal Bella [facility] URINALYSIS 2023-01-22 19:38:00 [facility] NOTICE OF PRIVACY PRACTICES 2023-01-22 18:58:13 Doctor Unassigned, Rafael Hernandez [facility] CONSENT/REFUSAL FOR DIAGNOSIS AND TREATMENT 2023-01-22 18:56:59 Doctor Unassigned, Rafael Hernandez [facility] Encounters Start Date/Time End Date/Time Encounter Type Admission Type Attending [facility] Care Department Encounter ID Source 2024-08-04 15:00:00 2024-08-04 15:00:[address] [facility] [id number] [facility] 2024-04-12 13:00:00 2024-04-12 13:06:17 Outpatient R GRECIA YOUNGER [facility] [id number] [facility] 2024-04-12 13:00:00 2024-04-12 13:06:17 Nurse Visit Nurse, [facility] Unknown, Attending Grecia Younger Nurse, [facility] 1..840.114 350.1.13.10 [id number] [id number] [facility] 2024-03-12 10:20:00 2024-03-12 10:40:00 Urgent Care AndreGeorgette coreas Unknown, Attending [facility] 1..840.114 350.1.13.10 4.2.7.2.686 [id number] [facility] 2024-03-12 10:20:00 2024-03-12 10:20:00 Outpatient R GEORGETTE CLARK [facility] [id number] [facility] 2024-03-03 15:00:00 2024-03-03 15:00:[address] [facility] [id number] [facility] 2024-02-12 12:45:00 2024-02-12 14:14:59 Outpatient R MORELIA GUAMAN [facility] [id number] [facility] 2024-02-12 12:45:00 2024-02-12 14:14:59 Office Visit Morelia Guaman [facility] RADIO OFFICER [facility] 1..840.114 350.1.13.10 4.2.7.2.686 [id number] [facility] 2024-02-03 00:00:00 2024-02-03 08:12:39 Case Management Morelia Guaman [facility] FL[facility] RADIO OFFICER [facility] & [facility] 1..840.114 350.1.13.10 4.2.7.2.686 [id number] [facility] 2024-01-29 15:15:00 2024-01-29 16:05:54 [address] GENNY TIAN [facility] [id number] [facility] 2024-01-29 15:15:00 2024-01-29 16:05:54 Office Visit Morelia Guaman [facility] FL[facility] RADIO OFFICER [facility] CHILD [facility] 1..840.114 350.1.13.10 4.2.7.2.686 [id number] [facility] 2024-01-19 16:40:00 2024-01-19 17:30:38 Outpatient R KAYLEY RADFORD [facility] [id number] [facility] 2024-01-19 16:40:00 2024-01-19 17:30:38 Urgent Care Kayley Radford Unknown, Attending [facility]JOANNECarine [facility] 1..840.114 350.1.13.10 4.2.7.2.686 [id number] [facility] 2024-01-19 00:00:00 2024-01-19 00:00:00 Letter (Out) Kayley Radford [facility] 1..840.114 350.1.13.10 4.2.7.2.686 [id number] [facility] 2024-01-09 18:40:00 2024-01-09 19:25:01 Outpatient R KAYLEY RADFORD [facility] [id number] [facility] 2024-01-09 18:40:00 2024-01-09 19:25:01 Urgent Care Kayley Radford Unknown, Attending [facility] 1.2840.114 350.1.13.10 4.2.7.2.686 [id number] [facility] 2023-12-26 00:00:00 2023-12-26 13:45:30 Refill Asha Yarbrough [facility] 1.2.840.114 350.1.13.10 4.2.7.2.686 [id number] [facility] 2023-12-03 19:20:00 2023-12-03 19:47:31 Outpatient [address] ASHA [facility]ARBROUGH [facility] [id number] [facility] 2023-12-03 19:20:00 2023-12-03 19:47:31 Urgent Care Asha Yarbrough Unknown, Attending [facility] 1..840.114 350.1.13.10 4.2.7.2.686 [id number] [facility] 2023-11-13 00:00:00 2023-11-13 13:24:11 Refill Genny Tian [facility] & [facility] 1..840.114 350.1.13.10 4.2.7.2.686 [id number] 107 [id number] [facility] 2023-11-04 00:00:00 2023-11-04 09:50:15 Refill Genny Tian [facility] & [facility] 1.2.840.114 350.1.13.10 4.2.7.2.686 [id number] [facility] 2023-10-29 12:30:00 2023-10-29 13:15:54 Outpatient R [address] [facility] [facility] [id number] [facility] 2023-10-29 12:30:00 2023-10-29 13:15:54 Office Visit Genny Tian [facility] & [facility] 1..840.114 350.1.13.10 4.2.7.2.686 [id number] 107 [id number] [facility] 2023-10-21 14:46:00 2023-10-21 18:58:00 [facility] [id number] [facility] 2023-10-21 14:46:00 2023-10-21 18:58:00 Emergency AubeltranerDivya bauer [facility] 1..840.114 350.1.13.10 4.2.7.2.686 [id number] [facility] 2023-10-21 13:45:00 2023-10-21 14:41:35 Nurse Visit Nurse, Chemo [facility] Unknown, Attending Grecia Younger [facility] 1..840.114 350.1.13.10 4.2.7.2.686 [id number] [facility] 2023-10-21 13:45:00 2023-10-21 13:45:00 Outpatient R GRECIA YOUNGER [facility] [id number] [facility] 2023-10-16 00:00:00 2023-10-16 00:00:00 Telephone Genny Tian [facility] & [facility] 1..840.114 350.1.13.10 4.2.7.2.686 [id number] [facility] 2023-10-13 14:15:00 2023-10-13 16:12:[address] [facility] [id number] [facility] 2023-10-13 14:15:00 2023-10-13 16:12:44 Office Visit Genny Tian [facility] 1..114 350.1.13.10 4.2.7.2.686 [id number] 107 [id number] [facility] 2023-09-05 14:15:00 2023-09-05 14:15:[address] [facility] [id number] [facility] 2023-08-01 10:30:00 2023-08-01 10:30:00 Outpatient R JAVADCAROLYN GENNY [facility] [id number] [facility] 2023-07-25 08:28:00 2023-07-26 22:49:00 Inpatient P BLANCA LAMAR SHANNON [facility] [id number] [facility] 2023-07-25 08:28:00 2023-07-26 22:49:00 Hospital Encounter Blanca Lamar [facility] 1..114 350.1.13.10 4.2.7.2.686 [id number] [facility] 2023-07-25 11:42:00 2023-07-25 22:38:00 Anesthesia Event Elliott Humphrey Sarah [facility] 1..114 350.1.13.10 4.2.7.2.686 [id number] [facility] 2023-07-25 00:00:00 2023-07-25 00:00:00 Orders Only Doctor Unassigned, Rafael Hernandez [facility] 1..114 350.1.13.10 4.2.7.2.686 [id number] [facility] 2023-07-23 14:30:00 2023-07-23 14:45:00 Routine Visit Risk, Ang-Rmchp-N p/High Emily Werner [facility] & [facility] 1.2.840.114 350.1.13.10 4.2.7.2.686 [id number] [facility] 2023-07-23 14:30:00 2023-07-23 14:30:[address] [facility] [id number] [facility] 2023-07-17 19:58:00 2023-07-17 22:52:00 Outpatient X HANSEN-CATHY S, ISABELA HANSEN-CATHY S, SIABELA [facility] [id number] [facility] 2023-07-17 19:58:00 2023-07-17 22:52:00 Emergency Hansen-Cathy s, Isabela [facility] 1..840.114 350.1.13.10 4.2.7.2.686 [id number] [facility] 2023-07-16 14:15:00 2023-07-16 15:15:45 Outpatient R EMILY W[facility]ER [facility] [id number] [facility] 2023-07-16 14:15:00 2023-07-16 15:15:45 Routine Visit Risk, Ang-Rmchp-N p/High Emily Werner [facility] & [facility] 1.2.840.114 350.1.13.10 4.2.7.2.686 [id number] [facility] 2023-07-10 14:30:00 2023-07-10 15:23:[address] [facility] [id number] [facility] 2023-07-10 14:30:00 2023-07-10 15:23:31 Routine Visit Batool Cabrales [facility] 1..840.114 350.1.13.10 4.2.7.2.686 [id number] [facility] 2023-07-10 14:30:00 2023-07-10 14:30:00 Outpatient R BATOOL CABRALES [facility] [id number] [facility] 2023-07-03 14:30:00 2023-07-03 14:30:00 Routine Visit Risk, Heladiochp-N p/Riri Molina [facility] 1.840.114 350.1.13.10 4.2.7.2.686 [id number] 107 [id number] [facility] 2023-07-03 14:30:00 2023-07-03 13:42:[address] [facility] [id number] [facility] 2023-07-02 00:00:00 2023-07-02 00:00:00 Abstract Genny Tian [facility] 1..840.114 350.1.13.10 4.2.7.2.686 [id number] 107 [id number] [facility] 2023-07-01 15:30:00 2023-07-01 16:14:26 Outpatient P TAY SOLIS [facility] [id number] [facility] 2023-07-01 15:30:00 2023-07-01 16:14:26 Shearing Shed Hand Visit Ultrasound, Tay Chapman [facility] & [facility] 1..840.114 350.1.13.10 4.2.7.2.686 [id number] [facility] 2023-06-29 13:38:00 2023-06-29 16:40:00 Outpatient X DEANNA YU [facility] [id number] [facility] 2023-06-29 13:38:00 2023-06-29 16:40:00 Emergency Beata Alvin YuNylaDeanna Bean [facility] 1.2.840.114 350.1.13.10 4.2.7.2.686 [id number] [facility] 2023-06-18 13:00:00 2023-06-18 13:12:[address] [facility] [id number] [facility] 2023-06-18 13:00:00 2023-06-18 13:12:16 Routine Visit Risk, MaddiRmchp-N p/High Emily Werner [facility] & [facility]ILD [facility] 1..840.114 350.1.13.10 4.2.7.2.686 [id number] 107 [id number] [facility] 2023-06-12 00:00:00 2023-06-12 00:00:00 Abstract Genny Tian [facility] & [facility] 1..840.114 350.1.13.10 4.2.7.2.686 [id number] [facility] 2023-06-06 10:00:00 2023-06-06 10:10:[address] [facility] [id number] [facility] 2023-06-06 10:00:00 2023-06-06 10:10:02 Shearing Shed Hand Visit Ultrasound, Gustavo Farias Ikuvshaunagiarcelia [facility] & [facility] 1..840.114 350.1.13.10 4.2.7.2.686 [id number] [facility] 2023-06-04 08:30:00 2023-06-04 09:19:[address] [facility] [id number] [facility] 2023-06-04 08:30:00 2023-06-04 09:19:14 Routine Visit Risk, Ang-Rmchp-N p/High Emily Werner [facility] & [facility] 1.2.840.114 350.1.13.10 4.2.7.2.686 [id number] 107 [id number] [facility] 2023-06-03 10:35:00 2023-06-03 12:20:00 Outpatient P BECKIE DEANNA [facility] [id number] [facility] 2023-06-03 10:35:00 2023-06-03 12:20:00 Hospital Encounter Adkamron, Deanna Bean [facility] 1.2.840.114 350.1.13.10 4.2.7.2.686 [id number] [facility] 2023-05-22 00:00:00 2023-05-22 00:00:00 Telephone Genny Tian [facility] & [facility] 1.2.840.114 350.1.13.10 4.2.7.2.686 [id number] 107 [id number] [facility] 2023-05-21 13:45:00 2023-05-21 15:16:53 Routine Visit Risk, Ang-Rmchp-N p/High Emily Werner [facility] & [facility] 1.2.840.114 350.1.13.10 4.2.7.2.686 [id number] 107 [id number] [facility] 2023-05-21 13:45:00 2023-05-21 15:16:53 Outpatient R EMILY [facility]ER [facility] [id number] [facility] 2023-05-16 00:00:00 2023-05-16 00:00:00 Telephone Risk, Ang-Rmchp-N p/High [facility] & [facility] 1.840.114 350.1.13.10 4.2.7.2.686 [id number] [facility] 2023-05-14 14:30:00 2023-05-14 14:30:00 Outpatient R EMILY [facility]ER [facility] [id number] [facility] 2023-05-07 08:15:00 2023-05-07 08:15:[address] [facility] [id number] [facility] 2023-04-23 11:00:00 2023-04-23 12:03:02 Outpatient R EMILY [facility] [id number] [facility] 2023-04-23 11:00:00 2023-04-23 12:03:02 Routine Visit Risk, Ang-Rmchp-N p/High Emily Werner [facility] & [facility] 1.840.114 350.1.13.10 4.2.7.2.686 [id number] 107 [id number] [facility] 2023-04-23 10:00:00 2023-04-23 10:00:[address] [facility] [id number] [facility] 2023-04-22 15:45:00 2023-04-22 15:45:00 Outpatient R BATOOL CABR[address]ES [facility] [id number] [facility] 2023-04-11 11:00:00 2023-04-11 11:47:14 Outpatient R [address] [facility] [id number] [facility] 2023-04-11 11:00:00 2023-04-11 11:47:14 Routine Visit Genny Tian [facility] & [facility] 1..840.114 350.1.13.10 4.2.7.2.686 [id number] 107 [id number] [facility] 2023-04-11 00:00:00 2023-04-11 00:00:00 Patient Secure Msg Genny Tian [facility] 1.2.840.114 350.1.13.10 4.2.7.2.686 [id number] [facility] 2023-03-29 14:17:00 2023-03-29 16:54:00 Emergency X KISHAN RADER [facility] E[facility] [id number] [facility] 2023-03-29 14:17:00 2023-03-29 16:54:00 Emergency Kishan Rader [facility] 1.2.840.114 350.1.13.10 4.2.7.2.686 [id number] [facility] 2023-03-29 00:00:00 2023-03-29 00:00:00 [facility]..840.114 350.1.13.10 4.2.7.2.686 [id number] [facility] 2023-03-26 10:45:00 2023-03-26 10:45:[address] [facility] [id number] [facility] 2023-03-14 08:30:00 2023-03-14 09:14:[address] [facility] [id number] [facility] 2023-03-14 08:30:00 2023-03-14 09:14:20 Routine Visit Genny Tian [facility] & [facility] 1.2.840.114 350.1.13.10 4.2.7.2.686 [id number] 107 [id number] [facility] 2023-03-14 00:00:00 2023-03-14 00:00:00 Refill Genny Tian [facility] 1.840.114 350.1.13.10 4.2.7.2.686 [id number] 107 [id number] [facility] 2023-03-14 00:00:00 2023-03-14 00:00:00 Refill Genny Tian [facility] 1.840.114 350.1.13.10 4.2.7.2.686 [id number] 107 [id number] [facility] 2023-03-13 14:30:00 2023-03-13 15:39:49 [id number] 2023-03-13 14:30:00 2023-03-13 15:39:49 Shearing Shed Hand Visit Ultrasound, Gogo Cote [facility] .0.114 350.1.13.10 4.2.7.2.686 [id number] [facility] 2023-03-03 00:00:00 2023-03-03 00:00:00 Telephone Genny Tian [facility] ..114 350.1.13.10 4.2.7.2.686 [id number] [facility] 2023-02-26 10:00:00 2023-02-26 11:20:47 [address] [facility] [id number] [facility] 2023-02-26 10:00:00 2023-02-26 11:20:47 Initial Visit Genny Tian [facility] 1.0.114 350.1.13.10 4.2.7.2.686 [id number] [facility] 2023-02-26 00:00:00 2023-02-26 00:00:00 Orders Only Doctor Unassigned, Rafael Hernandez [facility] 1.2840.114 350.1.13.10 4.2.7.2.686 [id number] [facility] 2023-02-05 13:15:00 2023-02-05 13:15:[address] [facility] [id number] [facility] 2023-01-22 14:06:00 2023-01-22 15:29:00 Emergency X ROYAL BELLA [facility] ERT [id number] [facility] 2023-01-22 14:06:00 2023-01-22 15:29:00 Emergency Royal Bella [facility] 1.840.114 350.1.13.10 4.2.7.2.686 [id number] [facility] 2023-01-22 08:00:00 2023-01-22 08:00:[address] [facility] [id number] [facility] 2023-01-20 00:00:00 2023-01-20 00:00:00 Telephone Batool Cabrales [facility] 1.84.114 350.1.13.10 4.2.7.2.686 [id number] 107 [id number] [facility] 2023-01-17 00:00:00 2023-01-17 00:00:00 Nurse Triage Dianna Soto [facility] 1.840.114 350.1.13.10 4.2.7.2.686 [id number] [facility] 2021-08-01 09:45:00 2021-08-01 09:45:00 Outpatient R UNKNOWN, ATTENDING [facility] [id number] [facility] Results Test Description Test Time Test Comments Results Result Co mments Source [facility] SARS-COV-2 ANTIGEN (BINAX NOW)2024-03-12 16:01:00* Test Item Value Reference Range Interpretation Comme nts POCT SARS-COV-2 ANTIGEN (test code = 09669-2) Not Detected Not Detected, See Comment On board controls acceptable with C Line (test code = 3574) Yes Lab Interpretation (test code = 69964-9) Normal [facility] MOLECULAR [id number] 15:54:51* Test Item Value Reference Range Interpretation Comme nts POCT Molecular Strep (test c ode = 54014-8) Negative Negative Lab Interpretation (test cod e = 24629-8) Normal [facility] [id number] 20:44:00* Test Item Value Reference Range Interpretation Comme nts POCT PREG (test code = 1605) Negative On board controls acceptable with C Line (test code = 3574) Yes POCT PREG LOT # (test code = 3575) POCT PREG TEST DATE ( test code = 3576) [facility] Urinalysis W Specific [id number] 22:18:00* Test Item Value Reference Range Interpretation [...] cloudy Lab Interpretation (test cod e = 62844-1) Abnormal [facility] [id number] 22:17:00* Test Item Value Reference Range Interpretation Comme nts POCT PREG (test code = 1605) Negative On board controls acceptable with C Line (test code = 3574) Yes POCT PREG LOT # (test code = 3575) POCT PREG TEST DATE ( test code = 3576) Lab Interpretation (test cod e = 45277-5) Normal [facility] [id number] 17:51:00* Test Item Value Reference Range Interpretation Comme nts POCT PREG (test code = 1605) Negative On board controls acceptable with C Line (test code = 3574) Yes POCT PREG LOT # (test code = 3575) POCT PREG TEST DATE ( test code = 3576) [facility] [id number] 17:51:00* Test Item Value Reference Range Interpretation Comme nts POCT PREG (test code = 1605) Negative On board controls acceptable with C Line (test code = 3574) Yes POCT PREG LOT # (test code = 3575) POCT PREG TEST DATE ( test code = 3576) [facility] HEAD WO [id number] 22:59:31EXAM: CT HEAD WO CONTRAST HISTORY: Seizure, [...] clear. The calvariumand central skull base are unremarkable.[facility] Metabolic Panel (76080)2023-10-21 22:41:54* Test Item Value Reference Range Interpretation Comme nts NA (test code = 8713192119) 138 mmol/L 135-145 K (test code = 2487088748) 3.9 mmol/L 3.5-5.0 CL (test code = 5886555797) 102 mmol/L 98-108 CO2 TOTAL (test code = 9004912233) 29 mmol/L 23-31 AGAP (test code = 8849215057) 7 2-16 BUN (test code = 6132038055) 10 mg/dL 7-23 GLUCOSE (test code = 7249226018) 90 mg/dL 70-110 CREATININE (test code = 2160-0) 0.75 mg/dL 0.50-1.04 TOTAL BILI (test code = 2444755069) 0.4 mg/dL 0.1-1.1 CALCIUM (test code = 5317181183) 9.2 mg/dL 8.6-10.6 T PROTEIN (test code = 5074949010) 7.6 g/dL 6.3-8.2 ALBUMIN (test code = 0443608673) 4.7 g/dL 3.5-5.0 ALK PHOS (test code = 8448039005) 125 U/L 34-122 H ALTv (test code = 1742-6) 47 U/L 5-35 H AST(SGOT) (test code = 6086246513) 35 U/L 13-40 eGFR (test code = 66541-1) 115.6 mL/min/1.73m2 CKD-EPI eGFR (2020). Assuming creatinine has been stable day-to-day for at least three months, the eGFR indicates Category G1 (>= 90 mL/min/1.73 m2) Lab Interpretation (test code = 67476-0) [facility] [id number] 22:41:34* Test Item Value Reference Range Interpretation Comme nts CK (test code = 8418571878) 60 U/L 33-194 Lab Interpretation (test cod e = 92575-4) Normal [facility] with [id number] 22:27:51* Test Item Value Reference Range Interpretation [...] 32.4 g/dL 31.6-35.1 RDW-SD (test code = 66027-5) 43.3 fL 39.0-49.9 RDW-CV (test code = 788-0) 13.5 % 12.0-15.5 PLT (test code = 777-3) 356 166-358 MPV (test code = 05702-8) 8.9 fL 9.5-12.9 L NRBC/100 WBC (test code = 0165945145) 0.0 0.0-10.0 NRBC x10^3 (test code = 2654995512) See_Comment [Automated messa ge] The system which generated this result transmitted reference range: 10*3/?L. The reference range was not used to interpret this result as normal/abnormal. GRAN MAT (NEUT) % (test code = 770-8) 53.5 % IMM GRAN % (test code = 9253513516) 0.30 % LYMPH % (test code = 736-9) 32.4 % MONO % (test code = 5905-5) 4.5 % EOS % (test code = 713-8) 8.4 % BASO % (test code = 706-2) 0.9 % GRAN MAT x10^3(ANC) (test code = 7725356247) 3.57 10*3/uL 1.88-7.09 IMM GRAN x10^3 (test code = 9015641144) 0.00-0.06 LYMPH x10^3 (test code = 731-0) 2.16 10*3/uL 1.32-3.29 MONO x10^3 (test code = 742-7) 0.30 10*3/uL 0.33-0.92 L EOS x10^3 (test code = 711-2) 0.56 10*3/uL 0.03-0.39 H BASO x10^3 (test code = 704-7) 0.06 10*3/uL 0.01-0.07 Lab Interpretation (test code = 02367-2) [facility]normal [facility] Whole [id number] 22:15:28* Test Item Value Reference Range Interpretation Comme nts LACTIC ACID (test code = 4130305810) 1.54 mmol/L 0.50-2.20 Lab Interpretation (test cod e = 80670-5) Normal [facility] [id number] 22:00:00* Test Item Value Reference Range Interpretation Comme nts POCT PREG (test code = 1605) Negative On board controls acceptable with C Line (test code = 3574) Yes Lab Interpretation (test cod e = 38113-8) Normal [facility] Urinalysis W Specific [id number] 20:55:00* Test Item Value Reference Range Interpretation [...] U APPEAR (test code = 3267) . [facility] Urinalysis W Specific [id number] 20:55:00* Test Item Value Reference Range Interpretation [...] U APPEAR (test code = 3267) . [facility] Urinalysis W Specific [id number] 20:55:00* Test Item Value Reference Range Interpretation [...] U APPEAR (test code = 3267) . [facility] URINALYSIS W SPECIFIC [id number] 20:54:00* Test Item Value Reference Range Interpretation [...] U APPEAR (test code = 3267) . [facility] URINALYSIS W SPECIFIC [id number] 20:54:00* Test Item Value Reference Range Interpretation [...] U APPEAR (test code = 3267) . [facility] URINALYSIS W SPECIFIC [id number] 20:54:00* Test Item Value Reference Range Interpretation [...] U [facility] (test code = 3267) . [facility] [id number] 20:26:00* Test Item Value Reference Range Interpretation Comme nts POCT PREG (test code = 1605) Negative On board controls acceptable with C Line (test code = 3574) Yes POCT PREG LOT # (test code = 3575) POCT PREG TEST DATE ( test code = 3576) [facility] [id number] 20:26:00* Test Item Value Reference Range Interpretation Comme nts POCT PREG (test code = 1605) Negative On board controls acceptable with C Line (test code = 3574) Yes POCT PREG LOT # (test code = 3575) POCT PREG TEST DATE ( test code = 3576) [facility] [id number] 20:26:00* Test Item Value Reference Range Interpretation Comme nts POCT PREG (test code = 1605) Negative On board controls acceptable with C Line (test code = 3574) Yes POCT PREG LOT # (test code = 3575) POCT PREG TEST DATE ( test code = 3576) [facility] SYPHILIS [id number] 15:57:29* Test Item Value Reference Range Interpretation Comme [facility] Syphilis IgG/IgM (test code = 67136-0) Non-reactive Non-reactive GARRETT (test code = GARRETT) Non-reactive - No serologic evidence of T. pallidum infection. Cannot exclude incubating or early syphilis. Submit a second specimen in 2-4 weeks if syphilis is clinically suspected. Equivocal - Further testing to follow. Reactive - Further testing to follow. Lab Interpretation (test code = 07233-2) Normal [facility] IMMUNE [id number] 06:58:02* Test Item Value Reference Range Interpretation Comme nts RHIG CANDIDATE? (test code = 5188) No- see comment Patient is not a candidate for RhIg- Patient is Rh Positive.Performed at [facility] Laboratory Services - [facility] Blood [address] [address]Mmbp Free: [phone] No. [phone] [facility] [id number] 03:50:38* Test Item Value Reference Range Interpretation Comme nts VENOUS BASE EXCESS, CORD (te st code = 0630986551) 0.5 mEq/L VENOUS PH, CORD (test code = 8051602254) 7.35 7.25-7.45 VENOUS PC02, CORD (test code = 1703117173) 49 27-49 VENOUS PO2, CORD (test code = 3566504193) 23 17-41 VENOUS BICARBONATE, CORD (te st code = 1548356890) 27 12-29 [facility] [id number] 03:50:18* Test Item Value Reference Range Interpretation Comme nts BASE EXCESS, CORD (test code = 7669282572) -2.2 mEq/L AC PH, CORD (BEAKER) (test c ode = 7885214368) 7.35 7.18-7.38 PC02, CORD (test code = 1286219212) 44 32-66 PO2, CORD (test code = 7696647488) 25 10-30 BICARBONATE, CORD (test code = 9103514854) 24 17-27 [facility] Surface [id number] 19:31:01 * Test Item Value Reference Range Interpretation Comme nts HBsAg Semi-Quantitative (amita t code = 5195-3) 0.06 Negative [facility] AG-AB WITH [id number] 18:19:07* Test Item Value Reference Range Interpretation Comme nts HIV Semi-quantitative (test code = 79488-6) 0.08 Negative GARRETT (test code = GARRETT) Non-reactive for HIV-1 antigen and HIV-1/HIV-2 antibodies. ?No laboratory evidence of HIV infection. ?Repeat in 2-4 weeks if acute HIV infection is suspected. [facility] [facility] [id number] 17:42:00 Elliott Humphrey MD ? ? 07/25/2023 12:23 PM Central Neuraxial Block Date/Time: 07/25/2023 11:42 AM Performed by: Elliott Humphrey MDAuthorized by: Bertin Ledesma MBBS ?End Time: 07/25/2023 12:08 PMReason for Block: OB request, Patient request, Labor analgesia, Surgical anesthesia and Post-op pain managementStaff: ?Anesthesiologist: Bertin Ledesma MBBS ?Resident/GUIDANCE COUNSELOR: Adrian Root MD ?Performed by: resident/CRNAPreanesthetic Checklist: [...] air and catheter ?Guidance with: landmark technique}Epidural/Spinal [place] and/or Catheter: ?Epidural/Spinal Kit: BBraun ?Needle Type: [...] ? Smooth and atraumatic, (+) Local, (+) [facility] Klnye7594-65-92 17:42:00Elliott Humphrey MD ? ? 07/25/2023 12:23 PM Central Neuraxial Block Date/Time: 07/25/2023 11:42 AM Performed by: Elliott Humphrey MDAuthorized by: Bertin Ledesma MBBS ?End Time: 07/25/2023 12:08 PMReason for Block: OB request, Patient request, Labor analgesia, Surgical anesthesia and Post-op pain managementStaff: ?Anesthesiologist: Bertin Ledesma MBBS ?Resident/GUIDANCE COUNSELOR: Adrian oRot MD ?Performed by: resident/CRNAPreanesthetic Checklist: patient identified, [...] air and catheter ?Guidance with: landmark technique}Epidural/Spinal [place] and/or Catheter: ?Epidural/Spinal Kit: BBraun ?Needle Type: [...] ? Smooth and atraumatic, (+) Local, (+) [facility] Ne[facility]axial [id number] 17:42:00Elliott Humphrey MD ? ? 07/25/2023 12:23 PM Central Neuraxial Block Date/Time: 07/25/2023 11:42 AM Performed by: Elliott Humphrey, MDAuthorized by: Bertin Ledesma MBBS ?End Time: 07/25/2023 12:08 PMReason for Block: OB request, Patient request, Labor analgesia, Surgical anesthesia and Post-op pain managementStaff: ?Anesthesiologist: Bertin Ledesma MBBS ?Resident/GUIDANCE COUNSELOR: Adrian Root MD ?Performed by: resident/CRNAPreanesthetic Checklist: [...] air and catheter ?Guidance with: landmark technique}Epidural/Spinal [place] and/or Catheter: ?Epidural/Spinal Kit: BBraun ?Needle Type: [...] ? Smooth and atraumatic, (+) Local, (+) STFUniversTexas [facility] ArlingtonType and Screen - ONCE [id number] 16:26:00* Test Item Value Reference Range Interpretation Comme nts ABO & RH (test code = 20) A POSITIVE IAT (test code = 1185) Negative [facility]IFIC [id number] 20:02:00* Test Item Value Reference Range Interpretation Comme nts POCT U SP GRAV (test code = 3255) . 1.005-1.025 POCT PH U (test code = 3254) 7 mg/dl 5-8 POCT U LEUK EST (test code = 8943) Trace Negative - Negative POCT U NIT [...] POCT U APPEAR (test code = 3267) [facility] HospitalLactate Igvjqievnvykg3608-09-53 04:35:23* Test Item Value Reference Range Interpretation Comme [facility] LDH (test code = 9685407436) 190 U/L 120-246 Lab Interpretation (test cod e = 44117-9) Normal [facility] HospitalUric Acid Jlkyi2407-35-96 04:25:43* Test Item Value Reference Range Interpretation Comme [facility] URIC ACID (test code = 2004311052) 3.3 mg/dL 2.9-6.0 Lab Interpretation (test cod e = 01087-2) Normal [facility] HospitalSGOT (Asparate Amino Transfer)2023-07-18 04:25:43* Test Item Value Reference Range Interpretation Comme [facility] AST(SGOT) (test code = 7954295637) 39 U/L 13-40 Lab Interpretation (test cod e = 00410-6) Normal [facility] HospitalAlanine Amino Transferase (SGPT)2023-07-18 04:25:43* Test Item Value Reference Range Interpretation Comme [facility] ALTv (test code = 1742-6) 11 U/L 5-35 Lab Interpretation (test cod e = 21156-5) Normal [facility] HospitalSerum Egijfqhunf6058-44-35 04:25:18* Test Item Value Reference Range Interpretation Comme [facility] CREATININE (test code = 9575050122) 0.46 mg/dL 0.50-1.04 L eGFR (test code = 24642-5) 139.0 mL/min/1.73m2 CKD-EPI eGFR (2020). Assuming creatinine has been stable day-to-day for at least three months, the eGFR indicates Category G1 (>= 90 mL/min/1.73 m2) Lab Interpretation (test code = 90460-8) Abnormal [facility] with Uohujgadzmea0925-14-95 04:09:01* Test Item Value Reference Range Interpretation [...] 32.2 g/dL 31.6-35.1 RDW-SD (test code = 76208-2) 50.3 fL 39.0-49.9 H RDW-CV (test code = 788-0) 16.1 % 12.0-15.5 H PLT (test code = 777-3) 355 See_Comment [Automated messa ge] The system which generated this result transmitted reference range: 166 - 358 10*3/?L. The reference range was not used to interpret this result as normal/abnormal. MPV (test code = 69105-6) 9.6 fL 9.5-12.9 NRBC/100 WBC (test code = 5150145809) 0.0 See_Comment [Automated me ssage] The system which generated this result transmitted reference range: 0.0 - 10.0 /100 WBCs. The reference range was not used to interpret this result as normal/abnormal. NRBC x10^3 (test code = 0872333185) See_Comment [Automated messa ge] The system which generated this result transmitted reference range: 10*3/?L. The reference range was not used to interpret this result as normal/abnormal. GRAN MAT (NEUT) % (test code = 770-8) 66.1 % IMM GRAN % (test code = 3303058535) 0.70 % LYMPH % (test code = 736-9) 22.6 % MONO % (test code = 5905-5) 5.5 % EOS % (test code = 713-8) 4.6 % BASO % (test code = 706-2) 0.5 % GRAN MAT x10^3(ANC) (test code = 0828035134) 7.55 10*3/uL 1.88-7.09 H IMM GRAN x10^3 (test code = 1643516047) 0.08 10*3/uL 0.00-0.06 H LYMPH x10^3 (test code = 731-0) 2.58 10*3/uL 1.32-3.29 MONO x10^3 (test code = 742-7) 0.63 10*3/uL 0.33-0.92 EOS x10^3 (test code = 711-2) 0.52 10*3/uL 0.03-0.39 H BASO x10^3 (test code = 704-7) 0.06 10*3/uL 0.01-0.07 Lab Interpretation (test code = 90802-0) Abnormal [facility] URINALYSIS W SPECIFIC [id number] 21:43:00* Test Item Value Reference Range Interpretation [...] POCT U APPEAR (test code = 3267) [facility] with Czsu7007-03-28 05:36:47* Test Item Value Reference Range Interpretation [...] g/dL 31.6-35.1 L RDW-SD (test code = 73707-5) 49.9 fL 39.0-49.9 RDW-CV (test code = 788-0) 15.6 % 12.0-15.5 H PLT (test code = 777-3) 381 See_Comment H [Automated messa ge] The system which generated this result transmitted reference range: 166 - 358 10*3/?L. The reference range was not used to interpret this result as normal/abnormal. MPV (test code = 92791-9) 9.8 fL 9.5-12.9 NRBC/100 WBC (test code = 6081300675) 0.0 See_Comment [Automated me ssage] The system which generated this result transmitted reference range: 0.0 - 10.0 /100 WBCs. The reference range was not used to interpret this result as normal/abnormal. NRBC x10^3 (test code = 4723676732) See_Comment [Automated messa ge] The system which generated this result transmitted reference range: 10*3/?L. The reference range was not used to interpret this result as normal/abnormal. GRAN MAT (NEUT) % (test code = 770-8) 70.9 % IMM GRAN % (test code = 9015951752) 0.80 % LYMPH % (test code = 736-9) 18.4 % MONO % (test code = 5905-5) 4.9 % EOS % (test code = 713-8) 4.6 % BASO % (test code = 706-2) 0.4 % GRAN MAT x10^3(ANC) (test code = 7188004898) 8.62 10*3/uL 1.88-7.09 H IMM GRAN x10^3 (test code = 2462237655) 0.10 10*3/uL 0.00-0.06 H LYMPH x10^3 (test code = 731-0) 2.24 10*3/uL 1.32-3.29 MONO x10^3 (test code = 742-7) 0.59 10*3/uL 0.33-0.92 EOS x10^3 (test code = 711-2) 0.56 10*3/uL 0.03-0.39 H BASO x10^3 (test code = 704-7) 0.05 10*3/uL 0.01-0.07 Lab Interpretation (test code = 16643-9) Abnormal [facility] URINALYSIS W SPECIFIC [id number] 19:32:00* Test Item Value Reference Range Interpretation [...] POCT U APPEAR (test code = 3267) [facility] URINALYSIS W SPECIFIC [id number] 18:55:00* Test Item Value Reference Range Interpretation [...] U APPEAR (test code = 3267) . [facility] URINALYSIS W SPECIFIC [id number] 18:55:00* Test Item Value Reference Range Interpretation [...] U APPEAR (test code = 3267) . [facility] URINALYSIS W SPECIFIC [id number] 14:59:00* Test Item Value Reference Range Interpretation [...] POCT U APPEAR (test code = 3267) [facility] URINALYSIS W SPECIFIC [id number] 20:12:00* Test Item Value Reference Range Interpretation [...] U APPEAR (test code = 3267) * [facility] HospitalMAGNESIUM2023-10-07 20:36:27* Test Item Value Reference Range Interpretation Comme nts MAGNESIUM (test code = 0766559520) 1.7 mg/dL 1.7-2.4 Lab Interpretation (test cod e = 43878-5) Normal [facility] HospitalCOMP. METABOLIC PANEL (70656)2023-03-29 20:36:07* Test Item Value Reference Range Interpretation Comme nts NA (test code = 8166096141) 134 mmol/L 135-145 L K (test code = 6818289726) 3.6 mmol/L 3.5-5.0 CL (test code = 0951345482) 100 mmol/L 98-108 CO2 TOTAL (test code = 2992594526) 22 mmol/L 23-31 L AGAP (test code = 5580030559) 12 2-16 BUN (test code = 8139481220) 9 mg/dL 7-23 GLUCOSE (test code = 0176254104) 82 mg/dL 70-110 CREATININE (test code = 9432921254) 0.48 mg/dL 0.50-1.04 L TOTAL BILI (test code = 8516533463) 0.4 mg/dL 0.1-1.1 CALCIUM (test code = 1430180254) 8.3 mg/dL 8.6-10.6 L T PROTEIN (test code = 7614084613) 6.9 g/dL 6.3-8.2 ALBUMIN (test code = 7938501260) 3.7 g/dL 3.5-5.0 ALK PHOS (test code = 5000797846) 58 U/L 34-122 ALTv (test code = 1742-6) 14 U/L 5-35 AST(SGOT) (test code = 1831515825) 19 U/L 13-40 eGFR (test code = 7121520581) 163.3 mL/min/1.73m2 GARRETT (test code = GARRETT) [...] imaging tests). Lab Interpretation (test code = 03757-6) Abnormal [facility] HospitalLIPASE2023-10-07 20:35:47* Test Item Value Reference Range Interpretation Comme nts LIPASE (test code = 7453781937) 90 U/L 0-220 Lab Interpretation (test cod e = 06207-2) Normal [facility] HospitalCB WITH [id number] 20:23:46* Test Item Value Reference Range Interpretation Comme nts WBC (test code = 6690-2) 9.11 See_Comment [Automated [employer] The system which generated this result transmitted reference range: 4.30 - 11.10 10*3/?L. The reference range was not used to interpret this result as normal/abnormal. RBC (test code = 789-8) 3.70 See_Comment L [Automated [employer] The system which generated this result transmitted [...] 32.5 g/dL 31.6-35.1 RDW-SD (test code = 46474-4) 47.7 fL 39.0-49.9 RDW-CV (test code = 788-0) 14.8 % 12.0-15.5 PLT (test code = 777-3) 314 See_Comment [Automated messa ge] The system which generated this result transmitted reference range: 166 - 358 10*3/?L. The reference range was not used to interpret this result as normal/abnormal. MPV (test code = 90339-5) 9.7 fL 9.5-12.9 NRBC/100 WBC (test code = 2745088407) 0.0 See_Comment [Automated [employer] ssage] The system which generated this result transmitted reference range: 0.0 - 10.0 /100 WBCs. The reference range was not used to interpret this result as normal/abnormal. NRBC x10^3 (test code = 5412860283) See_Comment [Automated messa ge] The system which generated this result transmitted reference range: 10*3/?L. The reference range was not used to interpret this result as normal/abnormal. GRAN MAT (NEUT) % (test code = 770-8) 71.4 % IMM GRAN % (test code = 8081907252) 0.30 % LYMPH % (test code = 736-9) 19.9 % MONO % (test code = 5905-5) 4.2 % EOS % (test code = 713-8) 3.8 % BASO % (test code = 706-2) 0.4 % GRAN MAT x10^3(ANC) (test code = 9681456543) 6.50 10*3/uL 1.88-7.09 IMM GRAN x10^3 (test code = 7258728438) 0.03 10*3/uL 0.00-0.06 LYMPH x10^3 (test code = 731-0) 1.81 10*3/uL 1.32-3.29 MONO x10^3 (test code = 742-7) 0.38 10*3/uL 0.33-0.92 EOS x10^3 (test code = 711-2) 0.35 10*3/uL 0.03-0.39 BASO x10^3 (test code = 704-7) 0.04 10*3/uL 0.01-0.07 Lab Interpretation (test code = 22156-0) Abnormal [facility] URINALYSIS W SPECIFIC [id number] 13:42:00* Test Item Value Reference Range Interpretation [...] U APPEAR (test code = 3267) . [facility] WITH [id number] 05:22:18* Test Item Value Reference Range Interpretation [...] 31.8 g/dL 31.6-35.1 RDW-SD (test code = 63413-2) 51.0 fL 39.0-49.9 H RDW-CV (test code = 788-0) 15.6 % 12.0-15.5 H PLT (test code = 777-3) 339 See_Comment [Automated [employer] ge] The system which generated this result transmitted reference range: 166 - 358 10*3/?L. The reference range was not used to interpret this result as normal/abnormal. MPV (test code = 11381-7) 10.3 fL 9.5-12.9 NRBC/100 WBC (test code = 1477441768) 0.0 See_Comment [Automated [employer] ssage] The system which generated this result transmitted reference range: 0.0 - 10.0 /100 WBCs. The reference range was not used to interpret this result as normal/abnormal. NRBC x10^3 (test code = 6213284082) See_Comment [Automated [employer]iter[employer] ge] The system which generated this result transmitted reference range: 10*3/?L. The reference range was not used to interpret this result as normal/abnormal. GRAN MAT (NEUT) % (test code = 770-8) 76.6 % IMM GRAN % (test code = 6147765629) 0.30 % LYMPH % (test code = 736-9) 15.9 % MONO % (test code = 5905-5) 3.7 % EOS % (test code = 713-8) 3.1 % BASO % (test code = 706-2) 0.4 % GRAN MAT x10^3(ANC) (test code = 2371250060) 7.20 10*3/uL 1.88-7.09 H IMM GRAN x10^3 (test code = 0378091112) 0.03 10*3/uL 0.00-0.06 LYMPH x10^3 (test code = 731-0) 1.49 10*3/uL 1.32-3.29 MONO x10^3 (test code = 742-7) 0.35 10*3/uL 0.33-0.92 EOS x10^3 (test code = 711-2) 0.29 10*3/uL 0.03-0.39 BASO x10^3 (test code = 704-7) 0.04 10*3/uL 0.01-0.07 Lab Interpretation (test code = 97228-7) Abnormal [facility] WITH [id number] 05:22:18* Test Item Value Reference Range Interpretation [...] 31.8 g/dL 31.6-35.1 RDW-SD (test code = 81334-8) 51.0 fL 39.0-49.9 H RDW-CV (test code = 788-0) 15.6 % 12.0-15.5 H PLT (test code = 777-3) 339 See_Comment [Automated messa ge] The system which generated this result transmitted reference range: 166 - 358 10*3/?L. The reference range was not used to interpret this result as normal/abnormal. MPV (test code = 24852-3) 10.3 fL 9.5-12.9 NRBC/100 WBC (test code = 4414782006) 0.0 See_Comment [Automated [employer] ssage] The system which generated this result transmitted reference range: 0.0 - 10.0 /100 WBCs. The reference range was not used to interpret this result as normal/abnormal. NRBC x10^3 (test code = 4521743470) See_Comment [Automated messa ge] The system which generated this result transmitted reference range: 10*3/?L. The reference range was not used to interpret this result as normal/abnormal. GRAN MAT (NEUT) % (test code = 770-8) 76.6 % IMM GRAN % (test code = 8414815104) 0.30 % LYMPH % (test code = 736-9) 15.9 % MONO % (test code = 5905-5) 3.7 % EOS % (test code = 713-8) 3.1 % BASO % (test code = 706-2) 0.4 % GRAN MAT x10^3(ANC) (test code = 3658299734) 7.20 10*3/uL 1.88-7.09 H IMM GRAN x10^3 (test code = 9634356162) 0.03 10*3/uL 0.00-0.06 LYMPH x10^3 (test code = 731-0) 1.49 10*3/uL 1.32-3.29 MONO x10^3 (test code = 742-7) 0.35 10*3/uL 0.33-0.92 EOS x10^3 (test code = 711-2) 0.29 10*3/uL 0.03-0.39 BASO x10^3 (test code = 704-7) 0.04 10*3/uL 0.01-0.07 Lab Interpretation (test code = 16699-8) Abnormal [facility] [id number] 15:03:00* Test Item Value Reference Range Interpretation Comme nts POCT PREG (test code = 1605) Positive On board controls acceptable with C Line (test code = 3574) Yes POCT PREG LOT # (test code = 3575) POCT PREG TEST DATE ( test code = 3576) [facility] URINALYSIS W/O SPECIFIC [id number] 15:03:00* Test Item Value Reference Range Interpretation [...] = 3257) neg Negative - Negati ve [facility] [id number] 15:03:00* Test Item Value Reference Range Interpretation Comme nts POCT PREG (test code = 1605) Positive On board controls acceptable with C Line (test code = 3574) Yes POCT PREG LOT # (test code = 3575) POCT PREG TEST DATE ( test code = 3576) [facility] URINALYSIS W/O SPECIFIC [id number] 15:03:00* Test Item Value Reference Range Interpretation [...] = 3257) neg Negative - Negati ve [facility] [id number] 15:03:00* Test Item Value Reference Range Interpretation Comme nts POCT PREG (test code = 1605) Positive On board controls acceptable with C Line (test code = 3574) Yes POCT PREG LOT # (test code = 3575) POCT PREG TEST DATE ( test code = 3576) [facility] URINALYSIS W/O SPECIFIC [id number] 15:03:00* Test Item Value Reference Range Interpretation [...] = 3257) neg Negative - Negati ve [facility] [id number] 15:03:00* Test Item Value Reference Range Interpretation Comme nts POCT PREG (test code = 1605) Positive On board controls acceptable with C Line (test code = 3574) Yes POCT PREG LOT # (test code = 3575) POCT PREG TEST DATE ( test code = 3576) [facility] URINALYSIS W/O SPECIFIC [id number] 15:03:00* Test Item Value Reference Range Interpretation [...] = 3257) neg Negative - Negati ve [facility] [id number] 15:03:00* Test Item Value Reference Range Interpretation Comme nts POCT PREG (test code = 1605) Positive On board controls acceptable with C Line (test code = 3574) Yes POCT PREG LOT # (test code = 3575) POCT PREG TEST DATE ( test code = 357) [facility] URINALYSIS W/O SPECIFIC [id number] 15:03:00* Test Item Value Reference Range Interpretation [...] = 3257) neg Negative - Negati ve [facility] [id number] 15:03:00* Test Item Value Reference Range Interpretation Comme nts POCT PREG (test code = 1605) Positive On board controls acceptable with C Line (test code = 3574) Yes POCT PREG LOT # (test code = 3575) POCT PREG TEST DATE ( test code = 357) [facility] URINALYSIS W/O SPECIFIC [id number] 15:03:00* Test Item Value Reference Range Interpretation [...] = 3257) neg Negative - Negati ve [facility] [id number] 15:03:00* Test Item Value Reference Range Interpretation Comme nts POCT PREG (test code = 1605) Positive On board controls acceptable with C Line (test code = 3574) Yes POCT PREG LOT # (test code = 3575) POCT PREG TEST DATE ( test code = 357) [facility]CIFIC [id number] 15:03:00* Test Item Value Reference Range Interpretation [...] = 3257) neg Negative - Negati ve [facility]. METABOLIC PANEL (43749)2023-01-22 20:06:41* Test Item Value Reference Range Interpretation Comme nts NA (test code = 4161305476) 135 mmol/L 135-145 K (test code = 8388605261) 3.8 mmol/L 3.5-5.0 CL (test code = 2540576647) 100 mmol/L 98-108 CO2 TOTAL (test code = 7051995851) 26 mmol/L 23-31 AGAP (test code = 7667686075) 9 2-16 BUN (test code = 1770048381) 7 mg/dL 7-23 GLUCOSE (test code = 0626791422) 86 mg/dL 70-110 CREATININE (test code = 3788393149) 0.46 mg/dL 0.50-1.04 L TOTAL BILI (test code = 3255916088) 0.5 mg/dL 0.1-1.1 CALCIUM (test code = 2643387142) 9.0 mg/dL 8.6-10.6 T PROTEIN (test code = 5931231640) 7.5 g/dL 6.3-8.2 ALBUMIN (test code = 9144823079) 4.3 g/dL 3.5-5.0 ALK PHOS (test code = 8808665371) 54 U/L 34-122 ALTv (test code = 1742-6) 20 U/L 5-35 AST(SGOT) (test code = 7926700263) 20 U/L 13-40 eGFR (test code = 0769599536) 171.5 mL/min/1.73m2 GARRETT (test code = GARRETT) [...] imaging tests). Lab Interpretation (test code = 05854-4) [facility]normal [facility] 20:06:36* Test Item Value Reference Range Interpretation Comme nts LIPASE (test code = 4180373501) 77 U/L 0-220 Lab Interpretation (test cod e = 60582-2) [facility] [id number] 19:54:35* Test Item Value Reference Range Interpretation Comme nts WBC (test code = 6690-2) 8.02 See_Comment [Automated [employer]] The system which generated this result transmitted [...] 32.5 g/dL 31.6-35.1 RDW-SD (test code = 60400-5) 50.1 fL 39.0-49.9 H RDW-CV (test code = 788-0) 15.9 % 12.0-15.5 H PLT (test code = 777-3) 321 See_Comment [Automated messa ge] The system which generated this result transmitted reference range: 166 - 358 10*3/?L. The reference range was not used to interpret this result as normal/abnormal. MPV (test code = 89467-8) 9.4 fL 9.5-12.9 L NRBC/100 WBC (test code = 6716300694) 0.0 See_Comment [Automated [employer] ssage] The system which generated this result transmitted reference range: 0.0 - 10.0 /100 WBCs. The reference range was not used to interpret this result as normal/abnormal. NRBC x10^3 (test code = 2463023499) See_Comment [Automated messa ge] The system which generated this result transmitted reference range: 10*3/?L. The reference range was not used to interpret this result as normal/abnormal. GRAN MAT (NEUT) % (test code = 770-8) 70.9 % IMM GRAN % (test code = 1089186370) 0.60 % LYMPH % (test code = 736-9) 20.2 % MONO % (test code = 5905-5) 5.7 % EOS % (test code = 713-8) 2.0 % BASO % (test code = 706-2) 0.6 % GRAN MAT x10^3(ANC) (test code = 0515521207) 5.68 10*3/uL 1.88-7.09 IMM GRAN x10^3 (test code = 5126515147) 0.05 10*3/uL 0.00-0.06 LYMPH x10^3 (test code = 731-0) 1.62 10*3/uL 1.32-3.29 MONO x10^3 (test code = 742-7) 0.46 10*3/uL 0.33-0.92 EOS x10^3 (test code = 711-2) 0.16 10*3/uL 0.03-0.39 BASO x10^3 (test code = 704-7) 0.05 10*3/uL 0.01-0.07 Lab Interpretation (test code = 99633-9) Abnormal [facility] Consult Notes Date/Time Note Provider Source 2023-07-26 16:31:53 Associated Order(s): CONSULT FOUNTAIN ATTENDANT-ADULT Reason for consult - please give recommendation or opinion on: Depression, please provide with available resources Thanks Pharmacovigilance Safety Expert Note SW interviewed Harper Sequeira who reportedly resides at [address] [place], [place] [address] [place], [place], [facility] with significant other, Cheikh Murali who presents at hospital for support. MOB stated has car seat and all other necessary items for baby to go home. SO will transport upon discharge. MOB reported received care at [facility] in [place], [place]. MOB plans to follow-up at [facility] in [place], [place]. MOB reported no past mental health history. MOB denies any current depressive symptoms. SW provided educational material on PPD. Signs and symptoms were reviewed, and MOB encouraged to follow-up with PCP if experiencing any signs and symptoms of PPD. Plan: Baby to discharge home with MOB when medically cleared. Meryl So LMSW [facility] Pharmacovigilance Safety Expert [phone] [email or web address] Fri EX TRIMMER Meryl So LMSW [facility] Procedure [...] 0 +1, +2 Divya Olivo APRN, CNM [facility] 2023-07-25 12:21:20 Associated Order(s): Central Neuraxial Block Central Neuraxial Block Date/Time: 07/25/2023 11:42 AM Performed by: Elliott Humphrey MD Authorized by: Bertin Ledesma MBBS End Time: 07/25/2023 12:08 PM Reason for Block: OB request, Patient request, Labor analgesia, Surgical anesthesia and Post-op pain management Staff: Anesthesiologist: Bertin Ledesma MBBS Resident/GUIDANCE COUNSELOR: Adrian Root MD Performed by: resident/GUIDANCE COUNSELOR Preanesthetic Checklist: patient identified, IV checked, risks [...] and catheter Guidance with: landmark technique} Epidural/Spinal [place] and/or Catheter: Epidural/Spinal Kit: BBraun Needle Type: [...] Smooth and atraumatic, (+) Local, (+) STF EX TRIMMER AN-ANESTHESIOLOGY [facility] Notes Date/Time Note Provider Source 2023-11-13 13:24:04 Please have patient follow up with mental health provider, as per the last note pt reports stopped taking meds 10/20 SADAF Olivo 11/13/2023 1:23 PM [facility] 2023-10-21 18:57:01 Pt given printed and verbal [...] accompanied by significant other. Pita Barron RN [facility] 2023-10-21 18:44:03 SAFE-T Protocol with C-SSRS ([place] Risk and Protective Factors) - Recent Identify [...] time of evaluation. Pt reports she called [facility] for intake a week ago,planning to follow up with [facility] for depression [facility] 2023-10-21 14:38:23 Pt states that this morning [...] Denies SI/HI in triage. Sarah Poole RN [facility] 2023-10-16 10:50:43 Pt transferred to clinic. Pt [...] RN 10/16/23 10:49 AM Louise Leyva RN [facility] 2023-10-16 10:47:50 Pt transferred to clinic. Pt [...] RN 10/16/23 10:49 AM Louise Leyva RN [facility] 2023-10-16 10:23:14 Copied from [facility] #[id number]. Topic: Clinical - Medical Advice >> Oct 16, 2023 10:04 AM Patient Universal Grinder [employer] wrote: Harper Sequeira is a 23 year [...] but I try not to" Kourtney Gallagher [facility] 2023-07-26 22:02:12 Problem: Falls, Risk of Goal: [...] Risk Goal: Absence of infection Outcome: Resolved EX TRIMMER Kerry Patel RN [facility] 2023-07-26 16:09:57 Problem: Falls, Risk of Goal: [...] Absence of infection Outcome: Progressing as expected EX TRIMMER Mariia Rock RN [facility] 2023-07-26 16:00:00 Images from the original note [...] Mental health history Anxiety;Depression Literature Resources Resources [employer] channel Education Benefits of breastmilk;Lactogenesis;Benef its of skin to skin contact;Encouraged rooming-in;Pump frequency;Storage of expressed breastmilk Recommended Feeding Plan Recommended feeding plan -- Mom is choosing to continue to formula feed her baby; states may pump or breastfeed once home; denies assistance or needs at this time. OTHER $ SERVICES Initial Yue Leonard RN, BSN, IBCLC EDO Leonard RN [facility] 2023-07-26 05:48:11 Problem: Falls, Risk of Goal: Absence of falls 07/26/2023 0548 by Kerry Patel RN Outcome: [...] Kerry Patel RN Outcome: Progressing as expected [facility] 2023-07-26 02:33:54 Problem: Falls, Risk of Goal: [...] Goal: Reduction in pain sensation Outcome: Resolved [facility] 2023-07-25 21:58:34 DELIVERY BY SPONTANEOUS VAGINAL DELIVERY [...] shoulder and body. After the delivery of infant, bulb suction was performed from ororpharynx and [...] Minute 10 Minute Totals: 8 9 Aneta rGimes MD Obstetrics and Gynecology PGY-1 EX TRIMMER Associated attestation - Shelby Dias MD - 07/25/2023 10:21 PM DUPLEX TRIMMER I was present for the delivery on 07/25/[address] Grimes's note for additional details. Shelby Dias MD -OBSTETRICS & GYNECOLOGY [facility] 2023-07-25 19:52:28 Problem: Intrapartum process (including labor [...] Absence of falls Outcome: Progressing as expected EX TRIMMER [facility] 2023-07-25 18:41:17 Intrapartum Progress Note 07/25/2023 6:41 PM Subjective: Patient has no complaints Objective: Vitals last 24 hours: Temp: [36.7 ?C (98 ?F)-37.1 ?C (98.8 ?F)] 36.7 ?C (98 ?F) Pulse: [77-109] 101 Resp: [15-18] 17 BP: (105-143)/(56-82) 117/72 Intake/Output : I/O this shift: In: 1740.9 [I.V.:13.4] Out: 400 [Urine:400] No intake/output data recorded. Assessment Active movement: Yes Mode: EFM Uterine Activity: Mode: [place] Contractions (number / 10 minute): 4 Contraction [...] has epidural in place. 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 Induction of Labor - SVE: Dilation: 1 / Effacement (%): 75 % / Station: -3 - Mode: [place]: Contractions (number / 10 minute): 3;irrit - Plan: IOL with FB and pitocin. Harper desires epidural before FB placement. Antepartum course reviewed - 1 h 94, sero neg, Ri, VZVni, A+/neg, GBS neg, Pap due PP - H/H, plt: 10.5 / 32.6, 355 on 07/17/23 - [facility] Fetus - Presentation on admission: vertex, sutures palpable - anterior placenta - Kishan 6-6.5# - FHT Category I - Normal anatomy scan Pediatric Pediatric N/A N/A Preoperative Medication Instructions Continue taking all prescribed medications except: SCOTT inhibitors, ARBs, diuretics, all oral diabetes medications Anticoagulant Therapy: Defer to surgeons Insulin: Take 1/2 dose the night prior to surgery. Hold on DOS. Phentermine: Alert [facility] anesthesiologist SGLT2 Inhibitors: "gliflozins" to be [...] Epidural Anesthesia plan discussed with: patient or advertising account representative Post-Operative Analgesia: routine analgesia & antiemetics Recovery Plan: LDR Additional comments: [facility] 2023-07-25 09:10:01 Problem: Intrapartum process (including labor pain) Goal: Absence of or reduction of complications of labor Outcome: Progressing as expected Goal: Able to cope with pain Outcome: Progressing as expected Goal: Adequate to move to next level of care Outcome: Progressing as expected Goal: Reduction in pain sensation Outcome: Progressing as expected EX TRIMMER Guillermo Forbes RN [facility] 2023-07-17 20:00:38 38 weeks juani for a few hours. Water intact. Report to CHERI Ratliff Pt transported to L&D via WC with ED PCT EDO Salas RN [facility] 2023-06-29 13:41:35 Nurse Report Report given to CHERI Maravilla. Chief complaint and assessment findings. Plan of care discussed with both nurses. Marleen Carmona RN [facility] 2023-06-29 13:35:22 CC: patient presents to the [...] amb without assistance. Appears in no distress. EX TRIMMER Marleen Carmona RN [facility] 2023-03-03 14:03:14 Formatting of this n ote might be different from the original. Called patient, notified patient positive for UTI. Educated patient on antibiotics, good perineal hygiene, and increasing fluids. Pt verbalized understanding. ABDOULAYE MONTALVO RN 03/03/2023 2:03 PM Abdoulaye Montalvo RN [facility] 2023-03-03 13:49:09 Formatting of this n ote might be different from the original. Please notify the patient of UTI, meds have been sent to the pharmacy. Please advise the patient on good perineal hygiene, drinking plenty of water, and completing the entire course of treatment. SADAF Olivo 03/03/2023 1:49 PM [facility] 2023-01-22 15:26:40 Formatting of this n ote [...] with steady gait, in no apparent distress, aMry Walden RN [facility] 2023-01-22 13:59:57 Formatting of this n ote might be different from the original. Patient states "I don't know what it is, its the pains right here (points to left upper quadrant). Everytime I am here they can't tell me what it is." Patient c/o left upper quadrant pain that has been ongoing since the beginning of her . Curly Barrios RN [facility] 2023-01-20 11:30:39 Formatting of this n ote might be different from the original. Called pt, pt having pain after er visit at [facility]. Pt reports diagnosed with subchorionic hematoma. Pt denies vaginal bleeding at this time. Pt has hospital records, pt scheduled for same day new ob visit. Pt given strict er warnings and advised to bring records. Pt verbalized understanding. Louise Leyva RN 01/20/23 11:31 AM Louise Leyva RN [facility] 2023-01-20 10:22:46 Formatting of this n ote might be different from the original. Harper Seuqeira is a 22 year old female calling requesting to talk with an nurse went to ER on 01/18 and still having pain getting worse L side of uterus constant and hard to walk around. Please contact patient at [phone] [facility] 2023-01-17 19:08:00 Formatting of this n ote might be different from the original. Regardin weeks :5 days to 1 week feels heart rate beats fast.happened again about 5 to 10 min ago. ----- Message from Betzaida Acosta sent at 01/17/2023 7:07 PM CDT ----- Harper Sequeira is a 22 year old female [facility] 2023-01-17 19:08:00 Formatting of this n ote [...] of care. Pt reports will go to [facility] ER. Pt reports will have to call [...] breathing Protocols used: Heart Rate and Heartbeat [id number] T [facility]
[2024-05-23] MEDS ORDERED: ACETAMINOPHEN 500 MG TAB ONE (16:31)
--- NOTE | 2024-05-23 17:03 | RAD REPORT ---
EXAM: XR RIGHT HAND HISTORY: Pain. PAIN COMPARISON: None TECHNIQUE: Multiple projections of the right hand submitted. FINDINGS: No evidence of acute fracture or dislocation. Joint alignment is maintained. No soft tissu e swelling is seen.. No significant degenerative changes are present. IMPRESSION: No significant bone or joint abnormality.
--- NOTE | 2024-05-23 17:39 | ER ---
Nurse's Notes [facility] Name: Harper Smith Age: 23 yrs Sex: Female : 2000 Arrival Date: 05/23/2024 Time: 15:27 Bed IW1 Private MD: Diagnosis: Contusion of right hand;Pain in right wrist Presentation: 05/23 15:38 Chief complaint: Patient states: R hand pain after punching bathtub today. Coronavirus jl7 screen: Client denies travel out of the [place] in the last 14 days. Ebola Screen: Patient denies exposure to infectious person. Patient denies travel to an Ebola-affected area in the 21 days before illness onset. Initial Sepsis Screen: Does the patient meet any 2 criteria? No. Patient's initial sepsis screen is negative. Does the patient have a suspected source of infection? No. Patient's initial sepsis screen is negative. Risk Assessment: Do you want to hurt yourself or someone else? Patient reports no desire to harm self or others. Onset of symptoms was May 22, 2024. 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 - Infectious Disease History:: Denies. - Social history:: Smoking status: Patient reports the use of cigarette tobacco products, cigars. Screenin:38 Abuse screen: Denies threats or abuse. Denies injuries from another. Nutritional ss screening: No deficits noted. Tuberculosis screening: Never had TB. Assessment: 15:38 General: Appears in no apparent distress. comfortable, Behavior is calm, cooperative. ss Pain: Complains of pain in right hand Pain currently is 3 out of 10 on a pain scale. Is continuous. Neuro: Level of Consciousness is awake, alert, obeys commands. Respiratory: Airway is patent Respiratory effort is even, Respiratory pattern is regular, symmetrical. Derm: Skin is pink, warm \T\ dry. normal. Musculoskeletal: Range of motion: intact in all extremities. Vital Signs: 15:37 BP 124 / 83; Pulse 73; Resp 14; Temp 98.2(TE); Pulse Ox 100% on R/A; Weight 72.57 kg; jl7 Height 5 ft. 2 in. ; Pain 3/10; 15:37 Body Mass Index 29.26 (72.57 kg, 157.48 cm) jl7 15:37 Pain Scale: Adult jl7 ED Course: 15:28 Patient arrived in ED. im 15:38 Patient has correct armband on for positive identification. Bed in low position. ss 15:40 Triage completed. jl7 15:40 Arm band placed on right wrist. jl7 15:48 Neil Patterson PA is PHCP. cp 15:48 Neil Banuelos MD is Attending Physician. cp 16:58 XRAY Hand RIGHT 3 View In Process Unspecified. EDMS 17:37 Felix Stewart MD is Referral Physician. cp 17:45 Ava Rai, RN is Primary Nurse. ss 17:46 No provider procedures requiring assistance completed. Patient did not have IV access ss during this emergency room visit. Velcro wrist splint applied to right wrist. 17:46 pre-formed Velcro thumb spica splint applied to right hand. em1 Administered Medications: 16:36 Drug: Acetaminophen PO 1000 mg PO once Route: PO; jl7 17:46 Follow up: Response: No adverse reaction ss Medication: 15:38 VIS not applicable for this client. ss Outcome: 17:38 Discharge ordered by MD. cp 17:46 Discharged to home ambulatory, ss 17:46 Condition: good 17:46 Discharge instructions given to patient, family, Instructed on discharge instructions, follow up and referral plans. medication usage, Demonstrated understanding of instructions, follow-up care, medications, Prescriptions given X 1, 17:53 Patient left the ED. ss Signatures: Dispatcher [employer] GUNJANMS Thiago Gallagher em1 Ava Rai, RN RN ss Neil Patterson PA PA Barbara Encarnacion RN RN jl7 Nikkie Mckinney Corrections: (The following items were deleted from the chart) 15:41 15:38 Chief complaint: Patient states: R hand pain after punching bathtub yesterday jl7 evening jl7
--- NOTE | 2024-05-23 17:39 | EDPHYS ---
Physician Documentation [facility] Name: Harper Smith Age: 23 yrs Sex: Female : 2000 Arrival Date: 05/23/2024 Time: 15:27 Bed IW1 Private MD: ED Physician Neil Banuelos HPI: 05/23 15:55 This 23 yrs old Female presents to ER via Ambulatory with complaints of Hand Injury - cp right. 15:55 The patient or guardian reports injury, pain. The complaints affect the right hand cp diffusely. 15:55 Context: resulted from punching bath tub today. cp 15:55 Associated signs and symptoms: The patient has no apparent associated signs or symptoms.cp DIRECTOR OF UNDERGRADUATE ADMISSIONS: 15:37 LMP 04/2024, unknown jl7 Historical: - Allergies: 17:52 No Known Allergies; ss - PMHx: 15:40 Asthma; jl7 - Immunization history:: Client reports having NOT received the Covid vaccine. - Infectious Disease History:: Denies. - Social history:: Smoking status: Patient reports the use of cigarette tobacco products, cigars. ROS: 16:00 Constitutional: HX per HPI cp 16:00 MS/extremity: Positive for pain, swelling, tenderness, of the right hand, cp 16:00 Neuro: Negative for numbness, cp 16:00 All other systems are negative, cp Exam: 16:05 Constitutional: The patient appears in no acute distress, alert, awake, well developed, cp well nourished, uncomfortable, 16:05 Head/Face: Normocephalic, atraumatic. cp 16:05 Neck: ROM/movement: is normal, is supple, without pain, no range of motions limitations, 16:05 Back: pain, is absent, ROM is normal, 16:05 Musculoskeletal/extremity: Extremities: grossly normal except: noted in the right hand: pain, tenderness, There is no evidence of skin intact, decreased ROM, deformity, gross swelling, ROM: limited active range of motion due to pain, in the right hand, Pulses: noted to be 2+ in the right radial artery, the right hand Sensation intact. Vital Signs: 15:37 BP 124 / 83; Pulse 73; Resp 14; Temp 98.2(TE); Pulse Ox 100% on R/A; Weight 72.57 kg; jl7 Height 5 ft. 2 in. ; Pain 310; 15:37 Body Mass Index 29.26 (72.57 kg, 157.48 cm) [facility] 15:37 Pain Scale: Adult jl7 MDM: 15:48 Medical Screening Exam initiated cp 16:00 Differential diagnosis: dislocation, open fracture, closed fracture, contusion. cp 17:37 Data reviewed: vital signs, nurses notes, radiologic studies, plain films. cp 17:37 I considered the following discharge prescriptions or medication management in the emergency department Medications were administered in the Emergency Department. See MAR. Independent interpretation of the following test(s) in the Emergency Department X-Ray: My interpretation is images of right hand negative for fracture. Counseling: I had a detailed discussion with the patient and/or guardian regarding the historical points, exam findings, and any diagnostic results supporting the discharge/admit diagnosis, radiology results. 05/23 15:54 Order name: XRAY Hand RIGHT 3 View cp 05/23 17:37 Order name: Wrist Splint: thumb spica; Complete Time: 17:46 cp Administered Medications: 16:36 Drug: Acetaminophen PO 1000 mg PO once Route: PO; [facility] 17:46 Follow up: Response: No adverse reaction ss Disposition Summary: 05/23/24 17:38 Discharge Ordered Notes: Location: Home cp Problem: new cp Symptoms: have improved cp Condition: Stable cp Diagnosis - Contusion of right hand cp - Pain in right wrist cp Followup: cp - With: Felix Stewart MD - When: 1 week - Reason: pain continues Discharge Instructions: - Discharge Summary Sheet cp - Hand Contusion cp - Wrist Pain, Adult cp Forms: - Work release form ss - Medication Reconciliation Form cp - Antibiotic Education cp - Prescription Opioid Use cp - Patient Portal Instructions cp - Leadership Thank You Letter cp Prescriptions: - Ibuprofen 800 mg Oral Tablet - take 1 tablet ORAL route every 8 hours As needed take with food; 30 tablet; cp Refills: 0, Product Selection Permitted Signatures: Dispatcher [employer] Ava Stern RN RN ss Neil Patterson PA PA cp Barbara Stein RN RN jl7
[2024-05-23 20:48] VITALS: BP 124/83; TEMP 98.2; O2SAT 100
== END 2024-05-23 17:53 | disposition home or self-care (01) ==
LOC: ER 15:27
DX: S60.221A Contusion of right hand, initial encounter (principal); M25.531 Pain in right wrist
CPT/HCPCS: 99283

== ENCOUNTER 2024-10-14 20:22 | Emergency (ER) | payer OTHER, SELFPAY ==
--- OUTSIDE RECORDS SUMMARY | 2024-10-14 20:32 | XMS REPORT | Continuity of Care Document ---
Author Name Unknown Address [address] [facility] [address] [place] [address] [facility] [place] Address [address] [facility] [address] [place] [address] Care Team Providers Care Operator Technician Name Role Phone Pcp, Patient Does Not Have A Primary Care Physic jaguar MORELIA GUAMAN Attending Clinician Unavailable Morelia Scruggs Attending Clinician [phone] Doctor Unassigned, Bernard Attending Clinician U MAIA Arteaga Attending Clinician Unavailable Maia Medina Attending Clinician [phone] Unknown, Attending Attending Clinician Unavailab GRECIA Palomino Attending Clinician Unavailable Nurse, [facility] Attending Clinician Un available Grecia Younger MD Attending Clinician [phone] Georgette Dickerson Attending Clinician [phone] GEORGETTE RAMOS Attending Clinician Unavailable GENNY TIAN Attending Clinician Unavail able Genny Aranda Attending Clinician + KAYLEY RADFORD Attending Clinician Unavailable Kayley Yost Attending Clinician [phone] Unknown, Attending Attending Clinician Unavailab Asha Horton Attending Clinician [phone] OMAGHOMI, OMAYEMI Attending Clinician Unavailabl e Akinsipe CNP, Genny C Attending Clinician + BATOOL CABRALES Attending Clinician Unavaila CARLYN Chavarria Attending Clinician Unavailable Kaci MELO, Divya Leon Attending Clinician + Axel CHEMICAL PRODUCTION MACHINE OPERATOR, Carlyn Attending Clinician [phone] Nurse, [facility] Attending Clinician Un available Aren MELO, Grecia Attending Clinician [phone] BLANCA LAMAR Attending Clinician Unavailable BLANCA LAMAR Attending Clinician Unavailable Blanca Lamar MD Attending Clinician [phone] Elliott Humphrey MD Attending Clinician [phone] Jazmyn MELO, Halie Attending Clinician [phone] JENNY DASH Attending Clinician Unavailable Doctor Unassigned, Bernard Attending Clinician U navailable Risk, Ask-Wgfgf-Zh/High Attending Clinician Unav ailable [facility]phon[facility] + [phone] EMILY WERNER Attending Clinician Unavailable ISABELA DUDLEY Attending Clinician ISABELA Newsome Attending Clinician Batool Lopez CNM Attending Clinician [phone] Riri Rosales NP Attending Clinician [phone] RIRI ROSALES Attending Clinician Unavail able TAY VELIZ Attending Clinician Unav ailable Ultrasound, Ang-rupa Attending Clinician Unavaila urban Bryant MD, Tay Attending Clinician + DEANNA YU Attending Clinician Unavailable Alvin Cota MD Attending Clinician [phone] Deanna Yu MD Attending Clinician [phone] GUSTAVO STANTON Attending Clinician Unav ailable Gustavo Stanton MD Attending Clinician + KISHAN RADER Attending Clinician Unavailable Kishan Rader MD Attending Clinician [phone] Obie ALONZO, Jahaira Attending Clinician Unavailab GOGO Mcgill Attending Clinician Unavailable GOGO MCMANUS Attending Clinician Unavailable Gogo Mcmanus MD Attending Clinician [phone] ROYAL BELLA Attending Clinician Unavailable Royal Bella DO Attending Clinician [phone] Dianna Soto RN Attending Clinician Unavailabl e UNKNOWN, ATTENDING Attending Clinician Unavailab CARLYN Villatoro Admitting Clinician Unavailable DEANNA YU Admitting Clinician Unavailable Blanca Lamar MD Admitting Clinician [phone] ISABELA DUDLEY Admitting Clinician Deanna Pena MD Admitting Clinician [phone] Payers Payer Name Policy Type Policy Number Effective Date Expirati on Date Source [employer] [facility] [employer] [id number] 2024 00:00:00 [facility] [id number] 2023 00:00:00 [facility] [id number] 1 00:00:00 Problems Condition Name Condition Details Condition Category Status Onset Date Resolution Date Last Treatment Date Treating Clinician Comments Source Encounter for other general counseling or advice on contracept ion Encounter for other general counseling or advice on contracept ion Disease Active 4-22 00:00: 00 [facility] Other depression Other depression Disease Active 2022-06 0-20 00:00: 00 [facility] History of depression History of depression Disease Active 02-26 00:00: 00 Overview: Formattin g of this note might be different from the original. Not on meds in years [facility] History of marijuana use History of marijuana use Disease Active 02-26 00:00: 00 Overview: Formattin g of this note might be different from the original. Reports quit [facility] Anemia of mother in , antepartum Anemia of mother in , antepartum Disease Resolve d 2022-06 1-30 00:00: 00 2024-01-29 00:00:00 2024-01-29 16:06:39 [facility] (spontaneo us vaginal delivery) (spontaneo us vaginal delivery) Disease Resolve d 2023-0 2-03 00:00: 00 2023-10-13 00:00:00 2023-10-13 16:22:23 [facility] Single live Single live Disease Resolve d 2023-0 2-03 00:00: 00 2023-10-13 00:00:00 2023-10-13 16:22:21 [facility] Single live Single live Disease Resolve d 2023-0 2-03 00:00: 00 2023-10-13 00:00:00 2023-10-13 16:22:21 [facility] 39 weeks gestation of 39 weeks gestation of Disease Resolve d 0 2-02 00:00: 00 2023-10-13 00:00:00 2023-10-13 16:22:07 [facility] Obesity affecting Obesity affecting Disease Resolve d 2-02 00:00: 00 2023-10-13 00:00:00 2023-10-13 16:22:19 [facility] Indication for care in labor or delivery-I OL Indication for care in labor or delivery-I OL Disease Resolve d 2-02 00:00: 00 2023-10-13 00:00:00 2023-10-13 16:22:17 [facility] Heartburn during in third trimester Heartburn during in third trimester Disease Resolve d 1-19 00:00: 00 2023-10-13 00:00:00 2023-10-13 16:22:10 [facility] Susceptibl e varicella Susceptibl e varicella Disease Resolve d 9-07 00:00: 00 2023-10-13 00:00:00 2023-10-13 16:22:37 Overview: Formattin g of this note might be different from the original. Address pp [facility] Supervisio n of high-risk Supervisio n of high-risk Disease Resolve d 9-06 00:00: 00 2023-10-13 00:00:00 2023-10-13 16:22:22 [facility] Multiparit y Multiparit y Disease Resolve d 9-06 00:00: 00 2023-10-13 00:00:00 2023-10-13 16:22:16 [facility] History of miscarriag e History of miscarriag e Disease Resolve d 9-06 00:00: 00 2023-10-13 00:00:00 2023-10-13 16:22:14 [facility] UTI in UTI in Disease Resolve d 9-06 00:00: 00 2023-10-13 00:00:00 2023-10-13 16:22:26 Overview: Formattin g of this note might be different from the original. did not complete meds [facility] Tobacco use in Tobacco use in Disease Resolve d 9-06 00:00: 00 2023-10-13 00:00:00 2023-10-13 16:22:25 Overview: Formattin g of this note might be different from the original. Reports quit in october [facility] Allergies, Adverse Reactions, Alerts Allergy Name Allergy Type Status Severity Reaction(s) Onset Date Inactive Date Treating Clinician Comments Source NO KNOWN ALLERGIE S Drug Class Active [facility] Social History Social Habit Start Date Stop Date Quantity Comments Source ASSERTION 2022-11-08 00:00:00 Not [facility] Gender identity [facility] Tobacco use and exposure 2024-10-04 00:00:00 2024-10-04 00:00:00 Smokeless tobacco non-user [facility] Alcoholic beverage intake 2024-10-04 00:00:00 2024-10-04 00:00:00 Ex-drinker (finding) [facility] History of Social function 2023-10-29 00:00:00 2023-10-29 00:00:00 [facility] Alcohol intake 2023-10-21 00:00:00 2023-10-21 00:00:00 Ex-drinker (finding) [facility] History of tobacco use 2022-10-21 00:00:00 Passive smoker [facility] Sex assigned at 2001 00:00:00 2000 00:00:00 [facility] Smoking Status Start Date Stop Date Source Tobacco smoking consumption unknown [facility] Occasional tobacco smoker 2024-10-04 00:00:00 [facility] Ex-smoker 2023-02-26 00:00:00 2023-02-26 00:00:00 [facility] Medications Ordered Medication Name Filled Medication Name Start Date Stop Date Current Medication? Ordering Clinician Indication Dosage Frequency Signature (SIG) Comments Components Source metroNIDAZO LE 500 mg tablet 10-05 00:00: 00 Yes [id number] 500mg Take 1 tablet by mouth every 12 (twelve) hours. [facility] ondansetron (ZOFRAN-ODT ) disintegrat ing tablet 4 mg 03-12 17:30: 00 03-12 16:24 :00 No [id number] 4mg 4 mg, Oral, ONCE, 1 dose, On Fri03/12/24 at 1230, Routine [facility] bromphenira mine-pseudo ephedrine-D M (BROMFED DM) 2-30-10 mg/5 mL syrup 03-12 00:00: 00 03-23 04:59 :00 No [id number] 10mL Take 10 mL by mouth 4 (four) times daily for 10 days. [facility] ondansetron 4 mg disintegrat ing tablet 03-12 00:00: 00 03-18 04:59 :00 No [id number] 4mg Take 1 tablet by mouth every 8 (eight) hours as needed for Nausea and Vomiting (N/V) for up to 5 days. [facility] norgestimat e-ethinyl estradioL (TRI-SPRINT EC) 0.18/0.215/ 0.25 mg-35 mcg (28) tablet 8-13 00:00: 00 10-05 00:00 :00 No [id number] 1{tbl} Take 1 tablet by mouth in the morning. [facility] norgestimat e-ethinyl estradioL (TRI-SPRINT EC) 0.18/0.215/ 0.25 mg-35 mcg (28) tablet 01-28 00:00: 00 02-02 00:00 :00 No [id number] 1{tbl} Take 1 tablet by mouth in the morning. [facility] triamcinolo ne acetonide 0.1 % ointment 01-08 00:00: 00 01-18 00:00 :00 No [id number] Apply to area(s) 2 (two) times daily for 10 days. [facility] cephALEXin 500 mg capsule 01-08 00:00: 00 01-14 04:59 :00 No [id number] 500mg Take 1 capsule by mouth 4 (four) times daily for 5 days. [facility] fluticasone propionate 50 mcg/actuati on nasal spray 12-02 00:00: 00 10-05 00:00 :00 No [id number] 1{spray } Use 1 [place] in each nostril in the morning. [facility] methylPREDN ISolone (MEDROL, EMILY,) 4 mg tablets 12-02 00:00: 00 01-18 00:00 :00 No [id number] Take by mouth SEE-INSTRU CTIONS. follow package directions [facility] levonorgest rel-ethinyl estradiol (SRONYX) 0.1-20 mg-mcg per tablet 10-28 00:00: 00 01-28 00:00 :00 No [id number] 1{tbl} Take 1 tablet by mouth in the morning. [facility] buPROPion XL (WELLBUTRIN XL) 150 mg 24 hr tablet 10-12 00:00: 00 10-05 00:00 :00 No [id number] 150mg Take 1 tablet by mouth in the morning. [facility] varicella virus vaccine live (VARIVAX) injection and diluent vial 07-26 14:17: 41 Yes 1{each} 0.5 mL (1 Each), Subcutaneo us, ONCE-PRIOR TO DISCHARGE, 1 dose, Starting on 07/26/23 at 0817, Until Discontinu ed, Routine, Give vaccine prior to discharge [facility] rho(D) immune globulin (RHOGAM) syringe 300 mcg 07-26 06:55: 12 Yes 300ug 300 mcg, Intramuscu lar, ONCE, For 1 dose, Conditiona l, Routine [facility] ibuprofen (IBU) tablet 600 mg 07-26 06:55: 09 Yes 600mg 600 mg, Oral, Q6HPRN, Starting on 07/26/23 at 0055, Until Discontinu ed, Routine, Pain (scale 4-6) [facility] acetaminoph en (TYLENOL) tablet 650 mg 07-26 06:55: 09 Yes 650mg 650 mg, Oral, Q6HPRN, Starting on 07/26/23 at 0055, Until Discontinu ed, Routine, Pain (scale 1-3) [facility] diphenhydrA MINE (BENADRYL) tablet 25 mg 07-26 06:55: 09 Yes 25mg 25 mg, Oral, Q6HPRN, Starting on 07/26/23 at 0055, Until Discontinu ed, Routine, Sleep, Itching [facility] ondansetron (ZOFRAN (PF)) injection 4 mg 07-26 06:55: 09 Yes 4mg 4 mg, Slow IV Push, Q8HPRN, Starting on 07/26/23 at 0055, Until Discontinu ed, Routine, Nausea and Vomiting (N/V) [facility] simethicone (GAS RELIEF (SIMETHICON E)) chewable tablet 160 mg 07-26 06:55: 09 Yes 160mg 160 mg, Oral, PC+HSPRN, Starting on 07/26/23 at 0055, Until Discontinu ed, Routine, Gas [facility] docusate (COLACE) capsule 200 mg 07-26 06:55: 09 Yes 200mg 200 mg, Oral, QDAILYPRN, Starting on 07/26/23 at 0055, Until Discontinu ed, Routine, Constipati on [facility] magnesium hydroxide (MILK OF MAGNESIA) 400 mg/5 mL suspension 30 mL 07-26 06:55: 09 Yes 30mL 30 mL, Oral, QDAILYPRN, Starting on 07/26/23 at 0055, Until Discontinu ed, Routine, Constipati on [facility] benzocaine- menthol (DERMOPLAST ) 20-0.5 % topical spray 07-26 06:55: 09 Yes Topical, PRN, Starting on 07/26/23 at 0055, Until Discontinu ed, Routine, Perineum discomfort [facility] oxytocin (PITOCIN) 30 units in NS 500 mL IV infusion 07-26 03:34: 46 Yes 600mL/h 600 mL/hr, IV Infusion, PRN, For post delivery uterine atony., Starting on Fri07/25/[address] at 600 mL/hr for 1 hr then 150 mL/hr for 1 hr.
[facility] oxytocin (PITOCIN) 30 units in NS 500 mL IV infusion 07-26 03:34: 46 Yes 300mL/h 300 mL/hr, IV Infusion, SEE-INSTRU CTIONS, Starting on Fri07/25/[address] at 300 mL/hr for 1 hr then 150 mL/hr for 1 hr. For post delivery uterotonic .
[facility] docusate 100 mg capsule docusate 100 mg capsule 07-26 00:00: 00 10-05 00:00 :00 No [id number] 200mg Take 2 capsules by mouth once daily as needed for Constipati on. [facility] ferrous sulfate 325 mg (65 mg iron) tablet ferrous sulfate 325 mg (65 mg iron) tablet 07-26 00:00: 00 10-05 00:00 :00 No [id number] 325mg Take 1 tablet by mouth in the morning. [facility] ibuprofen 600 mg tablet ibuprofen 600 mg tablet 07-26 00:00: 00 10-05 00:00 :00 No [id number] 600mg Take 1 tablet by mouth every 6 (six) hours as needed (Pain). Take with food or milk. [facility] [id number] fum-folic () 27 mg iron- 1 mg folic tablet 07-26 00:00: 00 01-18 00:00 :00 No [id number] 1{tbl} Take 1 tablet by mouth in the morning. [facility] ropivacaine 0.2 % (NAROPIN (PF)) epidural infusion 07-25 18:09: 00 07-26 04:38 :10 No Epidural, CONTINUOUS PRN, Starting on Fri07/25/23 at 1209, Until Discontinu ed, Routine, Intra-op [facility] lidocaine-e pinephrine (XYLOCAINE W/EPINEPHRI NE) 1.5 %-1:200,000 injection 07-25 18:08: 00 07-26 04:38 :10 No Intraderma l, ONCE INTRA PROCEDURE, Starting on Fri07/25/23 at 1208, Until Discontinu ed, Routine, Intra-op [facility] ondansetron (ZOFRAN (PF)) injection 4 mg 07-25 17:30: 00 07-25 16:32 :00 No 4mg 4 mg, Slow IV Push, ONCE, 1 dose, On Fri07/25/23 at 1130, Routine [facility] sodium citrate-cit he acid (BICITRA) 500-334 mg/5 mL solution 30 mL 07-25 15:49: 39 Yes 30mL 30 mL, Oral, PRE-PROCED URE ONCE, 1 dose, Starting on Fri07/25/23 at 0949, Until Discontinu ed, Routine, Surgery/Pr ocedure [facility] lidocaine 1% (XYLOCAINE) 10 mg/mL (1 %) injection 50 mL 07-25 15:49: 39 Yes 50mL 50 mL, Infiltrati on, PRN - SEE INSTRUCTIO NS, Starting on Fri07/25/23 at 0949, Until Discontinu ed, Routine, Local anesthesia , For laceration repair only as a local anesthetic as indicated. [facility] lidocaine 1% (PF) (XYLOCAINE) injection 0.3 mL 07-25 15:49: 39 Yes .3mL 0.3 mL, Infiltrati on, PRN - SEE INSTRUCTIO NS, Starting on Fri07/25/23 at 0949, Until Discontinu ed, Routine, Local anesthesia , For IV line placement only as a local anesthetic . [facility] lactated ringers IV infusion 500 mL 07-25 15:49: 39 Yes 500mL at 999 mL/hr, 500 mL, IV Infusion, PRN - SEE INSTRUCTIO NS, Starting on Fri07/25/23 at 0949, Until Discontinu ed, Routine [facility] D5W-LR IV infusion 1,000 mL 07-25 15:49: 39 Yes 1000mL at 1-125 mL/hr, IV Infusion, TITRATE, Starting on Fri07/25/23 at 0949, Until Discontinu ed, Routine [facility] famotidine (PEPCID) 20 mg tablet 07-10 00:00: 00 Yes [id number] 20mg Take 1 tablet by mouth in the morning and 1 tablet in the evening. [facility] ferrous sulfate 325 mg (65 mg iron) tablet 2022-06 00:00: 00 07-26 00:00 :00 No [id number] 325mg Take 1 tablet by mouth in the morning and 1 tablet in the evening. [facility] ascorbic acid, vitamin C, 500 mg tablet 2022-06 00:00: 00 07-26 00:00 :00 No [id number] 500mg Take 1 tablet by mouth in the morning and 1 tablet at noon and 1 tablet in the evening. [facility] SERTraline (ZOLOFT) 50 mg tablet 2022-06 00:00: 00 05-21 00:00 :00 No [id number] 50mg Take 1 tablet by mouth in the morning. [facility] COMPLETE DHA 29 mg iron- 1 mg-200 mg combo pack 03-17 00:00: 00 07-26 00:00 :00 No [id number] EVERY DAY IN THE MORNING [facility] PRENATA 29 mg iron- 1 mg per tablet 03-14 00:00: 00 03-17 00:00 :00 No [id number] 1{tbl} TAKE 1 TABLET BY MOUTH EVERY DAY IN THE MORNING [facility] fluconazole (DIFLUCAN) 150 mg tablet 03-14 00:00: 03-15 04:59 :00 No [id number] 150mg Take 1 tablet by mouth ONCE PRN for Itching for up to 1 dose. [facility] Nitrofurant oin&Nit. Macrocryst (MACROBID) 100 mg capsule 03-03 00:00: 00 03-14 04:59 :00 No [id number] 100mg Take 1 capsule by mouth in the morning and 1 capsule in the evening. Do all this for 10 days. [facility] [id number]- folic acid 29 mg iron- 1 mg per tablet 02-26 00:00: 00 03-14 00:00 :00 No [id number] 1{tbl} Take 1 tablet by mouth in the morning. [facility] terconazole 80 mg vaginal suppository 02-26 00:00: 00 03-02 04:59 :00 No [id number] 80mg Insert 1 Suppositor y into vagina at bedtime for 3 days. [facility] ondansetron (ZOFRAN (PF)) injection 4 mg 01-22 20:30: 00 01-22 19:39 :00 No [id number] 4mg 4 mg, Slow IV Push, ONCE, 1 dose, On Fri01/22/23 at 1530, Routine [facility] NaCl 0.9% (NS) bolus infusion 500 mL 01-22 19:30: 00 01-22 20:25 :00 No [id number] 500mL at 999 mL/hr, 500 mL, IV Infusion, ONCE, 1 dose, On Fri01/22/23 at 1430, STAT [facility] cephALEXin (KEFLEX) 500 mg capsule 8-02 00:00: 00 01-30 04:59 :00 No [id number] 500mg Take 1 capsule by mouth in the morning and 1 capsule at noon and 1 capsule in the evening. Do all this for 7 days. [facility] DICLEGIS 10-10 mg per tablet 01-18 00:00: 00 07-11 00:00 :00 No TAKE 2 TABLETS BY MOUTH EVERY DAY AT BEDTIME FOR NAUSEA. [facility] omeprazole 20 mg capsule 01-09 00:00: 00 07-10 00:00 :00 No [facility] cefpodoxime 100 mg tablet 12-23 00:00: 00 07-10 00:00 :00 No TAKE 1 TABLET BY MOUTH EVERY 12 HOURS FOR 7 DAYS. TAKE WITH FOOD. [facility] ELOCON 0.1 % TOPICAL OINT 07-31 00:00: 00 07-11 00:00 :00 No apply to affected regions 2 times/day for 5-7 days [facility] Immunizations Ordered Immunization Name Filled Immunization Name Date Status Comments Source HPV9 2024-10-04 00:00:00 Completed HPV9 2024-01-29 00:00:00 Completed [facility] TDAP 2023-05-21 00:00:00 Completed [facility] Influenza Virus Vaccine Quad IM, Preserv and ABX Free 6 MO-64 YRS (FLUCELVAX) 2023-05-21 00:00:00 Completed Varicella (varivax)(chicken pox) 2007-12-29 00:00:00 Completed [facility] Varicella (varivax)(chicken pox) 2007-12-29 00:00:00 Completed [facility] Varicella (varivax)(chicken pox) 2007-12-29 00:00:00 Completed [facility] Varicella (varivax)(chicken pox) 2007-12-29 00:00:00 Completed Varicella (varivax)(chicken pox) 2007-12-29 00:00:00 Completed [facility] Varicella (varivax)(chicken pox) 2007-12-29 00:00:00 Completed [facility] Varicella (varivax)(chicken pox) 2007-12-29 00:00:00 Completed [facility] HEPATITIS A 2005-09-18 00:00:00 Completed [facility] HEPATITIS A 2005-09-18 00:00:00 Completed [facility] HEPATITIS A 2005-09-18 00:00:00 Completed [facility] HEPATITIS A 2005-09-18 00:00:00 Completed HEPATITIS A 2005-09-18 00:00:00 Completed [facility] HEPATITIS A 2005-09-18 00:00:00 Completed [facility] HEPATITIS A 2005-09-18 00:00:00 Completed [facility] DTAP 2005-06-10 00:00:00 Completed [facility] Pneumococcal 7 Conjugate, PCV7 (Prevnar7) 2005-06-10 00:00:00 Completed [facility] Polio (IPV/OPV) 2005-06-10 00:00:00 Completed [facility] Meningococcal Polysaccharide (groups A, C, Y and W-135) conjugate vaccine (MCV4P) 2005-06-10 00:00:00 Completed [facility] DTAP 2005-06-10 00:00:00 Completed [facility] Pneumococcal 7 Conjugate, PCV7 (Prevnar7) 2005-06-10 00:00:00 Completed [facility] DTAP 2005-06-10 00:00:00 Completed [facility] Polio (IPV/OPV) 2005-06-10 00:00:00 Completed [facility] Meningococcal Polysaccharide (groups A, C, Y and W-135) conjugate vaccine (MCV4P) 2005-06-10 00:00:00 Completed [facility] DTAP 2005-06-10 00:00:00 Completed [facility] Pneumococcal 7 Conjugate, PCV7 (Prevnar7) 2005-06-10 00:00:00 Completed [facility] Polio (IPV/OPV) 2005-06-10 00:00:00 Completed [facility] Meningococcal Polysaccharide (groups A, C, Y and W-135) conjugate vaccine (MCV4P) 2005-06-10 00:00:00 Completed [facility] Pneumococcal 7 Conjugate, PCV7 (Prevnar7) 2005-06-10 00:00:00 Completed [facility] DTAP 2005-06-10 00:00:00 Completed Pneumococcal 7 Conjugate, PCV7 (Prevnar7) 2005-06-10 00:00:00 Completed Polio (IPV/OPV) 2005-06-10 00:00:00 Completed Meningococcal Polysaccharide (groups A, C, Y and W-135) conjugate vaccine (MCV4P) 2005-06-10 00:00:00 Completed Polio (IPV/OPV) 2005-06-10 00:00:00 Completed [facility] Meningococcal Polysaccharide (groups A, C, Y and W-135) conjugate vaccine (MCV4P) 2005-06-10 00:00:00 Completed [facility] DTAP 2005-06-10 00:00:00 Completed [facility] Pneumococcal 7 Conjugate, PCV7 (Prevnar7) 2005-06-10 00:00:00 Completed [facility] Polio (IPV/OPV) 2005-06-10 00:00:00 Completed [facility] Meningococcal Polysaccharide (groups A, C, Y and W-135) conjugate vaccine (MCV4P) 2005-06-10 00:00:00 Completed [facility] DTAP 2005-06-10 00:00:00 Completed [facility] Pneumococcal 7 Conjugate, PCV7 (Prevnar7) 2005-06-10 00:00:00 Completed [facility] Polio (IPV/OPV) 2005-06-10 00:00:00 Completed [facility] Meningococcal Polysaccharide (groups A, C, Y and W-135) conjugate vaccine (MCV4P) 2005-06-10 00:00:00 Completed [facility] HEPATITIS A 2005-02-04 00:00:00 Completed [facility] HEPATITIS A 2005-02-04 00:00:00 Completed [facility] HEPATITIS A 2005-02-04 00:00:00 Completed [facility] HEPATITIS A 2005-02-04 00:00:00 Completed HEPATITIS A 2005-02-04 00:00:00 Completed [facility] HEPATITIS A 2005-02-04 00:00:00 Completed [facility] HEPATITIS A 2005-02-04 00:00:00 Completed [facility] Varicella (varivax)(chicken pox) 2002-10-18 00:00:00 Completed [facility] DTAP 2002-10-18 00:00:00 Completed [facility] DTAP 2002-10-18 00:00:00 Completed [facility] Varicella (varivax)(chicken pox) 2002-10-18 00:00:00 Completed [facility] DTAP 2002-10-18 00:00:00 Completed [facility] Varicella (varivax)(chicken pox) 2002-10-18 00:00:00 Completed [facility] DTAP 2002-10-18 00:00:00 Completed Varicella (varivax)(chicken pox) 2002-10-18 00:00:00 Completed Varicella (varivax)(chicken pox) 2002-10-18 00:00:00 Completed [facility] DTAP 2002-10-18 00:00:00 Completed [facility] Varicella (varivax)(chicken pox) 2002-10-18 00:00:00 Completed [facility] DTAP 2002-10-18 00:00:00 Completed [facility] Varicella (varivax)(chicken pox) 2002-10-18 00:00:00 Completed [facility] DTAP 2002-10-18 00:00:00 Completed [facility] HIB 4 Dose Schedule 2002-06-11 00:00:00 Completed [facility] Polio (IPV/OPV) 2002-06-11 00:00:00 Completed [facility] Meningococcal Polysaccharide (groups A, C, Y and W-135) conjugate vaccine (MCV4P) 2002-06-11 00:00:00 Completed [facility] HIB 4 Dose Schedule 2002-06-11 00:00:00 Completed [facility] Polio (IPV/OPV) 2002-06-11 00:00:00 Completed [facility] Meningococcal Polysaccharide (groups A, C, Y and W-135) conjugate vaccine (MCV4P) 2002-06-11 00:00:00 Completed [facility] HIB 4 Dose Schedule 2002-06-11 00:00:00 Completed [facility] Polio (IPV/OPV) 2002-06-11 00:00:00 Completed [facility] Meningococcal Polysaccharide (groups A, C, Y and W-135) conjugate vaccine (MCV4P) 2002-06-11 00:00:00 Completed [facility] HIB 4 Dose Schedule 2002-06-11 00:00:00 Completed [facility] Polio (IPV/OPV) 2002-06-11 00:00:00 Completed [facility] HIB 4 Dose Schedule 2002-06-11 00:00:00 Completed Polio (IPV/OPV) 2002-06-11 00:00:00 Completed Meningococcal Polysaccharide (groups A, C, Y and W-135) conjugate vaccine (MCV4P) 2002-06-11 00:00:00 Completed Meningococcal Polysaccharide (groups A, C, Y and W-135) conjugate vaccine (MCV4P) 2002-06-11 00:00:00 Completed [facility] HIB 4 Dose Schedule 2002-06-11 00:00:00 Completed [facility] Polio (IPV/OPV) 2002-06-11 00:00:00 Completed [facility] Meningococcal Polysaccharide (groups A, C, Y and W-135) conjugate vaccine (MCV4P) 2002-06-11 00:00:00 Completed [facility] HIB 4 Dose Schedule 2002-06-11 00:00:00 Completed [facility] Polio (IPV/OPV) 2002-06-11 00:00:00 Completed [facility] Meningococcal Polysaccharide (groups A, C, Y and W-135) conjugate vaccine (MCV4P) 2002-06-11 00:00:00 Completed [facility] Hep B, Adol or Pedi Dosage 2002-01-06 00:00:00 Completed [facility] HIB 4 Dose Schedule 2002-01-06 00:00:00 Completed [facility] DTAP 2002-01-06 00:00:00 Completed [facility] DTAP 2002-01-06 00:00:00 Completed [facility] Hep B, Adol or Pedi Dosage 2002-01-06 00:00:00 Completed [facility] HIB 4 Dose Schedule 2002-01-06 00:00:00 Completed [facility] Hep B, Adol or Pedi Dosage 2002-01-06 00:00:00 Completed [facility] DTAP 2002-01-06 00:00:00 Completed [facility] Hep B, Adol or Pedi Dosage 2002-01-06 00:00:00 Completed [facility] HIB 4 Dose Schedule 2002-01-06 00:00:00 Completed [facility] HIB 4 Dose Schedule 2002-01-06 00:00:00 Completed [facility] DTAP 2002-01-06 00:00:00 Completed Hep B, Adol or Pedi Dosage 2002-01-06 00:00:00 Completed HIB 4 Dose Schedule 2002-01-06 00:00:00 Completed DTAP 2002-01-06 00:00:00 Completed [facility] Hep B, Adol or Pedi Dosage 2002-01-06 00:00:00 Completed [facility] HIB 4 Dose Schedule 2002-01-06 00:00:00 Completed [facility] DTAP 2002-01-06 00:00:00 Completed [facility] Hep B, Adol or Pedi Dosage 2002-01-06 00:00:00 Completed [facility] HIB 4 Dose Schedule 2002-01-06 00:00:00 Completed [facility] DTAP 2002-01-06 00:00:00 Completed [facility] HIB 4 Dose Schedule 2001 00:00:00 Completed [facility] Pneumococcal 7 Conjugate, PCV7 (Prevnar7) 2001 00:00:00 Completed [facility] Polio (IPV/OPV) 2001 00:00:00 Completed [facility] DTAP 2001 00:00:00 Completed [facility] DTAP 2001 00:00:00 Completed [facility] HIB 4 Dose Schedule 2001 00:00:00 Completed [facility] Pneumococcal 7 Conjugate, PCV7 (Prevnar7) 2001 00:00:00 Completed [facility] Polio (IPV/OPV) 2001 00:00:00 Completed [facility] DTAP 2001 00:00:00 Completed [facility] HIB 4 Dose Schedule 2001 00:00:00 Completed [facility] HIB 4 Dose Schedule 2001 00:00:00 Completed [facility] Pneumococcal 7 Conjugate, PCV7 (Prevnar7) 2001 00:00:00 Completed [facility] Polio (IPV/OPV) 2001 00:00:00 Completed [facility] Pneumococcal 7 Conjugate, PCV7 (Prevnar7) 2001 00:00:00 Completed [facility] Polio (IPV/OPV) 2001 00:00:00 Completed [facility] DTAP 2001 00:00:00 Completed HIB 4 Dose Schedule 2001 00:00:00 Completed Pneumococcal 7 Conjugate, PCV7 (Prevnar7) 2001 00:00:00 Completed Polio (IPV/OPV) 2001 00:00:00 Completed DTAP 2001 00:00:00 Completed [facility] HIB 4 Dose Schedule 2001 00:00:00 Completed [facility] Pneumococcal 7 Conjugate, PCV7 (Prevnar7) 2001 00:00:00 Completed [facility] Polio (IPV/OPV) 2001 00:00:00 Completed [facility] DTAP 2001 00:00:00 Completed [facility] HIB 4 Dose Schedule 2001 00:00:00 Completed [facility] Pneumococcal 7 Conjugate, PCV7 (Prevnar7) 2001 00:00:00 Completed [facility] Polio (IPV/OPV) 2001 00:00:00 Completed [facility] DTAP 2001 00:00:00 Completed [facility] HIB 4 Dose Schedule 2001 00:00:00 Completed [facility] HIB 4 Dose Schedule 2001 00:00:00 Completed [facility] HIB 4 Dose Schedule 2001 00:00:00 Completed [facility] HIB 4 Dose Schedule 2001 00:00:00 Completed [facility] HIB 4 Dose Schedule 2001 00:00:00 Completed HIB 4 Dose Schedule 2001 00:00:00 Completed [facility] HIB 4 Dose Schedule 2001 00:00:00 Completed [facility] Hep B, Adol or Pedi Dosage 2001 00:00:00 Completed [facility] Pneumococcal 7 Conjugate, PCV7 (Prevnar7) 2001 00:00:00 Completed [facility] Polio (IPV/OPV) 2001 00:00:00 Completed [facility] DTAP 2001 00:00:00 Completed [facility] DTAP 2001 00:00:00 Completed [facility] Hep B, Adol or Pedi Dosage 2001 00:00:00 Completed [facility] Pneumococcal 7 Conjugate, PCV7 (Prevnar7) 2001 00:00:00 Completed [facility] Polio (IPV/OPV) 2001 00:00:00 Completed [facility] Hep B, Adol or Pedi Dosage 2001 00:00:00 Completed [facility] DTAP 2001 00:00:00 Completed [facility] Hep B, Adol or Pedi Dosage 2001 00:00:00 Completed [facility] Pneumococcal 7 Conjugate, PCV7 (Prevnar7) 2001 00:00:00 Completed [facility] Polio (IPV/OPV) 2001 00:00:00 Completed [facility] Pneumococcal 7 Conjugate, PCV7 (Prevnar7) 2001 00:00:00 Completed [facility] Polio (IPV/OPV) 2001 00:00:00 Completed [facility] DTAP 2001 00:00:00 Completed [facility] Hep B, Adol or Pedi Dosage 2001 00:00:00 Completed Pneumococcal 7 Conjugate, PCV7 (Prevnar7) 2001 00:00:00 Completed Polio (IPV/OPV) 2001 00:00:00 Completed DTAP 2001 00:00:00 Completed [facility] Hep B, Adol or Pedi Dosage 2001 00:00:00 Completed [facility] DTAP 2001 00:00:00 Completed [facility] Pneumococcal 7 Conjugate, PCV7 (Prevnar7) 2001 00:00:00 Completed [facility] Polio (IPV/OPV) 2001 00:00:00 Completed [facility] Hep B, Adol or Pedi Dosage 2001 00:00:00 Completed [facility] Pneumococcal 7 Conjugate, PCV7 (Prevnar7) 2001 00:00:00 Completed [facility] Polio (IPV/OPV) 2001 00:00:00 Completed [facility] DTAP 2001 00:00:00 Completed [facility] Hep B, Adol or Pedi Dosage 2001 00:00:00 Completed [facility] Hep B, Adol or Pedi Dosage 2001 00:00:00 Completed [facility] Hep B, Adol or Pedi Dosage 2001 00:00:00 Completed [facility] Hep B, Adol or Pedi Dosage 2001 00:00:00 Completed [facility] Hep B, Adol or Pedi Dosage 2001 00:00:00 Completed Hep B, Adol or Pedi Dosage 2001 00:00:00 Completed [facility] Hep B, Adol or Pedi Dosage 2001 00:00:00 Completed [facility] DTAP Unknown Completed [facility] Hep B, Adol or Pedi Dosage Unknown Completed [facility] HIB 4 Dose Schedule Unknown Completed [facility] Pneumococcal 7 Conjugate, PCV7 (Prevnar7) Unknown Completed [facility] Polio (IPV/OPV) Unknown Completed [facility] HEPATITIS A Unknown Completed [facility] Meningococcal Polysaccharide (groups A, C, Y and W-135) conjugate vaccine (MCV4P) Unknown Completed [facility] Varicella (varivax)(chicken pox) Unknown Completed [facility] TDAP Unknown Completed [facility] Influenza Virus Vaccine Quad IM, Preserv and ABX Free 6 MO-64 YRS (FLUCELVAX) Unknown Completed [facility] TDAP Unknown Completed [facility] Influenza Virus Vaccine Quad IM, Preserv and ABX Free 6 MO-64 YRS (FLUCELVAX) Unknown Completed [facility] DTAP Unknown Completed [facility] Hep B, Adol or Pedi Dosage Unknown Completed [facility] HIB 4 Dose Schedule Unknown Completed [facility] Pneumococcal 7 Conjugate, PCV7 (Prevnar7) Unknown Completed [facility] Polio (IPV/OPV) Unknown Completed [facility] HEPATITIS A Unknown Completed [facility] Meningococcal Polysaccharide (groups A, C, Y and W-135) conjugate vaccine (MCV4P) Unknown Completed [facility] Varicella (varivax)(chicken pox) Unknown Completed [facility] DTAP Unknown Completed [facility] Hep B, Adol or Pedi Dosage Unknown Completed [facility] HIB 4 Dose Schedule Unknown Completed [facility] Pneumococcal 7 Conjugate, PCV7 (Prevnar7) Unknown Completed [facility] Polio (IPV/OPV) Unknown Completed [facility] HEPATITIS A Unknown Completed [facility] Meningococcal Polysaccharide (groups A, C, Y and W-135) conjugate vaccine (MCV4P) Unknown Completed [facility] Varicella (varivax)(chicken pox) Unknown Completed [facility] TDAP Unknown Completed [facility] Influenza Virus Vaccine Quad IM, Preserv and ABX Free 6 MO-64 YRS (FLUCELVAX) Unknown Completed [facility] DTAP Unknown Completed [facility] Hep B, Adol or Pedi Dosage Unknown Completed [facility] HIB 4 Dose Schedule Unknown Completed [facility] Pneumococcal 7 Conjugate, PCV7 (Prevnar7) Unknown Completed [facility] Polio (IPV/OPV) Unknown Completed [facility] HEPATITIS A Unknown Completed [facility] Meningococcal Polysaccharide (groups A, C, Y and W-135) conjugate vaccine (MCV4P) Unknown Completed [facility] Varicella (varivax)(chicken pox) Unknown Completed [facility] TDAP Unknown Completed [facility] Influenza Virus Vaccine Quad IM, Preserv and ABX Free 6 MO-64 YRS (FLUCELVAX) Unknown Completed [facility] DTAP Unknown Completed [facility] Hep B, Adol or Pedi Dosage Unknown Completed [facility] HIB 4 Dose Schedule Unknown Completed [facility] Pneumococcal 7 Conjugate, PCV7 (Prevnar7) Unknown Completed [facility] Polio (IPV/OPV) Unknown Completed [facility] HEPATITIS A Unknown Completed [facility] Meningococcal Polysaccharide (groups A, C, Y and W-135) conjugate vaccine (MCV4P) Unknown Completed [facility] Varicella (varivax)(chicken pox) Unknown Completed [facility] TDAP Unknown Completed [facility] Influenza Virus Vaccine Quad IM, Preserv and ABX Free 6 MO-64 YRS (FLUCELVAX) Unknown Completed [facility] TDAP Unknown Completed [facility] Influenza Virus Vaccine Quad IM, Preserv and ABX Free 6 MO-64 YRS (FLUCELVAX) Unknown Completed [facility] DTAP Unknown Completed [facility] Hep B, Adol or Pedi Dosage Unknown Completed [facility] HIB 4 Dose Schedule Unknown Completed [facility] Pneumococcal 7 Conjugate, PCV7 (Prevnar7) Unknown Completed [facility] Polio (IPV/OPV) Unknown Completed [facility] HEPATITIS A Unknown Completed [facility] Meningococcal Polysaccharide (groups A, C, Y and W-135) conjugate vaccine (MCV4P) Unknown Completed [facility] Varicella (varivax)(chicken pox) Unknown Completed [facility] DTAP Unknown Completed [facility] Hep B, Adol or Pedi Dosage Unknown Completed [facility] HIB 4 Dose Schedule Unknown Completed [facility] Pneumococcal 7 Conjugate, PCV7 (Prevnar7) Unknown Completed [facility] Polio (IPV/OPV) Unknown Completed [facility] HEPATITIS A Unknown Completed [facility] Meningococcal Polysaccharide (groups A, C, Y and W-135) conjugate vaccine (MCV4P) Unknown Completed [facility] Varicella (varivax)(chicken pox) Unknown Completed [facility] TDAP Unknown Completed [facility] Influenza Virus Vaccine Quad IM, Preserv and ABX Free 6 MO-64 YRS (FLUCELVAX) Unknown Completed [facility] DTAP Unknown Completed [facility] Hep B, Adol or Pedi Dosage Unknown Completed [facility] HIB 4 Dose Schedule Unknown Completed [facility] Pneumococcal 7 Conjugate, PCV7 (Prevnar7) Unknown Completed [facility] Polio (IPV/OPV) Unknown Completed [facility] HEPATITIS A Unknown Completed [facility] Meningococcal Polysaccharide (groups A, C, Y and W-135) conjugate vaccine (MCV4P) Unknown Completed [facility] Varicella (varivax)(chicken pox) Unknown Completed [facility] TDAP Unknown Completed [facility] Influenza Virus Vaccine Quad IM, Preserv and ABX Free 6 MO-64 YRS (FLUCELVAX) Unknown Completed [facility] DTAP Unknown Completed [facility] Hep B, Adol or Pedi Dosage Unknown Completed [facility] HIB 4 Dose Schedule Unknown Completed [facility] Pneumococcal 7 Conjugate, PCV7 (Prevnar7) Unknown Completed [facility] Polio (IPV/OPV) Unknown Completed [facility] HEPATITIS A Unknown Completed [facility] Meningococcal Polysaccharide (groups A, C, Y and W-135) conjugate vaccine (MCV4P) Unknown Completed [facility] Varicella (varivax)(chicken pox) Unknown Completed [facility] TDAP Unknown Completed [facility] Influenza Virus Vaccine Quad IM, Preserv and ABX Free 6 MO-64 YRS (FLUCELVAX) Unknown Completed [facility] DTAP Unknown Completed [facility] Hep B, Adol or Pedi Dosage Unknown Completed [facility] HIB 4 Dose Schedule Unknown Completed [facility] Pneumococcal 7 Conjugate, PCV7 (Prevnar7) Unknown Completed [facility] Polio (IPV/OPV) Unknown Completed [facility] HEPATITIS A Unknown Completed [facility] Meningococcal Polysaccharide (groups A, C, Y and W-135) conjugate vaccine (MCV4P) Unknown Completed [facility] Varicella (varivax)(chicken pox) Unknown Completed [facility] TDAP Unknown Completed [facility] Influenza Virus Vaccine Quad IM, Preserv and ABX Free 6 MO-64 YRS (FLUCELVAX) Unknown Completed [facility] DTAP Unknown Completed [facility] Hep B, Adol or Pedi Dosage Unknown Completed [facility] HIB 4 Dose Schedule Unknown Completed [facility] Pneumococcal 7 Conjugate, PCV7 (Prevnar7) Unknown Completed [facility] Polio (IPV/OPV) Unknown Completed [facility] HEPATITIS A Unknown Completed [facility] Meningococcal Polysaccharide (groups A, C, Y and W-135) conjugate vaccine (MCV4P) Unknown Completed [facility] Varicella (varivax)(chicken pox) Unknown Completed [facility] TDAP Unknown Completed [facility] Influenza Virus Vaccine Quad IM, Preserv and ABX Free 6 MO-64 YRS (FLUCELVAX) Unknown Completed [facility] DTAP Unknown Completed [facility] Hep B, Adol or Pedi Dosage Unknown Completed [facility] HIB 4 Dose Schedule Unknown Completed [facility] Pneumococcal 7 Conjugate, PCV7 (Prevnar7) Unknown Completed [facility] Polio (IPV/OPV) Unknown Completed [facility] HEPATITIS A Unknown Completed [facility] Meningococcal Polysaccharide (groups A, C, Y and W-135) conjugate vaccine (MCV4P) Unknown Completed [facility] Varicella (varivax)(chicken pox) Unknown Completed [facility] TDAP Unknown Completed [facility] Influenza Virus Vaccine Quad IM, Preserv and ABX Free 6 MO-64 YRS (FLUCELVAX) Unknown Completed [facility] TDAP Unknown Completed [facility] Influenza Virus Vaccine Quad IM, Preserv and ABX Free 6 MO-64 YRS (FLUCELVAX) Unknown Completed [facility] DTAP Unknown Completed [facility] Hep B, Adol or Pedi Dosage Unknown Completed [facility] HIB 4 Dose Schedule Unknown Completed [facility] Pneumococcal 7 Conjugate, PCV7 (Prevnar7) Unknown Completed [facility] Polio (IPV/OPV) Unknown Completed [facility] HEPATITIS A Unknown Completed [facility] Meningococcal Polysaccharide (groups A, C, Y and W-135) conjugate vaccine (MCV4P) Unknown Completed [facility] Varicella (varivax)(chicken pox) Unknown Completed [facility] DTAP Unknown Completed [facility] Hep B, Adol or Pedi Dosage Unknown Completed [facility] HIB 4 Dose Schedule Unknown Completed [facility] Pneumococcal 7 Conjugate, PCV7 (Prevnar7) Unknown Completed [facility] Polio (IPV/OPV) Unknown Completed [facility] HEPATITIS A Unknown Completed [facility] Meningococcal Polysaccharide (groups A, C, Y and W-135) conjugate vaccine (MCV4P) Unknown Completed [facility] Varicella (varivax)(chicken pox) Unknown Completed [facility] TDAP Unknown Completed [facility] Influenza Virus Vaccine Quad IM, Preserv and ABX Free 6 MO-64 YRS (FLUCELVAX) Unknown Completed [facility] DTAP Unknown Completed [facility] Hep B, Adol or Pedi Dosage Unknown Completed [facility] HIB 4 Dose Schedule Unknown Completed [facility] Pneumococcal 7 Conjugate, PCV7 (Prevnar7) Unknown Completed [facility] Polio (IPV/OPV) Unknown Completed [facility] HEPATITIS A Unknown Completed [facility] Meningococcal Polysaccharide (groups A, C, Y and W-135) conjugate vaccine (MCV4P) Unknown Completed [facility] Varicella (varivax)(chicken pox) Unknown Completed [facility] TDAP Unknown Completed [facility] Influenza Virus Vaccine Quad IM, Preserv and ABX Free 6 MO-64 YRS (FLUCELVAX) Unknown Completed [facility] DTAP Unknown Completed [facility] Hep B, Adol or Pedi Dosage Unknown Completed [facility] HIB 4 Dose Schedule Unknown Completed [facility] Pneumococcal 7 Conjugate, PCV7 (Prevnar7) Unknown Completed [facility] Polio (IPV/OPV) Unknown Completed [facility] HEPATITIS A Unknown Completed [facility] Meningococcal Polysaccharide (groups A, C, Y and W-135) conjugate vaccine (MCV4P) Unknown Completed [facility] Varicella (varivax)(chicken pox) Unknown Completed [facility] TDAP Unknown Completed [facility] Influenza Virus Vaccine Quad IM, Preserv and ABX Free 6 MO-64 YRS (FLUCELVAX) Unknown Completed [facility] DTAP Unknown Completed [facility] Hep B, Adol or Pedi Dosage Unknown Completed [facility] HIB 4 Dose Schedule Unknown Completed [facility] Pneumococcal 7 Conjugate, PCV7 (Prevnar7) Unknown Completed [facility] Polio (IPV/OPV) Unknown Completed [facility] HEPATITIS A Unknown Completed [facility] Meningococcal Polysaccharide (groups A, C, Y and W-135) conjugate vaccine (MCV4P) Unknown Completed [facility] Varicella (varivax)(chicken pox) Unknown Completed [facility] TDAP Unknown Completed [facility] Influenza Virus Vaccine Quad IM, Preserv and ABX Free 6 MO-64 YRS (FLUCELVAX) Unknown Completed [facility] DTAP Unknown Completed [facility] Hep B, Adol or Pedi Dosage Unknown Completed [facility] HIB 4 Dose Schedule Unknown Completed [facility] Pneumococcal 7 Conjugate, PCV7 (Prevnar7) Unknown Completed [facility] Polio (IPV/OPV) Unknown Completed [facility] HEPATITIS A Unknown Completed [facility] Meningococcal Polysaccharide (groups A, C, Y and W-135) conjugate vaccine (MCV4P) Unknown Completed [facility] Varicella (varivax)(chicken pox) Unknown Completed [facility] TDAP Unknown Completed [facility] Influenza Virus Vaccine Quad IM, Preserv and ABX Free 6 MO-64 YRS (FLUCELVAX) Unknown Completed [facility] DTAP Unknown Completed [facility] Hep B, Adol or Pedi Dosage Unknown Completed [facility] HIB 4 Dose Schedule Unknown Completed [facility] Pneumococcal 7 Conjugate, PCV7 (Prevnar7) Unknown Completed [facility] Polio (IPV/OPV) Unknown Completed [facility] HEPATITIS A Unknown Completed [facility] Meningococcal Polysaccharide (groups A, C, Y and W-135) conjugate vaccine (MCV4P) Unknown Completed [facility] Varicella (varivax)(chicken pox) Unknown Completed [facility] TDAP Unknown Completed [facility] Influenza Virus Vaccine Quad IM, Preserv and ABX Free 6 MO-64 YRS (FLUCELVAX) Unknown Completed [facility] TDAP Unknown Completed [facility] Influenza Virus Vaccine Quad IM, Preserv and ABX Free 6 MO-64 YRS (FLUCELVAX) Unknown Completed [facility] DTAP Unknown Completed [facility] Hep B, Adol or Pedi Dosage Unknown Completed [facility] HIB 4 Dose Schedule Unknown Completed [facility] Pneumococcal 7 Conjugate, PCV7 (Prevnar7) Unknown Completed [facility] Polio (IPV/OPV) Unknown Completed [facility] HEPATITIS A Unknown Completed [facility] Meningococcal Polysaccharide (groups A, C, Y and W-135) conjugate vaccine (MCV4P) Unknown Completed [facility] Varicella (varivax)(chicken pox) Unknown Completed [facility] TDAP Unknown Completed [facility] Influenza Virus Vaccine Quad IM, Preserv and ABX Free 6 MO-64 YRS (FLUCELVAX) Unknown Completed [facility] DTAP Unknown Completed [facility] Hep B, Adol or Pedi Dosage Unknown Completed [facility] HIB 4 Dose Schedule Unknown Completed [facility] Pneumococcal 7 Conjugate, PCV7 (Prevnar7) Unknown Completed [facility] Polio (IPV/OPV) Unknown Completed [facility] HEPATITIS A Unknown Completed [facility] Meningococcal Polysaccharide (groups A, C, Y and W-135) conjugate vaccine (MCV4P) Unknown Completed [facility] Varicella (varivax)(chicken pox) Unknown Completed [facility] DTAP Unknown Completed [facility] Hep B, Adol or Pedi Dosage Unknown Completed [facility] HIB 4 Dose Schedule Unknown Completed [facility] Pneumococcal 7 Conjugate, PCV7 (Prevnar7) Unknown Completed [facility] Polio (IPV/OPV) Unknown Completed [facility] HEPATITIS A Unknown Completed [facility] Meningococcal Polysaccharide (groups A, C, Y and W-135) conjugate vaccine (MCV4P) Unknown Completed [facility] Varicella (varivax)(chicken pox) Unknown Completed [facility] TDAP Unknown Completed [facility] Influenza Virus Vaccine Quad IM, Preserv and ABX Free 6 MO-64 YRS (FLUCELVAX) Unknown Completed [facility] TDAP Unknown Completed [facility] Influenza Virus Vaccine Quad IM, Preserv and ABX Free 6 MO-64 YRS (FLUCELVAX) Unknown Completed [facility] DTAP Unknown Completed [facility] Hep B, Adol or Pedi Dosage Unknown Completed [facility] HIB 4 Dose Schedule Unknown Completed [facility] Pneumococcal 7 Conjugate, PCV7 (Prevnar7) Unknown Completed [facility] Polio (IPV/OPV) Unknown Completed [facility] HEPATITIS A Unknown Completed [facility] Meningococcal Polysaccharide (groups A, C, Y and W-135) conjugate vaccine (MCV4P) Unknown Completed [facility] Varicella (varivax)(chicken pox) Unknown Completed [facility] DTAP Unknown Completed [facility] Hep B, Adol or Pedi Dosage Unknown Completed [facility] HIB 4 Dose Schedule Unknown Completed [facility] Pneumococcal 7 Conjugate, PCV7 (Prevnar7) Unknown Completed [facility] Polio (IPV/OPV) Unknown Completed [facility] HEPATITIS A Unknown Completed [facility] Meningococcal Polysaccharide (groups A, C, Y and W-135) conjugate vaccine (MCV4P) Unknown Completed [facility] Varicella (varivax)(chicken pox) Unknown Completed [facility] TDAP Unknown Completed [facility] Influenza Virus Vaccine Quad IM, Preserv and ABX Free 6 MO-64 YRS (FLUCELVAX) Unknown Completed [facility] DTAP Unknown Completed [facility] Hep B, Adol or Pedi Dosage Unknown Completed [facility] HIB 4 Dose Schedule Unknown Completed [facility] Pneumococcal 7 Conjugate, PCV7 (Prevnar7) Unknown Completed [facility] Polio (IPV/OPV) Unknown Completed [facility] HEPATITIS A Unknown Completed [facility] Meningococcal Polysaccharide (groups A, C, Y and W-135) conjugate vaccine (MCV4P) Unknown Completed [facility] Varicella (varivax)(chicken pox) Unknown Completed [facility] TDAP Unknown Completed [facility] Influenza Virus Vaccine Quad IM, Preserv and ABX Free 6 MO-64 YRS (FLUCELVAX) Unknown Completed [facility] DTAP Unknown Completed [facility] Hep B, Adol or Pedi Dosage Unknown Completed [facility] HIB 4 Dose Schedule Unknown Completed [facility] Pneumococcal 7 Conjugate, PCV7 (Prevnar7) Unknown Completed [facility] Polio (IPV/OPV) Unknown Completed [facility] HEPATITIS A Unknown Completed [facility] Meningococcal Polysaccharide (groups A, C, Y and W-135) conjugate vaccine (MCV4P) Unknown Completed [facility] Varicella (varivax)(chicken pox) Unknown Completed [facility] TDAP Unknown Completed [facility] Influenza Virus Vaccine Quad IM, Preserv and ABX Free 6 MO-64 YRS (FLUCELVAX) Unknown Completed [facility] DTAP Unknown Completed [facility] Hep B, Adol or Pedi Dosage Unknown Completed [facility] HIB 4 Dose Schedule Unknown Completed [facility] Pneumococcal 7 Conjugate, PCV7 (Prevnar7) Unknown Completed [facility] Polio (IPV/OPV) Unknown Completed [facility] HEPATITIS A Unknown Completed [facility] Meningococcal Polysaccharide (groups A, C, Y and W-135) conjugate vaccine (MCV4P) Unknown Completed [facility] Varicella (varivax)(chicken pox) Unknown Completed [facility] TDAP Unknown Completed [facility] Influenza Virus Vaccine Quad IM, Preserv and ABX Free 6 MO-64 YRS (FLUCELVAX) Unknown Completed [facility] DTAP Unknown Completed [facility] Hep B, Adol or Pedi Dosage Unknown Completed [facility] HIB 4 Dose Schedule Unknown Completed [facility] Pneumococcal 7 Conjugate, PCV7 (Prevnar7) Unknown Completed [facility] Polio (IPV/OPV) Unknown Completed [facility] HEPATITIS A Unknown Completed [facility] Meningococcal Polysaccharide (groups A, C, Y and W-135) conjugate vaccine (MCV4P) Unknown Completed [facility] Varicella (varivax)(chicken pox) Unknown Completed [facility] TDAP Unknown Completed [facility] Influenza Virus Vaccine Quad IM, Preserv and ABX Free 6 MO-64 YRS (FLUCELVAX) Unknown Completed [facility] DTAP Unknown Completed [facility] Hep B, Adol or Pedi Dosage Unknown Completed [facility] HIB 4 Dose Schedule Unknown Completed [facility] Pneumococcal 7 Conjugate, PCV7 (Prevnar7) Unknown Completed [facility] Polio (IPV/OPV) Unknown Completed [facility] HEPATITIS A Unknown Completed [facility] Meningococcal Polysaccharide (groups A, C, Y and W-135) conjugate vaccine (MCV4P) Unknown Completed [facility] Varicella (varivax)(chicken pox) Unknown Completed [facility] TDAP Unknown Completed [facility] Influenza Virus Vaccine Quad IM, Preserv and ABX Free 6 MO-64 YRS (FLUCELVAX) Unknown Completed [facility] DTAP Unknown Completed [facility] Hep B, Adol or Pedi Dosage Unknown Completed [facility] HIB 4 Dose Schedule Unknown Completed [facility] Pneumococcal 7 Conjugate, PCV7 (Prevnar7) Unknown Completed [facility] Polio (IPV/OPV) Unknown Completed [facility] HEPATITIS A Unknown Completed [facility] Meningococcal Polysaccharide (groups A, C, Y and W-135) conjugate vaccine (MCV4P) Unknown Completed [facility] Varicella (varivax)(chicken pox) Unknown Completed [facility] TDAP Unknown Completed [facility] Influenza Virus Vaccine Quad IM, Preserv and ABX Free 6 MO-64 YRS (FLUCELVAX) Unknown Completed [facility] DTAP Unknown Completed [facility] Hep B, Adol or Pedi Dosage Unknown Completed [facility] HIB 4 Dose Schedule Unknown Completed [facility] Pneumococcal 7 Conjugate, PCV7 (Prevnar7) Unknown Completed [facility] Polio (IPV/OPV) Unknown Completed [facility] HEPATITIS A Unknown Completed [facility] Meningococcal Polysaccharide (groups A, C, Y and W-135) conjugate vaccine (MCV4P) Unknown Completed [facility] Varicella (varivax)(chicken pox) Unknown Completed [facility] TDAP Unknown Completed [facility] Influenza Virus Vaccine Quad IM, Preserv and ABX Free 6 MO-64 YRS (FLUCELVAX) Unknown Completed [facility] HPV9 Unknown Completed [facility] DTAP Unknown Completed [facility] Hep B, Adol or Pedi Dosage Unknown Completed [facility] HIB 4 Dose Schedule Unknown Completed [facility] Pneumococcal 7 Conjugate, PCV7 (Prevnar7) Unknown Completed [facility] Polio (IPV/OPV) Unknown Completed [facility] HEPATITIS A Unknown Completed [facility] Meningococcal Polysaccharide (groups A, C, Y and W-135) conjugate vaccine (MCV4P) Unknown Completed [facility] Varicella (varivax)(chicken pox) Unknown Completed [facility] TDAP Unknown Completed [facility] Influenza Virus Vaccine Quad IM, Preserv and ABX Free 6 MO-64 YRS (FLUCELVAX) Unknown Completed [facility] HPV9 Unknown Completed [facility] DTAP Unknown Completed [facility] Hep B, Adol or Pedi Dosage Unknown Completed [facility] HIB 4 Dose Schedule Unknown Completed [facility] Pneumococcal 7 Conjugate, PCV7 (Prevnar7) Unknown Completed [facility] Polio (IPV/OPV) Unknown Completed [facility] HEPATITIS A Unknown Completed [facility] Meningococcal Polysaccharide (groups A, C, Y and W-135) conjugate vaccine (MCV4P) Unknown Completed [facility] Varicella (varivax)(chicken pox) Unknown Completed [facility] TDAP Unknown Completed [facility] Influenza Virus Vaccine Quad IM, Preserv and ABX Free 6 MO-64 YRS (FLUCELVAX) Unknown Completed [facility] HPV9 Unknown Completed [facility] DTAP Unknown Completed [facility] Hep B, Adol or Pedi Dosage Unknown Completed [facility] HIB 4 Dose Schedule Unknown Completed [facility] Pneumococcal 7 Conjugate, PCV7 (Prevnar7) Unknown Completed [facility] Polio (IPV/OPV) Unknown Completed [facility] HEPATITIS A Unknown Completed [facility] Meningococcal Polysaccharide (groups A, C, Y and W-135) conjugate vaccine (MCV4P) Unknown Completed [facility] Varicella (varivax)(chicken pox) Unknown Completed [facility] TDAP Unknown Completed [facility] Influenza Virus Vaccine Quad IM, Preserv and ABX Free 6 MO-64 YRS (FLUCELVAX) Unknown Completed [facility] HPV9 Unknown Completed [facility] DTAP Unknown Completed [facility] Hep B, Adol or Pedi Dosage Unknown Completed [facility] HIB 4 Dose Schedule Unknown Completed [facility] Pneumococcal 7 Conjugate, PCV7 (Prevnar7) Unknown Completed [facility] Polio (IPV/OPV) Unknown Completed [facility] HEPATITIS A Unknown Completed [facility] Meningococcal Polysaccharide (groups A, C, Y and W-135) conjugate vaccine (MCV4P) Unknown Completed [facility] Varicella (varivax)(chicken pox) Unknown Completed [facility] DTAP Unknown Completed [facility] Hep B, Adol or Pedi Dosage Unknown Completed [facility] HIB 4 Dose Schedule Unknown Completed [facility] Pneumococcal 7 Conjugate, PCV7 (Prevnar7) Unknown Completed [facility] Polio (IPV/OPV) Unknown Completed [facility] HEPATITIS A Unknown Completed [facility] Meningococcal Polysaccharide (groups A, C, Y and W-135) conjugate vaccine (MCV4P) Unknown Completed [facility] Varicella (varivax)(chicken pox) Unknown Completed [facility] DTAP Unknown Completed [facility] Hep B, Adol or Pedi Dosage Unknown Completed [facility] HIB 4 Dose Schedule Unknown Completed [facility] Pneumococcal 7 Conjugate, PCV7 (Prevnar7) Unknown Completed [facility] Polio (IPV/OPV) Unknown Completed [facility] HEPATITIS A Unknown Completed [facility] Meningococcal Polysaccharide (groups A, C, Y and W-135) conjugate vaccine (MCV4P) Unknown Completed [facility] Varicella (varivax)(chicken pox) Unknown Completed [facility] DTAP Unknown Completed [facility] Hep B, Adol or Pedi Dosage Unknown Completed [facility] HIB 4 Dose Schedule Unknown Completed [facility] Pneumococcal 7 Conjugate, PCV7 (Prevnar7) Unknown Completed [facility] Polio (IPV/OPV) Unknown Completed [facility] HEPATITIS A Unknown Completed [facility] Meningococcal Polysaccharide (groups A, C, Y and W-135) conjugate vaccine (MCV4P) Unknown Completed [facility] Varicella (varivax)(chicken pox) Unknown Completed [facility] DTAP Unknown Completed [facility] Hep B, Adol or Pedi Dosage Unknown Completed [facility] HIB 4 Dose Schedule Unknown Completed [facility] Pneumococcal 7 Conjugate, PCV7 (Prevnar7) Unknown Completed [facility] Polio (IPV/OPV) Unknown Completed [facility] HEPATITIS A Unknown Completed [facility] Meningococcal Polysaccharide (groups A, C, Y and W-135) conjugate vaccine (MCV4P) Unknown Completed [facility] Varicella (varivax)(chicken pox) Unknown Completed [facility] DTAP Unknown Completed [facility] Hep B, Adol or Pedi Dosage Unknown Completed [facility] HIB 4 Dose Schedule Unknown Completed [facility] Pneumococcal 7 Conjugate, PCV7 (Prevnar7) Unknown Completed [facility] Polio (IPV/OPV) Unknown Completed [facility] HEPATITIS A Unknown Completed [facility] Meningococcal Polysaccharide (groups A, C, Y and W-135) conjugate vaccine (MCV4P) Unknown Completed [facility] Varicella (varivax)(chicken pox) Unknown Completed [facility] DTAP Unknown Completed [facility] Hep B, Adol or Pedi Dosage Unknown Completed [facility] HIB 4 Dose Schedule Unknown Completed [facility] Pneumococcal 7 Conjugate, PCV7 (Prevnar7) Unknown Completed [facility] Polio (IPV/OPV) Unknown Completed [facility] HEPATITIS A Unknown Completed [facility] Meningococcal Polysaccharide (groups A, C, Y and W-135) conjugate vaccine (MCV4P) Unknown Completed [facility] Varicella (varivax)(chicken pox) Unknown Completed [facility] DTAP Unknown Completed [facility] Hep B, Adol or Pedi Dosage Unknown Completed [facility] HIB 4 Dose Schedule Unknown Completed [facility] Pneumococcal 7 Conjugate, PCV7 (Prevnar7) Unknown Completed [facility] Polio (IPV/OPV) Unknown Completed [facility] HEPATITIS A Unknown Completed [facility] Meningococcal Polysaccharide (groups A, C, Y and W-135) conjugate vaccine (MCV4P) Unknown Completed [facility] Varicella (varivax)(chicken pox) Unknown Completed [facility] DTAP Unknown Completed [facility] Hep B, Adol or Pedi Dosage Unknown Completed [facility] HIB 4 Dose Schedule Unknown Completed [facility] Pneumococcal 7 Conjugate, PCV7 (Prevnar7) Unknown Completed [facility] Polio (IPV/OPV) Unknown Completed [facility] HEPATITIS A Unknown Completed [facility] Meningococcal Polysaccharide (groups A, C, Y and W-135) conjugate vaccine (MCV4P) Unknown Completed [facility] Varicella (varivax)(chicken pox) Unknown Completed [facility] DTAP Unknown Completed [facility] Hep B, Adol or Pedi Dosage Unknown Completed [facility] HIB 4 Dose Schedule Unknown Completed [facility] Pneumococcal 7 Conjugate, PCV7 (Prevnar7) Unknown Completed [facility] Polio (IPV/OPV) Unknown Completed [facility] HEPATITIS A Unknown Completed [facility] Meningococcal Polysaccharide (groups A, C, Y and W-135) conjugate vaccine (MCV4P) Unknown Completed [facility] Varicella (varivax)(chicken pox) Unknown Completed [facility] Vital Signs Vital Name Observation Time Observation Value Comments S ource Systolic blood pressure 2024-10-04 15:56:00 115 mm[Hg] [facility] Diastolic blood pressure 2024-10-04 15:56:00 84 mm[Hg] [facility] Heart rate 2024-10-04 15:56:00 94 /min [facility] Body temperature 2024-10-04 15:56:00 36.61 [facility] Body height 2024-10-04 15:56:00 157.5 cm [facility] Body weight 2024-10-04 15:56:00 65.046 kg [facility] BMI 2024-10-04 15:56:00 26.23 kg/m2 [facility] Oxygen saturation in Arterial blood by Pulse oximetry 2024-10-04 15:56:00 99 /min [facility] Systolic blood pressure 2024-06-21 16:38:00 95 mm[Hg] [facility] Diastolic blood pressure 2024-06-21 16:38:00 60 mm[Hg] [facility] Heart rate 2024-06-21 16:38:00 74 /min [facility] Body temperature 2024-06-21 16:38:00 36.78 [facility] Respiratory rate 2024-06-21 16:38:00 17 /min [facility] Body height 2024-06-21 16:38:00 157.5 cm [facility] Body weight 2024-06-21 16:38:00 69.174 kg [facility] BMI 2024-06-21 16:38:00 27.89 kg/m2 [facility] Systolic blood pressure 2024-06-19 18:29:00 114 mm[Hg] [facility] Diastolic blood pressure 2024-06-19 18:29:00 82 mm[Hg] [facility] Heart rate 2024-06-19 18:29:00 84 /min [facility] Body temperature 2024-06-19 18:29:00 36.67 [facility] Respiratory rate 2024-06-19 18:29:00 18 /min [facility] Body height 2024-06-19 18:29:00 157.5 cm [facility] Body weight 2024-06-19 18:29:00 69.4 kg [facility] BMI 2024-06-19 18:29:00 27.98 kg/m2 [facility] Oxygen saturation in Arterial blood by Pulse oximetry 2024-06-19 18:29:00 99 /min [facility] Systolic blood pressure 2024-04-12 17:55:00 110 mm[Hg] [facility] Diastolic blood pressure 2024-04-12 17:55:00 76 mm[Hg] [facility] Heart rate 2024-04-12 17:55:00 77 /min [facility] Body temperature 2024-04-12 17:55:00 36.67 [facility] Respiratory rate 2024-04-12 17:55:00 18 /min [facility] Oxygen saturation in Arterial blood by Pulse oximetry 2024-04-12 17:55:00 98 /min [facility] Systolic blood pressure 2024-03-12 15:39:00 97 mm[Hg] [facility] Diastolic blood pressure 2024-03-12 15:39:00 63 mm[Hg] [facility] Heart rate 2024-03-12 15:39:00 90 /min [facility] Body temperature 2024-03-12 15:39:00 36.72 Rajwinder [facility] Respiratory rate 2024-03-12 15:39:00 17 /min [facility] Body height 2024-03-12 15:39:00 157.5 cm [facility] Body weight 2024-03-12 15:39:00 73.301 kg [facility] BMI 2024-03-12 15:39:00 29.56 kg/m2 [facility] Oxygen saturation in Arterial blood by Pulse oximetry 2024-03-12 15:39:00 98 /min [facility] Systolic blood pressure 2024-02-12 18:21:00 111 mm[Hg] [facility] Diastolic blood pressure 2024-02-12 18:21:00 76 mm[Hg] [facility] Heart rate 2024-02-12 18:21:00 88 /min [facility] Body temperature 2024-02-12 18:21:00 36.17 Rajwinder [facility] Respiratory rate 2024-02-12 18:21:00 18 /min [facility] Body height 2024-02-12 18:21:00 157.5 cm [facility] Body weight 2024-02-12 18:21:00 73.573 kg [facility] BMI 2024-02-12 18:21:00 29.67 kg/m2 [facility] Systolic blood pressure 2024-01-29 20:30:00 112 mm[Hg] [facility] Diastolic blood pressure 2024-01-29 20:30:00 79 mm[Hg] [facility] Heart rate 2024-01-29 20:30:00 91 /min [facility] Body temperature 2024-01-29 20:30:00 37 Rajwinder [facility] Respiratory rate 2024-01-29 20:30:00 18 /min [facility] Body height 2024-01-29 20:30:00 157.5 cm [facility] Body weight 2024-01-29 20:30:00 75.099 kg [facility] BMI 2024-01-29 20:30:00 30.28 kg/m2 [facility] Systolic blood pressure 2024-01-19 21:59:00 123 mm[Hg] [facility] Diastolic blood pressure 2024-01-19 21:59:00 81 mm[Hg] [facility] Heart rate 2024-01-19 21:59:00 87 /min [facility] Body temperature 2024-01-19 21:59:00 37.22 Rajwinder [facility] Respiratory rate 2024-01-19 21:59:00 18 /min [facility] Body weight 2024-01-19 21:59:00 73.982 kg [facility] BMI 2024-01-19 21:59:00 29.83 kg/m2 [facility] Oxygen saturation in Arterial blood by Pulse oximetry 2024-01-19 21:59:00 99 /min [facility] Systolic blood pressure 2024-01-09 23:40:00 118 mm[Hg] [facility] Diastolic blood pressure 2024-01-09 23:40:00 80 mm[Hg] [facility] Heart rate 2024-01-09 23:40:00 81 /min [facility] Body temperature 2024-01-09 23:40:00 37.17 Rajwinder [facility] Respiratory rate 2024-01-09 23:40:00 16 /min [facility] Body weight 2024-01-09 23:40:00 73.347 kg [facility] BMI 2024-01-09 23:40:00 29.58 kg/m2 [facility] Oxygen saturation in Arterial blood by Pulse oximetry 2024-01-09 23:40:00 97 /min [facility] Systolic blood pressure 2023-12-04 00:29:00 126 mm[Hg] [facility] Diastolic blood pressure 2023-12-04 00:29:00 85 mm[Hg] [facility] Heart rate 2023-12-04 00:29:00 75 /min [facility] Body temperature 2023-12-04 00:29:00 36.94 Rajwinder [facility] Respiratory rate 2023-12-04 00:29:00 18 /min [facility] Body weight 2023-12-04 00:29:00 71.668 kg [facility] BMI 2023-12-04 00:29:00 28.90 kg/m2 [facility] Oxygen saturation in Arterial blood by Pulse oximetry 2023-12-04 00:29:00 97 /min [facility] Systolic blood pressure 2023-10-29 17:47:00 114 mm[Hg] [facility] Diastolic blood pressure 2023-10-29 17:47:00 71 mm[Hg] [facility] Heart rate 2023-10-29 17:47:00 77 [facility] Body temperature 2023-10-29 17:47:00 36.56 Rajwinder [facility] Respiratory rate 2023-10-29 17:47:00 18 /min [facility] Body height 2023-10-29 17:47:00 157.5 cm [facility] Body weight 2023-10-29 17:47:00 72.394 kg [facility] BMI 2023-10-29 17:47:00 29.19 kg/m2 [facility] Oxygen saturation in Arterial blood by Pulse oximetry 2023-10-29 17:47:00 98 /min [facility] Systolic blood pressure 2023-10-21 23:00:00 119 mm[Hg] [facility] Diastolic blood pressure 2023-10-21 23:00:00 87 mm[Hg] [facility] Heart rate 2023-10-21 23:00:00 90 /min [facility] Respiratory rate 2023-10-21 23:00:00 15 /min [facility] Oxygen saturation in Arterial blood by Pulse oximetry 2023-10-21 23:00:00 98 /min [facility] Body temperature 2023-10-21 19:37:00 37.28 Rajwinder [facility] Body height 2023-10-21 19:37:00 157.5 cm [facility] Body weight 2023-10-21 19:37:00 73.483 kg [facility] BMI 2023-10-21 19:37:00 29.63 kg/m2 [facility] Systolic blood pressure 2023-10-21 19:18:00 122 mm[Hg] [facility] Diastolic blood pressure 2023-10-21 19:18:00 86 mm[Hg] [facility] Heart rate 2023-10-21 19:18:00 83 /min [facility] Body temperature 2023-10-21 19:18:00 36.94 Rajwinder [facility] Respiratory rate 2023-10-21 19:18:00 17 /min [facility] Body height 2023-10-21 19:18:00 157.5 cm [facility] Body weight 2023-10-21 19:18:00 73.483 kg [facility] BMI 2023-10-21 19:18:00 29.63 kg/m2 [facility] Oxygen saturation in Arterial blood by Pulse oximetry 2023-10-21 19:18:00 99 /min [facility] Systolic blood pressure 2023-10-13 19:32:00 131 mm[Hg] [facility] Diastolic blood pressure 2023-10-13 19:32:00 79 mm[Hg] [facility] Heart rate 2023-10-13 19:32:00 97 /min [facility] Body temperature 2023-10-13 19:32:00 36.56 Rajwinder [facility] Respiratory rate 2023-10-13 19:32:00 16 /min [facility] Body height 2023-10-13 19:32:00 157.5 cm [facility] Body weight 2023-10-13 19:32:00 73.539 kg [facility] BMI 2023-10-13 19:32:00 29.65 kg/m2 [facility] Systolic blood pressure 2023-07-27 01:40:00 129 mm[Hg] [facility] Diastolic blood pressure 2023-07-27 01:40:00 88 mm[Hg] [facility] Heart rate 2023-07-27 01:40:00 106 /min [facility] Body temperature 2023-07-27 01:40:00 36.78 Rajwinder [facility] Respiratory rate 2023-07-27 01:40:00 20 /min [facility] Oxygen saturation in Arterial blood by Pulse oximetry 2023-07-27 01:40:00 99 /min [facility] Body weight 2023-07-25 15:49:00 79.833 kg [facility] BMI 2023-07-25 15:49:00 32.19 kg/m2 [facility] Body height 2023-07-25 14:42:00 157.5 cm [facility] Systolic blood pressure 2023-07-23 20:01:00 128 mm[Hg] [facility] Diastolic blood pressure 2023-07-23 20:01:00 75 mm[Hg] [facility] Heart rate 2023-07-23 20:01:00 83 /min [facility] Body temperature 2023-07-23 20:01:00 36.39 Rajwinder [facility] Respiratory rate 2023-07-23 20:01:00 18 /min [facility] Body height 2023-07-23 20:01:00 157.5 cm [facility] Body weight 2023-07-23 20:01:00 79.918 kg [facility] BMI 2023-07-23 20:01:00 32.23 kg/m2 [facility] Systolic blood pressure 2023-07-18 04:30:00 131 mm[Hg] [facility] Diastolic blood pressure 2023-07-18 04:30:00 74 mm[Hg] [facility] Heart rate 2023-07-18 04:30:00 85 /min [facility] Oxygen saturation in Arterial blood by Pulse oximetry 2023-07-18 04:30:00 100 /min [facility] Body temperature 2023-07-18 02:08:00 36.94 Rajwinder [facility] Respiratory rate 2023-07-18 02:08:00 18 /min [facility] Body height 2023-07-18 02:08:00 157.5 cm [facility] Body weight 2023-07-18 02:08:00 78.2 kg [facility] BMI 2023-07-18 02:08:00 31.53 kg/m2 [facility] Systolic blood pressure 2023-07-16 20:37:00 126 mm[Hg] [facility] Diastolic blood pressure 2023-07-16 20:37:00 74 mm[Hg] [facility] Heart rate 2023-07-16 20:37:00 89 /min [facility] Body temperature 2023-07-16 20:37:00 36.11 Rajwinder [facility] Respiratory rate 2023-07-16 20:37:00 19 /min [facility] Body height 2023-07-16 20:37:00 157.5 cm [facility] Body weight 2023-07-16 20:37:00 78.699 kg [facility] BMI 2023-07-16 20:37:00 31.73 kg/m2 [facility] Systolic blood pressure 2023-07-10 20:35:00 133 mm[Hg] [facility] Diastolic blood pressure 2023-07-10 20:35:00 81 mm[Hg] [facility] Heart rate 2023-07-10 20:35:00 95 /min [facility] Body temperature 2023-07-10 20:35:00 36.28 Rajwinder [facility] Respiratory rate 2023-07-10 20:35:00 18 /min [facility] Body height 2023-07-10 20:35:00 157.5 cm [facility] Body weight 2023-07-10 20:35:00 78.217 kg [facility] BMI 2023-07-10 20:35:00 31.54 kg/m2 [facility] Systolic blood pressure 2023-07-03 19:31:00 114 mm[Hg] [facility] Diastolic blood pressure 2023-07-03 19:31:00 73 mm[Hg] [facility] Heart rate 2023-07-03 19:31:00 90 /min [facility] Body temperature 2023-07-03 19:31:00 36.44 Rajwinder [facility] Respiratory rate 2023-07-03 19:31:00 18 /min [facility] Body weight 2023-07-03 19:31:00 78.427 kg [facility] BMI 2023-07-03 19:31:00 31.62 kg/m2 [facility] Heart rate 2023-06-29 22:09:00 91 /min [facility] Oxygen saturation in Arterial blood by Pulse oximetry 2023-06-29 22:09:00 100 /min [facility] Systolic blood pressure 2023-06-29 20:30:00 114 mm[Hg] [facility] Diastolic blood pressure 2023-06-29 20:30:00 70 mm[Hg] [facility] Body temperature 2023-06-29 19:56:00 36.89 Rajwinder [facility] Respiratory rate 2023-06-29 19:56:00 16 /min [facility] Body height 2023-06-29 19:38:43 157.5 cm [facility] Body weight 2023-06-29 19:38:43 77.248 kg [facility] BMI 2023-06-29 19:38:43 31.15 kg/m2 [facility] Systolic blood pressure 2023-06-18 18:54:00 127 mm[Hg] [facility] Diastolic blood pressure 2023-06-18 18:54:00 80 mm[Hg] [facility] Heart rate 2023-06-18 18:54:00 97 /min [facility] Body temperature 2023-06-18 18:54:00 36.22 Rajwinder [facility] Respiratory rate 2023-06-18 18:54:00 18 /min [facility] Body height 2023-06-18 18:54:00 160 cm [facility] Body weight 2023-06-18 18:54:00 75.382 kg [facility] BMI 2023-06-18 18:54:00 29.44 kg/m2 [facility] Systolic blood pressure 2023-06-04 14:56:00 100 mm[Hg] [facility] Diastolic blood pressure 2023-06-04 14:56:00 70 mm[Hg] [facility] Heart rate 2023-06-04 14:56:00 87 /min [facility] Body temperature 2023-06-04 14:56:00 36.33 Rajwinder [facility] Respiratory rate 2023-06-04 14:56:00 18 /min [facility] Body height 2023-06-04 14:56:00 160 cm [facility] Body weight 2023-06-04 14:56:00 73.936 kg [facility] BMI 2023-06-04 14:56:00 28.87 kg/m2 [facility] Heart rate 2023-06-03 18:00:00 86 /min [facility] Oxygen saturation in Arterial blood by Pulse oximetry 2023-06-03 18:00:00 98 /min [facility] Systolic blood pressure 2023-06-03 16:45:00 115 mm[Hg] [facility] Diastolic blood pressure 2023-06-03 16:45:00 76 mm[Hg] [facility] Body temperature 2023-06-03 16:45:00 36.94 Rajwinder [facility] Respiratory rate 2023-06-03 16:45:00 18 /min [facility] Body height 2023-06-03 16:31:00 160 cm [facility] Body weight 2023-06-03 16:31:00 74.163 kg [facility] BMI 2023-06-03 16:31:00 28.96 kg/m2 [facility] Systolic blood pressure 2023-05-21 20:11:00 121 mm[Hg] [facility] Diastolic blood pressure 2023-05-21 20:11:00 76 mm[Hg] [facility] Heart rate 2023-05-21 20:11:00 101 /min [facility] Body temperature 2023-05-21 20:11:00 36.56 Rajwinder [facility] Respiratory rate 2023-05-21 20:11:00 18 /min [facility] Body weight 2023-05-21 20:11:00 73.165 kg [facility] BMI 2023-05-21 20:11:00 29.50 kg/m2 [facility] Systolic blood pressure 2023-04-23 16:17:00 119 mm[Hg] [facility] Diastolic blood pressure 2023-04-23 16:17:00 70 mm[Hg] [facility] Heart rate 2023-04-23 16:17:00 91 [facility]min [facility] Body temperature 2023-04-23 16:17:00 36.56 Rajwinder [facility] Respiratory rate 2023-04-23 16:17:00 18 /min [facility] Body height 2023-04-23 16:17:00 157.5 cm [facility] Body weight 2023-04-23 16:17:00 68.295 kg [facility] BMI 2023-04-23 16:17:00 27.54 kg/m2 [facility] Systolic blood pressure 2023-04-11 16:19:00 114 mm[Hg] [facility] Diastolic blood pressure 2023-04-11 16:19:00 66 mm[Hg] [facility] Heart rate 2023-04-11 16:19:00 102 /min [facility] Body temperature 2023-04-11 16:19:00 36.5 Rajwinder [facility] Respiratory rate 2023-04-11 16:19:00 18 /min [facility] Body height 2023-04-11 16:19:00 157.5 cm [facility] Body weight 2023-04-11 16:19:00 67.858 kg [facility] BMI 2023-04-11 16:19:00 27.36 kg/m2 [facility] Systolic blood pressure 2023-03-29 21:48:00 100 mm[Hg] [facility] Diastolic blood pressure 2023-03-29 21:48:00 57 mm[Hg] [facility] Heart rate 2023-03-29 21:48:00 84 /min [facility] Respiratory rate 2023-03-29 21:48:00 16 /min [facility] Oxygen saturation in Arterial blood by Pulse oximetry 2023-03-29 21:48:00 99 /min [facility] Body temperature 2023-03-29 19:14:00 37.11 Rajwinder [facility] Body height 2023-03-29 19:14:00 157.5 cm [facility] Body weight 2023-03-29 19:14:00 65.573 kg [facility] BMI 2023-03-29 19:14:00 26.44 kg/m2 [facility] Systolic blood pressure 2023-03-14 13:39:00 112 mm[Hg] [facility] Diastolic blood pressure 2023-03-14 13:39:00 63 mm[Hg] [facility] Heart rate 2023-03-14 13:39:00 89 /min [facility] Body temperature 2023-03-14 13:39:00 36.17 Rajwinder [facility] Respiratory rate 2023-03-14 13:39:00 18 /min [facility] Body height 2023-03-14 13:39:00 157.5 cm [facility] Body weight 2023-03-14 13:39:00 63.685 kg [facility] BMI 2023-03-14 13:39:00 25.68 kg/m2 [facility] Systolic blood pressure 2023-02-26 15:08:00 123 mm[Hg] [facility] Diastolic blood pressure 2023-02-26 15:08:00 70 mm[Hg] [facility] Heart rate 2023-02-26 15:08:00 79 /min [facility] Body temperature 2023-02-26 15:08:00 36.06 Rajwinder [facility] Respiratory rate 2023-02-26 15:08:00 18 /min [facility] Body height 2023-02-26 15:08:00 157.5 cm [facility] Body weight 2023-02-26 15:08:00 62.46 kg [facility] BMI 2023-02-26 15:08:00 25.19 kg/m2 [facility] Systolic blood pressure 2023-01-22 20:00:00 110 mm[Hg] [facility] Diastolic blood pressure 2023-01-22 20:00:00 74 mm[Hg] [facility] Heart rate 2023-01-22 20:00:00 73 /min [facility] Respiratory rate 2023-01-22 20:00:00 18 /min [facility] Oxygen saturation in Arterial blood by Pulse oximetry 2023-01-22 20:00:00 100 /min [facility] Body temperature 2023-01-22 19:02:00 37.11 Rajwinder [facility] Body height 2023-01-22 19:02:00 157.5 cm [facility] Body weight 2023-01-22 19:02:00 61.236 kg [facility] BMI 2023-01-22 19:02:00 24.69 kg/m2 [facility] Procedures Procedure Date / Time Performed Performing Clinician Source GC & CHLAMYDIA AMPLIFIED ASSAY 2024-10-04 17:54:00 Deniz [facility] GALV ONLY - VAGINAL PATHOGENS BY NUCLEIC ACID TESTING 2024-10-04 17:54:00 Deniz [facility] GARDASIL 9 (HPV 9V) VACCINE 2024-10-04 16:05:46 Genny Tian [facility] POCT TEST 2024-10-04 16:04:00 Deniz [facility] THYROID STIMULATING HORMONE 2024-06-21 17:40:00 Deniz [facility] POCT TEST 2024-06-21 17:25:00 Deniz [facility] POCT MOLECULAR FLU 2024-03-12 15:50:00 Unknown, Attend [facility] POCT MOLECULAR STREP 2024-03-12 15:47:00 Unknown, Atte ann-marie [facility] POCT SARS-COV-2 ANTIGEN (BINAX NOW) 2024-03-12 15:46:00 Betzaida Shelby [facility] POCT TEST 2024-01-29 20:44:00 Deniz [facility] GARDASIL 9 (HPV 9V) VACCINE 2024-01-29 20:39:32 Genny Tian [facility] POCT URINALYSIS 2024-01-19 00:00:00 Kayley Radford [facility] POCT TEST 2024-01-19 00:00:00 Alanna Radford [facility] POCT TEST 2023-10-29 17:51:00 Elias Tian [facility] CT HEAD WO CONTRAST 2023-10-21 22:54:57 Nata Reyna [facility] CREATINE KINASE 2023-10-21 22:09:00 Carlyn Reyna [facility] COMP. METABOLIC PANEL ([id number]) 2023-10-21 22:09:00 Carlyn Reyna [facility] CBC WITH DIFF 2023-10-21 22:09:00 Carlyn Reyna [facility] LACTIC ACID WHOLE BLOOD 2023-10-21 22:08:00 Syl Reyna [facility] POCT TEST 2023-10-21 22:00:00 Nata Reyna [facility] URINE DRUG (IMMUNOASSAY) - COMPREHENSIVE DRUG SCREEN 2023-10-21 21:23:00 Carlyn Reyna [facility] URINALYSIS 2023-10-21 21:23:00 [facility] POCT URINALYSIS 2023-10-13 20:54:00 Genny Tian [facility] POCT TEST 2023-10-13 20:26:00 Elias Tian [facility] CBC WITH DIFF 2023-07-26 10:29:00 [facility] VENOUS CORD GAS 2023-07-26 03:40:00 [facility] 2023-07-25 17:42:00 Vamshi Humphrey [facility] HEPATITIS B SURFACE ANTIGEN 2023-07-25 16:13:00 Divya Dick [facility] HB ABO GROUPING 2023-07-25 16:13:00 Divya Dick [facility] RHO (D) IMMUNE GLOBULIN 2023-07-25 16:13:00 Arcelia aCin [facility] HIV 1/2 AG-AB WITH REFLEX 2023-07-25 16:13:00 Divya Dick [facility] SYPHILIS IGG/IGM 2023-07-25 16:13:00 [facility] 2023-07-25 06:01:00 Doctor Un assigned, Bernard [facility] POCT URINALYSIS 2023-07-23 20:01:00 Genny Tian [facility] SGOT (ASPARTATE AMINO TRANSFER) 2023-07-18 03:15:00 JonShanks, [facility] CREATININE 2023-07-18 03:15:00 JonShanks, [facility] ALANINE AMINO TRANSFERASE(SGPT 2023-07-18 03:15:00 [facility] LACTATE DEHYDROGENASE 2023-07-18 03:15:00 [facility] , [facility] URIC ACID 2023-07-18 03:15:00 [facility], [facility] CBC WITH DIFF 2023-07-18 03:[facility]18 03:[facility]00 [facility] PROTEIN CREAT RATIO URINE RANDOM 2023-07-18 03:15:00 [facility] ASSIGNMENT OF BENEFITS 2023-07-18 01:48:55 Docto r Unassigned, [facility] CONSENT/REFUSAL FOR DIAGNOSIS AND TREATMENT 2023-07-18 01:47:54 Doctor Unassigned, [facility] POCT URINALYSIS 2023-07-16 21:43:00 Genny Tian [facility] CBC WITH DIFF 2023-07-10 21:26:00 Batool Cabrales [facility] POCT URINALYSIS 2023-07-03 19:31:00 Genny Tian [facility] SECOND AND THIRD TRIMESTER ULTRASOUND 2023-07-01 22:16:00 Genny Tian [facility] ADC ONLY - FERN TEST 2023-06-29 20:45:00 Deanna Yu [facility] ASSIGNMENT OF BENEFITS 2023-06-29 19:28:03 Docto r Unassigned, [facility] CONSENT/REFUSAL FOR DIAGNOSIS AND TREATMENT 2023-06-29 19:26:37 Doctor Unassigned, [facility] AUTHORIZATION FOR RELEASE OF PHI 2023-06-29 06:01:00 Doctor Unassigned, [facility] L&D VISIT (NON-DELIVERED) 2023-06-29 06:01:00 Doctor Unassigned, [facility] POCT URINALYSIS 2023-06-18 18:55:00 Genny Tian [facility] SECOND AND THIRD TRIMESTER ULTRASOUND 2023-06-06 16:03:00 Genny Tian [facility] POCT URINALYSIS 2023-06-04 14:59:00 Genny Tian [facility] ASSIGNMENT OF BENEFITS 2023-06-03 16:24:37 Docto r Unassigned, [facility] CONSENT/REFUSAL FOR DIAGNOSIS AND TREATMENT 2023-06-03 16:23:34 Doctor Unassigned, [facility] TDAP VACCINE, >11 YRS, IM 2023-05-21 21:20:38 Emily Werner [facility] FLU VACC (), 6 MO-64 YRS, .5ML, IM, QUAD (FLUCELVAX) 2023-05-21 21:20:38 Emily Werner [facility] POCT URINALYSIS 2023-05-21 20:12:00 Genny Tian [facility] ASSIGNMENT OF BENEFITS 2023-03-29 20:08:51 Docto r Unassigned, [facility] CONSENT/REFUSAL FOR DIAGNOSIS AND TREATMENT 2023-03-29 20:07:49 Doctor Unassigned, [facility] LIPASE 2023-03-29 19:45:00 Kishan Rader [facility] MAGNESIUM 2023-03-29 19:45:00 Kishan Rader [facility] COMP. METABOLIC PANEL ([id number]) 2023-03-29 19:45:00 Kishan Rader [facility] CBC WITH DIFF 2023-03-29 19:45:00 Kishan Rader [facility] URINALYSIS 2023-03-29 19:45:00 Kishan Rader [facility] POCT URINALYSIS 2023-03-14 13:41:00 Genny Tian [facility] SECOND AND THIRD TRIMESTER ULTRASOUND 2023-03-13 20:36:00 Genny Tian [facility] GLUCOSE 1 HOUR POST PRANDIAL 2023-02-26 16:15:00 Genny Tian [facility] CBC WITH DIFF 2023-02-26 16:15:00 Genny Tian [facility] RUBELLA SCREEN IGG 2023-02-26 16:15:00 Huang Tian [facility] VZV ANTIBODY SCREEN 2023-02-26 16:15:00 Elias Tian [facility] HEPATITIS B SURFACE ANTIGEN 2023-02-26 16:15:00 Genny Tian [facility] HB ABO GROUPING 2023-02-26 16:15:00 Genny Tian [facility] QUAD SCRN 2023-02-26 16:15:00 Genny Tian [facility] HIV 1/2 AG-AB WITH REFLEX 2023-02-26 16:15:00 Genny Tian [facility] SYPHILIS IGG/IGM 2023-02-26 16:15:00 Nasreen Tian [facility] POCT URINALYSIS W/O SPECIFIC GRAVITY 2023-02-26 15:03:00 Genny Tian [facility] POCT TEST 2023-02-26 15:02:00 Elias Tian [facility] ASSIGNMENT OF BENEFITS 2023-02-26 14:21:16 Docto r Unassigned, Bernard [facility] LIPASE 2023-01-22 19:38:00 Royal Bella [facility] COMP. METABOLIC PANEL ([id number]) 2023-01-22 19:38:00 Royal Bella [facility] CBC WITH DIFF 2023-01-22 19:38:00 Royal Bella [facility] URINALYSIS 2023-01-22 19:38:00 Royal Bella [facility] NOTICE OF PRIVACY PRACTICES 2023-01-22 18:58:13 Doctor Unassigned, Bernard [facility] CONSENT/REFUSAL FOR DIAGNOSIS AND TREATMENT 2023-01-22 18:56:59 Doctor Unassigned, Bernard [facility] Encounters Start Date/Time End Date/Time Encounter Type Admission Type Attending [facility] Facility Care Department Encounter ID Source 2025-02-11 13:00:00 2025-02-11 13:00:00 Outpatient R [facility] [id number] [facility] 2024-10-11 00:00:00 2024-10-11 00:00:00 Outpatient R DENIZMORELIA [facility] [id number] [facility] 2024-10-05 00:00:00 2024-10-05 14:00:48 [facility] 1..840.114 350.1.13.10 4.2.7.2.686 [id number] [facility] 2024-10-04 12:21:06 2024-10-04 12:21:06 Outpatient S[facility] [id number] Keagan Clark Anselmo 2024-10-04 11:00:00 2024-10-04 11:42:53 Outpatient R DENIZ MORELIA [facility] [id number] [facility] 2024-10-04 11:00:00 2024-10-04 11:42:53 Office Visit Morelia Guaman [facility] 1..840.114 350.1.13.10 4.2.7.2.686 [id number] [facility] 2024-08-04 15:00:00 2024-08-04 15:00:00 Outpatient R [facility] [id number] [facility] 2024-06-24 00:00:00 2024-07-31 18:23:03 Patient Secure Msg Doctor Unassigned, Bernard Doctor Unassigned, Bernard [facility] 1.2.840.114 350.1.13.10 4.2.7.2.686 [id number] [facility] 2024-07-22 10:30:00 2024-07-22 10:30:00 Outpatient R MORELIA GUAMAN [facility] [id number] [facility] 2024-06-21 10:30:00 2024-06-21 11:43:59 Outpatient R MORELIA GUAMAN [facility] [id number] [facility] 2024-06-21 10:30:00 2024-06-21 11:43:59 Office Visit Morelia Guaman [facility] 1.114 350.1.13.10 4.2.7.2.686 [id number] 107 [id number] [facility] 2024-06-19 12:40:00 2024-06-19 13:06:11 Outpatient R MAIA MORFIN [facility] [id number] [facility] 2024-06-19 12:40:00 2024-06-19 13:06:11 Urgent Care Maia Morfin Unknown, Attending [facility] 1.84.114 350.1.13.10 4.2.7.2.686 [id number] [facility] 2024-04-12 13:00:00 2024-04-12 13:06:17 Outpatient R GRECIA YOUNGER [facility] [id number] [facility] 2024-04-12 13:00:00 2024-04-12 13:06:17 Nurse Visit Nurse, Chemo [facility] Unknown, Attending Grecia Younger Nurse, Chemo Db Urgent Care [facility] 1.84.114 350.1.13.10 4.2.7.2.686 [id number] 370 [id number] [facility] 2024-03-12 10:20:00 2024-03-12 10:40:00 Urgent Care Georgette Ramos Unknown, Attending [facility] 1.84114 350.1.13.10 4.2.7.2.686 [id number] [facility] 2024-03-12 10:20:00 2024-03-12 10:20:00 Outpatient R GEORGETTE RAMOS [facility] [id number] [facility] 2024-03-03 15:00:00 2024-03-03 15:00:00 Outpatient R [facility] [id number] [facility] 2024-02-12 12:45:00 2024-02-12 14:14:59 Outpatient R MORELIA GUAMAN [facility] [id number] [facility] 2024-02-12 12:45:00 2024-02-12 14:14:59 Office Visit Morelia Guaman [facility] 1..840.114 350.1.13.10 4.2.7.2.686 [id number] [facility] 2024-02-03 00:00:00 2024-02-03 08:12:39 Case Management Morelia Guaman [facility] 1..840.114 350.1.13.10 4.2.7.2.686 [id number] [facility] 2024-01-29 15:15:00 2024-01-29 16:05:54 Outpatient R GENNY TIAN [facility] [id number] [facility] 2024-01-29 15:15:00 2024-01-29 16:05:54 Office Visit Morelia Guaman [facility] 1..840.114 350.1.13.10 4.2.7.2.686 [id number] [facility] 2024-01-19 16:40:00 2024-01-19 17:30:38 Outpatient R KAYLEY RADFORD [facility] [id number] [facility] 2024-01-19 16:40:00 2024-01-19 17:30:38 Urgent Care Kayley Radford Unknown, Attending [facility] 1.2.840.114 350.1.13.10 4.2.7.2.686 [id number] [facility] 2024-01-19 00:00:00 2024-01-19 00:00:00 Letter (Out) Kayley Radford [facility] MARK?[facility] 1.2.840.114 350.1.13.10 4.2.7.2.686 [id number] [facility] 2024-01-09 18:40:00 2024-01-09 19:25:01 Outpatient R KAYLEY RADFORD [facility] [id number] [facility] 2024-01-09 18:40:00 2024-01-09 19:25:01 Urgent Care Kayley Radford Unknown, Attending [facility] 1.2.840.114 350.1.13.10 4.2.7.2.686 [id number] 370 [id number] [facility] 2023-12-26 00:00:00 2023-12-26 13:45:30 [facility] 1.2.840.114 350.1.13.10 4.2.7.2.686 [id number] [facility] 2023-12-03 19:20:00 2023-12-03 19:47:31 Outpatient R ASHA YARBROUGH [facility] [id number] [facility] 2023-12-03 19:20:00 2023-12-03 19:47:31 Urgent Care ShanejyotiAsha Unknown, Attending [facility] 1.840.114 350.1.13.10 4.2.7.2.686 [id number] [facility] 2023-11-13 00:00:00 2023-11-13 13:24:11 Refill Genny Tian [facility] 1.840.114 350.1.13.10 4.2.7.2.686 [id number] [facility] 2023-11-04 00:00:00 2023-11-04 09:50:15 Refill Genny Tian [facility] 1.0.114 350.1.13.10 4.2.7.2.686 [id number] 107 [id number] [facility] 2023-10-29 12:30:00 2023-10-29 13:15:54 Outpatient R GENNY TIAN [facility] [id number] [facility] 2023-10-29 12:30:00 2023-10-29 13:15:54 Office Visit Genny Tian [facility] 1.0.114 350.1.13.10 4.2.7.2.686 [id number] [facility] 2023-10-21 14:46:00 2023-10-21 18:58:00 Emergency X CARLYN REYNA [facility] [id number] [facility] 2023-10-21 14:46:00 2023-10-21 18:58:00 Emergency Divya Clemons Shinta [facility] 1.840.114 350.1.13.10 4.2.7.2.686 [id number] [facility] 2023-10-21 13:45:00 2023-10-21 14:41:35 Nurse Visit Nurse, Chemo [facility] Unknown, Attending Grecia Younger [facility] 1.2.840.114 350.1.13.10 4.2.7.2.686 [id number] 370 [id number] [facility] 2023-10-21 13:45:00 2023-10-21 13:45:00 Outpatient GRECIA GARZA [facility] [id number] [facility] 2023-10-16 00:00:00 2023-10-16 00:00:00 Telephone Genny Tian [facility] 1..840.114 350.1.13.10 4.2.7.2.686 [id number] 107 [id number] [facility] 2023-10-13 14:15:00 2023-10-13 16:12:44 Outpatient GENNY YAP [facility] [id number] [facility] 2023-10-13 14:15:00 2023-10-13 16:12:44 Office Visit Genny Tian [facility] 1..840.114 350.1.13.10 4.2.7.2.686 [id number] [facility] 2023-09-05 14:15:00 2023-09-05 14:15:00 Outpatient GENNY YAP [facility] [id number] [facility] 2023-08-01 10:30:00 2023-08-01 10:30:00 Outpatient GENNY YAP [facility] [id number] [facility] 2023-07-25 08:28:00 2023-07-26 22:49:00 Inpatient BLANCA KINNEY SHANNON [facility] [id number] [facility] 2023-07-25 08:28:00 2023-07-26 22:49:00 Hospital Encounter Blanca Lamar [facility] 1.840.114 350.1.13.10 4.2.7.2.686 [id number] [facility] 2023-07-25 11:42:00 2023-07-25 22:38:00 Anesthesia Event RaphaeljerryarceliaElliott Halie [facility] 1.2840.114 350.1.13.10 4.2.7.2.686 [id number] [facility] 2023-07-25 00:00:00 2023-07-25 00:00:00 Orders Only Doctor Unassigned, Bernard [facility] 1.2.840.114 350.1.13.10 4.2.7.2.686 [id number] [facility] 2023-07-23 14:30:00 2023-07-23 14:45:00 Routine Visit Risk, Ang-Rmchp-N p/High Emily Werner [facility] 1.0.114 350.1.13.10 4.2.7.2.686 [id number] 107 [id number] [facility] 2023-07-23 14:30:00 2023-07-23 14:30:00 Outpatient R EMILY WERNER [facility] [id number] [facility] 2023-07-17 19:58:00 2023-07-17 22:52:00 Outpatient X HANSEN-CATHY S, ISABELA HANSEN-CATHY S, ISABELA [facility] [id number] [facility] 2023-07-17 19:58:00 2023-07-17 22:52:00 Emergency Hansen-Cathy s, Isabela [facility] 1.840.114 350.1.13.10 4.2.7.2.686 [id number] [facility] 2023-07-16 14:15:00 2023-07-16 15:15:45 Outpatient R EMILY WERNER [facility] [id number] [facility] 2023-07-16 14:15:00 2023-07-16 15:15:45 Routine Visit Risk, Ang-Rmchp-N p/High Emily Werner [facility] 1..840.114 350.1.13.10 4.2.7.2.686 [id number] 107 [id number] [facility] 2023-07-10 14:30:00 2023-07-10 15:23:31 Outpatient R BATOOL CABRALES [facility] [id number] [facility] 2023-07-10 14:30:00 2023-07-10 15:23:31 Routine Visit Batool Cabrales [facility] 1..840.114 350.1.13.10 4.2.7.2.686 [id number] [facility] 2023-07-10 14:30:00 2023-07-10 14:30:00 Outpatient BATOOL HARRISON [facility] [id number] [facility] 2023-07-03 14:30:00 2023-07-03 14:30:00 Routine Visit Risk, Ang-Rmchp-N p/High Riri Rosales [facility] 1..840.114 350.1.13.10 4.2.7.2.686 [id number] [facility] 2023-07-03 14:30:00 2023-07-03 13:42:33 Outpatient RIRI SANDERS [facility] [id number] [facility] 2023-07-02 00:00:00 2023-07-02 00:00:00 Abstract Genny Tian [facility] 1.840.114 350.1.13.10 4.2.7.2.686 [id number] 107 [id number] [facility] 2023-07-01 15:30:00 2023-07-01 16:14:26 Outpatient P TAY SOLIS [facility] [id number] [facility] 2023-07-01 15:30:00 2023-07-01 16:14:26 Mammalogist Visit Ultrasound, Tay Chapman [facility] 1.840.114 350.1.13.10 4.2.7.2.686 [id number] [facility] 2023-06-29 13:38:00 2023-06-29 16:40:00 Outpatient X DEANNA YU [facility] [id number] [facility] 2023-06-29 13:38:00 2023-06-29 16:40:00 Emergency BeataAlvin Vivian L [facility] 1.84.114 350.1.13.10 4.2.7.2.686 [id number] [facility] 2023-06-18 13:00:00 2023-06-18 13:12:16 Outpatient R EMILY WERNER [facility] [id number] [facility] 2023-06-18 13:00:00 2023-06-18 13:12:16 Routine Visit Risk, Chemo-Rmchp-N p/High Emily Werner [facility] 1.840.114 350.1.13.10 4.2.7.2.686 [id number] [facility] 2023-06-12 00:00:00 2023-06-12 00:00:00 Abstract Genny Tian [facility] 1..840.114 350.1.13.10 4.2.7.2.686 [id number] [facility] 2023-06-06 10:00:00 2023-06-06 10:10:02 Outpatient P MAXIMINOGUSTAVO [facility] [id number] [facility] 2023-06-06 10:00:00 2023-06-06 10:10:02 Mammalogist Visit Ultrasound, Ainsley LujanGustavo patel Dipikauvshaunagiarcelia [facility] 1.840.114 350.1.13.10 4.2.7.2.686 [id number] [facility] 2023-06-04 08:30:00 2023-06-04 09:19:14 Outpatient R EMILY WERNER [facility] [id number] [facility] 2023-06-04 08:30:00 2023-06-04 09:19:14 Routine Visit Risk, Ang-Rmchp-N p/High Emily Werner [facility] 1..840.114 350.1.13.10 4.2.7.2.686 [id number] [facility] 2023-06-03 10:35:00 2023-06-03 12:20:00 Outpatient P DEANNA YU [facility] [id number] [facility] 2023-06-03 10:35:00 2023-06-03 12:20:00 Hospital Encounter Deanna Yu [facility] 1..840.114 350.1.13.10 4.2.7.2.686 [id number] [facility] 2023-05-22 00:00:00 2023-05-22 00:00:00 Telephone Genny Tian [facility] 1..114 350.1.13.10 4.2.7.2.686 [id number] 107 [id number] [facility] 2023-05-21 13:45:00 2023-05-21 15:16:53 Routine Visit Risk, Ang-Rmchp-N p/High Emily Werner [facility] 1..114 350.1.13.10 4.2.7.2.686 [id number] 107 [id number] [facility] 2023-05-21 13:45:00 2023-05-21 15:16:53 Outpatient EMILY PARK [facility] [id number] [facility] 2023-05-16 00:00:00 2023-05-16 00:00:00 Telephone Risk, Ang-Rmchp-N p/High [facility]..114 350.1.13.10 4.2.7.2.686 [id number] [facility] 2023-05-14 14:30:00 2023-05-14 14:30:00 Outpatient EMILY PARK [facility] [id number] [facility] 2023-05-07 08:15:00 2023-05-07 08:15:00 Outpatient Cesar [facility] [id number] [facility] 2023-04-23 11:00:00 2023-04-23 12:03:02 Outpatient EMILY PARK [facility] [id number] [facility] 2023-04-23 11:00:00 2023-04-23 12:03:02 Routine Visit Risk, Ang-Rmchp-N p/High Emily Werner [facility] 1..114 350.1.13.10 4.2.7.2.686 [id number] [facility] 2023-04-23 10:00:00 2023-04-23 10:00:00 Outpatient R [facility] [id number] [facility] 2023-04-22 15:45:00 2023-04-22 15:45:00 Outpatient R BATOOL CABRALES [facility] [id number] [facility] 2023-04-11 11:00:00 2023-04-11 11:47:14 Outpatient R GENNY TIAN [facility] [id number] [facility] 2023-04-11 11:00:00 2023-04-11 11:47:14 Routine Visit Genny Tian [facility] 1.0.114 350.1.13.10 4.2.7.2.686 [id number] [facility] 2023-04-11 00:00:00 2023-04-11 00:00:00 Patient Secure Msg Genny Tian [facility] 1..114 350.1.13.10 4.2.7.2.686 [id number] [facility] 2023-03-29 14:17:00 2023-03-29 16:54:00 Emergency X KISHAN RADER [facility] [id number] [facility] 2023-03-29 14:17:00 2023-03-29 16:54:00 Emergency Kishan Rader [facility] 1.0.114 350.1.13.10 4.2.7.2.686 [id number] [facility] 2023-03-29 00:00:00 2023-03-29 00:00:00 [facility]..114 350.1.13.10 4.2.7.2.686 [id number] [facility] 2023-03-26 10:45:00 2023-03-26 10:45:00 Outpatient R GENNY TIAN [facility] [id number] [facility] 2023-03-14 08:30:00 2023-03-14 09:14:20 Outpatient R GENNY TIAN [facility] [id number] [facility] 2023-03-14 08:30:00 2023-03-14 09:14:20 Routine Visit LeticiaamarisGenny Pranay [facility] 1.0.114 350.1.13.10 4.2.7.2.686 [id number] [facility] 2023-03-14 00:00:00 2023-03-14 00:00:00 Refill Genny Tian [facility] 1.840.114 350.1.13.10 4.2.7.2.686 [id number] [facility] 2023-03-14 00:00:00 2023-03-14 00:00:00 Refill Genny Tian [facility] 1.840.114 350.1.13.10 4.2.7.2.686 [id number] [facility] 2023-03-13 14:30:00 2023-03-13 15:39:49 Outpatient P GOGO MCMANUS SANGEETA [facility] [id number] [facility] 2023-03-13 14:30:00 2023-03-13 15:39:49 Mammalogist Visit Ultrasound, Chemo-Gogo Mcrae [facility] 1.840.114 350.1.13.10 4.2.7.2.686 [id number] [facility] 2023-03-03 00:00:00 2023-03-03 00:00:00 Telephone Genny Tian [facility] 1.2840.114 350.1.13.10 4.2.7.2.686 [id number] [facility] 2023-02-26 10:00:00 2023-02-26 11:20:47 Outpatient R GENNY TIAN [facility] [id number] [facility] 2023-02-26 10:00:00 2023-02-26 11:20:47 Initial Visit Genny Tian [facility] 1.2840.114 350.1.13.10 4.2.7.2.686 [id number] [facility] 2023-02-26 00:00:00 2023-02-26 00:00:00 Orders Only Doctor Unassigned, Bernard [facility] 1.840.114 350.1.13.10 4.2.7.2.686 [id number] [facility] 2023-02-05 13:15:00 2023-02-05 13:15:00 Outpatient R [facility] [id number] [facility] 2023-01-22 14:06:00 2023-01-22 15:29:00 Emergency X ROYAL BELLA [facility] ERT [id number] [facility] 2023-01-22 14:06:00 2023-01-22 15:29:00 Emergency Royal Bella [facility] 1.2840.114 350.1.13.10 4.2.7.2.686 [id number] [facility] 2023-01-22 08:00:00 2023-01-22 08:00:00 Outpatient R [facility] [id number] [facility] 2023-01-20 00:00:00 2023-01-20 00:00:00 Telephone Batool Cabrales [facility] 1.2.840.114 350.1.13.10 4.2.7.2.686 [id number] [facility] 2023-01-17 00:00:00 2023-01-17 00:00:00 Nurse Triage Dianna Soto [facility] 1.2.840.114 350.1.13.10 4.2.7.2.686 [id number] [facility] 2021-08-01 09:45:00 2021-08-01 09:45:00 Outpatient R UNKNOWN, ATTENDING [facility] [id number] [facility] Results Test Description Test Time Test Comments Results Result Co mments [facility] [id number] 09:07:36 * Test Item Value Reference Range Interpretation Comme [facility] TSH (test code = 7429293525) 1.28 0.45-4.70 Biotin has been reported to cause a negative bias, interpret results relative to patient's use of biotin. Lab Interpretation (test code = 56483-6) Normal [facility] Qqsw1371-52-90 17:25:00* Test Item Value Reference Range Interpretation Comme [facility] POCT PREG (test code = 1605) Negative On board controls acceptable with C Line (test code = 3574) Yes POCT PREG LOT # (test code = 3575) POCT PREG TEST DATE ( test code = 3576) [facility] Molecular Juh3655-08-50 16:01:46* Test Item Value Reference Range Interpretation Comme [facility] POCT Molecular FluA (test co de = 28008-0) Negative Negative POCT Molecular FluB (test co de = 16468-1) Negative Negative Lab Interpretation (test cod e = 60235-8) Normal [facility] SARS-COV-2 ANTIGEN (BINAX NOW)2024-03-12 16:01:00* Test Item Value Reference Range Interpretation Comme nts POCT SARS-COV-2 ANTIGEN (test code = 38327-5) Not Detected Not Detected, See Comment On board controls acceptable with C Line (test code = 3574) Yes Lab Interpretation (test code = 29112-8) Normal [facility] MOLECULAR HUVUM8190-76-57 15:54:51* Test Item Value Reference Range Interpretation Comme nts POCT Molecular Strep (test c ode = 36712-5) Negative Negative Lab Interpretation (test cod e = 54782-5) Normal [facility] Hjqm6202-85-36 20:44:00* Test Item Value Reference Range Interpretation Comme nts POCT PREG (test code = 1605) Negative On board controls acceptable with C Line (test code = 3574) Yes POCT PREG LOT # (test code = 3575) POCT PREG TEST DATE ( test code = 3576) [facility] Urinalysis W Specific Rohaxbl1766-62-08 22:18:00* Test Item Value Reference Range Interpretation [...] cloudy Lab Interpretation (test cod e = 56447-7) Abnormal [facility] Cfso4328-32-94 22:17:00* Test Item Value Reference Range Interpretation Comme nts POCT PREG (test code = 1605) Negative On board controls acceptable with C Line (test code = 3574) Yes POCT PREG LOT # (test code = 3575) POCT PREG TEST DATE ( test code = 3576) Lab Interpretation (test cod e = 07561-1) Normal [facility] Ewnn4818-71-03 17:51:00* Test Item Value Reference Range Interpretation Comme nts POCT PREG (test code = 1605) Negative On board controls acceptable with C Line (test code = 3574) Yes POCT PREG LOT # (test code = 3575) POCT PREG TEST DATE ( test code = 3576) [facility] Sgyc8430-07-37 17:51:00* Test Item Value Reference Range Interpretation Comme nts POCT PREG (test code = 1605) Negative On board controls acceptable with C Line (test code = 3574) Yes POCT PREG LOT # (test code = 3575) POCT PREG TEST DATE ( test code = 3576) [facility] HEAD WO [id number] 22:59:31EXAM: CT HEAD WO CONTRAST HISTORY: Seizure, [...] clear. The calvariumand central skull base are unremarkable.[facility]. Metabolic Panel (63100)2023-10-21 22:41:54* Test Item Value Reference Range Interpretation Comme nts NA (test code = 9400131275) 138 mmol/L 135-145 K (test code = 6037764312) 3.9 mmol/L 3.5-5.0 CL (test code = 5409755487) 102 mmol/L 98-108 CO2 TOTAL (test code = 9586132334) 29 mmol/L 23-31 AGAP (test code = 0396295768) 7 2-16 BUN (test code = 9794276144) 10 mg/dL 7-23 GLUCOSE (test code = 4979609823) 90 mg/dL 70-110 CREATININE (test code = 2160-0) 0.75 mg/dL 0.50-1.04 TOTAL BILI (test code = 8033616760) 0.4 mg/dL 0.1-1.1 CALCIUM (test code = 4721831850) 9.2 mg/dL 8.6-10.6 T PROTEIN (test code = 7793718918) 7.6 g/dL 6.3-8.2 ALBUMIN (test code = 7160562521) 4.7 g/dL 3.5-5.0 ALK PHOS (test code = 7360391381) 125 U/L 34-122 H ALTv (test code = 1742-6) 47 U/L 5-35 H AST(SGOT) (test code = 3769825312) 35 U/L 13-40 eGFR (test code = 54759-1) 115.6 mL/min/1.73m2 CKD-EPI eGFR (2020). Assuming creatinine has been stable day-to-day for at least three months, the eGFR indicates Category G1 (>= 90 mL/min/1.73 m2) Lab Interpretation (test code = 09915-9) [facility] Antonio[facility] Mirulq6324-55-93 22:41:34* Test Item Value Reference Range Interpretation Comme nts CK (test code = 9792702725) 60 U/L 33-194 Lab Interpretation (test cod e = 07078-1) Normal [facility] AntonioCbc with Nkiz8332-09-91 22:27:51* Test Item Value Reference Range Interpretation [...] 32.4 g/dL 31.6-35.1 RDW-SD (test code = 84082-3) 43.3 fL 39.0-49.9 RDW-CV (test code = 788-0) 13.5 % 12.0-15.5 PLT (test code = 777-3) 356 166-358 MPV (test code = 96577-2) 8.9 fL 9.5-12.9 L NRBC/100 WBC (test code = 3013976091) 0.0 0.0-10.0 NRBC x10^3 (test code = 4918484731) See_Comment [Automated messa ge] The system which generated this result transmitted reference range: 10*3/?L. The reference range was not used to interpret this result as normal/abnormal. GRAN MAT (NEUT) % (test code = 770-8) 53.5 % IMM GRAN % (test code = 7619309443) 0.30 % LYMPH % (test code = 736-9) 32.4 % MONO % (test code = 5905-5) 4.5 % EOS % (test code = 713-8) 8.4 % BASO % (test code = 706-2) 0.9 % GRAN MAT x10^3(ANC) (test code = 4428151472) 3.57 10*3/uL 1.88-7.09 IMM GRAN x10^3 (test code = 2588355325) 0.00-0.06 LYMPH x10^3 (test code = 731-0) 2.16 10*3/uL 1.32-3.29 MONO x10^3 (test code = 742-7) 0.30 10*3/uL 0.33-0.92 L EOS x10^3 (test code = 711-2) 0.56 10*3/uL 0.03-0.39 H BASO x10^3 (test code = 704-7) 0.06 10*3/uL 0.01-0.07 Lab Interpretation (test code = 69259-5) Abnormal [facility] Acid Whole Ywupj2804-46-80 22:15:28* Test Item Value Reference Range Interpretation Comme nts LACTIC ACID (test code = 4815954265) 1.54 mmol/L 0.50-2.20 Lab Interpretation (test cod e = 64468-9) Normal [facility] JIQL3575-09-17 22:00:00* Test Item Value Reference Range Interpretation Comme nts POCT PREG (test code = 1605) Negative On board controls acceptable with C Line (test code = 3574) Yes Lab Interpretation (test cod e = 36307-6) Normal [facility] Urinalysis W Specific Inxnmnv0695-84-47 20:55:00* Test Item Value Reference Range Interpretation [...] APPEAR (test code = 3267) . [facility] Urinalysis W Specific Jlgzpbd7424-95-98 20:55:00* Test Item Value Reference Range Interpretation [...] APPEAR (test code = 3267) . [facility] Urinalysis W Specific Istynaj1557-58-88 20:55:00* Test Item Value Reference Range Interpretation [...] APPEAR (test code = 3267) . [facility] URINALYSIS W SPECIFIC [id number] 20:54:00* Test Item Value Reference Range Interpretation [...] APPEAR (test code = 3267) . [facility] URINALYSIS W SPECIFIC RPMOKQM4984-81-16 20:54:00* Test Item Value Reference Range Interpretation [...] APPEAR (test code = 3267) . [facility] URINALYSIS W SPECIFIC [id number] 20:54:00* Test Item Value Reference Range Interpretation [...] U APPEAR (test code = 3267) . [facility] AntonioPO[facility] Cofq9920-71-28 20:26:00* Test Item Value Reference Range Interpretation Comme nts POCT PREG (test code = 1605) Negative On board controls acceptable with C Line (test code = 3574) Yes POCT PREG LOT # (test code = 3575) POCT PREG TEST DATE ( test code = 3576) [facility] AntonioPO[facility] Nxwl7104-01-67 20:26:00* Test Item Value Reference Range Interpretation Comme nts POCT PREG (test code = 1605) Negative On board controls acceptable with C Line (test code = 3574) Yes POCT PREG LOT # (test code = 3575) POCT PREG TEST DATE ( test code = 3576) [facility] Antonio[facility] Gecm4797-72-53 20:26:00* Test Item Value Reference Range Interpretation Comme nts POCT PREG (test code = 1605) Negative On board controls acceptable with C Line (test code = 3574) Yes POCT PREG LOT # (test code = 3575) POCT PREG TEST DATE ( test code = 3576) [facility] AntonioGAL ONLY - SYPHILIS IGG/HJW1661-75-54 15:57:29* Test Item Value Reference Range Interpretation Comme nts Syphilis IgG/IgM (test code = 73162-8) Non-reactive Non-reactive GARRETT (test code = GARRETT) Non-reactive - No serologic evidence of T. pallidum infection. Cannot exclude incubating or early syphilis. Submit a second specimen in 2-4 weeks if syphilis is clinically suspected. Equivocal - Further testing to follow. Reactive - Further testing to follow. Lab Interpretation (test code = 93591-9) Normal [facility] Antonio[facility]HO (D) IMMUNE UUZDXQVW4493-82-64 06:58:02* Test Item Value Reference Range Interpretation Comme nts RHIG CANDIDATE? (test code = 5188) No- see comment Patient is not a candidate for RhIg- Patient is Rh Positive.Performed at [facility] Laboratory Services - [facility] Blood [address] [address]Vxvn Free: [phone] No. [id number] [facility] AntonioVenous Cord Ahx8721-24-78 03:50:38* Test Item Value Reference Range Interpretation Comme nts VENOUS BASE EXCESS, CORD (te st code = 6727518295) 0.5 mEq/L VENOUS PH, CORD (test code = 6049908200) 7.35 7.25-7.45 VENOUS PC02, CORD (test code = 9417813313) 49 27-49 VENOUS PO2, CORD (test code = 5200486851) 23 17-41 VENOUS BICARBONATE, CORD (te st code = 0033427853) 27 12-29 [facility] BranchAr[facility] Edk3985-63-59 03:50:18* Test Item Value Reference Range Interpretation Comme nts BASE EXCESS, CORD (test code = 2455441358) -2.2 mEq/L AC PH, CORD (BEAKER) (test c ode = 0309194902) 7.35 7.18-7.38 PC02, CORD (test code = 7488150396) 44 32-66 PO2, CORD (test code = 8206853390) 25 10-30 BICARBONATE, CORD (test code = 2346233035) 24 17-27 [facility] AntonioHepatitis B Surface Xtdkoad0868-35-19 19:31:01 * Test Item Value Reference Range Interpretation Comme nts HBsAg Semi-Quantitative (amita t code = 5195-3) 0.06 Negative [facility] AntonioHIV 1/2 AG-AB WITH RCIGHB3280-08-33 18:19:07* Test Item Value Reference Range Interpretation Comme nts HIV Semi-quantitative (test code = 87430-6) 0.08 Negative GARRETT (test code = GARRETT) Non-reactive for HIV-1 antigen and HIV-1/HIV-2 antibodies. ?No laboratory evidence of HIV infection. ?Repeat in 2-4 weeks if acute HIV infection is suspected. [facility] AntonioCentral Neuraxial Bhffg5307-70-85 17:42:00 Elliott Humphrey MD ? ? 07/25/2023 12:23 PM Central Neuraxial Block Date/Time: 07/25/2023 11:42 AM Performed by: Elliott Humphrey, SHAWNAuthorized by: Bertin Ledesma MBBS ?End Time: 07/25/2023 12:08 PMReason for Block: OB request, Patient request, Labor analgesia, Surgical anesthesia and Post-op pain managementStaff: ?Anesthesiologist: Bertin Ledesma MBBS ?Resident/DISTRICT CLAIMS MANAGER: Adrian Root MD ?Performed by: resident/CRNAPreanesthetic Checklist: [...] air and catheter ?Guidance with: landmark technique}Epidural/Spinal [place] and/or Catheter: ?Epidural/Spinal Kit: BBraun ?Needle Type: [...] ? Smooth and atraumatic, (+) Local, (+) STFUniversCHI [facility] Central Neuraxial Zpfvb6866-57-03 17:42:00Elliott Humphrey MD ? ? 07/25/2023 12:23 PM Central Neuraxial Block Date/Time: 07/25/2023 11:42 AM Performed by: Elliott Humphrey MDAuthorized by: Bertin Ledesma MBBS ?End Time: 07/25/2023 12:08 PMReason for Block: OB request, Patient request, Labor analgesia, Surgical anesthesia and Post-op pain managementStaff: ?Anesthesiologist: Bertin Ledesma MBBS ?Resident/DISTRICT CLAIMS MANAGER: Adrian Root MD ?Performed by: resident/CRNAPreanesthetic Checklist: [...] air and catheter ?Guidance with: landmark technique}Epidural/Spinal [place] and/or Catheter: ?Epidural/Spinal Kit: BBraun ?Needle Type: [...] ? Smooth and atraumatic, (+) Local, (+) STFUniCH[facility] Central Neuraxial Gunrx8937-48-95 17:42:00Elliott Humphrey MD ? ? 07/25/2023 12:23 PM Central Neuraxial Block Date/Time: 07/25/2023 11:42 AM Performed by: Elliott Humphrey MDAuthorized by: Bertin Ledesma MBBS ?End Time: 07/25/2023 12:08 PMReason for Block: OB request, Patient request, Labor analgesia, Surgical anesthesia and Post-op pain managementStaff: ?Anesthesiologist: Bertin eLdesma MBBS ?Resident/DISTRICT CLAIMS MANAGER: Adrian Root MD ?Performed by: resident/CRNAPreanesthetic Checklist: [...] air and catheter ?Guidance with: landmark technique}Epidural/Spinal [place] and/or Catheter: ?Epidural/Spinal Kit: Gabrieleun ?Needle Type: Tuohy ?Needle Gauge: 17 G [...] ? Smooth and atraumatic, (+) Local, (+) STFUniversCHI [facility] HospitalType and Screen - ONCE [id number] 16:26:00* Test Item Value Reference Range Interpretation Comme nts ABO & RH (test code = 20) A POSITIVE IAT (test code = 1185) Negative [facility] AntonioPOCT URINALYSIS W SPECIFIC [id number] 20:02:00* Test Item Value Reference Range Interpretation [...] POCT U APPEAR (test code = 3267) [facility] AntonioLactate Pwhteqshrjzou7326-31-73 04:35:23* Test Item Value Reference Range Interpretation Comme nts LDH (test code = 3862543389) 190 U/L 120-246 Lab Interpretation (test cod e = 31097-2) Normal [facility] AntonioUric Acid Ovgde9379-37-80 04:25:43* Test Item Value Reference Range Interpretation Comme nts URIC ACID (test code = 9031650046) 3.3 mg/dL 2.9-6.0 Lab Interpretation (test cod e = 15335-7) Normal [facility] AntonioSGOT (Asparate Amino Transfer)2023-07-18 04:25:43* Test Item Value Reference Range Interpretation Comme [facility] AST(SGOT) (test code = 0366998113) 39 U/L 13-40 Lab Interpretation (test cod e = 97823-9) Normal [facility] AntonioAlanine Amino Transferase (SGPT)2023-07-18 04:25:43* Test Item Value Reference Range Interpretation Comme nts ALTv (test code = 1742-6) 11 U/L 5-35 Lab Interpretation (test cod e = 43178-2) Normal [facility] AntonioSerum Fclqaituje4154-85-37 04:25:18* Test Item Value Reference Range Interpretation Comme nts CREATININE (test code = 9986633655) 0.46 mg/dL 0.50-1.04 L eGFR (test code = 39640-2) 139.0 mL/min/1.73m2 CKD-EPI eGFR (2020). Assuming creatinine has been stable day-to-day for at least three months, the eGFR indicates Category G1 (>= 90 mL/min/1.73 m2) Lab Interpretation (test code = 86080-7) Abnormal [facility] with Jpbiyqlxmhfq2023-13-65 04:09:01* Test Item Value Reference Range Interpretation [...] 32.2 g/dL 31.6-35.1 RDW-SD (test code = 26159-8) 50.3 fL 39.0-49.9 H RDW-CV (test code = 788-0) 16.1 % 12.0-15.5 H PLT (test code = 777-3) 355 See_Comment [Automated messa ge] The system which generated this result transmitted reference range: 166 - 358 10*3/?L. The reference range was not used to interpret this result as normal/abnormal. MPV (test code = 49511-5) 9.6 fL 9.5-12.9 NRBC/100 WBC (test code = 7285894990) 0.0 See_Comment [Automated me ssage] The system which generated this result transmitted reference range: 0.0 - 10.0 /100 WBCs. The reference range was not used to interpret this result as normal/abnormal. NRBC x10^3 (test code = 9388103929) See_Comment [Automated messa ge] The system which generated this result transmitted reference range: 10*3/?L. The reference range was not used to interpret this result as normal/abnormal. GRAN MAT (NEUT) % (test code = 770-8) 66.1 % IMM GRAN % (test code = 8353476582) 0.70 % LYMPH % (test code = 736-9) 22.6 % MONO % (test code = 5905-5) 5.5 % EOS % (test code = 713-8) 4.6 % BASO % (test code = 706-2) 0.5 % GRAN MAT x10^3(ANC) (test code = 1051408542) 7.55 10*3/uL 1.88-7.09 H IMM GRAN x10^3 (test code = 7760340201) 0.08 10*3/uL 0.00-0.06 H LYMPH x10^3 (test code = 731-0) 2.58 10*3/uL 1.32-3.29 MONO x10^3 (test code = 742-7) 0.63 10*3/uL 0.33-0.92 EOS x10^3 (test code = 711-2) 0.52 10*3/uL 0.03-0.39 H BASO x10^3 (test code = 704-7) 0.06 10*3/uL 0.01-0.07 Lab Interpretation (test code = 25061-7) Abnormal [facility] URINALYSIS W SPECIFIC EUERVLR6981-43-30 21:43:00* Test Item Value Reference Range Interpretation [...] POCT U APPEAR (test code = 3267) [facility] with Zwff6941-92-74 05:36:47* Test Item Value Reference Range Interpretation Comme nts WBC (test code = 6690-2) 12.16 See_Comment H [Automated messa ge] The system which generated this result transmitted reference range: 4.30 - 11.10 10*3/?L. The reference range was not used to interpret this result as normal/abnormal. RBC (test code = 789-8) 4.03 See_Comment [Automated [employer] ge] The system which generated this result [...] g/dL 31.6-35.1 L RDW-SD (test code = 67980-5) 49.9 fL 39.0-49.9 RDW-CV (test code = 788-0) 15.6 % 12.0-15.5 H PLT (test code = 777-3) 381 See_Comment H [Automated messa ge] The system which generated this result transmitted reference range: 166 - 358 10*3/?L. The reference range was not used to interpret this result as normal/abnormal. MPV (test code = 34125-1) 9.8 fL 9.5-12.9 NRBC/100 WBC (test code = 1035864231) 0.0 See_Comment [Automated [employer] ssage] The system which generated this result transmitted reference range: 0.0 - 10.0 /100 WBCs. The reference range was not used to interpret this result as normal/abnormal. NRBC x10^3 (test code = 7213112902) See_Comment [Automated messa ge] The system which generated this result transmitted reference range: 10*3/?L. The reference range was not used to interpret this result as normal/abnormal. GRAN MAT (NEUT) % (test code = 770-8) 70.9 % IMM GRAN % (test code = 4980997228) 0.80 % LYMPH % (test code = 736-9) 18.4 % MONO % (test code = 5905-5) 4.9 % EOS % (test code = 713-8) 4.6 % BASO % (test code = 706-2) 0.4 % GRAN MAT x10^3(ANC) (test code = 7526988073) 8.62 10*3/uL 1.88-7.09 H IMM GRAN x10^3 (test code = 4923365359) 0.10 10*3/uL 0.00-0.06 H LYMPH x10^3 (test code = 731-0) 2.24 10*3/uL 1.32-3.29 MONO x10^3 (test code = 742-7) 0.59 10*3/uL 0.33-0.92 EOS x10^3 (test code = 711-2) 0.56 10*3/uL 0.03-0.39 H BASO x10^3 (test code = 704-7) 0.05 10*3/uL 0.01-0.07 Lab Interpretation (test code = 39279-0) Abnormal [facility] URINALYSIS W SPECIFIC CUEZCVJ1077-78-22 19:32:00* Test Item Value Reference Range Interpretation [...] code = 3261) * Negative - Negat radah POCT U BLD (test code = 3257) negative Negative - Negati ve POCT U COLOR (test code = 3266) POCT U APPEAR (test code = 3267) [facility] URINALYSIS W SPECIFIC [id number] 18:55:00* Test Item Value Reference Range Interpretation [...] APPEAR (test code = 3267) . [facility] URINALYSIS W SPECIFIC [id number] 18:55:00* Test Item Value Reference Range Interpretation [...] APPEAR (test code = 3267) . [facility] URINALYSIS W SPECIFIC BFZEPOD3864-29-01 14:59:00* Test Item Value Reference Range Interpretation [...] POCT U APPEAR (test code = 3267) [facility] URINALYSIS W SPECIFIC NVTFLAZ0439-21-94 20:12:00* Test Item Value Reference Range Interpretation [...] U APPEAR (test code = 3267) * [facility] AntonioMAGNESIUM2023-10-07 20:36:27* Test Item Value Reference Range Interpretation Comme nts MAGNESIUM (test code = 6193200142) 1.7 mg/dL 1.7-2.4 Lab Interpretation (test cod e = 11874-5) Normal [facility] AntonioCOMP. METABOLIC PANEL (71426)2023-03-29 20:36:07* Test Item Value Reference Range Interpretation Comme nts NA (test code = 3400156525) 134 mmol/L 135-145 L K (test code = 9481414930) 3.6 mmol/L 3.5-5.0 CL (test code = 9908166882) 100 mmol/L 98-108 CO2 TOTAL (test code = 9257385731) 22 mmol/L 23-31 L AGAP (test code = 6362455708) 12 2-16 BUN (test code = 1360422003) 9 mg/dL 7-23 GLUCOSE (test code = 4724631373) 82 mg/dL 70-110 CREATININE (test code = 6079283474) 0.48 mg/dL 0.50-1.04 L TOTAL BILI (test code = 3368478110) 0.4 mg/dL 0.1-1.1 CALCIUM (test code = 4258635386) 8.3 mg/dL 8.6-10.6 L T PROTEIN (test code = 9266815674) 6.9 g/dL 6.3-8.2 ALBUMIN (test code = 2445332473) 3.7 g/dL 3.5-5.0 ALK PHOS (test code = 1130282086) 58 U/L 34-122 ALTv (test code = 1742-6) 14 U/L 5-35 AST(SGOT) (test code = 3203522367) 19 U/L 13-40 eGFR (test code = 5240284123) 163.3 mL/min/1.73m2 GARRETT (test code = GARRETT) [...] imaging tests). Lab Interpretation (test code = 55141-0) Abnormal [facility] AntonioLIPASE2023-10-07 20:35:47* Test Item Value Reference Range Interpretation Comme nts LIPASE (test code = 7761426221) 90 U/L 0-220 Lab Interpretation (test cod e = 86281-2) Normal [facility] AntonioCB WITH IRTL6788-23-97 20:23:46* Test Item Value Reference Range Interpretation Comme nts WBC (test code = 6690-2) 9.11 See_Comment [Automated [employer]] The system which generated this result transmitted reference range: 4.30 - 11.10 10*3/?L. The reference range was not used to interpret this result as normal/abnormal. RBC (test code = 789-8) 3.70 See_Comment L [Automated [employer]] The system which generated this result transmitted [...] 32.5 g/dL 31.6-35.1 RDW-SD (test code = 34870-6) 47.7 fL 39.0-49.9 RDW-CV (test code = 788-0) 14.8 % 12.0-15.5 PLT (test code = 777-3) 314 See_Comment [Automated messa ge] The system which generated this result transmitted reference range: 166 - 358 10*3/?L. The reference range was not used to interpret this result as normal/abnormal. MPV (test code = 13742-3) 9.7 fL 9.5-12.9 NRBC/100 WBC (test code = 5518853014) 0.0 See_Comment [Automated me ssage] The system which generated this result transmitted reference range: 0.0 - 10.0 /100 WBCs. The reference range was not used to interpret this result as normal/abnormal. NRBC x10^3 (test code = 6506922080) See_Comment [Automated messa ge] The system which generated this result transmitted reference range: 10*3/?L. The reference range was not used to interpret this result as normal/abnormal. GRAN MAT (NEUT) % (test code = 770-8) 71.4 % IMM GRAN % (test code = 1580182356) 0.30 % LYMPH % (test code = 736-9) 19.9 % MONO % (test code = 5905-5) 4.2 % EOS % (test code = 713-8) 3.8 % BASO % (test code = 706-2) 0.4 % GRAN MAT x10^3(ANC) (test code = 4880328273) 6.50 10*3/uL 1.88-7.09 IMM GRAN x10^3 (test code = 2824969507) 0.03 10*3/uL 0.00-0.06 LYMPH x10^3 (test code = 731-0) 1.81 10*3/uL 1.32-3.29 MONO x10^3 (test code = 742-7) 0.38 10*3/uL 0.33-0.92 EOS x10^3 (test code = 711-2) 0.35 10*3/uL 0.03-0.39 BASO x10^3 (test code = 704-7) 0.04 10*3/uL 0.01-0.07 Lab Interpretation (test code = 76817-5) Abnormal [facility] AntonioPOWI URINALYSIS W SPECIFIC NNWGTMJ1995-56-56 13:42:00* Test Item Value Reference Range Interpretation [...] U APPEAR (test code = 3267) . [facility] WITH QGWW7757-44-59 05:22:18* Test Item Value Reference Range Interpretation Comme nts WBC (test code = 6690-2) 9.40 See_Comment [Automated [employer] ge] The system which generated this result transmitted reference range: 4.30 - 11.10 10*3/?L. The reference range was not used to interpret this result as normal/abnormal. RBC (test code = 789-8) 3.93 See_Comment [Automated [employer] ge] The system which generated this result [...] 31.8 g/dL 31.6-35.1 RDW-SD (test code = 34733-4) 51.0 fL 39.0-49.9 H RDW-CV (test code = 788-0) 15.6 % 12.0-15.5 H PLT (test code = 777-3) 339 See_Comment [Automated [employer] ge] The system which generated this result transmitted reference range: 166 - 358 10*3/?L. The reference range was not used to interpret this result as normal/abnormal. MPV (test code = 79634-5) 10.3 fL 9.5-12.9 NRBC/100 WBC (test code = 2371057671) 0.0 See_Comment [Automated [employer] ssage] The system which generated this result transmitted reference range: 0.0 - 10.0 /100 WBCs. The reference range was not used to interpret this result as normal/abnormal. NRBC x10^3 (test code = 3264077840) See_Comment [Automated [employer] ge] The system which generated this result transmitted reference range: 10*3/?L. The reference range was not used to interpret this result as normal/abnormal. GRAN MAT (NEUT) % (test code = 770-8) 76.6 % IMM GRAN % (test code = 4806756604) 0.30 % LYMPH % (test code = 736-9) 15.9 % MONO % (test code = 5905-5) 3.7 % EOS % (test code = 713-8) 3.1 % BASO % (test code = 706-2) 0.4 % GRAN MAT x10^3(ANC) (test code = 9668516929) 7.20 10*3/uL 1.88-7.09 H IMM GRAN x10^3 (test code = 6502016746) 0.03 10*3/uL 0.00-0.06 LYMPH x10^3 (test code = 731-0) 1.49 10*3/uL 1.32-3.29 MONO x10^3 (test code = 742-7) 0.35 10*3/uL 0.33-0.92 EOS x10^3 (test code = 711-2) 0.29 10*3/uL 0.03-0.39 BASO x10^3 (test code = 704-7) 0.04 10*3/uL 0.01-0.07 Lab Interpretation (test code = 38870-4) Abnormal [facility] WITH [id number] 05:22:18* Test Item Value Reference Range Interpretation [...] 31.8 g/dL 31.6-35.1 RDW-SD (test code = 51102-0) 51.0 fL 39.0-49.9 H RDW-CV (test code = 788-0) 15.6 % 12.0-15.5 H PLT (test code = 777-3) 339 See_Comment [Automated messa ge] The system which generated this result transmitted reference range: 166 - 358 10*3/?L. The reference range was not used to interpret this result as normal/abnormal. MPV (test code = 45582-4) 10.3 fL 9.5-12.9 NRBC/100 WBC (test code = 8420306148) 0.0 See_Comment [Automated me ssage] The system which generated this result transmitted reference range: 0.0 - 10.0 /100 WBCs. The reference range was not used to interpret this result as normal/abnormal. NRBC x10^3 (test code = 0739496664) See_Comment [Automated messa ge] The system which generated this result transmitted reference range: 10*3/?L. The reference range was not used to interpret this result as normal/abnormal. GRAN MAT (NEUT) % (test code = 770-8) 76.6 % IMM GRAN % (test code = 0890121261) 0.30 % LYMPH % (test code = 736-9) 15.9 % MONO % (test code = 5905-5) 3.7 % EOS % (test code = 713-8) 3.1 % BASO % (test code = 706-2) 0.4 % GRAN MAT x10^3(ANC) (test code = 5201561299) 7.20 10*3/uL 1.88-7.09 H IMM GRAN x10^3 (test code = 5959617986) 0.03 10*3/uL 0.00-0.06 LYMPH x10^3 (test code = 731-0) 1.49 10*3/uL 1.32-3.29 MONO x10^3 (test code = 742-7) 0.35 10*3/uL 0.33-0.92 EOS x10^3 (test code = 711-2) 0.29 10*3/uL 0.03-0.39 BASO x10^3 (test code = 704-7) 0.04 10*3/uL 0.01-0.07 Lab Interpretation (test code = 48002-3) [facility] [id number]:03:00* Test Item Value Reference Range Interpretation Comme nts POCT PREG (test code = 1605) Positive On board controls acceptable with C Line (test code = 3574) Yes POCT PREG LOT # (test code = 3575) POCT PREG TEST DATE ( test code = 3576) [facility] URINALYSIS W/O SPECIFIC [id number] 15:03:00* Test Item Value Reference Range Interpretation [...] = 3257) neg Negative - Negati ve [facility] [id number] 15:03:00* Test Item Value Reference Range Interpretation Comme nts POCT PREG (test code = 1605) Positive On board controls acceptable with C Line (test code = 3574) Yes POCT PREG LOT # (test code = 3575) POCT PREG TEST DATE ( test code = 3576) [facility] URINALYSIS W/O SPECIFIC [id number] 15:03:00* Test Item Value Reference Range Interpretation [...] = 3257) neg Negative - Negati ve [facility] [id number] 15:03:00* Test Item Value Reference Range Interpretation Comme nts POCT PREG (test code = 1605) Positive On board controls acceptable with C Line (test code = 3574) Yes POCT PREG LOT # (test code = 3575) POCT PREG TEST DATE ( test code = 357) [facility] URINALYSIS W/O SPECIFIC [id number] 15:03:00* Test Item Value Reference Range Interpretation [...] = 3257) neg Negative - Negati ve [facility] [id number] 15:03:00* Test Item Value Reference Range Interpretation Comme nts POCT PREG (test code = 1605) Positive On board controls acceptable with C Line (test code = 3574) Yes POCT PREG LOT # (test code = 3575) POCT PREG TEST DATE ( test code = 357) [facility] URINALYSIS W/O SPECIFIC [id number] 15:03:00* Test Item Value Reference Range Interpretation [...] = 3257) neg Negative - Negati ve [facility] [id number] 15:03:00* Test Item Value Reference Range Interpretation Comme nts POCT PREG (test code = 1605) Positive On board controls acceptable with C Line (test code = 3574) Yes POCT PREG LOT # (test code = 3575) POCT PREG TEST DATE ( test code = 357) [facility] URINALYSIS W/O SPECIFIC [id number] 15:03:00* Test Item Value Reference Range Interpretation [...] = 3257) neg Negative - Negati ve [facility] [id number] 15:03:00* Test Item Value Reference Range Interpretation Comme nts POCT PREG (test code = 1605) Positive On board controls acceptable with C Line (test code = 3574) Yes POCT PREG LOT # (test code = 3575) POCT PREG TEST DATE ( test code = 3576) [facility] URINALYSIS W/O SPECIFIC [id number] 15:03:00* Test Item Value Reference Range Interpretation [...] = 3257) neg Negative - Negati ve [facility] [id number] 15:03:00* Test Item Value Reference Range Interpretation Comme nts POCT PREG (test code = 1605) Positive On board controls acceptable with C Line (test code = 3574) Yes POCT PREG LOT # (test code = 3575) POCT PREG TEST DATE ( test code = 3576) [facility] URINALYSIS W/O SPECIFIC [id number] 15:03:00* Test Item Value Reference Range Interpretation [...] = 3257) neg Negative - [facility]ati ve [facility]OLIC PANEL (46884)2023-01-22 20:06:41* Test Item Value Reference Range Interpretation Comme nts NA (test code = 7739289872) 135 mmol/L 135-145 K (test code = 8673340939) 3.8 mmol/L 3.5-5.0 CL (test code = 1822783614) 100 mmol/L 98-108 CO2 TOTAL (test code = 5918448587) 26 mmol/L 23-31 AGAP (test code = 7595996325) 9 2-16 BUN (test code = 0301668517) 7 mg/dL 7-23 GLUCOSE (test code = 4709020283) 86 mg/dL 70-110 CREATININE (test code = 9085206034) 0.46 mg/dL 0.50-1.04 L TOTAL BILI (test code = 3512877706) 0.5 mg/dL 0.1-1.1 CALCIUM (test code = 9220614667) 9.0 mg/dL 8.6-10.6 T PROTEIN (test code = 2763366238) 7.5 g/dL 6.3-8.2 ALBUMIN (test code = 9650174139) 4.3 g/dL 3.5-5.0 ALK PHOS (test code = 2785810848) 54 U/L 34-122 ALTv (test code = 1742-6) 20 U/L 5-35 AST(SGOT) (test code = 4352443143) 20 U/L 13-40 eGFR (test code = 3986505743) 171.5 mL/min/1.73m2 GARRETT (test code = GARRETT) [...] imaging tests). Lab Interpretation (test code = 75726-0) [facility]normal [facility] 20:06:36* Test Item Value Reference Range Interpretation Comme nts LIPASE (test code = 9533619448) 77 U/L 0-220 Lab Interpretation (test cod e = 66420-4) Normal [facility] [id number] 19:54:35* Test Item Value Reference Range Interpretation Comme nts WBC (test code = 6690-2) 8.02 See_Comment [Automated [employer]] The system which generated this result transmitted reference range: 4.30 - 11.10 10*3/?L. The reference range was not used to interpret this result as normal/abnormal. RBC (test code = 789-8) 4.14 See_Comment [Automated [employer]] The system which generated this result transmitted [...] 32.5 g/dL 31.6-35.1 RDW-SD (test code = 92918-4) 50.1 fL 39.0-49.9 H RDW-CV (test code = 788-0) 15.9 % 12.0-15.5 H PLT (test code = 777-3) 321 See_Comment [Automated [employer] ge] The system which generated this result transmitted reference range: 166 - 358 10*3/?L. The reference range was not used to interpret this result as normal/abnormal. MPV (test code = 89711-6) 9.4 fL 9.5-12.9 L NRBC/100 WBC (test code = 7022568130) 0.0 See_Comment [Automated [employer] ssage] The system which generated this result transmitted reference range: 0.0 - 10.0 /100 WBCs. The reference range was not used to interpret this result as normal/abnormal. NRBC x10^3 (test code = 6476277193) See_Comment [Automated [employer]] The system which generated this result transmitted reference range: 10*3/?L. The reference range was not used to interpret this result as normal/abnormal. GRAN MAT (NEUT) % (test code = 770-8) 70.9 % IMM GRAN % (test code = 9601585371) 0.60 % LYMPH % (test code = 736-9) 20.2 % MONO % (test code = 5905-5) 5.7 % EOS % (test code = 713-8) 2.0 % BASO % (test code = 706-2) 0.6 % GRAN MAT x10^3(ANC) (test code = 2291658809) 5.68 10*3/uL 1.88-7.09 IMM GRAN x10^3 (test code = 4971915928) 0.05 10*3/uL 0.00-0.06 LYMPH x10^3 (test code = 731-0) 1.62 10*3/uL 1.32-3.29 MONO x10^3 (test code = 742-7) 0.46 10*3/uL 0.33-0.92 EOS x10^3 (test code = 711-2) 0.16 10*3/uL 0.03-0.39 BASO x10^3 (test code = 704-7) 0.05 10*3/uL 0.01-0.07 Lab Interpretation (test code = 08360-7) Abnormal [facility] Consult Notes Date/Time Note Provider Source 2023-07-26 16:31:53 Associated Order(s): CONSULT ASSEMBLER PRODUCTION LINE-ADULT Reason for consult - please give recommendation or opinion on: Depression, please provide with available resources Thanks Cryptological Technician Note SW interviewed Harper Sequeira who reportedly resides at [address] [place] [address] [address] [place], [address] with significant other, Cheikh Murali who presents at hospital for support. MOB stated has car seat and all other necessary items for baby to go home. SO will transport upon discharge. MOB reported received care at [facility] in [place], [place]. MOB plans to follow-up at [facility] in [place], [place]. MOB reported no past mental health history. MOB denies any current depressive symptoms. SW provided educational material on PPD. Signs and symptoms were reviewed, and MOB encouraged to follow-up with PCP if experiencing any signs and symptoms of PPD. Plan: Baby to discharge home with MOB when medically cleared. Meryl So LMSW [facility] Cryptological Technician [phone] [email or web address] Available Fri NG MACHINE MECHANIC Meryl So LMSW [facility] - Health Procedure Notes Date/Time Note Provider [...] 0 +1, +2 Divya Olivo APRN, CNM [facility] 2023-07-25 12:21:20 Associated Order(s): Central Neuraxial Block Central Neuraxial Block Date/Time: 07/25/2023 11:42 AM Performed by: Elliott Humphrey MD Authorized by: Bertin Ledesma MBBS End Time: 07/25/2023 12:08 PM Reason for Block: OB request, Patient request, Labor analgesia, Surgical anesthesia and Post-op pain management Staff: Anesthesiologist: Bertin Ledesma MBBS Resident/DISTRICT CLAIMS MANAGER: Adrian Root MD Performed by: resident/DISTRICT CLAIMS MANAGER Preanesthetic Checklist: patient identified, IV checked, risks [...] and catheter Guidance with: landmark technique} Epidural/Spinal [place] and/or Catheter: Epidural/Spinal Kit: Sp Needle Type: Tuohy Needle Gauge: 17 G [...] Smooth and atraumatic, (+) Local, (+) [facility] AN-ANESTHESIOLOGY [facility] Notes Date/Time Note Provider Source 2023-11-13 13:24:04 Please have patient follow up with mental health provider, as per the last note pt reports stopped taking meds 10/20 SADAF Olivo 11/13/2023 1:[address] [facility] 2023-10-21 18:57:01 Pt given printed [...] accompanied by significant other. Pita Barron RN [facility] 2023-10-21 18:44:03 SAFE-T Protocol with C-SSRS ([place] Risk and Protective Factors) - Recent Identify [...] time of evaluation. Pt reports she called [facility] for intake a week ago,planning to follow up with [facility] for depression [facility] 2023-10-21 14:38:23 Pt states that [...] Denies SI/HI in triage. Sarah Poole RN [facility] 2023-10-16 10:50:43 Pt transferred to [...] RN 10/16/23 10:49 AM Louise Leyva RN [facility] 2023-10-16 10:47:50 Pt transferred to [...] RN 10/16/23 10:49 AM Louise Leyva RN [facility] 2023-10-16 10:23:14 Copied from [facility] #[id number]. Topic: Clinical - Medical Advice >> Oct 16, 2023 10:04 AM Patient Rib Sawyer wrote: Harper Sequeira is a 23 year [...] but I try not to" Kourtney Gallagher [facility] 2023-07-26 22:02:12 Problem: Falls, Risk [...] Risk Goal: Absence of infection Outcome: Resolved NG MACHINE MECHANIC Kerry Patel RN [facility] 2023-07-26 16:09:57 Problem: Falls, Risk [...] Absence of infection Outcome: Progressing as expected EDO Rock RN [facility] 2023-07-26 16:00:00 Images from the [...] Mental health history Anxiety;Depression Literature Resources Resources [place] [employer] Education Benefits of breastmilk;Lactogenesis;Benef its of skin to skin contact;Encouraged rooming-in;Pump frequency;Storage of expressed breastmilk Recommended Feeding Plan Recommended feeding plan -- Mom is choosing to continue to formula feed her baby; states may pump or breastfeed once home; denies assistance or needs at this time. OTHER $ SERVICES Initial Yue Leonard RN, BSN, IBCLC EDO Leonard RN [facility] 2023-07-26 05:48:11 Problem: Falls, Risk of Goal: Absence of falls 07/26/2023 0548 by Kerry Patel RN Outcome: Progressing as expected 07/26/2023 0233 by Kerry Patel RN Outcome: Progressing as expected Problem: Pain Goal: Control of pain at or below patient's documented comfort goal 07/26/2023 0548 by Kerry Patel, CHERI Outcome: Progressing as expected 07/26/2023 0233 by Kerry Patel, CHERI Outcome: Progressing as expected Goal: Reduction in pain sensation 07/26/2023 0548 by Kerry Patel, CHERI Outcome: Progressing as expected 07/26/2023 023 by [...] Kerry Patel RN Outcome: Progressing as expected 07/26/2023232 by Kerry Patel RN Outcome: Progressing as expected [facility] 2023-07-26 02:33:54 Problem: Falls, Risk of Goal: [...] Goal: Reduction in pain sensation Outcome: Resolved [facility] 2023-07-25 21:58:34 DELIVERY BY SPONTANEOUS VAGINAL DELIVERY [...] cord was double clamped, cut and the was handed off the field to the [...] Minute 10 Minute Totals: 8 9 Aneta Brice [place], MD Obstetrics and Gynecology PGY-1 NG MACHINE MECHANIC Associated attestation - Shelby Dias MD - 07/25/2023 10:21 PM VOTING MACHINE MECHANIC I was present for the delivery on 07/25/[address] Grimes's note for additional details. Shelby Dias MD -OBSTETRICS & GYNECOLOGY [facility] 2023-07-25 19:52:28 Problem: Intrapartum process [...] Absence of falls Outcome: Progressing as expected NG MACHINE MECHANIC [facility] 2023-07-25 18:41:17 Intrapartum Progress Note [...] movement: Yes Mode: EFM Uterine Activity: Mode: [place] Contractions (number / 10 minute): 4 Contraction duration (seconds): 60-80 Membrane Status Membrane status: Artificial Rupture date: 07/25/23 Rupture time: 1834 Amniotic fluid color: Clear Cervical Exam 5 / 75 % / -2 Assessment/Plan: Harper Sequeira is a 23 year old at 39w0d OB Assessment: CNM IOL OB Plan: epidural, FB & pit Additional Comments/Detail: SROM with clear fluid noted. Patient has epidural in place. Ripening Agent: Oxytocin Antonia Rock MD NG MACHINE MECHANIC OG-OBSTETRICS & GYNECOLOGY [facility] 2023-07-25 11:08:53 Name/ MRN / Age / Gender: Harper Sequeira, [id number] 23 year old female BMI: Estimated body [...] (physical exam) Anesthesia Preop: Chart Review and Kcni-xk-Eeyv PONV Risk Factors: female Anesthesia History Anesthesia [...] Endo/Other ROS Comments: No results found for: "AVNVJDB8F" No results found for: "HGBA1C" Other FERN CUTTER Comments: 23 year old female at 39w0d requesting central neuraxial anesthesia Harper Sequeira is a 23 year old at 39w0d by LMP with 8 wk USG who presents for induction of labor. Induction of Labor - SVE: Dilation: 1 / Effacement (%): 75 % / Station: -3 - Mode: [place]: Contractions (number / 10 minute): 3;irrit - Plan: IOL with FB and pitocin. Harper desires epidural before FB placement. Antepartum course reviewed - 1 h 94, sero neg, Ri, VZVni, A+/neg, GBS neg, Pap due PP - H/H, plt: 10.5 / 32.6, 355 on 07/17/23 - [facility] Fetus - Presentation on admission: vertex, sutures palpable - anterior placenta - Kishan 6-6.5# - FHT Category I - Normal anatomy scan Pediatric Pediatric N/A N/A Preoperative Medication Instructions Continue taking all prescribed medications except: SCOTT inhibitors, ARBs, diuretics, all oral diabetes medications Anticoagulant Therapy: Defer to surgeons Insulin: Take 1/2 dose the night prior to surgery. Hold on DOS. Phentermine: Alert [facility] anesthesiologist SGLT2 Inhibitors: "gliflozins" to be [...] Epidural Anesthesia plan discussed with: patient or personnel representative Post-Operative Analgesia: routine analgesia & antiemetics Recovery Plan: LDR Additional comments: [facility] 2023-07-25 09:10:01 Problem: Intrapartum process (including labor pain) Goal: Absence of or reduction of complications of labor Outcome: Progressing as expected Goal: Able to cope with pain Outcome: Progressing as expected Goal: Adequate to move to next level of care Outcome: Progressing as expected Goal: Reduction in pain sensation Outcome: Progressing as expected EDO Forbes RN [facility] 2023-07-17 20:00:38 38 weeks juani for a few hours. Water intact. Report to CHERI Ratliff Pt transported to L&D via WC with ED PCT NG MACHINE MECHANIC Desire Salas RN [facility] 2023-06-29 13:41:35 Nurse Report Report given to CHERI Maravilla. Chief complaint and assessment findings. Plan of care discussed with both nurses. Marleen Carmona RN NG MACHINE MECHANIC [facility] 2023-06-29 13:35:22 CC: patient presents [...] amb without assistance. Appears in no distress. NG MACHINE MECHANIC Marleen Carmona RN [facility] 2023-03-03 14:03:14 Formatting of this n ote might be different from the original. Called patient, notified patient positive for UTI. Educated patient on antibiotics, good perineal hygiene, and increasing fluids. Pt verbalized understanding. ABDOULAYE MONTALVO RN 03/03/2023 2:03 PM Abdoulaye Montalvo RN [facility] 2023-03-03 13:49:09 Formatting of this n ote might be different from the original. Please notify the patient of UTI, meds have been sent to the pharmacy. Please advise the patient on good perineal hygiene, drinking plenty of water, and completing the entire course of treatment. SADAF Olivo 03/03/2023 1:[address] [facility] 2023-01-22 15:26:40 Formatting of this [...] in no apparent distress, Mary Walden RN [facility] 2023-01-22 13:59:57 Formatting of this n ote might be different from the original. Patient states "I don't know what it is, its the pains right here (points to left upper quadrant). Everytime I am here they can't tell me what it is." Patient c/o left upper quadrant pain that has been ongoing since the beginning of her . Curly Barrios RN [facility] 2023-01-20 11:30:39 Formatting of this n ote might be different from the original. Called pt, pt having pain after er visit at [facility]. Pt reports diagnosed with subchorionic hematoma. Pt denies vaginal bleeding at this time. Pt has hospital records, pt scheduled for same day new ob visit. Pt given strict er warnings and advised to bring records. Pt verbalized understanding. Louise Leyva RN 01/20/23 11:31 AM Louise Leyva RN [facility] 2023-01-20 10:22:46 Formatting of this n ote might be different from the original. Harper Sequeira is a 22 year old female calling requesting to talk with an nurse went to ER on 01/18 and still having pain getting worse L side of uterus constant and hard to walk around. Please contact patient at [phone] [facility] 2023-01-17 19:08:00 Formatting of this n ote might be different from the original. Regardin weeks :5 days to 1 week feels heart rate beats fast.happened again about 5 to 10 min ago. ----- Message from Betzaida Acosta sent at 01/17/2023 7:07 PM CDT ----- Harper Sequeira is a 22 year old female [facility] 2023-01-17 19:08:00 Formatting of this n ote might be different from the original. Triage Assessment Last Clinic Visit: 08/25/09, pedi, acute pharyngitis Primary Symptom: tachycardia Onset / Duration: today Location / Description: cardiac Pain / Severity: 4-5 Associated Symptoms: "breathing hard", abdominal pain Fever [...] of care. Pt reports will go to [facility] ER. Pt reports will have to call [...] breathing Protocols used: Heart Rate and Heartbeat [id number] [facility]
[2024-10-14] MEDS ORDERED: NA CHLORIDE 0.9% 1,000 ML ONE ×2 (22:02→22:14)
[2024-10-14 22:51] LABS: Absolute Eosinophils 0.3 K/uL (0-0.5); Absolute Lymphocytes (CBC) 1.9 K/uL (0.7-4.9); Absolute Monocytes 0.3 K/uL (0.1-1.3); Absolute Neutrophil 3.2 K/uL (1.8-8.0); Basophils % 0.5 % (0-1.3); Eosinophils % 5.4 % (0-4.4); Hematocrit 37.5 % (36.0-45.0); Hemoglobin 12.8 g/dL (12.0-15.0); Lymphocytes % 32.8 % (15.3-44.8); MCH 29.7 pg (27.0-35.0); MCV 87.1 fL (80-100); MPV 7.5 fL (7.6-11.3); Monocytes % 4.8 % (3.3-12.3); Neutrophils % 56.5 % (41.7-73.7); Nucleated Red Blood Cells % 0.1 % (0-0); Platelets 249 thou/uL (152-406); Red Cell Distribution Width 13.4 % (12.1-15.2)
[2024-10-14 23:12] LABS: Anion Gap 6.3 mEq/L (5.0-15.0); Magnesium 2.1 mg/dL (1.6-2.4); Potassium 3.3 mEq/L (3.5-5.1); Thyroid Stimulating Hormone 2.84 uIU/mL (0.358-3.740)
--- NOTE | 2024-10-14 23:30 | ER ---
Nurse's Notes [facility] Name: Harper Smith Age: 24 yrs Sex: Female : 2000 Arrival Date: 10/14/2024 Time: 20:22 Bed 5 Private MD: Diagnosis: Adverse effect of unspecified drugs, medicaments and biological substances;Mixed depression and anxiety disorder Presentation: 10/14 20:40 Chief complaint: Patient states: MY ANXIETY AND DEPRESSION WAS GETTING BAD AFTER HAVING ha1 MY BABY OVER A YEAR AGO, I GOT PRESCRIBED SOME MEDICATIONS FOR MY DEPRESSION BUT LATELY I FEEL THAT TINGLING ALL OVER MY FACE. 20:40 Coronavirus screen: Client denies travel out of the [place] in the last 14 days. Ebola ha1 Screen: No symptoms or risks identified at this time. Initial Sepsis Screen: Does the patient meet any 2 criteria? No. Patient's initial sepsis screen is negative. Does the patient have a suspected source of infection? No. Patient's initial sepsis screen is negative. Risk Assessment: Do you want to hurt yourself or someone else? Patient reports no desire to harm self or others. Onset of symptoms was October 14, 2024. 20:40 Method Of Arrival: Ambulatory ha1 20:40 Acuity: BASIL 3 ha1 Triage Assessment: 20:57 General: Appears comfortable, Behavior is calm, cooperative. Respiratory:. 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 - Infectious Disease History:: Denies. - Social history:: Smoking status: Patient reports the use of cigarette tobacco products, smokes one-half pack cigarettes per day, Reported history of juuling and/or vaping. Screenin:24 [facility] ED Fall Risk Assessment (Adult) History of falling in the last 3 months, bm8 including since admission No falls in past 3 months (0 pts) Confusion or Disorientation No (0 pts) Intoxicated or Sedated No (0 pts) Impaired Gait No (0 pts) Mobility Assist Device Used No (0 pt) Altered Elimination No (0 pt) Score/Fall Risk Level 0 - 2 = Low Risk Oriented to surroundings, Maintained a safe environment, Educated pt \T\ family on fall prevention, incl call for assistance when getting out of bed, Assessed \T\ reinforced patient's understanding of fall precautions, Hourly rounding (assess needs \T\ fall precautionary measures) done, Used ambulatory aids as needed (educated on \T\ assisted with), Used gait belt as appropriate. Abuse screen: Denies threats or abuse. Nutritional screening: No deficits noted. Tuberculosis screening: No symptoms or risk factors identified. Assessment: 22:24 Reassessment: Patient appears in no apparent distress at this time. Patient and/or bm8 family updated on plan of care and expected duration. Pain level reassessed. Patient is alert, oriented x 3, equal unlabored respirations, skin warm/dry/pink. General: Appears in no apparent distress. comfortable, Behavior is calm, cooperative, appropriate for age. Pain: Denies pain. Pain does not radiate. Pain currently is 2 out of 10 on a pain scale. Pain began gradually. Neuro: No deficits noted. Level of Consciousness is awake, alert, obeys commands. Cardiovascular: Denies chest pain, Heart tones S1 S2 present Capillary refill < 3 seconds in bilateral fingers Patient's skin is warm and dry. Respiratory: Airway is patent Respiratory effort is even, unlabored, Respiratory pattern is regular, symmetrical, Breath sounds are clear bilaterally. GI: No signs and/or symptoms were reported involving the gastrointestinal system. : No signs and/or symptoms were reported regarding the genitourinary system. EENT: No signs and/or symptoms were reported regarding the EENT system. Derm: No signs and/or symptoms reported regarding the dermatologic system. Musculoskeletal: No signs and/or symptoms reported regarding the musculoskeletal system. 23:35 Reassessment: Patient appears in no apparent distress at this time. Patient and/or bm8 family updated on plan of care and expected duration. Pain level reassessed. Patient is alert, oriented x 3, equal unlabored respirations, skin warm/dry/pink. Patient denies pain at this time. Patient states feeling better. Patient states symptoms have improved. Vital Signs: 20:40 BP 106 / 77; Pulse 80; Resp 17 S; Temp 97.9; Pulse Ox 99% on R/A; Weight 64.86 kg; ha1 Height 5 ft. 2 in. ; 22:24 BP 116 / 89; Pulse 77; Resp 18; Temp 97.9; Pulse Ox 98% ; Pain 3/10; bm8 23:35 BP 113 / 79; Pulse 79; Resp 18; Temp 97.9; Pulse Ox 98% ; Pain 0/10; bm8 20:40 Body Mass Index 26.15 (64.86 kg, 157.48 cm) ha1 22:24 Pain Scale: Adult bm8 23:35 Pain Scale: Adult bm8 Dorene Coma Score: 22:24 Eye Response: spontaneous(4). Motor Response: obeys commands(6). Verbal Response: bm8 oriented(5). Total: 15. 23:35 Eye Response: spontaneous(4). Motor Response: obeys commands(6). Verbal Response: bm8 oriented(5). Total: 15. ED Course: 20:25 Patient arrived in ED. jj6 20:30 Gisele Bullock PA-C is PHCP. sb4 20:30 Josue Remy MD is Attending Physician. sb4 20:57 Triage completed. ha1 21:52 Joelle Haley RN is Primary Nurse. vc1 22:24 Patient has correct armband on for positive identification. Placed in gown. Bed in low bm8 position. Call light in reach. Side rails up X 1. Adult w/ patient. Client placed on continuous cardiac and pulse oximetry monitoring. NIBP monitoring applied. monitor worker on. Pulse ox on. NIBP on. Door closed. Noise minimized. Warm blanket given. Pillow given. Verbal reassurance given. Head of bed elevated. 22:24 No provider procedures requiring assistance completed. Initial lab(s) drawn, by ED bm8 staff, sent to lab. EKG done, by ED staff, reviewed by Gisele Bullock PA-C. Inserted saline lock: 20 gauge in right antecubital area, using aseptic technique. Blood collected. Flushed with 10 mL NS. Patient maintains SpO2 saturation greater than 95% on room air. 23:35 Provided Education on: post er care. bm8 23:35 IV discontinued, intact, bleeding controlled, No redness/swelling at site. Pressure bm8 dressing applied. 23:37 Arm band placed on right wrist. bm8 Administered Medications: 22:23 Drug: NS 0.9% IV 1000 ml IV at 1 bolus Per protocol; to be given as a bolus over 60 bm8 minutes Route: IV; Rate: 1 bolus; Site: right antecubital; 23:36 Follow up: Response: No adverse reaction; IV Status: Completed infusion bm8 Medication: 22:24 VIS not applicable for this client. bm8 Outcome: 23:30 Discharge ordered by . sb4 23:35 Discharged to home ambulatory, bm8 23:35 Condition: stable 23:35 Discharge instructions given to patient, family, Instructed on discharge instructions, follow up and referral plans. no drinking with medication, no driving heavy equipment, medication usage, safety practices, Demonstrated understanding of instructions, follow-up care, medications, Prescriptions given X 1, 23:37 Patient left the ED. bm8 Signatures: Shira Hobson jj6 Joelle Haley, RN RN vc1 Gala Moore, RN RN ha1 Gisele Bullock, PA-C PA-C sb4 Avelino Rios, RN RN bm8
--- NOTE | 2024-10-14 23:30 | EDPHYS ---
Physician Documentation [facility] Name: Harper Smith Age: 24 yrs Sex: Female : 2000 Arrival Date: 10/14/2024 Time: 20:22 Bed 5 Private MD: ED Physician Josue Remy HPI: 10/14 21:56 This 24 yrs old Female presents to ER via Ambulatory with complaints of Possible med sb4 interaction, Chest Pain, Numbness. 21:56 Patient states that she has been experiencing intermittent numbness and tingling in her sb4 legs bilaterally that radiates up her body. She states that it has been worse over the past week or so. She believes it may be secondary to a recent medication she was started on. States that she has been dealing with some depression and anxiety, was seen by her PCP last week, and started on Abilify and hydroxyzine. States that she does have a history of hearing and seeing things and was told she might be schizophrenic. This is the first time she has ever been on an antipsychotic. States that she has not been hearing or seeing anything since starting the medication but has caused her numbness and tingling to be worse and has given her episodes of chest pain and palpitations. Her primary care also told her she needed to have blood work done to rule out anything else but she states that she cannot afford it. 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 - Infectious Disease History:: Denies. - Social history:: Smoking status: Patient reports the use of cigarette tobacco products, smokes one-half pack cigarettes per day, Reported history of juuling and/or vaping. ROS: 21:56 Constitutional: Negative for fever, chills, and weight loss, sb4 21:56 Cardiovascular: Positive for palpitations, 21:56 Neuro: Positive for per HPI, Exam: 22:02 Constitutional: This is a well developed, well nourished patient who is awake, alert, sb4 and in no acute distress. Head/Face: Normocephalic, atraumatic. Eyes: Extra-ocular motions intact. Periorbital areas with no swelling, redness, or edema. ENT: Mucous membranes moist. Cardiovascular: Regular rate and rhythm with a normal S1 and S2. Respiratory: No increased work of breathing, no retractions or nasal flaring. Abdomen/GI: Soft, non-tender, no distension. Skin: Warm, dry with normal turgor. Normal color with no rashes, no lesions, and no evidence of cellulitis. Vital Signs: 20:40 BP 106 / 77; Pulse 80; Resp 17 S; Temp 97.9; Pulse Ox 99% on R/A; Weight 64.86 kg; ha1 Height 5 ft. 2 in. ; 22:24 BP 116 / 89; Pulse 77; Resp 18; Temp 97.9; Pulse Ox 98% ; Pain 3/10; bm8 23:35 BP 113 / 79; Pulse 79; Resp 18; Temp 97.9; Pulse Ox 98% ; Pain 0/10; bm8 20:40 Body Mass Index 26.15 (64.86 kg, 157.48 cm) ha1 22:24 Pain Scale: Adult bm8 23:35 Pain Scale: Adult bm8 Dorene Coma Score: 22:24 Eye Response: spontaneous(4). Motor Response: obeys commands(6). Verbal Response: bm8 oriented(5). Total: 15. 23:35 Eye Response: spontaneous(4). Motor Response: obeys commands(6). Verbal Response: bm8 oriented(5). Total: 15. MDM: 20:31 Medical Screening Exam initiated sb4 23:30 Data reviewed: vital signs, nurses notes, lab test result(s), EKG, and as a result, I sb4 will discharge patient. Counseling: I had a detailed discussion with the patient and/or guardian regarding the historical points, exam findings, and any diagnostic results supporting the discharge/admit diagnosis, radiology results, the need for outpatient follow up, for definitive care, to return to the emergency department if symptoms worsen or persist or if there are any questions or concerns that arise at home. 10/14 21:51 Order name: CBC with Diff; Complete Time: 22:56 sb4 10/14 21:51 Order name: BMP; Complete Time: 23:12 sb4 10/14 21:51 Order name: TSH; Complete Time: 23:12 sb4 10/14 21:51 Order name: Test, Serum; Complete Time: 22:59 sb4 10/14 21:51 Order name: Magnesium; Complete Time: 23:12 sb4 10/14 21:59 Order name: EKG; Complete Time: :59 sb4 10/14 21:51 Order name: IV Start; Complete Time: 22:23 sb4 10/14 21:59 Order name: EKG - Nurse/Tech; Complete Time: 22:23 sb4 EC:23 Rate is 71 beats/min. Rhythm is regular, Normal Sinus Rhythm. TX interval is normal at sb4 144 msec. QRS interval is normal at 78 msec. QT interval is normal at 384 msec. No Q waves. T waves are Normal. No ST changes noted. Clinical impression: No evidence of ischemia. Interpreted by me. Reviewed by me. Administered Medications: 22:23 Drug: NS 0.9% IV 1000 ml IV at 1 bolus Per protocol; to be given as a bolus over 60 bm8 minutes Route: IV; Rate: 1 bolus; Site: right antecubital; 23:36 Follow up: Response: No adverse reaction; IV Status: Completed infusion bm8 Disposition: 10/15 02:04 Co-signature as Attending Physician, Josue Remy MD I reviewed the patient's care rn provided by the Advanced Practice Provider and agree with the diagnosis and treatment plan. Disposition Summary: 10/14/24 23:30 Discharge Ordered Notes: Location: Home sb4 Problem: new sb4 Symptoms: have improved sb4 Condition: Stable sb4 Diagnosis - Adverse effect of unspecified drugs, medicaments and biological substances sb4 - Mixed depression and anxiety disorder sb4 Followup: sb4 - With: Private Physician - When: 1 week - Reason: Recheck today's complaints, Continuance of care, Re-evaluation by your physician Discharge Instructions: - Discharge Summary Sheet sb4 - Managing Depression, Adult sb4 - Managing Anxiety, Adult sb4 Forms: - Patient Portal Instructions sb4 - Leadership Thank You Letter sb4 Prescriptions: - Fluoxetine 20 mg Oral Tablet - take 1 tablet ORAL route once daily in the morning; 30 tablet; Refills: 0, sb4 Product Selection Permitted Signatures: Dispatcher [employer] Josue Dexter MD MD rn Ayala, Heidy, RN RN ha1 Gisele Bullock PA-C PA-C sb4 Avelino Rios RN RN bm8
[2024-10-15 00:18] VITALS: TEMP 97.9
[2024-10-15 00:20] VITALS: O2SAT 98
[2024-10-15 00:22] VITALS: BP 113/79
--- NOTE | 2024-10-18 12:20 | EKG ---
Test Date: 2024-10-14 Test Time: 22:20:40 International Sales Representative: SAUNDRA MEASUREMENT RESULTS: Intervals: Rate: 71 DC: 144 QRSD: 78 QT: 384 QTc: 417 [place]: P: 38 DC: 144 QRS: 72 T: 47 INTERPRETIVE STATEMENTS: Normal sinus rhythm Normal ECG Compared to ECG 04/12/2024 16:46:10 Sinus arrhythmia no longer present ST (T wave) deviation no longer present Electronically Signed On 10-18-24 12:10:58 CDT by Cheo Jimenez
== END 2024-10-14 23:37 | disposition home or self-care (01) ==
LOC: ER 20:22
DX: R00.2 Palpitations (principal); T43.595A Adverse effect of other antipsychotics and neuroleptics, initial encounter; F41.8 Other specified anxiety disorders; F17.210 Nicotine dependence, cigarettes, uncomplicated
CPT/HCPCS: 36415; 80048; 83735; 84443; 84703; 85025; 93005; 96360; 99285; J7030